=== PATIENT | female | born 1960 | race Caucasian/White ===

== ENCOUNTER → 2017-07-27 16:04 | Outpatient (CLI) | payer OTHER, SELFPAY ==
[2017-07-29 08:53] LABS: Thyroid Peroxidase AB 31 IU/mL (0-34)
== END ==
PROVIDERS: Family Provider Internal Medicine; PCP Internal Medicine; Visit Provider Internal Medicine
DX: R76.8 Other specified abnormal immunological findings in serum (principal)
CPT/HCPCS: 36415; 86376

== ENCOUNTER → 2017-09-03 16:28 | Outpatient (CLI) | payer OTHER, SELFPAY ==
--- NOTE | 2017-09-03 16:34 | RAD_ITS ---
STUDY: X-RAY - ABDOMEN/PELVIS REASON FOR EXAM: Female, 56 years old. Vomiting TECHNIQUE: Two AP supine views of the abdomen and pelvis. COMPARISON: None. FINDINGS: There is no bowel obstruction. There is air and stool to the level of the rectum. There are surgical clips in the right upper quadrant, consistent with prior cholecystectomy. The visualized osseous structures are within normal limits. RAD/Abdomen Single View IMPRESSION: No bowel obstruction. Electronically Signed: Zion Bautista, at 17:12 EDT Tel , Service support ,
== END ==
PROVIDERS: Family Provider Internal Medicine; PCP Internal Medicine; Visit Provider Nurse Practitioner
DX: R10.9 Unspecified abdominal pain (principal)
CPT/HCPCS: 74018

== ENCOUNTER → 2018-01-17 12:52 | Outpatient (CLI) | payer OTHER, SELFPAY ==
[2018-01-17 13:53] LABS: ALB/GLOB Ratio 0.9 RATIO (0.9-2.4); AST(SGOT) 22 U/L (15-37); Alanine Aminotransfer ALT/SGPT 29 U/L (13-56); Albumin, Serum 3.6 g/dL (3.2-5.0); Alkaline Phosphatase 53 U/L (45-117); Anion Gap 7 (5-15); BUN 14 mg/dL (7-18); BUN/Creat Ratio 17.7 RATIO (10-20); Calcium,Total 8.6 mg/dL (8.5-10.1); Chloride 107 mmol/L (98-107); Creatinine, Serum 0.79 mg/dL (0.55-1.02); EST Glomerular Filtration Rate 79 mL/min (>60); Est Glom Filt Rate - Afr Amer 96 mL/min (>60); Globulin 3.9 g/dL (2.2-4.2); Glucose 82 mg/dL (74-106); LDH 206 U/L (84-246); Potassium 4.2 mmol/L (3.5-5.1); Protein, Total 7.5 g/dL (6.4-8.2); Sodium Level 140 mmol/L (136-145)
[2018-01-17 14:10] LABS: Absolute Neutrophil Count 3.2 X10^3/uL (2.0-7.7); Basophil# 0.04 X10^3/uL; Basophil% 0.7 % (0-1); Eosinophil# 0.08 X10^3/uL; Eosinophils% 1.3 % (0-5); Hematocrit 40.3 % (37-47); Hemoglobin 13.7 g/dl (12.0-15.0); Lymphocyte % 34.3 % (19-41); Mean Corpuscular Volume 88.4 fL (81-99); Mean Platelet Vol. 9.3 fl (6.2-12.0); Monocyte# 0.66 X10^3/uL; Monocyte% 10.8 % (0-10); Neutrophil # 3.24 X10^3/uL (2.7-7.7); Neutrophil % 52.7 % (47-70); Platelet Count 305 K/mm3 (150-450); RBC Distribution Width SD 38.1 fl (35.1-43.9); Red Blood Count 4.56 M/mm3 (4.2-5.4); White Blood Count 6.1 K/mm3 (4.4-11.0)
[2018-01-17 14:13] LABS: POSITIVE COUNT NO; POSITIVE DIFFERENTIAL NO; POSITIVE MORPHOLOGY NO
== END ==
PROVIDERS: Family Provider Internal Medicine; PCP Internal Medicine; Visit Provider Internal Medicine Medical Oncology
DX: Z85.118 Personal history of other malignant neoplasm of bronchus and lung (principal)
CPT/HCPCS: 36415; 71250; 80053; 83615; 85025

== ENCOUNTER → 2018-02-18 12:26 | Outpatient (CLI) | payer OTHER, SELFPAY ==
--- NOTE | 2018-02-18 12:30 | RAD_ITS ---
STUDY: X-RAY - LEFT SHOULDER REASON FOR EXAM: Female, 57 years old. Palpable abnormality overlying the left clavicle. TECHNIQUE: 5 view(s) of the shoulder. COMPARISON: None. FINDINGS: Normal glenohumeral articulation. Normal acromioclavicular joint. Normal acromion. Normal humeral head and visualized proximal humerus. The soft tissue structures are unremarkable. Normal visualized pulmonary apex. RAD/Shoulder min 2 Views IMPRESSION: Normal x-ray examination of the shoulder. Electronically Signed: Bashir Lara MD at 12:55 EDT Tel [phone], Service support ,
== END ==
PROVIDERS: Family Provider Internal Medicine; PCP Internal Medicine; Visit Provider Internal Medicine
DX: M25.512 Pain in left shoulder (principal)
CPT/HCPCS: 73030

== ENCOUNTER 2018-06-03 10:46 | Emergency (ER) | payer OTHER, SELFPAY ==
[2018-06-03 10:47] VITALS: BP 147/93; PULSE 64; RESP 16; TEMP 36.5; O2SAT 98; BMI 21.4
--- NOTE | 2018-06-03 10:50 | ED.RN ---
CALLED FOR EKG
--- NOTE | 2018-06-03 10:58 | EKG12_ITS ---
Test Reason : PALPS Blood Pressure : / mmHG Vent. Rate : 062 BPM Atrial Rate : 062 BPM P-R Int : 146 ms QRS Dur : 084 ms QT Int : 408 ms P-R-T Axes : 046 064 069 degrees QTc Int : 414 ms Normal sinus rhythm Normal ECG Confirmed by RENE TRENT, CHANDANA ([id number]), electronic news gathering editor CHRIS MOY ([id number]) on 06/06/2018 1:23:29 PM Referred By: MARY Confirmed By:CHANDANA LÓPEZ MD
[2018-06-03 10:59] VITALS: PULSE 64; RESP 18; O2SAT 100
[2018-06-03 11:01] VITALS: BP 144/83
--- NOTE | 2018-06-03 11:07 | RAD_ITS ---
STUDY: X-RAY CHEST REASON FOR EXAM: Female, 57 years old. Chest pain, anxiety, palpitations. History of right lung lower lobe removal. TECHNIQUE: AP portable upright chest COMPARISON: 12/02/2015 chest x-ray. CT chest 01/17/2018. FINDINGS: Chronic mild blunting of the right costophrenic angle suggesting prior surgery. Lungs clear. Normal cardiomediastinal silhouette, jamal and pleural margins. No acute osseous or upper abdominal process. RAD/Chest 1 View (Portable) IMPRESSION: No acute cardiopulmonary process. Electronically Signed: Raman Mcmillan MD at 11:31 EST Tel , Service support ,
[2018-06-03 11:16] LABS: Absolute Lymphocyte Count 1.91 X10^3/ul (0.83-4.51); Basophil# 0.03 X10^3/uL; Basophil% 0.5 % (0-1); Eosinophil# 0.07 X10^3/uL; Eosinophils% 1.3 % (0-5); Hematocrit 40.9 % (37-47); Hemoglobin 13.8 g/dl (12.0-15.0); Lymphocyte # 1.91 X10^3/ul (4.0); Lymphocyte % 34.2 % (19-41); Mean Corp Hgb Conc 33.7 g/gl (32-36); Mean Corpuscular Hgb 29.7 pg (27.0-32.0); Mean Corpuscular Volume 88.1 fL (81-99); Mean Platelet Vol. 8.9 fl (6.2-12.0); Monocyte# 0.55 X10^3/uL; Monocyte% 9.9 % (0-10); Neutrophil # 3.02 X10^3/uL (2.7-7.7); Neutrophil % 54.1 % (47-70); Platelet Count 258 K/mm3 (150-450); RBC Distribution Width SD 38.7 fl (35.1-43.9); Red Blood Count 4.64 M/mm3 (4.2-5.4); White Blood Count 5.6 K/mm3 (4.4-11.0)
[2018-06-03 11:17] LABS: POSITIVE COUNT NO; POSITIVE DIFFERENTIAL NO; POSITIVE MORPHOLOGY NO
[2018-06-03] MEDS: Aspirin 81 MG TAB.CHEW 324 MG PO (11:17)
[2018-06-03 11:31] LABS: Anion Gap 9 (5-15); BUN 12 mg/dL (7-18); BUN/Creat Ratio 15.4 RATIO (10-20); Calcium,Total 8.7 mg/dL (8.5-10.1); Chloride 105 mmol/L (98-107); Creatinine, Serum 0.78 mg/dL (0.55-1.02); EST Glomerular Filtration Rate 80 mL/min (>60); Est Glom Filt Rate - Afr Amer 97 mL/min (>60); Estimated Creatinine Clearance 67.06 ml/min; Glucose 94 mg/dL (74-106); Potassium 3.7 mmol/L (3.5-5.1); Sodium Level 141 mmol/L (136-145)
--- NOTE | 2018-06-03 11:50 | ED.VISSUMM ---
- ER Visit Summary Date of Service: 06/03/18 Chief Complaint: Palpitations History of Present Illness: The patient is a 57 F who presents with palpitations. Started 3 days ago. She has had continuous palpitations for the past couple of days. She has had these intermittently in the past. I think it is from caffeine. She is also on metoprolol at half a pill twice a day. She denies any chest pain. No other symptoms. She does look a little anxious. Physical Examination: Vital signs reviewed. HEENT exam unremarkable. Heart is regular rate and rhythm without murmurs. Lungs are clear to auscultation. Abdomen is soft and nontender. Extremities reveal no edema. Skin exam normal. Neurologic exam normal. Test Results: EKG, labs and chest x-ray are all normal Emergency Department Course and Treatment: Patient's new blood pressure is 140/60. I informed her that we have no acute findings. She can increase her metoprolol to a full pill in the morning if she has the symptoms. She will call her PCP for follow-up Treatment Plan: [] Disposition: Discharge Impression: Palpitations This note was generated with [employer] dictation software. It may contain incorrect words, spelling, and punctuation that were not noted in review of the chart prior to signing ED Disposition - Plan for ED Patient: Chief Complaint: Palpitations Referrals: Ambreen West DO [Primary Care Provider] -
--- NOTE | 2018-06-03 11:53 | ED.DEP ---
ED Disposition - Plan for ED Patient: Disposition: Home or Assisted Living Chief Complaint: Palpitations Instructions: ED Palpitations Referrals: Ambreen West DO [Primary Care Provider] -
[2018-06-03 12:36] VITALS: BP 128/85; PULSE 52; RESP 19; O2SAT 98
== END 2018-06-03 12:37 | disposition home or self-care (01) ==
PROVIDERS: Emergency Provider Emergency Medicine; Family Provider Internal Medicine; PCP Internal Medicine
DX: R00.2 Palpitations (principal); Z79.899 Other long term (current) drug therapy
CPT/HCPCS: 71045; 80048; 84484; 85025; 93005; 99284; A4216

== ENCOUNTER → 2018-07-20 10:35 | Outpatient (CLI) | payer OTHER, SELFPAY ==
[2018-07-20 11:22] LABS: Absolute Lymphocyte Count 2.35 X10^3/ul (0.83-4.51); Absolute Neutrophil Count 3.9 X10^3/uL (2.0-7.7); Basophil# 0.03 X10^3/uL; Basophil% 0.4 % (0-1); Eosinophil# 0.11 X10^3/uL; Eosinophils% 1.6 % (0-5); Hematocrit 40.2 % (37-47); Hemoglobin 13.3 g/dl (12.0-15.0); Lymphocyte # 2.35 X10^3/ul (4.0); Lymphocyte % 33.6 % (19-41); Mean Corp Hgb Conc 33.1 g/gl (32-36); Mean Corpuscular Hgb 30.1 pg (27.0-32.0); Mean Platelet Vol. 9.1 fl (6.2-12.0); Monocyte# 0.58 X10^3/uL; Monocyte% 8.3 % (0-10); Neutrophil # 3.92 X10^3/uL (2.7-7.7); POSITIVE COUNT NO; POSITIVE DIFFERENTIAL NO; POSITIVE MORPHOLOGY NO; Platelet Count 265 K/mm3 (150-450); RBC Distribution Width SD 40.3 fl (35.1-43.9); Red Blood Count 4.42 M/mm3 (4.2-5.4)
[2018-07-20 11:58] LABS: ALB/GLOB Ratio 1.1 RATIO (0.9-2.4); AST(SGOT) 34 U/L (15-37); Alanine Aminotransfer ALT/SGPT 48 U/L (13-56); Albumin, Serum 3.6 g/dL (3.2-5.0); Alkaline Phosphatase 72 U/L (45-117); Anion Gap 5 (5-15); BUN 13 mg/dL (7-18); BUN/Creat Ratio 15.5 RATIO (10-20); Calcium,Total 8.3 mg/dL (8.5-10.1); Chloride 107 mmol/L (98-107); Creatinine, Serum 0.84 mg/dL (0.55-1.02); EST Glomerular Filtration Rate 74 mL/min (>60); Est Glom Filt Rate - Afr Amer 89 mL/min (>60); Globulin 3.4 g/dL (2.2-4.2); Glucose 55 mg/dL (74-106); Sodium Level 142 mmol/L (136-145); Thyroid Stim Hormone (TSH) 1.96 uIU/mL (0.358-3.74)
== END ==
PROVIDERS: Family Provider Internal Medicine; PCP Internal Medicine; Referring Provider Internal Medicine; Visit Provider Internal Medicine
DX: F41.9 Anxiety disorder, unspecified (principal); N89.8 Other specified noninflammatory disorders of vagina
CPT/HCPCS: 36415; 80053; 84443; 85025; 87086; 87088

== ENCOUNTER 2018-12-29 10:51 | Emergency (ER) | payer OTHER, SELFPAY ==
[2018-10-27 13:32] VITALS: BMI 21.4
[2018-12-29 10:52] VITALS: BP 164/87; PULSE 65; RESP 17; TEMP 36.8; O2SAT 99; BMI 22.8
--- NOTE | 2018-12-29 11:17 | EKG12_ITS ---
Test Reason : PALPS Blood Pressure : / mmHG Vent. Rate : 054 BPM Atrial Rate : 054 BPM P-R Int : 152 ms QRS Dur : 078 ms QT Int : 424 ms P-R-T Axes : 036 046 060 degrees QTc Int : 402 ms Sinus bradycardia Otherwise normal ECG Confirmed by RENE TRENT, CHANDANA ([id number]), corporate driver SAL HARTLEY ([id number]) on 01/01/2019 10:37:42 AM Referred By: NAHID Confirmed By:CHANDANA LÓPEZ MD
--- NOTE | 2018-12-29 11:17 | RAD_ITS ---
STUDY: X-RAY CHEST REASON FOR EXAM: Female, 58 years old. Heart flutter. Palpitations. TECHNIQUE: Single AP portable view of the chest. COMPARISON: June 03, 2018. FINDINGS: The lungs are clear and expanded. There is no demonstrated pleural abnormality. Normal size heart. Normal mediastinum and jamal. Normal visualized pulmonary arteries. Normal visualized aortic arch and descending thoracic aorta. No visualized osseous changes. There is no demonstrated abnormality of the visualized soft tissue structures of the upper abdomen. RAD/Chest 1 View (Portable) IMPRESSION: No acute cardiopulmonary disease or interval change. Electronically Signed: Barney Jacobs DO at 12:17 EDT Tel [phone], Service support ,
[2018-12-29 11:27] VITALS: O2SAT 97
[2018-12-29 11:39] LABS: Absolute Lymphocyte Count 2.19 X10^3/uL (0.83-4.51); Absolute Neutrophil Count 3.6 X10^3/uL (2.0-7.7); Basophil# 0.04 X10^3/uL; Basophil% 0.6 % (0-1); Eosinophil# 0.08 X10^3/uL; Eosinophils% 1.2 % (0-5); Hematocrit 42.6 % (37-47); Hemoglobin 14.5 g/dL (12.0-15.0); Lymphocyte # 2.19 X10^3/ul (4.0); Lymphocyte % 33.8 % (19-41); Mean Corpuscular Hgb 30.3 pg (27.0-32.0); Mean Corpuscular Volume 89.1 fL (81-99); Monocyte# 0.54 X10^3/uL; Monocyte% 8.3 % (0-10); NRBC Flagged by Analyzer 0 % (0-5); Neutrophil # 3.61 X10^3/uL (2.7-7.7); Neutrophil % 55.9 % (47-70); Platelet Count 306 K/mm3 (150-450); RBC Distribution Width CV 11.5 % (11.6-14.6); Red Blood Count 4.78 M/mm3 (4.2-5.4); White Blood Count 6.5 K/mm3 (4.4-11.0)
[2018-12-29 12:02] LABS: Anion Gap 5 (5-15); BUN 12 mg/dL (7-18); BUN/Creat Ratio 15.2 RATIO (10-20); Calcium,Total 9.2 mg/dL (8.5-10.1); Chloride 107 mmol/L (98-107); Creatinine, Serum 0.79 mg/dL (0.55-1.02); EST Glomerular Filtration Rate 79 mL/min (>60); Est Glom Filt Rate - Afr Amer 95 mL/min (>60); Estimated Creatinine Clearance 65.39 ml/min; Glucose 83 mg/dL (74-106); Potassium 3.8 mmol/L (3.5-5.1); Sodium Level 139 mmol/L (136-145); Thyroid Stim Hormone (TSH) 0.96 uIU/mL (0.358-3.74)
--- NOTE | 2018-12-29 12:19 | ED.VIS.GEN ---
History of Present Illness Informant: Patient, Family Onset: Days - 3 days Context: Gradual Onset Timing: Intermittent, Waxes and wanes Quality: Heart fluttering and skipping beats Location: Chest Current Severity: Mild Maximum Severity: Severe Worsened by: Nothing Relieved by: Rest Associated Symptoms: Heart racing and anxiety Narrative: 58-year-old female with a history of PVCs currently on metoprolol presents to the emergency department with palpitations and feeling like her heart is racing and skipping beats. Patient has a known history of PVCs but feels over the past 3 to 4 days they have gotten more frequent lasting longer. She states that they last for several minutes at a time. She has not had chest pain or shortness of breath and she does not have any exertional symptoms. She has not been lightheaded or dizzy. No coughing. No vomiting. No leg pain or swelling. No recent travel or surgery. She has a Holter monitor and echo scheduled for tomorrow after she saw her primary care physician for same symptoms 2 days ago. Prior similar symptoms: Yes Recent Illness/Hospitalization: No <Marcin Núñez - Last Filed: 12/29/18 12:19> <Luis E Goodman - Last Filed: 12/29/18 12:46> Chief Complaint: Palpitations Past Medical History Prior records reviewed: Yes Past Medical History: - - PVC's Surgical History: no surgical history Smoking Status: Former smoker <Marcin Núñez - Last Filed: 12/29/18 12:19> <Luis E Goodman - Last Filed: 12/29/18 12:46> - Allergies and Home Meds Allergies/Adverse Reactions: Allergies levofloxacin [From Levaquin] Adverse Reaction (Verified 12/29/18 10:52) Swelling METALS Adverse Reaction (Uncoded 12/29/18 10:52) Rash TAPE Adverse Reaction (Uncoded 12/29/18 10:52) Rash Primary Care Physician: Ambreen West DO [Primary Care Provider] - Review of Systems All systems negative except as indicated General: Denies: Chills, Fever Cardiovascular: Reports: Palpitations, Heart racing. Denies: Chest pain Respiratory: Denies: Dyspnea <Marcin Núñez - Last Filed: 12/29/18 12:19> Physical Exam Vital Signs/Narrative: Vital Signs Temp Pulse Resp BP Pulse Ox 12/29/18 11:27 97 12/29/18 10:52 98.3 F 65 17 164/87 H 99 Inital Vital Signs reviewed: Yes General: Well nourished, Well developed, No Acute Distress Head: Normocephalic, Atraumatic Eyes: Perrl, EOMI ENT: Moist mucous membranes Neck: Supple, Nontender Cardiovascular: Regular rate, Regular rhythm, No murmurs Respiratory: No distress, CTA bilaterally, Chest nontender Abdomen: Soft, Nontender, Nondistended, Normal bowel sounds, No masses Back: Nontender Extremities: Nontender, No edema Skin: Normal color, No rash Neurological: Alert, Oriented x3 <Marcin Núñez - Last Filed: 12/29/18 12:19> Vital Signs/Narrative: Vital Signs Temp Pulse Resp BP Pulse Ox 12/29/18 11:27 97 12/29/18 10:52 98.3 F 65 17 164/87 H 99 <Luis E Goodman - Last Filed: 12/29/18 12:46> Diagnostic/Tx/Re-eval Impressions Chest X-Ray 12/29/18 11:17 IMPRESSION: No acute cardiopulmonary disease or interval change. Electronically Signed: Barney Jacobs DO at 12:17 EDT Tel [phone], Service support , 12/29/18 11:17 Chest 1 View (Portable) [RAD] Stat Laboratory Results 12/29/18 12/29/18 11:25 11:25 WBC 6.5 RBC 4.78 Hgb 14.5 Hct 42.6 MCV 89.1 MCH 30.3 MCHC 34.0 RDW Std Deviation 37.0 RDW Coeff of Cole 11.5 L Plt Count 306 MPV 9.0 Immature Gran % (Auto) 0.200 Neut % (Auto) 55.9 Lymph % (Auto) 33.8 [place] % (Auto) 8.3 Eos % (Auto) 1.2 Baso % (Auto) 0.6 Absolute Neuts (auto) 3.6 Absolute Lymphs (auto) 2.19 Nucleated RBC % 0 Sodium 139 Potassium 3.8 Chloride 107 Carbon Dioxide 27.0 Anion Gap 5 BUN 12 Creatinine 0.79 Estim Creat Clear Calc 65.39 Est GFR (MDRD) Af Amer 95 Est GFR (MDRD) Non-Af 79 BUN/Creatinine Ratio 15.2 Glucose 83 Calcium 9.2 Troponin I < 0.015 TSH 0.96 - Medical Decision Making Seen and evaluated independently and in conjunction with physician butcher assistant. Agree with notes above unless documented otherwise. Patient having episodes of palpitations that feels like lots of PVCs continuously, she is used to having PVCs but not these episodes. She is scheduled for a Holter monitor and an echocardiogram tomorrow. She woke up and had another episode like this today that lasted maybe an hour or 2, she felt a little lightheaded but was not near syncopal or syncopal. She had no chest discomfort or shortness of breath. Those symptoms are gone gone now. Her work-up is unremarkable, her exam is fairly benign she does not have a murmur. She is well-appearing. She has sinus rhythm with no ectopy on a monitor or her EKG. Electrolytes are all within normal limits. After discussing thoroughly with the patient, she is stable for discharge home and follow-up as scheduled tomorrow for her Holter and echo, which would be the next step in treatment/diagnoses for this. I do not think we can safely go up on her metoprolol since her heart rate at rest is 50-52. She does not appear to have any AV block. I would continue her medications as prescribed and follow-up with her general hardware salesperson as scheduled. <Luis E Goodman - Last Filed: 12/29/18 12:46> ED Disposition <Marcin Núñez - Last Filed: 12/29/18 12:19> <Luis E Goodman - Last Filed: 12/29/18 12:46> - Plan for ED Patient: Disposition: Home or Assisted Living Diagnosis: Palpitations Instructions: Premature Ventricular Contractions, Palpitations Referrals: Ambreen West DO [Primary Care Provider] - Richard Cardona MD [STAFF PHYSICIAN] - (Follow-up for your Holter monitor and echocardiogram as scheduled tomorrow)
[2018-12-29 13:09] VITALS: BP 134/86; PULSE 51; RESP 16; O2SAT 95
== END 2018-12-29 13:10 | disposition home or self-care (01) ==
PROVIDERS: Emergency Provider Physician Assistant Medical; Family Provider Internal Medicine; PCP Internal Medicine
DX: R00.2 Palpitations (principal); I49.3 Ventricular premature depolarization; Z79.899 Other long term (current) drug therapy; Z87.891 Personal history of nicotine dependence
CPT/HCPCS: 71045; 80048; 84443; 84484; 85025; 93005; 99285; A4216

== ENCOUNTER → 2018-12-30 | Outpatient (CLI) | payer OTHER, SELFPAY ==
[2018-10-27 13:32] VITALS: BMI 21.4
[2018-12-29 10:52] VITALS: BMI 22.8
--- NOTE | 2018-12-30 12:53 | ECHOD_ITS ---
Reason For Study: arrhythmia, other premature beats Procedure This was a 2D Doppler, Color Flow transthoracic echocardiogram. The exam was of adequate technical quality. Exam performed in department. Left Ventricle Normal LV size. Left ventricular systolic function is normal. The estimated ejection fraction is 65 %. Diastolic function is indeterminate. No regional wall motion abnormalities noted. Right Ventricle Normal RV size. Normal systolic function. Atria The left atrium is mildly enlarged. Normal right atrium. No doppler evidence for ASD. Mitral Valve There is no mitral annular calcification. Normal mitral valve. Trivial mitral valve insufficiency. Tricuspid Valve Normal tricuspid valve. Mild tricuspid valve insufficiency. Right ventricular systolic pressure estimated to be 21 mmHg. Aortic Valve Trisinus/trileaflet aortic valve. Normal aortic valve. Pulmonic Valve The pulmonic valve is not well visualized. Trivial pulmonic valve insufficiency. Great Vessels Normal sized aortic root. Pericardium/Pleural No pericardial effusion. MMode/2D Measurements & Calculations LVIDd: 4.4 cm IVSd: 0.75 cm Ao root diam: 2.5 cm LVIDs: 2.7 cm LVPWd: 1.00 cm RVDd: 3.2 cm FS: 39.6 % LAV(MOD-bp): 55.7 ml LA A4 area: 19.1 cm2 LA dimension(2D): 2.8 cm LAV(MOD-bp) Indexed: 34.1 ml/m2 LAV(MOD-sp2): 47.8 ml LAV(MOD-sp4): 56.9 ml RA A4 area: 14.6 cm2 Time Measurements MV dec time: 0.12 sec Doppler Measurements & Calculations MV E max douglas: 120.6 cm/sec Lat Peak E' Douglas: 10.9 cm/sec Med Peak E' Douglas: 8.0 cm/sec MV A max douglas: 61.8 cm/sec E/E' lat: 11.1 E/E' med: 15.1 MV E/A: 2.0 Ao V2 max: 136.0 cm/sec LV V1 max: 114.4 cm/sec TR max douglas: 213.2 cm/sec Ao max P.4 mmHg LV V1 max P.2 mmHg TR max P.2 mmHg Interpretation Summary Left ventricular systolic function is normal. The estimated ejection fraction is 65 %. The left atrium is mildly enlarged. Trivial mitral valve insufficiency. Mild tricuspid valve insufficiency. Trivial pulmonic valve insufficiency. Right ventricular systolic pressure estimated to be 21 mmHg. Diastolic function is indeterminate. Ordering Physician: Rachel Melissa Referring Physician: Ambreen West Performed By: Cindy Vines, DEVANTE, RVT
== END | disposition home or self-care (01) ==
LOC: CVS 12:51
PROVIDERS: Family Provider Internal Medicine; PCP Internal Medicine; Referring Provider Nurse Practitioner; Visit Provider Nurse Practitioner
DX: I49.49 Other premature depolarization (principal)
CPT/HCPCS: 93225; 93226; 93306

== ENCOUNTER → 2019-01-14 | Outpatient (CLI) | payer OTHER, SELFPAY ==
[2018-10-27 13:32] VITALS: BMI 21.4
[2019-01-10 10:38] VITALS: BMI 22.8
--- NOTE | 2019-01-14 14:28 | CT_ITS ---
STUDY: CT CHEST WITHOUT CONTRAST REASON FOR EXAM: Female, 58 years old. Lung cancer surveillance RADIATION DOSAGE (If Supplied By Facility): CTDIvol = ( 9.92 ) mGy, DLP = ( 306.88 ) mGycm TECHNIQUE: Transaxial imaging was performed without the administration of intravenous contrast material. Sagittal and coronal 2-D MPR Individualized dose optimization techniques were used for this CT. COMPARISON: CT chest 01/17/2018, 02/03/2016, 02/09/2015, 02/12/2014, x-ray chest of 12/21/2017, 06/03/2018 FINDINGS: Supraclavicular: No acute process. Body wall soft tissues: No acute process. Upper abdomen: No acute process. Osseous structures: No acute process. Mild scoliosis. Minimal thoracic spondylosis. Mediastinum: Normal esophagus. No mass or lymphadenopathy. Aorta: Nondilated, minimal atherosclerosis. Pulmonary arteries: Normal. Heart: No cardiomegaly. No visible coronary calcifications. No pericardial effusion. Surgical clips are located in the pericardial fat at the right cardiophrenic angle. Lungs: Clear lungs bilaterally. CT/Chest without Contrast IMPRESSION: No acute thoracic process. No evidence of malignancy. Electronically Signed: Raman Mcmillan MD at 15:39 EDT Tel , Service support ,
== END | disposition home or self-care (01) ==
PROVIDERS: Family Provider Internal Medicine; PCP Internal Medicine; Referring Provider Internal Medicine Medical Oncology; Visit Provider Internal Medicine Medical Oncology
DX: Z85.118 Personal history of other malignant neoplasm of bronchus and lung (principal)
CPT/HCPCS: 71250

== ENCOUNTER → 2019-01-20 | Outpatient (CLI) | payer OTHER, SELFPAY ==
[2019-01-10 10:38] VITALS: BMI 22.8
--- NOTE | 2019-01-20 08:57 | AAAS_ITS ---
Reason For Study: Family history of aneurysm Aorta Measurements Aorta Doppler Measurements Proximal aorta measures1.93 x 1.98cm. in cross- Peak systolic flow velocities within the proximal sectional axis. aorta measure 56.7 cm/sec. Proximal aorta measures1.94cm. in longitudinal Peak systolic flow velocities within the mid aorta axis. measure 53.4 cm/sec. Mid aorta measures1.14 x 1.16cm. in cross- Peak systolic flow velocities within the distal sectional axis. aorta measure 97.9 cm/sec. Mid aorta measures1.20cm. in longitudinal axis. Distal aorta measures1.20 x 1.19cm. in cross- sectional axis. Distal aorta measures1.21cm. in longitudinal axis. Left Iliac Artery Left iliac artery measures 0.79 x 0.83 cm. in the cross-sectional axis. Left iliac artery measures 0.77 cm. in the longitudinal axis. Peak systolic velocity in the left iliac artery measures 86.9 cm/sec. Right Iliac Artery Right iliac artery measures 0.69 x 0.71 cm. in the cross-sectional axis. Right iliac artery measures 0.81 cm. in the longitudinal axis. Peak systolic velocity in the right iliac artery measures 97.9 cm/sec. Procedure Aorta IVC Iliac vasculature or bypass grafts [id number]. Exam performed in department. Interpretation Summary Aorta maximally 1.93 x 1.98cm diameter proximally with normal velocity flow Left common iliac 0.79 x 0.83cm with normal flow Right common iliac 0.69 x 0.71cm with normal flow Ordering Physician: Richard Cardona Referring Physician: Ambreen West M.D. Performed By: Rachael Gonsalez RVT
== END | disposition home or self-care (01) ==
LOC: CVS 08:56
PROVIDERS: Family Provider Internal Medicine; PCP Internal Medicine; Referring Provider Internal Medicine Cardiovascular Disease; Visit Provider Internal Medicine Cardiovascular Disease
DX: I10 Essential (primary) hypertension (principal); I49.1 Atrial premature depolarization; I49.3 Ventricular premature depolarization; R06.02 Shortness of breath
CPT/HCPCS: 76706

== ENCOUNTER → 2019-01-21 | Outpatient (CLI) | payer OTHER, SELFPAY ==
[2019-01-10 10:38] VITALS: BMI 22.8
--- NOTE | 2019-01-21 11:08 | STRESSREP ---
Stress Test Report Date: 01-21-19 Procedure: Exercise tolerance test/imaging study Indications: Shortness of breath/dyspnea; Chest discomfort Consent: Per the patient Procedure: The patient exercised on a Jorge protocol for 6 minutes and 27 seconds completing Stage II and 27 seconds of Stage III achieving a peak heart rate of 157 bpm (98 % predicted maximal heart rate) with a peak blood pressure 192/92 mmHg and a peak MET capacity of 7 METs. The baseline ECG demonstrated sinus bradycardia. The peak exercise ECG demonstrated no obvious ECG changes. There was a rare PVC during exercise and an occasional PVC during recovery. The functional capacity was considered average. There was no complaint of chest discomfort during exercise or recovery. The examination was discontinued secondary to dyspnea. Impression: 1. Technically adequate (percent predicted maximal heart rate greater than 85%) exercise tolerance test 2. Peak exercise ECG with no obvious ECG changes 3. There was a rare PVC during exercise and occasional PVC during recovery 4. Nuclear images pending Myocardial perfusion imaging study: Technique: The patient was injected with 11.1 mCi of technetium 99m Cardiolite and subsequently rest SPECT Cardiolite nuclear imaging was obtained in the horizontal long, vertical long, and short axis views. The patient exercised on a Jorge protocol for 6 minutes and 27 seconds completing Stage II and 27 seconds of Stage III achieving a peak heart rate of 157 bpm (98 % predicted maximal heart rate) with a peak blood pressure 192/92 mmHg and a peak MET capacity of 7 METs. The patient was injected with 32.9 mCi of technetium 99m Cardiolite and subsequently stress SPECT Cardiolite nuclear imaging was obtained in the horizontal long, vertical long, and short axis views. A gated Cardiolite study at peak stress was obtained. Interpretation: Rest and stress SPECT Cardiolite nuclear imaging status post realignment and normalization (attenuation correction was not performed) demonstrates the appearance of relative uniform tracer uptake and myocardial perfusion appearing within normal limits. There is end systolic thickening and brightening. The gated Cardiolite study demonstrates myocardial thickening and inward wall motion. The reported LVEF is 80 %. Impression: 1. Rest and stress SPECT Cardiolite nuclear imaging demonstrate relative uniform tracer uptake and myocardial perfusion appearing within normal limits. 2. The gated Cardiolite study reports an LVEF of 80 %. This note was generated with [employer] software. It may contain incorrect words, spelling, and punctuation that were not noted in checking the note before signing.
== END | disposition home or self-care (01) ==
LOC: CVS 06:28
PROVIDERS: Family Provider Internal Medicine; PCP Internal Medicine; Referring Provider Internal Medicine Cardiovascular Disease; Visit Provider Internal Medicine Cardiovascular Disease
DX: R06.02 Shortness of breath (principal); I10 Essential (primary) hypertension; I49.1 Atrial premature depolarization; I49.3 Ventricular premature depolarization
CPT/HCPCS: 78452; 93017; A9500; A4216

== ENCOUNTER → 2019-06-23 14:21 | Outpatient (CLI) | payer OTHER, SELFPAY ==
[2019-01-23 14:00] VITALS: BMI 21.9
--- NOTE | 2019-06-23 14:26 | US_ITS ---
STUDY: ULTRASOUND BREAST - RIGHT REASON FOR EXAM: Female, 58 years old. Abnormal mammogram. TECHNIQUE: Axial and longitudinal images of the RIGHT breast were performed with a high resolution ultrasound transducer. # OF IMAGES: 45 COMPARISON: Comparison is made with prior mammogram dated June 23, 2019. FINDINGS: RIGHT Breast: Dense fibroglandular tissue. No solid or cystic mass lesion is seen. IMPRESSION: No sonographic abnormality is seen. ASSESSMENT CATEGORY: BIRADS Category 1: Negative. A letter regarding these results will be sent to the patient by the facility within 30 days. Electronically Signed: Bashir Lara, at 13:08 EST , Service support , STUDY: ULTRASOUND BREAST - LEFT REASON FOR EXAM: Female, 58 years old. Pain in the left breast. TECHNIQUE: Axial and longitudinal images of the LEFT breast were performed with a high resolution ultrasound transducer. # OF IMAGES: 45 COMPARISON: Comparison is made with prior mammogram from June 23, 2019. FINDINGS: LEFT Breast: The retroareolar region of the breast was examined by ultrasound. No sonographic abnormality is seen. US/Breast Limited Unilateral IMPRESSION: No sonographic abnormality is seen. ASSESSMENT CATEGORY: BIRADS Category 2: Benign. A letter regarding these results will be sent to the patient by the facility within 30 days. Electronically Signed: Bashir Lara, at 13:10 EST , Service support ,
--- NOTE | 2019-06-23 14:26 | BI_ITS ---
MAMMOGRAPHY - BILATERAL DIAGNOSTIC REASON FOR EXAM: Female, 58 years old. Left breast pain. History of lung cancer. PERTINENT HISTORY: Non-contributory. TECHNIQUE: Digital bilateral breast lucia (3D mammographic acquisition) in the CC and MLO projections. 2-D mediolateral oblique (MLO) and craniocaudad (CC) views of both breasts were obtained. CAD: Full Field Digital Mammography with Computer Added Detection was performed. COMPARISON: Comparison is made with prior outside examination dated September 29, 2016. FINDINGS: Breast Composition: The breasts are extremely dense, which lowers the sensitivity of mammography. There are no dominant masses or suspicious calcifications. Stable benign-appearing bilateral axillary lymph nodes. No other significant abnormalities are identified. There has been no significant change since the prior study. BI/DIAG MAMM W/CAD, BILAT IMPRESSION: Stable bilateral diagnostic mammogram. With the patient''s history of left breast pain, correlation with ultrasound is recommended. ASSESSMENT CATEGORY: BIRADS Category 0: Incomplete. Need additional imaging evaluation. A letter regarding these results will be sent to the patient by the facility within 30 days. Approximately 10% of breast cancers are not detected by mammography. A normal mammogram should not delay biopsy of a clinically suspicious abnormality. Electronically Signed: Bashir Lara, at 10:44 EST , Service support ,
== END ==
PROVIDERS: PCP Internal Medicine; Visit Provider Nurse Practitioner Family
DX: N64.4 Mastodynia (principal); R92.8 Other abnormal and inconclusive findings on diagnostic imaging of breast; Z85.118 Personal history of other malignant neoplasm of bronchus and lung
CPT/HCPCS: 76642; 77062; 77066; G0279

== ENCOUNTER → 2019-12-16 07:53 | Outpatient (CLI) | payer OTHER, SELFPAY ==
[2019-01-23 14:00] VITALS: BMI 21.9
[2019-12-11 10:29] VITALS: BMI 22.1
--- NOTE | 2019-12-16 07:56 | MRI_ITS ---
STUDY: MRI LUMBAR SPINE WITH AND WITHOUT CONTRAST REASON FOR EXAM: Female, 58 years old. Back pain, lung CA TECHNIQUE: Standardized fat and water weighted pulse sequences were obtained in the sagittal and axial planes. IV Dotarem 11ml was administered for the contrast portion of the examination. COMPARISON: FINDINGS: T12-L1: Normal endplates. Normal disc height, hydration and morphology. Normal bilateral facet joints. Normal central canal and bilateral lateral recesses. Normal bilateral intervertebral neural foramina. Normal lumbar lordosis. There is no substantial scoliosis. Normal conus medullaris that terminates at the L1-2: Normal endplates. Normal disc height, hydration and morphology. Normal bilateral facet joints. Normal central canal and bilateral lateral recesses. Normal bilateral intervertebral neural foramina. L2-3: Normal endplates. Normal disc height, hydration and morphology. Normal bilateral facet joints. Normal central canal and bilateral lateral recesses. Normal bilateral intervertebral neural foramina. L3-4: Normal endplates. Normal disc height, hydration and morphology. Normal bilateral facet joints. Normal central canal and bilateral lateral recesses. Normal bilateral intervertebral neural foramina. L4-5: Normal endplates. Normal disc height, hydration and morphology. Normal bilateral facet joints. Normal central canal and bilateral lateral recesses. Normal bilateral intervertebral neural foramina. L5-S1: Normal endplates. Normal disc height, hydration and morphology. Normal bilateral facet joints. Normal central canal and bilateral lateral recesses. Normal bilateral intervertebral neural foramina. Normal visualized sacral ala. Normal visualized paraspinous soft tissue structures. There is no demonstrated abnormal enhancement. MRI/Spine Lumbar W/WO Contrast IMPRESSION: Normal enhanced and unenhanced MR examination of the lumbar spine. No MR evidence metastatic disease. Electronically Signed: Raman Vera MD at 10:16 EDT Tel , Service support ,
--- NOTE | 2019-12-16 07:56 | CT_ITS ---
STUDY: CT CHEST WITH CONTRAST REASON FOR EXAM: Female, 58 years old. LUNG CANCER FOLLOW UP, RLL RESECTION RADIATION DOSAGE (If Supplied By Facility): CTDIvol = ( 7.74 ) mGy, DLP = ( 188.46 ) mGycm TECHNIQUE: Transaxial imaging was performed following intravenous administration of IV 100mL Isovue-300. Multiplanar coronal and sagittal images were reformatted. Individualized dose optimization techniques were used for this CT. COMPARISON: Comparison is made with prior study dated January 14, 2019. FINDINGS: There is minimal intrarenal pump right apical scarring. There is no demonstrated pleural abnormality. Normal heart and pericardium. Normal mediastinum. Normal hilar regions. Normal enhanced pulmonary arteries. There is atherosclerotic calcification of the aortic arch . There are degenerative changes of the thoracic spine. There is no demonstrated abnormality of the visualized upper abdomen. CT/Chest WITH Contrast IMPRESSION: Stable examination. No acute abnormalities. Electronically Signed: Bashir Lara, at 8:57 EDT , Service support ,
[2019-12-16 08:21] LABS: CREATININE FINGERSTICK 0.7 mg/dL (0.55-1.02)
== END ==
PROVIDERS: PCP Internal Medicine; Referring Provider Internal Medicine Medical Oncology; Visit Provider Internal Medicine Medical Oncology
DX: M54.9 Dorsalgia, unspecified (principal); Z85.118 Personal history of other malignant neoplasm of bronchus and lung
CPT/HCPCS: 71260; 72158; A9575; Q9967; A4216

== ENCOUNTER → 2020-12-13 12:36 | Outpatient (CLI) | payer OTHER, SELFPAY ==
[2020-01-16 13:01] VITALS: BMI 22.1
--- NOTE | 2020-12-13 12:41 | CT_ITS ---
STUDY: CT CHEST WITH CONTRAST REASON FOR EXAM: Female, 59 years old. HX OF LUNG CA-SURVEILLANCE RADIATION DOSAGE (If Supplied By Facility): CTDIvol = ( 11.6 ) mGy, DLP = ( 251.83 ) mGycm TECHNIQUE: Transaxial imaging was performed following intravenous administration of IV 100mL Isovue-300. Multiplanar coronal and sagittal images were reformatted. Individualized dose optimization techniques were used for this CT. COMPARISON: Comparison is made with prior study dated 12/16/2019. FINDINGS: Stable small benign appearing bilateral axillary lymph nodes. Stable mild scarring at the right lung apex. There is no demonstrated pleural abnormality. Normal heart and pericardium. Normal mediastinum. Normal hilar regions. Normal enhanced pulmonary arteries. There is mild atherosclerotic calcification of the aortic arch . There are multi-level degenerative changes of the thoracic spine. There is no demonstrated abnormality of the visualized upper abdomen. CT/Chest WITH Contrast IMPRESSION: Stable examination. No acute abnormality is seen. Electronically Signed: Bashir Lara MD at 15:16 EDT , Service support ,
[2020-12-13 13:06] LABS: CREATININE FINGERSTICK 0.6 mg/dL (0.55-1.02); EGFR FINGERSTICK > 60.0000 mL/min (>60)
== END ==
PROVIDERS: PCP Internal Medicine; Referring Provider Internal Medicine Medical Oncology; Visit Provider Internal Medicine Medical Oncology
DX: Z85.118 Personal history of other malignant neoplasm of bronchus and lung (principal)
CPT/HCPCS: 71260; Q9967

== ENCOUNTER 2021-08-24 14:08 | Outpatient (CLI) | payer OTHER, SELFPAY ==
--- NOTE | 2021-08-24 14:11 | BI_ITS ---
MAMMOGRAPHY - BILATERAL SCREENING REASON FOR EXAM: Female, 60 years old. Routine annual screening examination. PERTINENT HISTORY: Non-contributory. History of prior lung cancer. TECHNIQUE: Digital bilateral breast ozzie (3D mammographic acquisition) in the CC and MLO projections. 2-D mediolateral oblique (MLO) and craniocaudad (CC) views of both breasts were obtained. CAD: Full Field Digital Mammography with Computer Added Detection was performed. COMPARISON: Comparison is made with prior examination dated 06/23/2019. FINDINGS: Breast Composition: The breasts are extremely dense, which lowers the sensitivity of mammography. There are no dominant masses or suspicious calcifications. No other significant abnormalities are identified. There has been no significant change since the prior study. BI/SCRN MAMM (CAD)W/OZZIE BILAT IMPRESSION: Stable bilateral screening mammogram. Yearly follow-up mammogram recommended. (A) ASSESSMENT CATEGORY: BIRADS Category 1: Negative. A letter regarding these results will be sent to the patient by the facility within 30 days. Approximately 10% of breast cancers are not detected by mammography. A normal mammogram should not delay biopsy of a clinically suspicious abnormality. [id number] Electronically Signed: Bashir Lara MD at 14:57 EDT ,
== END 2021-08-24 23:59 | disposition home or self-care (01) ==
LOC: OPBI 14:09
PROVIDERS: PCP Internal Medicine; Visit Provider Obstetrics & Gynecology
DX: Z12.31 Encounter for screening mammogram for malignant neoplasm of breast (principal)
CPT/HCPCS: 77063; 77067

== ENCOUNTER 2021-09-28 08:24 | Emergency (ER) | payer OTHER, SELFPAY ==
[2021-09-28 08:25] VITALS: BP 198/104; PULSE 74; RESP 16; TEMP 36.5; O2SAT 98; BMI 21.9
--- NOTE | 2021-09-28 08:34 | EKG12_ITS ---
Test Reason : PALPS Blood Pressure : / mmHG Vent. Rate : 060 BPM Atrial Rate : 060 BPM P-R Int : 170 ms QRS Dur : 086 ms QT Int : 406 ms P-R-T Axes : 073 052 064 degrees QTc Int : 406 ms Normal sinus rhythm Normal ECG Confirmed by RENE TRENT, CHANDAAN ([id number]), editorial intern SAL HARTLEY ([id number]) on 09/30/2021 10:21:18 AM Referred By: MINOR Confirmed By:CHANDANA LÓPEZ MD
[2021-09-28 08:59] VITALS: BP 159/104; PULSE 59; RESP 14; O2SAT 99
--- NOTE | 2021-09-28 09:25 | EKG12_ITS ---
Test Reason : REPEAT CP Blood Pressure : / mmHG Vent. Rate : 056 BPM Atrial Rate : 056 BPM P-R Int : 172 ms QRS Dur : 078 ms QT Int : 418 ms P-R-T Axes : 063 048 060 degrees QTc Int : 403 ms Sinus bradycardia Otherwise normal ECG Confirmed by RENE TRENT, CHANDANA ([id number]), society editor SAL HARTLEY ([id number]) on 09/30/2021 10:19:35 AM Referred By: MINOR Confirmed By:CHANDANA LÓPEZ MD
--- NOTE | 2021-09-28 09:25 | CT_ITS ---
STUDY: CTA OF THE BRAIN REASON FOR EXAM: Female, 60 years old. Headaches, dizzy RADIATION DOSAGE (If Supplied By Facility): CTDIvol = ( 26.01 ) mGy, DLP = ( 1114.22 ) mGycm TECHNIQUE: CT angiography was performed with a multi-detector CT scanner. Data acquisition was obtained from the skull base through the vertex following intravenous administration of IV 100mL Isovue-370. MIP images were reconstructed from the axial data set. Post-processing of the angiographic images was performed, with multiplanar reformation and 3D reconstruction. Individualized dose optimization techniques were used for this CT. COMPARISON: None. FINDINGS: Normal bilateral petrous carotid arteries. Normal right cavernous carotid artery with a normal supraclinoid bifurcation. Normal left cavernous carotid artery with a normal supraclinoid bifurcation. Normal right A1 segments of the anterior cerebral artery. Normal left A1 segments of the anterior cerebral artery. Normal intact anterior communicating artery (ACOM). Normal bilateral A2 segments of the anterior cerebral arteries. Normal right M1 and M2 segments of the middle cerebral arteries, with a normal M1 bifurcation. Normal left M1 and M2 segments of the middle cerebral arteries, with a normal M1 bifurcation. Normal right posterior communicating artery (PCOM). Normal left posterior communicating artery (PCOM). Normal bilateral vertebral arteries. Normal basilar artery with a normal basilar bifurcation. The visualized bilateral superior cerebellar (SCA) arteries are normal. Normal bilateral P1, P2 and visualized P3 segments of the posterior cerebral arteries. There is no demonstrated aneurysm of the [place]. Mild atrophy. Partial opacification of the axillary size bilaterally. CT/CTA Head W/WO Contrast IMPRESSION: Normal [place] without a demonstrated aneurysm or hemodynamically significant stenosis. Electronically Signed: Bashir Lara MD at 10:39 EDT ,
--- NOTE | 2021-09-28 09:28 | RAD_ITS ---
STUDY: X-RAY CHEST REASON FOR EXAM: Female, 60 years old. Pain TECHNIQUE: Single AP portable view of the chest. COMPARISON: Comparison is made with prior study 12/29/2018. FINDINGS: EKG electrodes are seen. Hyperinflation. The lungs are clear. Stable blunting of the right costophrenic angle. There is no demonstrated pleural abnormality. Normal size heart. Normal mediastinum and jamal. Normal visualized pulmonary arteries. There is atherosclerotic tortuosity of the aortic arch and descending thoracic aorta. Normal visualized thoracic spine. Normal visualized ribs, clavicles, and shoulders. There is no demonstrated abnormality of the visualized soft tissue structures of the upper abdomen. RAD/Chest 1 View (Portable) IMPRESSION: Hyperinflation. The lungs are clear. Electronically Signed: Bashir Lara MD at 9:50 EDT ,
[2021-09-28 09:38] LABS: Absolute Lymphocyte Count 1.59 X10^3/uL (0.83-4.51); Absolute Neutrophil Count 2.8 X10^3/uL (2.0-7.7); Basophil# 0.04 X10^3/uL; Basophil% 0.8 % (0-1); Eosinophil# 0.08 X10^3/uL; Eosinophils% 1.6 % (0-5); Hematocrit 40.6 % (37-47); Hemoglobin 14.1 g/dL (12.0-15.0); Lymphocyte # 1.59 X10^3/ul (0.83-4.51); Lymphocyte % 31.9 % (19-41); Mean Corp Hgb Conc 34.7 g/dL (32-36); Mean Corpuscular Hgb 30.5 pg (27.0-32.0); Mean Corpuscular Volume 87.7 fL (81-99); Mean Platelet Vol. 9.2 fl (6.2-12.0); Monocyte# 0.45 X10^3/uL; NRBC Flagged by Analyzer 0 % (0-5); Neutrophil % 56.3 % (47-70); Platelet Count 259 K/mm3 (150-450); RBC Distribution Width CV 11.3 % (11.6-14.6); RBC Distribution Width SD 36.5 fl (35.1-43.9); Red Blood Count 4.63 M/mm3 (4.2-5.4)
[2021-09-28 10:02] LABS: AST(SGOT) 26 U/L (15-37); Alanine Aminotransfer ALT/SGPT 37 U/L (13-56); Albumin, Serum 3.6 g/dL (3.2-5.0); Alkaline Phosphatase 62 U/L (45-117); Anion Gap 8 (5-15); BUN 13 mg/dL (7-18); BUN/Creat Ratio 15.7 RATIO (10-20); Bilirubin, Direct 0.12 mg/dL (0.00-0.30); Calcium,Total 8.6 mg/dL (8.5-10.1); Chloride 105 mmol/L (98-107); Creatinine, Serum 0.83 mg/dL (0.55-1.02); EST Glomerular Filtration Rate 74 mL/min (>60); Est Glom Filt Rate - Afr Amer 90 mL/min (>60); Estimated Creatinine Clearance 60.69 ml/min; Globulin 3.6 g/dL (2.2-4.2); Glucose 91 mg/dL (74-106); Potassium 3.5 mmol/L (3.5-5.1); Protein, Total 7.2 g/dL (6.4-8.2); Sodium Level 140 mmol/L (136-145); Thyroid Stim Hormone (TSH) 1.23 uIU/mL (0.358-3.74); Troponin-I HS 4 pg/mL (3.0-54.0)
[2021-09-28 10:25] VITALS: BP 146/75; PULSE 57; RESP 17; O2SAT 98
--- NOTE | 2021-09-28 11:57 | EDS_ITS ---
HPI History of Present Illness Chief Complaint: Hypertension Informant: patient Narrative Narrative: Patient's been having intermittent episodes of dizziness that lasts seconds followed by headache. This is been ongoing for the past couple of weeks. She also reports high blood pressure when she checks it at home with some palpitations/heart fluttering. She called her PCP this morning and advised that her blood pressure yesterday at home had diastolic pressures over 100. She is not currently on any antihypertensives. PCP sent her in for further evaluation. Patient denies any recent head injury. [facility] Medical History Anxiety Essential hypertension GERD (gastroesophageal reflux disease) History of malignant neoplasm of lower lobe bronchus or lung Hypothyroidism IBS (irritable bowel syndrome) Non-small cell carcinoma of lung Palpitations Premature ventricular contraction Home Medications ergocalciferol (vitamin D2) 50,000 unit PO Q7D 01/20/15 [History Last Taken Unknown] metoprolol tartrate 25 mg PO BID 01/20/15 [History Last Taken 02/12/15 06:00] pantoprazole 40 mg PO DAILY 06/03/18 [History Last Taken Unknown] levothyroxine 75 mcg tablet 75 mcg PO DAILY 01/10/19 [History Last Taken Unknown] lorazepam 0.5 mg tablet 0.5 mg PO DAILY PRN tab 01/10/19 [History Last Taken Unknown] multivitamin 1 tab PO DAILY 01/10/19 [History Last Taken Unknown] triamcinolone acetonide 55 mcg nasal spray aerosol 1 spray INTRANASAL DAILY PRN 01/10/19 [History Last Taken Unknown] Allergy/AdvReac Type Severity Reaction Status Date / Time levofloxacin [From Levaquin] AdvReac Swelling Verified 09/28/21 08:27 METALS AdvReac Rash Uncoded 09/28/21 08:27 TAPE AdvReac Rash Uncoded 09/28/21 08:27 Family History Mother Uterine cancer Hypertension Alzheimers disease Father Lung cancer Bone cancer Heart disease Surgical History H/O arthroscopy of knee H/O tubal ligation History of cholecystectomy History of esophagogastroduodenoscopy (EGD) History of hysterectomy History of lobectomy of lung History of tonsillectomy Hx of section S/P partial lobectomy of lung Social History Smoking Status: Former smoker alcohol intake: current details: rare substance use type: does not use caffeine: No ROS ROS ED Constitutional Constitutional ED: Denies chills or fever(s) Eyes Eyes: Denies change in vision ENT ENT ED: Denies sore throat Cardiovascular Cardiovascular: Reports palpitations and racing heartbeat Respiratory/Chest Respiratory/Chest: Denies cough or dyspnea Gastrointestinal Gastrointestinal: Denies abdominal pain, diarrhea, nausea or vomiting Genitourinary Genitourinary ED: Denies dysuria Musculoskeletal Musculoskeletal: Denies back pain Integumentary Denies rash Neurologic Neurologic: Reports headache(s); Denies weakness Allergic/Immunologic Allergic/Immunologic ED: Denies urticaria EXAM Physical Exam Const Vital Signs: 09/28/21 08:25 09/28/21 08:58 09/28/21 08:59 Temperature 97.7 F L Temperature Source Temporal Pulse Rate 74 59 L Respiratory Rate 16 14 Respiratory Effort Normal Non-Labored Blood Pressure 198/104 H 159/104 H Blood Pressure Mean 135 122 Pulse Ox 98 99 Oxygen Delivery Method Room Air Room Air 09/28/21 10:25 09/28/21 12:05 Temperature Temperature Source Pulse Rate 57 L 53 L Respiratory Rate 17 15 Respiratory Effort Blood Pressure 146/75 H 149/93 H Blood Pressure Mean 98 Pulse Ox 98 98 Oxygen Delivery Method Positive well nourished and well developed General Appearance ED: well developed HEENT Reports moist mucous membranes Eyes PERRL and EOMs intact bilaterally Neck supple Chest Wall inspection of chest normal and palpation of chest normal Resp normal respiratory effort and clear to auscultation bilaterally Cardio regular rate and regular rhythm GI non-tender Palpation: soft Extremity normal to inspection Neuro oriented x3 and no sensory deficits noted Sensorium / Orientation: alert Motor Exam: strength 5/5 throughout Psych mental status grossly normal Skin no rashes or lesions noted MDM MDM MDM Narrative Medical decision making narrative: Patient placed on cardiac technologist. EKG, chest x-ray, lab work obtained. CTA of the head ordered. Lab Data Attestation: I reviewed the patient's lab results. Labs: Laboratory Results - last 24 hr 09/28/21 09/28/21 09:13 09:13 WBC 5.0 RBC 4.63 Hgb 14.1 Hct 40.6 MCV 87.7 MCH 30.5 MCHC 34.7 RDW Std Deviation 36.5 RDW Coeff of Cole 11.3 L Plt Count 259 MPV 9.2 Immature Gran % (Auto) 0.400 Neut % (Auto) 56.3 Lymph % (Auto) 31.9 [place] % (Auto) 9.0 Eos % (Auto) 1.6 Baso % (Auto) 0.8 Absolute Neuts (auto) 2.8 Absolute Lymphs (auto) 1.59 Nucleated RBC % 0 Sodium 140 Potassium 3.5 Chloride 105 Carbon Dioxide 27.0 Anion Gap 8 BUN 13 Creatinine 0.83 Estim Creat Clear Calc 60.69 Est GFR (MDRD) Af Amer 90 Est GFR (MDRD) Non-Af 74 BUN/Creatinine Ratio 15.7 Glucose 91 Calcium 8.6 Total Bilirubin 0.50 Direct Bilirubin 0.12 AST 26 ALT 37 Alkaline Phosphatase 62 Troponin I High Sens 4 Total Protein 7.2 Albumin 3.6 Globulin 3.6 TSH 1.23 Radiography Chest X-Ray - ED: 1 View, Read by ED Physician, Normal, Heart, Lungs and Mediastinum Diagnostic Testing: Clinical Impression(s) from Imaging Studies Head CTA 09/28/21 09:25 IMPRESSION: Normal [place] without a demonstrated aneurysm or hemodynamically significant stenosis. Electronically Signed: Bashir Lara MD at 10:39 EDT , Chest X-Ray 09/28/21 09:28 IMPRESSION: Hyperinflation. The lungs are clear. Electronically Signed: Bashir Lara MD at 9:50 EDT , EKG Initial EKG: Attestation: I personally reviewed and interpreted this EKG as follows: Interpretation: Sinus Rhythm (Sinus at 60 with no acute ischemia.) Follow-up EKG: Attestation: I personally reviewed and interpreted this EKG as follows: Interpretation: Sinus Rhythm (Sinus at 56 with no acute ischemia.) Treatment and Re-Evaluation Narrative: On repeat evaluation patient feeling improved. Blood pressure is 149/93. Heart rate has been in the 50s. Lab work including TSH unremarkable. Chest x-ray per my interpretation reveals no acute findings. CTA of the head reveals no evidence of aneurysm or abnormality. Patient is reassured with these findings. I did speak with Dr. West as the patient has a health appointment with her in 2 days. She did asked the patient to bring her home blood pressure cuff so they can ensure they are getting accurate readings at home. Return instructions are provided. Discharge Plan Triage Chief Complaint: Hypertension ED Provider: Jayne Durand Dx/Rx/DC Orders Clinical Impression: Dizziness, Palpitations Instructions: ED Dizziness, Uncertain Cause, ED Palpitations Prescriptions: No Action triamcinolone acetonide [Nasacort] 55 mcg aerosol,spray 1 spray INTRANASAL DAILY PRN (Reason: allergy) RF: 0 multivitamin Tablet 1 tab PO DAILY RF: 0 lorazepam 0.5 mg tablet 0.5 mg PO DAILY PRN (Reason: Allergies) RF: 0 metoprolol tartrate 50 MG tablet 25 mg PO BID RF: 0 ergocalciferol (vitamin D2) 50,000 UNIT capsule 50,000 unit PO Q7D RF: 0 levothyroxine 75 mcg tablet 75 mcg PO DAILY RF: 0 pantoprazole 40 MG tablet 40 mg PO DAILY RF: 0 Primary Care Provider: Ambreen West Referrals: Ambreen West DO [Primary Care Provider] - [facility] [place] appointment Activity Restrictions/Additional Instructions: Please take your home blood pressure cuff to your doctor's appointment on Sunday. Dr. West would like to ensure that it is reading accurately. Disposition Disposition: Home, Self Care Discharge Date/Time: 09/28/21 12:11
[2021-09-28 12:05] VITALS: BP 149/93; PULSE 53; RESP 15; O2SAT 98
== END 2021-09-28 12:11 | disposition home or self-care (01) ==
PROVIDERS: Emergency Provider Emergency Medicine; PCP Internal Medicine; Visit Provider Emergency Medicine
DX: R42 Dizziness and giddiness (principal); R00.2 Palpitations; I10 Essential (primary) hypertension; R51.9 Headache, unspecified; K21.9 Gastro-esophageal reflux disease without esophagitis; E03.9 Hypothyroidism, unspecified; K58.9 Irritable bowel syndrome, unspecified; Z79.890 Hormone replacement therapy; Z79.899 Other long term (current) drug therapy; Z85.118 Personal history of other malignant neoplasm of bronchus and lung; Z87.891 Personal history of nicotine dependence
CPT/HCPCS: 70496; 71045; 80048; 80076; 84443; 84484; 85025; 93005; 99285; Q9967; A4216

== ENCOUNTER → 2021-10-05 | Outpatient (CLI) | payer OTHER, SELFPAY | END | disposition home or self-care (01) | PROVIDERS: PCP Internal Medicine; Visit Provider Internal Medicine Cardiovascular Disease | DX: R42 Dizziness and giddiness (principal); R00.2 Palpitations | CPT/HCPCS: 93225; 93226 ==

== ENCOUNTER → 2021-12-14 | Outpatient (CLI) | payer OTHER, SELFPAY ==
--- NOTE | 2021-12-14 13:02 | CT_ITS ---
STUDY: CT CHEST WITHOUT CONTRAST REASON FOR EXAM: Female, 60 years old. MONITORING-HX OF LUNG CA RADIATION DOSAGE (If Supplied By Facility): CTDIvol = ( 6.50 ) mGy, DLP = ( 227.53 ) mGycm TECHNIQUE: Transaxial imaging was performed without the administration of intravenous contrast material. Multiplanar coronal and sagittal images were reformatted. Individualized dose optimization techniques were used for this CT. COMPARISON: Comparison is made with prior study dated 12/13/2020. FINDINGS: CHEST Stable small benign-appearing bilateral axillary lymph nodes. Stable mild scarring in the right lung apex. Mild linear scarring at the lung bases. There is no demonstrated pleural abnormality. There are calcifications of the coronary arteries. Normal mediastinum. Normal hilar regions. Normal unenhanced pulmonary arteries. There is atherosclerotic calcification of the aortic arch. There are degenerative changes of the thoracic spine. The patient is status post cholecystectomy. CT/Chest without Contrast IMPRESSION: Stable examination. No acute abnormality is seen. Electronically Signed: Bashir Lara MD at 13:33 EDT ,
== END | disposition home or self-care (01) ==
LOC: CT 12:56
PROVIDERS: PCP Internal Medicine; Visit Provider Internal Medicine Medical Oncology
DX: Z85.118 Personal history of other malignant neoplasm of bronchus and lung (principal)
CPT/HCPCS: 71250

== ENCOUNTER → 2022-01-03 | Outpatient (CLI) | payer OTHER, SELFPAY ==
--- NOTE | 2022-01-03 08:56 | STRESSREP_ITS ---
Stress Test Report Date: 01-03-2022 Procedure: Exercise tolerance test/imaging study Indications: Chest pain; coronary artery calcification; PACs/PVCs Consent: Per the patient Procedure: The patient exercised on a Jorge protocol for 7 minutes and 52 seconds completing Stage II and 1 minute and 52 seconds of Stage III achieving a peak heart rate of 137 bpm (87% predicted maximal heart rate) with a peak blood pressure 190/98 mmHg and a peak MET capacity of 9 METs. The baseline ECG demonstrated sinus bradycardia. The peak exercise ECG demonstrated no obvious ECG changes. There was an isolated PAC and an isolated ventricular couplet during exercise and a isolated PAC and a rare PVC during recovery. The functional capacity was considered good. There was no complaint of chest discomfort during exercise or recovery. The examination was discontinued secondary to dyspnea; palpitations. Impression: 1. Technically adequate (percent predicted maximal heart rate greater than 85%) exercise tolerance test 2. Peak exercise ECG with no obvious ECG changes 3. There was an isolated PAC and an isolated ventricular couplet during exercise and an isolated PAC and a rare PVC during recovery 4. Nuclear images pending Myocardial perfusion imaging study: Technique: The patient was injected with 11.4 mCi of technetium 99m Cardiolite and subsequently rest SPECT Cardiolite nuclear imaging was obtained in the horizontal long, vertical long, and short axis views. The patient exercised on a Jorge protocol for 7 minutes and 52 seconds completing Stage II and 1 minute and 52 seconds of Stage III achieving a peak heart rate of 137 bpm (87% predicted maximal heart rate) with a peak blood pressure 190/98 mmHg and a peak MET capacity of 9 METs. The patient was injected with 32.8 mCi of technetium 99m Cardiolite and subsequently stress SPECT Cardiolite nuclear imaging was obtained in the horizontal long, vertical long, and short axis views. A gated Cardiolite study at peak stress was obtained. Interpretation: Rest and stress SPECT Cardiolite nuclear imaging status post realignment, normalization, and attenuation correction, demonstrates the appearance of relative uniform tracer uptake and myocardial perfusion appearing within normal limits. There is end systolic thickening and brightening. The gated Cardiolite study demonstrates myocardial thickening and inward wall motion. The reported LVEF is 80%. Impression: 1. Rest and stress SPECT Cardiolite nuclear imaging demonstrate relative uniform tracer uptake and myocardial perfusion appearing within normal limits. 2. The gated Cardiolite study reports an LVEF of 80%. This note was generated with Everything[employer] software. It may contain incorrect words, spelling, and punctuation that were not noted in checking the note before signing.
== END | disposition home or self-care (01) ==
LOC: CVS 06:08
PROVIDERS: PCP Internal Medicine; Referring Provider Internal Medicine Cardiovascular Disease; Visit Provider Internal Medicine Cardiovascular Disease
DX: I25.10 Atherosclerotic heart disease of native coronary artery without angina pectoris (principal); I49.3 Ventricular premature depolarization; I25.84 Coronary atherosclerosis due to calcified coronary lesion; I10 Essential (primary) hypertension; Z85.118 Personal history of other malignant neoplasm of bronchus and lung
CPT/HCPCS: 78452; 93017; A9500; A4216

== ENCOUNTER → 2022-07-13 | Outpatient (CLI) | payer OTHER, SELFPAY ==
--- NOTE | 2022-07-13 14:28 | US_ITS ---
STUDY: ULTRASOUND BREAST - RIGHT REASON FOR EXAM: Female, 61 years old. Pain in the right breast. TECHNIQUE: Axial and longitudinal images of the RIGHT breast were performed with a high resolution ultrasound transducer. # OF IMAGES: 35 COMPARISON: Comparison is made with prior mammogram done earlier in the day. Comparison is also made with prior sonogram of the right breast dated 06/23/2019. FINDINGS: RIGHT Breast: There is a 5 mm x 4 mm x 3 mm echogenic well circumscribed nodule at the 8 o''clock position of the breast at 3 cm from the nipple. This most likely represents a small lipoma. US/Breast Limited Unilateral IMPRESSION: 5 mm x 4 mm x 3 mm echogenic well-circumscribed nodule at the 11 o''clock position of the breast at 3 cm from the nipple. This most likely represents a small lipoma. ASSESSMENT CATEGORY: BIRADS Category 2: Benign. A letter regarding these results will be sent to the patient by the facility within 30 days. Electronically Signed: Bashir Lara MD at 8:22 EST ,
--- NOTE | 2022-07-13 14:28 | BI_ITS ---
MAMMOGRAPHY - BILATERAL DIAGNOSTIC REASON FOR EXAM: Female, 61 years old. Right breast pain. PERTINENT HISTORY: Non-contributory. TECHNIQUE: Digital bilateral breast lucia (3D mammographic acquisition) in the CC and MLO projections. 2-D mediolateral oblique (MLO) and craniocaudad (CC) views of both breasts were obtained. CAD: Full Field Digital Mammography with Computer Added Detection was performed. COMPARISON: Comparison is made with prior examination dated 08/24/2021 and 06/23/2019. FINDINGS: Breast Composition: The breasts are extremely dense, which lowers the sensitivity of mammography. There are no dominant masses or suspicious calcifications. Stable small benign-appearing bilateral axillary lymph nodes. No other significant abnormalities are identified. There has been no significant change since the prior study. BI/DIAG MAMM W/CAD, BILAT IMPRESSION: Stable bilateral diagnostic mammogram. With the patient''s history of right breast pain, targeted correlation with ultrasound is recommended. ASSESSMENT CATEGORY: BIRADS Category 0: Incomplete. Need additional imaging evaluation. A letter regarding these results will be sent to the patient by the facility within 30 days. Approximately 10% of breast cancers are not detected by mammography. A normal mammogram should not delay biopsy of a clinically suspicious abnormality. Electronically Signed: Bashir Lara MD at 15:17 EST ,
== END | disposition home or self-care (01) ==
LOC: OPBI 14:23
PROVIDERS: PCP Internal Medicine; Referring Provider Nurse Practitioner Family; Visit Provider Nurse Practitioner Family
DX: N60.11 Diffuse cystic mastopathy of right breast (principal); N64.4 Mastodynia
CPT/HCPCS: 76642; 77062; 77066; G0279

== ENCOUNTER 2022-08-14 15:02 | Emergency (ER) | payer OTHER, SELFPAY ==
[2022-08-14 15:04] VITALS: BP 168/96; PULSE 67; RESP 15; TEMP 36.6; O2SAT 100; BMI 23.8
[2022-08-14] MEDS: HYDROcodone Bitartrate/Apap 5/325 Tablet PO (15:52)
--- NOTE | 2022-08-14 15:52 | EDS_ITS ---
HPI History of Present Illness Chief Complaint: Fall Informant: patient Narrative Narrative: Patient presents after a slip and fall in her garage. She was carrying packages. Her feet slipped out from under her and she landed mostly on her right posterior sacral area. She never hit her head. She has pain in that area. It is moving up slightly to her right posterior lateral ribs. She is not short of breath. She does not have any distal numbness tingling or weakness. She is not on any anticoagulation. It hurts to move and it feels better staying still. No abdominal pain. She also has an abrasion to her right arm but states her right arm does not actually hurt. [facility] Medical History (Updated 08/14/22 @ 17:[address] Melvin Tao MD) Anxiety Essential hypertension GERD (gastroesophageal reflux disease) History of malignant neoplasm of lower lobe bronchus or lung Hypothyroidism IBS (irritable bowel syndrome) Non-small cell carcinoma of lung Palpitations Premature ventricular contraction Home Medications ergocalciferol (vitamin D2) 1,250 mcg (50,000 unit) capsule 50,000 unit PO Q7D 01/20/15 [History Last Taken Unknown] metoprolol tartrate 50 mg tablet 25 mg PO BID 01/20/15 [History Last Taken 02/12/15 06:00] pantoprazole 40 mg tablet,delayed release 40 mg PO DAILY 06/03/18 [History Last Taken Unknown] levothyroxine 75 mcg tablet 75 mcg PO DAILY 01/10/19 [History Last Taken Unknown] lorazepam 0.5 mg tablet 0.5 mg PO DAILY PRN Allergies 01/10/19 [History Last Taken Unknown] multivitamin 1 tab PO DAILY 01/10/19 [History Last Taken Unknown] triamcinolone acetonide 55 mcg nasal spray aerosol (Nasacort) 1 spray intranasal DAILY PRN allergy 01/10/19 [History Last Taken Unknown] hydrocodone-acetaminophen 5-325mg 5mg-325mg 1 tab PO Q6H PRN PRN Pain 3 days #12 TABLETS 08/14/22 [Rx Last Taken Unknown] ondansetron 4 mg disintegrating tablet 4 mg PO Q8H PRN PRN Nausea #10 tabs 08/14/22 [Rx Last Taken Unknown] Allergy/AdvReac Type Severity Reaction Status Date / Time adhesive tape AdvReac Rash Verified 08/14/22 15:07 contact metal agent AdvReac Rash Verified 08/14/22 15:07 levofloxacin [From Levaquin] AdvReac Swelling Verified 08/14/22 15:07 Family History Mother Uterine cancer Hypertension Alzheimers disease Father Lung cancer Bone cancer Heart disease Surgical History H/O arthroscopy of knee H/O tubal ligation History of cholecystectomy History of esophagogastroduodenoscopy (EGD) History of hysterectomy History of lobectomy of lung History of tonsillectomy Hx of section S/P partial lobectomy of lung Social History Smoking Status: Former smoker how long ago did patient quit smokin second hand exposure: Yes alcohol intake: current alcohol intake frequency: holidays/special occasions only substance use type: does not use caffeine: No ROS ROS ED Constitutional Constitutional ED: Denies fever(s) Eyes Eyes: Denies blurry vision or change in vision ENT ENT ED: Denies rhinorrhea Cardiovascular Cardiovascular: Reports chest pain and other Details: Patient is getting a little bit of pain at the right lower posterior ribs. ; Denies palpitations or racing heartbeat Respiratory/Chest Respiratory/Chest: Denies cough Gastrointestinal Gastrointestinal: Denies abdominal pain, nausea or vomiting Genitourinary Genitourinary ED: Denies hematuria Musculoskeletal Musculoskeletal: Reports back pain and other Details: Pain is really down in the sacrum not so much in the lumbar or thoracic area. No neck pain. ; Denies neck pain Integumentary Reports Abrasions and other Neurologic Neurologic: Denies headache(s), paresthesias or weakness Psychiatric Psychiatric: Reports anxiety Endocrine Endocrinology: Denies polydipsia or polyuria Hematologic/Lymphatic Hematologic/Lymphatic: Denies easy bleeding or easy bruising Allergic/Immunologic Allergic/Immunologic ED: Denies urticaria EXAM Physical Exam Narrative Exam Narrative: Patient awake alert laying in bed. She carries on normal conversation. But she does look uncomfortable. HEENT shows no sign of head injury anywhere. Neck is nontender and no pain with motion Lungs are clear bilaterally. There is a little bit of tenderness at the right posterior rib cage really at the posterior axillary line. But I see no bruising. She states it just hurts a little bit in that area. Heart is regular without murmur gallop or rub. Peripheral pulses are normal. Abdomen is soft and completely benign. Back shows no real thoracic tenderness. She states that might hurt at the lower thoracic area near her ribs but she is not sure. Lumbar area she states might be a little bit sore but is not tender on exam. She does have some tenderness really in the right sacral and sacroiliac area. The hips themselves do not seem to be tender. No tenderness with pressure on the pubic bone anteriorly. Extremities show a skin tear about 1 x 2 cm on the right forearm overlying her ulna but there is no deformity. No bony tenderness. No tenderness anywhere in her extremities. Neurologically she is awake alert and completely appropriate. Const Vital Signs: 08/14/22 15:04 08/14/22 15:11 Temperature 97.8 F Temperature Source Temporal Pulse Rate 67 Respiratory Rate 15 Respiratory Effort Normal Respiratory Depth Normal Respiratory Pattern Normal Blood Pressure 168/96 H Blood Pressure Mean 120 Pulse Ox 100 Oxygen Delivery Method Room Air Room Air MDM MDM MDM Narrative Medical decision making narrative: Patient would prefer not having any strong pain meds. She has had Vicodin before that works. She really just wants oral meds and not IV. I talked about getting a scan of her lower back. She requested if we could scan up higher because she gets a scan of her lungs every year because of a remote history of a stage I cancer that was removed from the right lower lobe in 2005. I explained that we will get this as it will show spinal and rib injuries also. We will try to work with her. My independent interpretation of the patient's CT of chest abdomen pelvis does show the T11 compression fracture. I compared this with prior film from 12/14/2021 and it does look new. Final reading is consistent with this. Other changes were chronic from prior. I talked with the patient again. She does not seem to be having pain in this area. But she is sore all over. I still think it is possible that this is acute. But this should resolve. Ice rest time should resolve this. I did explain that she should follow-up for repeat imaging. If she develops worsening pain, nausea vomiting, numbness tingling weakness she should return. Radiography Diagnostic Testing: Clinical Impression(s) from Imaging Studies Chest/Abdomen/Pelvis CT 08/14/22 15:58 IMPRESSION: 1. Irregularity of the superior endplate of T11 which may represent a minimal wedge deformity. No retropulsed fragments are identified. No other acute abnormalities are seen within the chest, abdomen or pelvis. 2. Stable groundglass nodular opacity in the right upper lobe. Electronically Signed: Cordell Seth MD at 16:32 EDT , Discharge Plan Triage Chief Complaint: Fall ED Provider: Melvin Tao Dx/Rx/DC Orders Clinical Impression: Fall at home, Compression fracture of T11 vertebra Instructions: ED Fracture, Vertebral Compression Prescriptions: New hydrocodone-acetaminophen [hydrocodone-acetaminophen] 5-325 mg tablet 1 tab PO Q6H PRN PRN (Reason: Pain) 3 Days Qty: 12 0RF ondansetron [ondansetron] 4 mg tablet,disintegrating 4 mg PO Q8H PRN PRN (Reason: Nausea) Qty: 10 0RF No Action triamcinolone acetonide [Nasacort] 55 mcg aerosol,spray 1 spray INTRANASAL DAILY PRN (Reason: allergy) multivitamin Tablet 1 tab PO DAILY lorazepam 0.5 mg tablet 0.5 mg PO DAILY PRN (Reason: Allergies) metoprolol tartrate 50 MG tablet 25 mg PO BID ergocalciferol (vitamin D2) 50,000 UNIT capsule 50,000 unit PO Q7D levothyroxine 75 mcg tablet 75 mcg PO DAILY Rx Instructions: 6 days a week pantoprazole 40 MG tablet 40 mg PO DAILY Primary Care Provider: Ambreen West Referrals: Ambreen West DO [Primary Care Provider] - 1 Week Disposition Disposition: Home, Self Care
[2022-08-14] MEDS: Ondansetron ODT 4 MG Tablet PO (15:53)
--- NOTE | 2022-08-14 15:58 | CT_ITS ---
EXAM: CT CHEST, ABDOMEN AND PELVIS WITHOUT INTRAVENOUS CONTRAST CLINICAL INDICATION: trauma TECHNIQUE: Helically acquired images were obtained of the chest, abdomen and pelvis without intravenous contrast. This CT exam was performed using one or more of the following dose reduction techniques: automated exposure control, adjustment of the mA and/or kV according to patient size, and/or use of iterative reconstruction technique. This report was created using [employer] report generation technology. COMPARISON: 12/14/2021 FINDINGS: CHEST: LUNGS AND PLEURAL SPACES: There is a groundglass nodular opacity in the right upper lobe posteriorly and measures 8 x 8 mm which is not significantly changed from the reference exam. No mass. No pleural effusion or thickening. No pneumothorax. HEART: Unremarkable. Heart size is normal. No pericardial effusion. No significant coronary artery calcifications. MEDIASTINUM: Unremarkable. No mediastinal or hilar adenopathy. Esophagus is unremarkable. No hiatal hernia. THYROID: Unremarkable. No thyroid lesions. ABDOMEN: LIVER: Unremarkable. Homogeneous. GALLBLADDER AND BILE DUCTS: There are surgical clips from a cholecystectomy. No intra- or extrahepatic biliary ductal dilation. PANCREAS: Unremarkable. No focal cystic mass. SPLEEN: Unremarkable. Normal size without focal cystic or solid mass. ADRENALS: Unremarkable. No nodules. KIDNEYS AND URETERS: Unremarkable. Normal renal size and position. No hydronephrosis. STOMACH AND BOWEL: Unremarkable. No stomach or bowel distention. No focal inflammatory change. PELVIS: APPENDIX: No evidence of acute appendicitis. BLADDER: Unremarkable. REPRODUCTIVE: Unremarkable as visualized. No mass. CHEST, ABDOMEN and PELVIS: INTRAPERITONEAL SPACE: Unremarkable. No ascites or other fluid collection. No free air. BONES/JOINTS: There is irregularity of the superior endplate of T11 which may represent a minimal fracture. The posterior elements are intact and there are no retropulsed fragments. This was not seen on the previous exam. No suspicious lytic or blastic abnormality. SOFT TISSUES: Unremarkable. No discrete abdominal or pelvic wall hernia. VASCULATURE: Unremarkable. Aorta is non-dilated. LYMPH NODES: Unremarkable. No enlarged lymph nodes. CT/CT Chest, Abd, Pelvis WO Cont IMPRESSION: 1. Irregularity of the superior endplate of T11 which may represent a minimal wedge deformity. No retropulsed fragments are identified. No other acute abnormalities are seen within the chest, abdomen or pelvis. 2. Stable groundglass nodular opacity in the right upper lobe. Electronically Signed: Cordell Seth MD at 16:32 EDT ,
[2022-08-14] MEDS: Diphth,Pertuss(Acell),Tet Vac 0.5 ML Vial IM (17:49)
== END 2022-08-14 17:52 | disposition home or self-care (01) ==
PROVIDERS: Emergency Provider Emergency Medicine; PCP Internal Medicine; Visit Provider Emergency Medicine
DX: S22.009A Unspecified fracture of unspecified thoracic vertebra, initial encounter for closed fracture (principal); S50.811A Abrasion of right forearm, initial encounter; Z87.891 Personal history of nicotine dependence; I10 Essential (primary) hypertension; Z79.899 Other long term (current) drug therapy; F41.9 Anxiety disorder, unspecified; K21.9 Gastro-esophageal reflux disease without esophagitis; E03.9 Hypothyroidism, unspecified; K58.9 Irritable bowel syndrome, unspecified; Z85.118 Personal history of other malignant neoplasm of bronchus and lung; W01.0XXA Fall on same level from slipping, tripping and stumbling without subsequent striking against object, initial encounter; S51.811A Laceration without foreign body of right forearm, initial encounter; Z23 Encounter for immunization
CPT/HCPCS: 71250; 74176; 90471; 99285

== ENCOUNTER → 2022-08-30 | Outpatient (CLI) | payer OTHER, SELFPAY ==
--- NOTE | 2022-08-30 16:21 | MRI_ITS ---
STUDY: MR Spine Lumbar W/O Contrast 08/31/2022 7:36 PM REASON FOR EXAM: Female, 61 years old. Back pain WEDGE COMPRESSION FX L3,DISC DEGEN,SPINAL STENOSIS TECHNIQUE: MR Spine Lumbar W/O Contrast Standardized fat and water weighted pulse sequences were obtained. COMPARISON: ctap 3.13.23 FINDINGS: T12-L1: Loss of intervertebral disc height. There is endplate spondylosis of the vertebral body. Normal central canal and intervertebral neuroforamina. There is bilateral facet arthropathy. Disc desiccation. Normal lumbar lordosis. There is no substantial scoliosis. Normal conus medullaris that terminates at the L1. L1-2: Loss of intervertebral disc height. There is endplate spondylosis of the vertebral body. Normal central canal and intervertebral neuroforamina. There is bilateral facet arthropathy. Disc desiccation. L2-3: Loss of intervertebral disc height. There is endplate spondylosis of the vertebral body. Normal central canal and intervertebral neuroforamina. There is bilateral facet arthropathy. Disc desiccation. Posterior disc bulge. L3-4: Loss of intervertebral disc height. There is endplate spondylosis of the vertebral body. Normal central canal and intervertebral neuroforamina. There is bilateral facet arthropathy. Disc desiccation. Posterior disc bulge. L4-5: Loss of intervertebral disc height. There is endplate spondylosis of the vertebral body. Normal central canal and intervertebral neuroforamina. There is bilateral facet arthropathy. Disc desiccation. L5-S1: Normal endplates. Normal disc height and morphology. Normal central canal and intervertebral neuroforamina. Normal visualized sacral ala. Normal visualized paraspinous soft tissue structures. MRI/Spine Lumbar (Routine) IMPRESSION: Multilevel degenerative changes, as described above. No L3 fracture. Electronically Signed: Dilan Mendez MD at 19:39 EDT ,
--- NOTE | 2022-08-30 16:21 | MRI_ITS ---
EXAM: MR THORACIC SPINE WITHOUT INTRAVENOUS CONTRAST CLINICAL INDICATION: WEDGE COMPRESSION FX T11-T12,SPINAL STENOSIS, DISC DEGEN TECHNIQUE: Multiplanar and multisequence MR images of the thoracic spine without intravenous contrast. This report was created using [employer] report [employer] Messaging technology. COMPARISON: ct chest 08.14.22 FINDINGS: VERTEBRAE: T1 to T12: There is multilevel endplate spondylosis of the thoracic spine. There is multilevel degenerative disc disease with loss of the disc space heights. Normal kyphosis of the thoracic spine. There is no substantial scoliosis. DISCS/SPINAL CANAL/NEURAL FORAMINA: T1-2, T2-3, T3-4, T5-6 to T10-11: Posterior disc bulge. no spinal stenosis. SPINAL CORD: Unremarkable. Normal in signal and morphology. Normal conus medullaris. SOFT TISSUES: Unremarkable. MRI/Spine Thoracic (Routine) IMPRESSION: 1. There are degenerative changes as noted above. 2. Acute superior end plate compression deformity of T11 as previously noted. There is less than 50% loss of body height. Electronically Signed: Dilan Mendez MD at 19:30 EDT ,
== END | disposition home or self-care (01) ==
PROVIDERS: PCP Internal Medicine; Visit Provider Orthopaedic Surgery
DX: S22.080A Wedge compression fracture of T11-T12 vertebra, initial encounter for closed fracture (principal); S32.030A Wedge compression fracture of third lumbar vertebra, initial encounter for closed fracture; M48.04 Spinal stenosis, thoracic region; M51.34 Other intervertebral disc degeneration, thoracic region; M48.061 Spinal stenosis, lumbar region without neurogenic claudication; M51.36 Other intervertebral disc degeneration, lumbar region; X58.XXXA Exposure to other specified factors, initial encounter
CPT/HCPCS: 72146; 72148

== ENCOUNTER → 2022-10-10 | Outpatient (CLI) | payer OTHER, SELFPAY ==
--- NOTE | 2022-10-10 14:04 | BD_ITS ---
STUDY: DUAL ENERGY X-RAY ABSORPTIOMETRY / DXA REASON FOR EXAM: Female, 61 years old. [id number] TECHNIQUE: Bone Mineral Density (BMD) measurements of lumbar spine and bilateral hips were obtained. COMPARISON: Comparison is made with prior study dated January 06, 2014. FINDINGS: Lumbar Spine (L1-L4): g/cm2 (0.800) / T-score (-2.2) / Z-score (-0.6) Findings are suggestive of osteopenia with a high fracture risk. Left Femur Total: g/cm2 (0.824) / T-score (-1.0) / Z-score (0.2) Left Femoral Neck: g/cm2 (0.757) / T-score (-0.8) / Z-score (0.6) Right Femur Total: g/cm2 (0.794) / T-score (-1.2) / Z-score (-0.1) Right Femoral Neck: g/cm2 (0.709) / T-score (-1.3) / Z-score (0.2) The T-Scores on the most recent prior examination were: Lumbar Spine (L1-L4): There has been worsening of bone density since the previous examination. Left Femur Total: which represents a worsening of 12.6%. Right Femur Total: which represents a worsening of 9.4%. BD/Dexa Bone Density Study IMPRESSION: The patient is considered osteopenic as outlined below according to World Zach Organization (WHO) criteria with a high fracture risk. There has been worsening of bone density since the previous examination. Reference Information: The T-score is the number of standard deviations above or below the standard which is normal for young adults at their peak bone mineral density. The World Health Organization (WHO) interprets the T-scores as follows: Above -1 Normal bone density Between -1 and -2.5 Osteopenia Equal to / or below -2.5 Osteoporosis As a practical clinical guideline, osteopenia may be graded as follows: Mild -1 through -1.5 Moderate -1.6 through -2.0 Severe -2.1 through -2.4 The Z-score is the number of standard deviations above or below age-matched controls. A Z-score of less than -1.5 would be considered abnormal. References: 1. NIH Osteoporosis and Related Bone Diseases www osteo.org 2. International Society for Clinical Densitometry www iscd.org 3. National Osteoporosis Foundation www nof.org Electronically Signed: Bashir Lara MD at 12:08 EDT ,
== END | disposition home or self-care (01) ==
PROVIDERS: PCP Internal Medicine; Referring Provider Internal Medicine; Visit Provider Internal Medicine
DX: Z78.0 Asymptomatic menopausal state (principal)
CPT/HCPCS: 77080

== ENCOUNTER → 2023-01-19 | Outpatient (CLI) | payer OTHER, SELFPAY ==
[2023-01-19 12:40] LABS: D-Dimer Quantitative (DVT/PE) < 0.27 FEU/ug/m (0.27-0.49)
== END | disposition home or self-care (01) ==
LOC: LABSPEC 12:20
PROVIDERS: PCP Internal Medicine; Referring Provider Internal Medicine; Visit Provider Internal Medicine
DX: M54.9 Dorsalgia, unspecified (principal)
CPT/HCPCS: 85379

== ENCOUNTER → 2023-01-25 | Outpatient (CLI) | payer OTHER, SELFPAY ==
[2023-01-25 17:44] LABS: AST(SGOT) 33 U/L (15-37); Alanine Aminotransfer ALT/SGPT 42 U/L (13-56); Albumin, Serum 3.9 g/dL (3.2-5.0); Alkaline Phosphatase 78 U/L (45-117); Anion Gap 8 (5-15); BUN 15 mg/dL (7-18); BUN/Creat Ratio 19.8 RATIO (10-20); Calcium,Total 9.1 mg/dL (8.5-10.1); Chloride 105 mmol/L (98-107); Creatinine, Serum 0.76 mg/dL (0.55-1.02); EST Glomerular Filtration Rate 82 mL/min (>60); Est Glom Filt Rate - Afr Amer 99 mL/min (>60); Glucose 96 mg/dL (74-106); Potassium 3.8 mmol/L (3.5-5.1); Protein, Total 7.9 g/dL (6.4-8.2); Sodium Level 141 mmol/L (136-145); Thyroid Stim Hormone (TSH) 1.09 uIU/mL (0.358-3.74)
[2023-01-26 08:54] LABS: PTHIN 66.1 pg/mL (18.4-80.1)
== END | disposition home or self-care (01) ==
LOC: LAB 15:44
PROVIDERS: PCP Internal Medicine; Referring Provider Internal Medicine Endocrinology, Diabetes & Metabolism; Visit Provider Internal Medicine Endocrinology, Diabetes & Metabolism
DX: E55.9 Vitamin D deficiency, unspecified (principal); M81.0 Age-related osteoporosis without current pathological fracture; E03.9 Hypothyroidism, unspecified
CPT/HCPCS: 36415; 80053; 82306; 83970; 84443

== ENCOUNTER → 2023-02-07 | Outpatient (CLI) | payer OTHER, SELFPAY ==
--- NOTE | 2023-02-07 14:26 | US_ITS ---
INDICATION: history thyroid nodules EXAMINATION: Ultrasound US Thyroid (eg thyroid, parathyroid, parotid) TECHNIQUE: Gorman scale and color doppler imaging was performed of the thyroid gland. TIRADS criteria was utilized. COMPARISON: None. FINDINGS: RIGHT THYROID LOBE: 1.4 x 1.3 x 3.9 cm with a volume of 4.3 mL. Homogeneous echotexture. Normal vascularity. No thyroid nodules. LEFT THYROID LOBE: 1.5 x 1.0 x 2.8 cm with a volume of 3.6 mL. Homogeneous echotexture. Normal vascularity. 2 mm homogeneously anechoic cystic nodule. ISTHMUS: 1 mm in AP diameter. Homogeneous echotexture. Normal vascularity. No thyroid nodules. US/Thyroid IMPRESSION: 2 mm left lobe cystic nodule with no follow-up recommended. No other thyroid nodules identified. Electronically Signed: Arben Velazquez DO at 22:30 EDT ,
== END | disposition home or self-care (01) ==
LOC: US 14:23
PROVIDERS: PCP Internal Medicine; Referring Provider Internal Medicine Endocrinology, Diabetes & Metabolism; Visit Provider Internal Medicine Endocrinology, Diabetes & Metabolism
DX: E04.1 Nontoxic single thyroid nodule (principal)
CPT/HCPCS: 76536

== ENCOUNTER 2023-02-20 13:30 | Outpatient (RCR) | payer OTHER, SELFPAY ==
--- NOTE | 2023-01-31 14:57 | HP.PTEVAL ---
Patient's Visit Information Visit Information Visit Information: LOBO SAGE is a 62 year old F referred to Physical Therapy by Dr. Pepe Gr MD with a diagnosis of WEDGE COMPRESSION FRCATURE OF T11-T12 VERTEBRA ,AGE RELATED OSTEOPOROSIS. Date of Evaluation: 01/31/23 Physical Therapist: Angel Castillo, PT, Cert MDT, OCS Visit Plan Frequency: 2x /Week Duration: 4 Weeks Plan: PT INTERVETIONS DLS ,THORACIC STRENGTHNEING , POSTURAL EXS',WB ACTIVITIES FOR OSTEOPOROSIS AND FUNCTIONAL STRENGTHENING Subjective Subjective: This 62 y/o female presents to physical therapy with back pain due to compression fracture T11-T12. Patient fell last week in July 2022 ER at [facility] via ambulance . Patient had x-rays and CATSCAN showed compression fracture T11-12 . Patient had kyphoplasty on August done Dr Wilson. Patient eventually had bone scan showed osteoporosis. Patient most recently seen Dr Gr will start infusion and PT . Patient c/o ache thoracic spine described as ache. Aggravating factors walking on hard surfaces ,lifting ,housework tasks like mopping when bending. Alleviating factors over counter medication, was proved meloxicam. Denies paresthesia/tingling, Bowel/bladder -. Sleeping okay. Coughing/sneezing + can sharp pain. Patient condition affects function and ADL's. Patient goals to have no pain and get stronger and learn appropriate ex's. SOCAIL: VOCATION: retired Pain Bilateral Back: Pain Intensity (Out of 10): 2 Pain Intensity Range: 10 Comment: thoracic Objective Objective: POSTURE: mild forward posture NEURO : denies paresthesia/tingling GAIT: reciprocal pattern PALAPTION: tender paraspinals thoracic region AROM: BUE/LE WFL MMT: BUE 4/5 grossly ,quads/hams 5/5 ,hip flexion 5/5 ,ankle 5/5 THORACIC ROM: flexion min loss ,extension min loss ,rotation min loss LUMBAR ROM: flexion min loss ,extension min loss ,lateral flexion min loss FLEXABLITY: min tight hamstrings Special Tests L/S Slump test left side: Negative L/S Slump test right side: Negative L/S Left Straight Leg Raise: Negative L/S Right Straight Leg Raise: Negative Balance/Special Test Scores Oswestry Low Back Score: 18 Goals Goal 1:: Patient to be I with HEP back Goal Time Frame: 4-6 Weeks Goal 2:: Patient to demonstrate 50% improvement with decrease pain and improved function Goal Time Frame: 4-6 Weeks Goal 3:: Patient to improve thoracic /lumbar ROM for function of recovey for ADLS using good body mechanics Goal Time Frame: 4-6 Weeks Goal 4:: Patient to improve back oswestry by 5 points to improve QOL and function Goal Time Frame: 4-6 Weeks Rehabilitation Potential Physical Therapy Diagnosis: This patient has osteoporosis recently diagnosed with compression fracture from fall with impairments with decrease knowledge ,pain and decrease posture for ADLS Rehabilitation Potential: Good Anticipated Interventions Patient/Client Instruction: Educate patient on: Condition and Plan of Care For the Purpose of:: To decrease pain, To increase ROM, To improve muscle performance and motor function, To increase tolerance to activity/condition/position, To improve ability of physical actions for home/community/work/leisure, To improve health of tissue, To decrease soft tissue restriction, To increase flexibility/ROM, To improve endurance, To improve balance and To prevent re-injury Therapeutic Exercise to Include: Strength training, Endurance training, Balance training, Body mechanics, Postural training, Flexibilty training and Dynamic Lumbar Stabilization For the Purpose of:: To decrease pain, To increase ROM, To improve muscle performance and motor function, To improve ability to perform ADL's, To increase tolerance to activity/condition/position, To improve ability of physical actions for home/community/work/leisure, To improve health of tissue, To decrease soft tissue restriction, To increase flexibility/ROM, To reduce risk of recurrence and To improve tolerance to ADL's Text: Thank you for the opportunity to evaluate your patient. For Medicare and Medicare HMO plans, please review the plan of care and approve it. It will need to be FAXED BACK to us at [phone] for Medicare purposes. For Medicare only, by signing this I certify the plan of care. Please let me know if there are questions or concerns regarding this plan of care. Physician Signature: Date:
== END 2023-02-20 19:00 | disposition home or self-care (01) ==
LOC: PT 13:30
PROVIDERS: PCP Internal Medicine; Referring Provider Internal Medicine Endocrinology, Diabetes & Metabolism; Visit Provider Internal Medicine Endocrinology, Diabetes & Metabolism
DX: S22.080D Wedge compression fracture of T11-T12 vertebra, subsequent encounter for fracture with routine healing (principal); M81.0 Age-related osteoporosis without current pathological fracture
CPT/HCPCS: 97110; 97162

== ENCOUNTER 2023-02-21 14:07 | Outpatient (CLI) | payer OTHER, SELFPAY ==
[2023-02-21 14:29] VITALS: BP 132/70; PULSE 54; RESP 16; TEMP 36.1; O2SAT 98; BMI 21.9
[2023-02-21] MEDS: Zoledronic Acid 5 MG 100 ML 300 MG IV (14:40)
[2023-02-21] MEDS: 0.9% NaCl Peripheral Flush Adult/Peds IV (14:43)
[2023-02-21 15:06] VITALS: BP 139/80; PULSE 54
== END 2023-02-21 14:08 | disposition home or self-care (01) ==
LOC: MEDOUTP 14:07
PROVIDERS: PCP Internal Medicine; Referring Provider Internal Medicine Endocrinology, Diabetes & Metabolism; Visit Provider Internal Medicine Endocrinology, Diabetes & Metabolism
DX: M81.0 Age-related osteoporosis without current pathological fracture (principal)
CPT/HCPCS: 96365; A4216; J3489

== ENCOUNTER → 2023-07-03 | Outpatient (CLI) | payer OTHER, SELFPAY ==
--- NOTE | 2023-07-03 12:12 | RAD_ITS ---
STUDY: X-RAY CHEST REASON FOR EXAM: Female, 62 years old. Atypical chest pain. History of right lung cancer. TECHNIQUE: Frontal and lateral views of the chest. COMPARISON: 01/19/2023 FINDINGS: Stable mild hyperinflation with postsurgical changes of the right lung with pleural thickening/blunting. Stable cardiomegaly with aortic tortuosity and calcification. Stable vertebroplasty at T11 with loss of height of the T11 vertebral body, unchanged. No abnormality of the visualized soft tissue structures of the upper abdomen. RAD/Chest PA and Lateral IMPRESSION: Stable chest with no acute or emergent finding. Electronically Signed: Won Kinney MD at 12:40 EST ,
[2023-07-03 12:48] LABS: Bacteria 0 SEEN /hpf (None Seen); Mucous, Urine 0 SEEN /hpf (<or=2+); Red Blood Cells-Urine 0 SEEN /hpf (0-5); Squamous Epithelial Cells - UA 0 SEEN /hpf (5-10); White Blood Cells 0 SEEN /hpf (0-5)
[2023-07-03 13:21] LABS: Absolute Lymphocyte Count 2.28 X10^3/uL (0.83-4.51); Absolute Neutrophil Count 3.8 X10^3/uL (2.0-7.7); Basophil# 0.07 X10^3/uL; Eosinophil# 0.14 X10^3/uL; Hemoglobin 13.3 g/dL (12.0-15.0); Lymphocyte # 2.28 X10^3/ul (0.83-4.51); Lymphocyte % 32.6 % (19-41); Mean Corp Hgb Conc 33.3 g/dL (32-36); Mean Corpuscular Volume 90.3 fL (81-99); Mean Platelet Vol. 9.2 fl (6.2-12.0); Monocyte# 0.67 X10^3/uL; Monocyte% 9.6 % (0-10); NRBC Flagged by Analyzer 0 % (0-5); Neutrophil # 3.82 X10^3/uL (2.7-7.7); Neutrophil % 54.7 % (47-70); Platelet Count 247 K/mm3 (150-450); RBC Distribution Width CV 11.7 % (11.6-14.6); RBC Distribution Width SD 38.7 fl (35.1-43.9); Red Blood Count 4.43 M/mm3 (4.2-5.4)
[2023-07-03 13:33] LABS: Color, Urine Yellow (Yellow); Glucose, Dipstick Normal (Normal); Ketone-Dipstick Negative (Negative); Leukocyte Esterase-Dipstick Negative /ul (Negative); Nitrite-Dipstick Negative (Negative); Occult Blood-Urine Negative /ul (Negative); Protein-Dipstick Negative (Negative); Urine Bilirubin Dipstick Negative (Negative); Urine Clarity Clear (Clear); Urine Urobilinogen Normal (Normal)
[2023-07-03 13:56] LABS: ALB/GLOB Ratio 0.9 RATIO (0.9-2.4); AST(SGOT) 25 U/L (15-37); Alanine Aminotransfer ALT/SGPT 33 U/L (13-56); Albumin, Serum 3.5 g/dL (3.2-5.0); Alkaline Phosphatase 55 U/L (45-117); Anion Gap 2 (5-15); BUN 10 mg/dL (7-18); BUN/Creat Ratio 13.1 RATIO (10-20); Calcium,Total 8.5 mg/dL (8.5-10.1); Chloride 107 mmol/L (98-107); Cholesterol 159 mg/dL (200); Creatinine, Serum 0.76 mg/dL (0.55-1.02); EST Glomerular Filtration Rate 81 mL/min (>60); Est Glom Filt Rate - Afr Amer 98 mL/min (>60); Globulin 3.8 g/dL (2.2-4.2); Glucose 76 mg/dL (74-106); High Density Lipoprotein 51 mg/dL; Potassium 3.9 mmol/L (3.5-5.1); Protein, Total 7.3 g/dL (6.4-8.2); Sodium Level 138 mmol/L (136-145); Triglycerides 246 mg/dL; Very Low Density Lipoprotein 49 mg/dL (5-40)
[2023-07-03 14:04] LABS: Creatinine, Urine (random) < 13.00 mg/dL (NO RANGE EST.); Microalbumin,Random Urine < 5.0 mg/L (NO RANGE EST.)
== END | disposition home or self-care (01) ==
LOC: RAD 12:11
PROVIDERS: PCP Internal Medicine; Referring Provider Internal Medicine; Visit Provider Internal Medicine
DX: I10 Essential (primary) hypertension (principal); E03.9 Hypothyroidism, unspecified
CPT/HCPCS: 36415; 71046; 80053; 80061; 81001; 82043; 82570; 84443; 85025

== ENCOUNTER → 2023-07-12 | Outpatient (CLI) | payer OTHER, SELFPAY ==
--- NOTE | 2023-07-12 13:15 | CT_ITS ---
INDICATION: nonsquamous nonsmall cell neoplasm EXAMINATION: CT CHEST WITHOUT CONTRAST - CT Chest W/O Contrast Injection TECHNIQUE: Helically acquired images were obtained of the chest. A radiation dose optimization technique was used for this scan. IV Contrast dosage and agent: None. RADIATION DOSAGE (If Supplied By Facility): CTDIvol = ( 6.84 ) mGy, DLP = ( 232.53 ) mGycm COMPARISON: Prior study dated: 08/14/2022. FINDINGS: LUNGS, PLEURA AND LARGE AIRWAYS: Hazy and less nodular densities in the left lung apex measuring about 1.1 cm for the most part unchanged the prior exam. Focal hazy groundglass nodule in the right upper lobe measuring about 9 mm seen on image 33 series 4 again unchanged. Subtle 2 mm nodule in the right upper lobe on image 55 series 4 unchanged. 3 mm right lower lobe nodule in the right lower lobe on image 90 series 4. No pleural effusion or thickening. No pneumothorax. THYROID: No thyroid lesions. HEART AND PERICARDIUM: Heart size is normal. No pericardial effusion. CORONARY ARTERIES: Coronary artery calcification is not seen. VESSELS: The aorta is nondilated. No metallic densities/wires in the region of the distal right main pulmonary artery extending to the right upper lobe branches. Small linear densities are seen in the left upper lobe pulmonary artery branches not seen on the previous examination. The etiology is undetermined at this time. MEDIASTINUM AND BERT: No mediastinal or hilar adenopathy. Esophagus is unremarkable. No hiatal hernia. UPPER ABDOMEN: No acute pathology. Status post cholecystectomy. BONES: No suspicious lytic or blastic abnormality. Vertebroplasty in T11 vertebra new since previous exam. CT/Chest without Contrast IMPRESSION: 1. Hazy subtle groundglass opacities bilaterally as described above unchanged since prior exam. 2. No new pulmonary infiltrate or masses are seen. 3. Linear metallic densities in the region of the upper lobe pulmonary arteries as described above of undetermined etiology. Electronically Signed: Fernando Lyons MD at 14:41 EST ,
== END | disposition home or self-care (01) ==
LOC: CT 13:14
PROVIDERS: PCP Internal Medicine; Referring Provider Internal Medicine; Visit Provider Internal Medicine
DX: C34.91 Malignant neoplasm of unspecified part of right bronchus or lung (principal)
CPT/HCPCS: 71250

== ENCOUNTER → 2023-07-24 | Outpatient (CLI) | payer OTHER, SELFPAY ==
--- NOTE | 2023-07-24 11:30 | PET_ITS ---
EXAMINATION: FDG PET CT HISTORY: 62-year-old female with history of pulmonary nodularity. COMPARISON EXAMINATION: CT of the chest report 07/12/2023 TECHNIQUE: Following the intravenous administration of 14.19 mCi of F-18 deoxyglucose, via the right antecubital fossa, multiplanar image acquisitions of the neck, chest, abdomen and pelvis to the level of mid thigh, obtained at one hour post radiopharmaceutical administration contemporaneously interpreted with the current CT of the neck, chest, abdomen and pelvis to the level of mid thigh, dated 07/24/2023 via coregistration reveals: BLOOD GLUCOSE LEVEL:?91 mg/dL?HEIGHT:?64 inches?WEIGHT: 130 lbs. FINDINGS: Head/Neck: There is no evidence of abnormal increased glucose metabolism in the pharyngeal mucosal space, parapharyngeal space, bilateral-lateral and anterior neck, hypopharynx and distribution of the larynx. The visualized portion of the cerebral cortical-subcortical structures demonstrate symmetric and preserved glucose metabolism. An increase in uptake is identified in the left posterior occipital cortex at the border of the reticule. The calculated maximum standard uptake value is 8.0. CHEST: No abnormal glucose metabolism is identified in the right-left pulmonary parenchyma, the bilateral hemithorax at the pleural interface, the mediastinal and thoracic perihilar structures. Pertinent chest CT findings are as follows. Parenchymal densities defined in the bilateral upper hemithorax-and upper lobes demonstrate no evidence of increased tracer uptake. Atherosclerotic calcification is defined in the thoracic aorta without evidence of aneurysm formation. Metallic densities are defined in the region of the right main pulmonary artery. Bilateral axillary soft tissue is ametabolic. Abdomen/Pelvis: Normal physiologic uptake is noted in the hepatic (4.3). And splenic parenchyma. There is symmetric demonstration of the right and left kidneys, normal uptake in the urinary bladder and visualized intestinal tract. Review of CT of the abdomen and pelvis reveals the following. The patient is status post cholecystectomy. Atherosclerotic calcification is defined in the abdominal aorta. Pelvic arterial calcification is observed. The uterus appears surgically absent. Right and left inguinal soft tissue densities demonstrate no evidence of increased tracer uptake. SKELETAL: Degenerative changes within the axial skeleton demonstrate no evidence of increased tracer uptake. There is apparent kyphoplasty change at the level of the 11th thoracic vertebra. PET/PET/CT Tumor Base -Thigh Init IMPRESSION: 1. NEGATIVE EXAMINATION. There is no definitive quantitative scintigraphic evidence of viable neoplasm. 2. Meticulous attention paid to the bilateral upper lung zones demonstrate no evidence of increased glucose concentration to correlate with parenchymal changes defined on CT of the chest dated 07/24/2023. 3. Metabolic-morphologic stability may be ensured in the bilateral upper lung zone parenchymal changes with repeat CT of the chest and/or FDG PET CT imaging in 3-6 months if clinically indicated. Electronic Signature Raman Prince D.O. Accurate Quantification of SUVs for this report are calculated using the exclusive [employer]. ([place]. Patent No. [phone] [phone] B2 [phone] [place] patent [phone]). Standardization and correction of the FDG SUV metric via [employer]UQUAN technology allow for vendor non-specific objective quantitative examination comparison and optimization of the sensitivity and specificity of the FDG PET-CT examination. . [email or web address] Electronically Signed: Raman Prince DO at 10:06 [facility] ,
== END | disposition home or self-care (01) ==
PROVIDERS: PCP Internal Medicine; Referring Provider Internal Medicine Pulmonary Disease; Visit Provider Internal Medicine Pulmonary Disease
DX: R91.8 Other nonspecific abnormal finding of lung field (principal); G47.10 Hypersomnia, unspecified; R07.9 Chest pain, unspecified; I10 Essential (primary) hypertension; Z87.891 Personal history of nicotine dependence
CPT/HCPCS: 78815; A9552

== ENCOUNTER → 2023-09-06 | Outpatient (CLI) | payer OTHER, SELFPAY ==
--- NOTE | 2023-09-06 09:57 | US_ITS ---
STUDY: ABDOMINAL ULTRASOUND - RIGHT UPPER QUADRANT; ELASTOGRAPHY REASON FOR VISIT: Female, 62 years old. Fatty infiltration of the liver. TECHNIQUE: Ultrasound evaluation of the right upper quadrant was performed with real-time and static maza-scale imaging. Point quantification shear wave elastography was performed ([employer]). TECHNICAL QUALITY: Adequate. COMPARISON: None. FINDINGS: Liver: The liver measures 12.3 cm. There is increased echogenicity consistent with fatty infiltration. The bile ducts are within normal limits. There is hepatic color flow. The direction of portal flow is hepatopetal. There is no demonstrated mass lesion. Median liver stiffness measured 4.5 kPa. Gallbladder: The patient is status post cholecystectomy. Common Bile Duct (C.B.D.): The common bile duct is mildly dilated and measures 9.2 mm. Pancreas: There is normal echogenicity of the visualized pancreas. There is no demonstrated pancreatic mass or cyst. Right Kidney: Normal size of the right kidney. The right kidney measures 9.9 cm x 4.9 cm x 3.7 cm. Normal renal cortex. The right cortex measures 1.3 cm. There is no demonstrated renal mass or cyst. There is no right hydronephrosis. US/ABD Limited w/ Elastography IMPRESSION: 1. Liver stiffness measures 4.5 kPa compatible with FO (Normal) Metavir score. Electronically Signed: Bashir Lara MD at 15:28 EDT ,
[2023-09-06 12:26] LABS: AST(SGOT) 25 U/L (15-37); Alanine Aminotransfer ALT/SGPT 31 U/L (13-56); Albumin, Serum 3.7 g/dL (3.2-5.0); Alkaline Phosphatase 54 U/L (45-117); Bilirubin, Direct 0.15 mg/dL (0.00-0.30); Cholesterol 155 mg/dL (200); GGTP 36 U/L (5-55); Globulin 3.6 g/dL (2.2-4.2); High Density Lipoprotein 56 mg/dL; Protein, Total 7.3 g/dL (6.4-8.2); Triglycerides 120 mg/dL; Very Low Density Lipoprotein 24 mg/dL (5-40)
== END | disposition home or self-care (01) ==
LOC: US 09:53
PROVIDERS: PCP Internal Medicine; Referring Provider Internal Medicine Gastroenterology; Visit Provider Internal Medicine Gastroenterology
DX: K76.0 Fatty (change of) liver, not elsewhere classified (principal)
CPT/HCPCS: 36415; 76705; 76981; 80061; 80076; 82977

== ENCOUNTER → 2023-10-08 | Outpatient (CLI) | payer OTHER, SELFPAY ==
--- NOTE | 2023-10-08 14:02 | BI_ITS ---
MAMMOGRAPHY - BILATERAL SCREENING REASON FOR EXAM: Female, 62 years old. Routine annual screening examination. PERTINENT HISTORY: Non-contributory. Occasional right axillary tenderness. Past history of lung cancer. TECHNIQUE: Digital bilateral breast ozzie (3D mammographic acquisition) in the CC and MLO projections. 2-D mediolateral oblique (MLO) and craniocaudad (CC) views of both breasts were obtained. CAD: Full Field Digital Mammography with Computer Added Detection was performed. COMPARISON: Comparison is made with prior mammogram dated July 13, 2022 and August 24, 2021. FINDINGS: Breast Composition: The breasts are extremely dense, which lowers the sensitivity of mammography. There are no dominant masses or suspicious calcifications. No other significant abnormalities are identified. There has been no significant change since the prior study. BI/SCRN MAMM (CAD)W/OZZIE BILAT IMPRESSION: Stable bilateral screening mammogram. Yearly follow-up mammogram recommended. (A) ASSESSMENT CATEGORY: BIRADS Category 1: Negative. A letter regarding these results will be sent to the patient by the facility within 30 days. Approximately 10% of breast cancers are not detected by mammography. A normal mammogram should not delay biopsy of a clinically suspicious abnormality. [id number] Electronically Signed: Bashir Lara MD at 15:17 EDT ,
== END | disposition home or self-care (01) ==
LOC: OPBI 13:59
PROVIDERS: PCP Internal Medicine; Referring Provider Obstetrics & Gynecology; Visit Provider Obstetrics & Gynecology
DX: Z12.31 Encounter for screening mammogram for malignant neoplasm of breast (principal); Z85.118 Personal history of other malignant neoplasm of bronchus and lung
CPT/HCPCS: 77063; 77067

== ENCOUNTER → 2023-11-21 | Outpatient (CLI) | payer OTHER, SELFPAY ==
[2023-11-21 13:41] LABS: Absolute Lymphocyte Count 2.61 X10^3/uL (0.83-4.51); Absolute Neutrophil Count 3.6 X10^3/uL (2.0-7.7); Basophil# 0.07 X10^3/uL; Eosinophil# 0.09 X10^3/uL; Eosinophils% 1.3 % (0-5); Hematocrit 40.1 % (37-47); Hemoglobin 13.4 g/dL (12.0-15.0); Lymphocyte # 2.61 X10^3/ul (0.83-4.51); Lymphocyte % 36.8 % (19-41); Mean Corp Hgb Conc 33.4 g/dL (32-36); Mean Corpuscular Hgb 30.2 pg (27.0-32.0); Mean Corpuscular Volume 90.3 fL (81-99); Mean Platelet Vol. 9.1 fl (6.2-12.0); Monocyte# 0.72 X10^3/uL; Monocyte% 10.2 % (0-10); NRBC Flagged by Analyzer 0 % (0-5); Neutrophil # 3.59 X10^3/uL (2.7-7.7); Neutrophil % 50.6 % (47-70); Platelet Count 300 K/mm3 (150-450); RBC Distribution Width CV 11.5 % (11.6-14.6); RBC Distribution Width SD 37.9 fl (35.1-43.9); Red Blood Count 4.44 M/mm3 (4.2-5.4); White Blood Count 7.1 K/mm3 (4.4-11.0)
[2023-11-21 14:03] LABS: ALB/GLOB Ratio 0.9 RATIO (0.9-2.4); AST(SGOT) 29 U/L (15-37); Alanine Aminotransfer ALT/SGPT 43 U/L (13-56); Albumin, Serum 3.6 g/dL (3.2-5.0); Alkaline Phosphatase 70 U/L (45-117); Anion Gap 2 (5-15); BUN 14 mg/dL (7-18); BUN/Creat Ratio 17.5 RATIO (10-20); Calcium,Total 9.4 mg/dL (8.5-10.1); Chloride 103 mmol/L (98-107); EST Glomerular Filtration Rate 76 mL/min (>60); Est Glom Filt Rate - Afr Amer 92 mL/min (>60); Globulin 3.9 g/dL (2.2-4.2); Glucose 95 mg/dL (74-106); Lipase 60 U/L (13-75); Protein, Total 7.5 g/dL (6.4-8.2); Sodium Level 137 mmol/L (136-145)
== END | disposition home or self-care (01) ==
PROVIDERS: PCP Internal Medicine; Referring Provider Nurse Practitioner; Visit Provider Nurse Practitioner
DX: R19.00 Intra-abdominal and pelvic swelling, mass and lump, unspecified site (principal)
CPT/HCPCS: 36415; 80053; 83690; 85025

== ENCOUNTER → 2023-11-26 | Outpatient (CLI) | payer OTHER, SELFPAY ==
--- NOTE | 2023-11-26 10:10 | US_ITS ---
HISTORY: lump superior to umbilicus, lump to RUQ. TECHNIQUE: Iraheta scale images were obtained of the abdominal wall. 49 images. COMPARISON: PET-CT 07/24/2023. FINDINGS: 5 x 7 x 7 mm, 2 x 2 x 3 mm, and 2 x 3 x 3 mm hyperechoic nodules corresponding to the palpable findings superior and lateral to the umbilicus. US/Other Unlisted US Procedure IMPRESSION: Subcentimeter nodules in the abdominal wall, possible lipomas. Consider follow-up or correlation with cross-sectional imaging to exclude other etiologies. Electronically Signed: Criss Banks MD at 8:37 EDT ,
== END | disposition home or self-care (01) ==
LOC: US 10:08
PROVIDERS: PCP Internal Medicine; Referring Provider Nurse Practitioner; Visit Provider Nurse Practitioner
DX: R19.09 Other intra-abdominal and pelvic swelling, mass and lump (principal)
CPT/HCPCS: 76999

== ENCOUNTER → 2023-12-13 | Outpatient (CLI) | payer MEDICARE, BC, SELFPAY ==
--- NOTE | 2023-12-13 16:52 | CT_ITS ---
STUDY: CT ABDOMEN WITH CONTRAST REASON FOR EXAM: Female, 62 years old. Abdominal pain. RADIATION DOSAGE (If Supplied By Facility): CTDIvol = ( 10.59 ) mGy, DLP = ( 289.00 ) mGycm TECHNIQUE: Transaxial images were obtained post I.V. administration of IV 100mL Isovue-300, and oral contrast. Sagittal and coronal images were reconstructed. Individualized dose optimization techniques were used for this CT. COMPARISON: Comparison is made with prior study dated April 20, 2010. FINDINGS: The visualized lung bases are unremarkable. The visualized portions of the heart are within normal limits. Mild degree of central intrahepatic biliary ductal dilatation. The gallbladder is contracted. Normal spleen. Normal pancreas. Normal bilateral adrenal glands. Normal right kidney. Normal left kidney. Normal visualized stomach. Normal small intestine. There are multiple colonic diverticula consistent with diverticulosis. The appendix is visualized and appears normal. There is scattered atherosclerotic calcification of the abdominal aorta, without a demonstrated aneurysm. Normal inferior vena cava. Normal retroperitoneum. The patient is status post hysterectomy. There is a small umbilical hernia containing fat. Prior vertebroplasty of the T11 vertebrae. CT/Abdomen WITH IV Contrast IMPRESSION: Status post cholecystectomy. Stable mild degree of central intrahepatic ductal dilatation. Sigmoid diverticulosis. Electronically Signed: Bashir Lara MD at 9:05 EDT ,
== END | disposition home or self-care (01) ==
LOC: CT 16:49
PROVIDERS: PCP Internal Medicine; Referring Provider Internal Medicine; Visit Provider Internal Medicine
DX: R19.09 Other intra-abdominal and pelvic swelling, mass and lump (principal)
CPT/HCPCS: 74160; Q9967

== ENCOUNTER → 2024-01-10 | Outpatient (CLI) | payer MEDICARE, BC, SELFPAY ==
--- NOTE | 2024-01-10 12:55 | CT_ITS ---
INDICATION: PULM NODULE EXAMINATION: CT CHEST WITHOUT CONTRAST - CT Chest W/O Contrast Injection TECHNIQUE: Helically acquired images were obtained of the chest. The protocol utilizes one or more of the following dose reduction techniques: automated exposure control, adjustment of mA and/or kV according to patient size,and/or use of iterative reconstruction technique. IV Contrast dosage and agent: None. RADIATION DOSAGE (If Supplied By Facility): CTDIvol = ( 6.52 ) mGy, DLP = ( 223.34 ) mGycm COMPARISON: Prior study dated: 07/24/2023 FINDINGS: LUNGS, PLEURA AND LARGE AIRWAYS: The central airways are patent. Right lower lobectomy. There is a 1.3 cm groundglass nodular opacity posteriorly in the right upper lobe, series 2 image 35. This is for the most part unchanged from prior, but show slight progressive growth over multiple prior studies. 1.5 cm groundglass opacity at the left apex also shows progressive growth. No pleural effusion or thickening. No pneumothorax. Suture line of the left upper lobe. No significant change of a 0.4 cm groundglass nodule at the right apex. THYROID: No thyroid lesions. HEART AND PERICARDIUM: Heart size is normal. No pericardial effusion. CORONARY ARTERIES: Coronary artery calcification is not seen. VESSELS: Thoracic aorta is not dilated. MEDIASTINUM AND BERT: No mediastinal or hilar adenopathy. Esophagus is unremarkable. No hiatal hernia. UPPER ABDOMEN: No acute pathology. BONES: No suspicious lytic or blastic abnormality. Mild degenerative changes of the spine. T11 kyphoplasty. CT/Chest without Contrast IMPRESSION: Postsurgical changes of the lungs. Right upper lobe and left upper lobe groundglass nodular opacities are seen, showing no significant change from the recent prior study, but progressive growth from more remote prior studies. Electronically Signed: Colin Babb MD at 12:29 EDT ,
== END | disposition home or self-care (01) ==
LOC: CT 12:51
PROVIDERS: PCP Internal Medicine; Referring Provider Internal Medicine Pulmonary Disease; Visit Provider Internal Medicine Pulmonary Disease
DX: R91.1 Solitary pulmonary nodule (principal)
CPT/HCPCS: 71250

== ENCOUNTER 2024-02-22 13:23 | Outpatient (CLI) | payer MEDICARE, BC, SELFPAY ==
[2024-02-22] MEDS: 0.9% NaCl Peripheral Flush Adult/Peds IV (13:35)
[2024-02-22 13:36] VITALS: BP 142/82; PULSE 70; RESP 14; TEMP 36.8; O2SAT 96; BMI 22.1
[2024-02-22] MEDS: Zoledronic Acid 5 MG 100 ML 300 MG IV (13:41)
[2024-02-22 14:10] VITALS: BP 142/86; PULSE 53; RESP 16; TEMP 36.6; O2SAT 98
== END 2024-02-22 23:59 | disposition home or self-care (01) ==
LOC: MEDOUTP 13:23
PROVIDERS: PCP Internal Medicine; Referring Provider Internal Medicine Endocrinology, Diabetes & Metabolism; Visit Provider Internal Medicine Endocrinology, Diabetes & Metabolism
DX: M81.0 Age-related osteoporosis without current pathological fracture (principal)
CPT/HCPCS: 96365; A4216; J3489

== ENCOUNTER → 2024-05-17 | Outpatient (CLI) | payer MEDICARE, BC, SELFPAY ==
--- NOTE | 2024-05-17 10:42 | MRI_ITS ---
EXAM: MR LEFT LOWER EXTREMITY WITHOUT INTRAVENOUS CONTRAST, HIP CLINICAL INDICATION: LT ANKLE PAIN TECHNIQUE: Multiplanar and multisequence MR images of the left hip without intravenous contrast. COMPARISON: No relevant prior studies available. FINDINGS: TENDONS: FLEXORS: Unremarkable. Intact. EXTENSORS/HAMSTRING: Unremarkable. Intact. ABDUCTORS: Unremarkable. Intact. ADDUCTORS: Unremarkable. Intact. ROTATORS: Unremarkable. Intact. MUSCLES: Unremarkable. Normal bulk and signal. FLUID: Unremarkable. No trochanteric bursitis. No significant joint effusion. LABRUM: Unremarkable. No evidence of a tear on this non-arthrogram exam. CARTILAGE: Unremarkable. Articular cartilage intact. BONES/JOINTS: Plantar and posterior calcaneal enthesopathy. Moderate grade sprain injury of the deltoid ligamentous complex. No femoral neck fracture. No avascular necrosis of the femoral head. No sacral insufficiency fracture. No suspicious bone marrow signal alteration. No osteochondral lesion at the tibiotalar articulation. OTHER SOFT TISSUES: Unremarkable. MRI/Lower Ext Joint Only (Routine) IMPRESSION: 1. Moderate grade sprain injury of the deltoid ligamentous complex. 2. No other significant internal derangement. 3. Ancillary findings as above. Electronically Signed: Britton Franco MD at 5:08 EST ,
== END | disposition home or self-care (01) ==
LOC: MRI 10:27
PROVIDERS: PCP Internal Medicine; Referring Provider Podiatrist; Visit Provider Podiatrist
DX: M25.572 Pain in left ankle and joints of left foot (principal); M76.72 Peroneal tendinitis, left leg
CPT/HCPCS: 73721

== ENCOUNTER → 2024-06-12 | Outpatient (CLI) | payer MEDICARE, BC, SELFPAY ==
[2024-06-12 17:06] LABS: Vitamin D,25 Hydroxy 57.9 ng/mL
[2024-06-12 17:15] LABS: T4 Free Direct 1.09 ng/dL (0.76-1.46)
== END | disposition home or self-care (01) ==
LOC: BIMLAB 15:44
PROVIDERS: PCP Internal Medicine; Referring Provider Internal Medicine Endocrinology, Diabetes & Metabolism; Visit Provider Internal Medicine Endocrinology, Diabetes & Metabolism
DX: E03.9 Hypothyroidism, unspecified (principal); E55.9 Vitamin D deficiency, unspecified
CPT/HCPCS: 36415; 82306; 84439; 84443

== ENCOUNTER → 2024-07-14 | Outpatient (CLI) | payer MEDICARE, BC, SELFPAY ==
--- NOTE | 2024-07-14 13:57 | CT_ITS ---
PROCEDURE: CHEST WITHOUT CONTRAST REASON FOR EXAM: Lung carcinoma in 2006. Status post right lower lobe resection. Surveillance examination. TECHNIQUE: Chest CT without contrast. COMPARISON: Multiple prior examinations, most recently dated 01/10/2024 FINDINGS: Hardware: None. Lymph nodes: No mediastinal hilar or axillary lymphadenopathy. Few calcified hilar lymph nodes are seen bilaterally. Axillary lymph node on the right measures 0.8 cm. Heart and Vasculature: Normal heart size. No pericardial effusion. Thoracic aorta and pulmonary arteries have normal contours; noncontrast technique limits evaluation. No coronary artery calcifications are seen. Lungs and Airways: Suspect prior right lower lobe lobectomy. Stable 1.3 cm focus of ground-glass opacity within the posterior right upper lobe (series 4, image 33). 1.5 cm focus of ground-glass opacity within the left lung apex appears slightly more dense on current examination. Subtle 0.4 cm ground-glass nodule within the right upper lobe, unchanged (series 4, image 18). Remaining lung markings otherwise appears stable. No new focal airspace consolidation, pneumothorax or pleural effusion is seen. Upper Abdomen: Visualized portions of the upper abdominal viscera are unremarkable. Evidence of prior cholecystectomy. Bones: Postsurgical changes involving the 6th rib on the right, laterally. Vertebroplasty cement seen within the T11 vertebral level. CT/Chest without Contrast IMPRESSION: 1. Ground-glass opacity within the left lung apex measuring 1.5 cm, unchanged i n size in the interval, however appears slightly more dense on current examination. 2. Stable 1.3 cm focus of ground-glass opacity within the posterior right upper lobe. Remaining lung markings otherwise appears stable. 3. No new focal airspace consolidation, pneumothorax or pleural effusion is see n. One or more dose reduction techniques were used (e.g., Automated exposure contr ol, adjustment of the mA and/or kV according to patient size, use of iterative reconstruction technique). [facility]
== END | disposition home or self-care (01) ==
LOC: CT 13:55
PROVIDERS: PCP Internal Medicine; Referring Provider Internal Medicine Pulmonary Disease; Visit Provider Internal Medicine Pulmonary Disease
DX: R91.1 Solitary pulmonary nodule (principal)
CPT/HCPCS: 71250

== ENCOUNTER 2024-07-15 12:30 | Outpatient (RCR) | payer MEDICARE, BC, SELFPAY ==
--- NOTE | 2024-06-11 10:54 | HP.PTEVAL ---
Patient's Visit Information Visit Information Visit Information: LOBO SAGE is a 63 year old F referred to Physical Therapy by Dr. Arben Mayo DPM with a diagnosis of L ankle deltoid sprain, peroneal tendinitis with partial tear. Date of Evaluation: 06/10/24 Physical Therapist: Heath Brown DPT Visit Plan Frequency: 1-2x /Week Duration: 4 Weeks Plan: 1) US to L lateral ankle, peroneal region 2) 4 way ankle strengthening 3) progress to EVR eccentrics as tolerated 4) proprioception of L ankle May trial DN, but patient wanted to trial US first IE at eval: BTB 4 way ankle, standing calf stretch Subjective Subjective: Pt. is here today for her initial evaluation with diagnosis of L ankle deltoid sprain, peroneal tendinitis with partial tear. Pt. reports last spring she was playing pickleball and was moving laterally and felt her ankle invert. She was able to continue playing, but slowly became worse. Pt. was eventually in a lot pain. She ultimately went to physician whom recommended an MRI, but she decided to hold off. A few months went by and she was not improving. Eventually had MRI, showing peroneal tendon partial tear and deltoid sprain. Pt. reports pain is mostly at lateral ankle, not much at medial ankle. Occasional heel pain while walking barefoot, but this has improved since wearing slippers at home. Pt. reports having a constant 2-3/10 pain at lateral ankle that increases with prolonged walking. She reports being pretty sore after walking 3 miles at the [employer] She is able to complete all activities, but does have pain after prolonged walking and standing for longer periods of time. Pt. is hopeful to get back to cycling and walking for her exercises. No N/T noted. Pain L lateral ankle: Pain Intensity (Out of 10): 2 Pain Intensity Range: 2 and 6 Objective Objective: POSTURE: Pt. has decent posture in stance. Pt. has equal wt. shift between BLEs. Pt. reports no increase in symptoms during SLS. PALPATION: Pt. has increased tenderness along distal peroneal tendon, behind lateral malleolus and distally. Pt. has minimal pain along deltoid. Pt. has some minimal pain with palpation along medial and lateral plantar fascia. NEURO: pt. has normal sensation and normal DTR of BLEs. Pt. is able to rise on heels and toes without issues. ROM: L AROM ankle: DF 12deg, PF 45deg, INV 16deg, EVR 13deg. MMT: L ankle: DF 5-/5, INV 5-/5, EVR 4+/5, PF 4+/5. GAIT: Pt. has fairly normal gait pattern with 2/10 pain at lateral ankle. No marked deviations noted. STAIRS: reciprocal pattern noted. Pt. is able to complete with 1 HR, 2/10 pain in L ankle. Balance/Special Test Scores Lower Extremity Functional Score: 47 Goals Goal 1:: LTG: Pt. to be I with HEP. Goal Time Frame: 4-6 Weeks Goal 2:: STG: Pt. to have no pain at rest of L ankle. Goal Time Frame: 2-4 Weeks Goal 3:: LTG: Pt. to ambulate unlimited distances without increase in L ankle pain. Goal Time Frame: 4-6 Weeks Goal 4:: LTG: Pt. to have full strength throughout L ankle without increase in pain. Goal Time Frame: 4-6 Weeks Goal 5:: LTG: Pt. to be able to bike without increase in L ankle symptoms. Goal Time Frame: 4-6 Weeks Rehabilitation Potential Physical Therapy Diagnosis: Pt. has signs and symptoms consistent with L ankle deltoid sprain, peroneal tendinitis with partial tear. Pt. has marked increased lateral ankle pain, some slight weakness and slight pain at lateral ankle. Pt. would benefit from PT to address the above limitation progressing back to all recreational and working out activities. Rehabilitation Potential: Excellent Anticipated Interventions Patient/Client Instruction: Educate patient on: Condition, Plan of Care, Risk Factors and Benefits of Fitness Program For the Purpose of:: To facilitate caregiver knowledge, To improve self management, To prevent re-injury, To improve ability to perform tasks related to life management and To improve tolerance to ADL's Therapeutic Exercise to Include: Strength training, Power training, Balance training, Body mechanics, Postural training, Flexibilty training, Gait and locomotor training, Passive ROM and Active ROM For the Purpose of:: To decrease pain, To increase ROM, To improve nutrient delivery to tissue, To increase oxygenation perfusion, To improve muscle performance and motor function, To improve ability to perform ADL's, To increase tolerance to activity/condition/position and To improve performance and independence with ADL's Manual Therapy Techniques to Include: Functional dry needling and Soft tissue mobilization Comment: IASTIM For the Purpose of:: To decrease pain, To increase ROM, To improve nutrient delivery to tissue, To increase oxygenation perfusion and To improve muscle performance and motor function Ultrasound (thermal/non thermal): Yes For the Purpose of:: To decrease pain, To decrease swelling/inflammation and To increase ROM Text: Thank you for the opportunity to evaluate your patient. For Medicare and Medicare HMO plans, please review the plan of care and approve it. It will need to be FAXED BACK to us at [phone] for Medicare purposes. For Medicare only, by signing this I certify the plan of care. Please let me know if there are questions or concerns regarding this plan of care. Physician Signature: Date:
== END 2024-07-15 19:00 | disposition home or self-care (01) ==
LOC: PT 12:30
PROVIDERS: PCP Internal Medicine; Referring Provider Podiatrist; Visit Provider Podiatrist
DX: M72.2 Plantar fascial fibromatosis (principal); M76.72 Peroneal tendinitis, left leg; S93.422D Sprain of deltoid ligament of left ankle, subsequent encounter
CPT/HCPCS: 97035; 97110; 97161

== ENCOUNTER 2024-09-14 10:09 | Emergency (ER) | payer MEDICARE, BC, SELFPAY ==
[2024-09-14 10:10] VITALS: BP 142/78; PULSE 97; RESP 16; TEMP 37.2; O2SAT 91; BMI 22.1
--- NOTE | 2024-09-14 10:33 | EX.ED.DYSGE1 ---
HPI History of Present Illness Chief Complaint: Other, Pain/Inj Informant: patient Narrative Narrative: 63-year-old female presenting to the emergency room with a swollen tender area just in front of her left ear. Patient states that she first noticed some swelling and tenderness yesterday. She states is little bit worse today. She reports a history of non-small cell cancer of the lung. This was in 2005. Patient denies any dental pain. She denies dry mouth. She notes discomfort with opening and closing the jaw. She denies any erythema. She called urgent care and advised her to come to emergency. She denies any recent infections. No fevers. [facility] Medical History Thyroid nodule Osteoporosis Compression fracture of T11 vertebra Compression fracture of third lumbar vertebra Palpitations Hypothyroidism Premature ventricular contraction Essential hypertension IBS (irritable bowel syndrome) GERD (gastroesophageal reflux disease) Anxiety History of malignant neoplasm of lower lobe bronchus or lung Non-small cell carcinoma of lung Home Medications ?Medication ?Instructions ?Recorded ?Last Taken ?Type pantoprazole 40 mg tablet,delayed 40 mg PO DAILY 06/03/18 Unknown History release calcium carbonate (Calcium 500) 500 mg PO DAILY 09/19/23 Unknown History metoprolol tartrate 25 mg tablet 12.5 mg (1/2 x 25 mg) PO BID #90 01/10/24 Unknown Rx tabs Immune Strength 1 tab PO DAILY 01/29/24 Unknown History ergocalciferol (vitamin D2) 1,250 1,250 mcg PO .[id number] 01/29/24 Unknown History mcg (50,000 unit) capsule zoledronic acid 5 mg/100 mL in 1 ea .Route ONCE #100 mL 01/29/24 Unknown Rx mannitol 5 %-water intravenous piggybck multivitamin 1 tab PO DAILY PRN 04/07/24 Unknown History azithromycin 250 mg tablet 250 mg PO .COMPLEX #12 tabs 04/23/24 Unknown Rx lorazepam 0.5 mg tablet 0.5 mg PO DAILY PRN anxiety #10 06/16/24 Unknown Rx tabs levothyroxine 75 mcg tablet 75 mcg PO .6xweek #72 tabs 08/25/24 Unknown Rx (Synthroid) cephalexin 500 mg capsule 500 mg PO Q6 #28 CAPSULES 09/14/24 Unknown Rx Allergy/AdvReac Type Severity Reaction Status Date / Time adhesive tape AdvReac Rash Verified 09/14/24 10:10 contact metal agent AdvReac Rash Verified 09/14/24 10:10 levofloxacin (From Levaquin) AdvReac Swelling Verified 09/14/24 10:10 Family History Mother Uterine cancer Hypertension Alzheimers disease Father Lung cancer Bone cancer Heart disease Sister Asthma Diabetes Hypertension High cholesterol Thyroid disorder Respiratory disorder Sister Hypertension Thyroid disorder graves Surgical History H/O kyphoplasty History of esophagogastroduodenoscopy (EGD) History of lobectomy of lung H/O tubal ligation History of tonsillectomy H/O arthroscopy of knee History of hysterectomy History of cholecystectomy Hx of section S/P partial lobectomy of lung Social History household members: spouse housing: house current occupational status: unemployed Smoking Status: Former smoker quit date: 06/04/05 pack-years: 1 Electronic Cigarette Use: not used how long ago did patient quit smokin second hand exposure: Yes alcohol intake: current alcohol intake frequency: holidays/special occasions only substance use type: does not use caffeine: No what type of physical activity do you participate in: walking, bicycling and weight training seatbelt use: always do you feel safe at home: Yes ROS ROS ED Constitutional Constitutional ED: Denies chills or weight loss Eyes Eyes: Denies change in vision or diplopia ENT ENT ED: Reports other Details: See history of present illness ; Denies ear pain, rhinorrhea or sore throat Cardiovascular Cardiovascular: Denies chest pain, orthopnea, palpitations or racing heartbeat Respiratory/Chest Respiratory/Chest: Denies cough, dyspnea or orthopnea Gastrointestinal Gastrointestinal: Denies abdominal pain, diarrhea, nausea or vomiting Genitourinary Genitourinary ED: Denies dysuria, hematuria or urinary frequency Musculoskeletal Musculoskeletal: Denies arthralgias or myalgias Integumentary Denies abscess or rash Neurologic Neurologic: Denies headache(s) or weakness Psychiatric Psychiatric: Denies anxiety, depression, suicidal ideation or suicidal thoughts Endocrine Endocrinology: Denies polydipsia, polyphagia or polyuria Allergic/Immunologic Allergic/Immunologic ED: Denies mouth swelling, tongue swelling or urticaria EXAM Physical Exam Const Vital Signs: 09/14/24 10:10 Temperature 98.9 F Temperature Source Oral Pulse Rate 97 Respiratory Rate 16 Blood Pressure 142/78 H Blood Pressure Mean 99 Pulse Ox 91 Oxygen Delivery Method Room Air Positive well nourished and well developed General Appearance ED: well developed HEENT Reports normocephalic, head/scalp atraumatic and moist mucous membranes HEENT Narrative: There is a palpable tender half centimeter to centimeter nodule in the preauricular area. I do not appreciate overlying erythema. The area is tender. I do not appreciate any dental infection. Nodes no parotid swelling. Tympanic membrane and ear canals appear normal. No posterior auricular lymphadenopathy. Or swelling erythema is noted. No swelling on the anterior posterior left no chains are noted. Do not appreciate oral pharyngeal erythema swelling or petechiae. Eyes PERRL and EOMs intact bilaterally Neck no lymphadenopathy, supple and no JVD Resp normal respiratory effort and clear to auscultation bilaterally Cardio regular rate, regular rhythm and no murmurs GI normal to inspection, nondistended, normoactive bowel sounds and non-tender Palpation: soft Back/Spine no CVA tenderness and normal ROM Extremity normal to inspection General Extremety ED: Negative for edema General Extremity: Negative for edema Neuro oriented x3 and CN's II-XII intact bilaterally Sensorium / Orientation: alert Motor Exam: strength 5/5 throughout Psych mental status grossly normal Mood & Affect: Negative for depressed or tearful Skin no rashes or lesions noted and no wounds MDM MDM MDM Narrative Medical decision making narrative: Differential diagnosis includes but not limited to cyst infected lymph node malignancy parotitis otitis media otitis externa some Spoke with the patient we talked about imaging. Using a mutually agreed upon plan of evaluation we will obtain a CT of the neck with IV contrast. Alternative to this plan would be a 1 week course of Keflex with follow-up. CT of the neck was obtained. This was read by radiology reviewed by myself. Upon my review there is an asymmetric preauricular lymph node. This would be consistent with her physical exam. Patient was placed on Keflex for 1 week. Would recommend ENT follow-up if persistent symptoms. Ibuprofen for pain. White count 5.8 hemoglobin 14.2 BMP within normal limits. History & Record Review Discussion w/independent historian: Patient Lab Data Attestation: I reviewed the patient's lab results. Labs: Laboratory Results - last 24 hr 09/14/24 10:40 WBC 5.8 RBC 4.59 Hgb 14.2 Hct 41.1 MCV 89.5 MCH 30.9 MCHC 34.5 RDW Std Deviation 37.7 RDW Coeff of Cole 11.7 Plt Count 279 MPV 9.1 Immature Gran % (Auto) 0.200 Neut % (Auto) 52.1 Lymph % (Auto) 33.9 Smyth % (Auto) 9.8 Eos % (Auto) 2.8 Baso % (Auto) 1.2 H Absolute Neuts (auto) 3.0 Absolute Lymphs (auto) 1.96 Nucleated RBC % 0 Sodium 138 Potassium 3.9 Chloride 104 Carbon Dioxide 25.8 Anion Gap 9 BUN 17 Creatinine 0.83 Estim Creat Clear Calc 58.35 Est GFR (MDRD) Non-Af 78 BUN/Creatinine Ratio 20.2 H Glucose 86 Calcium 9.0 Radiography Diagnostic Testing: Clinical Impression(s) from Imaging Studies Soft Tissue Neck CT 09/14/24 10:50 IMPRESSION: 1. No preauricular mass or additional soft tissue mass. 2. Stable, 1.5 cm left upper lobe ground-glass opacity. Reading Location: [facility] Discharge Plan Triage Chief Complaint: Other, Pain/Inj ED Provider: Fei Blandon Dx/Rx/DC Orders Clinical Impression: Acute lymphadenitis Instructions: ED ADENITIS Cervical Abx Tx Prescriptions: New cephalexin 500 mg capsule 500 mg PO Q6 Qty: 28 0RF No Action multivitamin Tablet 1 tab PO DAILY PRN Immune Strength 1 tab PO DAILY zoledronic utng-xqsdpabp-kddia 5 mg/100 mL piggyback 1 ea .Route ONCE Qty: 100 0RF Rx Instructions: onceinfuse over 20 minutes calcium carbonate [Calcium 500] 500 mg calcium (1,250 mg) tablet,chewable 500 mg PO DAILY ergocalciferol (vitamin D2) 1,250 mcg (50,000 unit) capsule 1,250 mcg PO .[id number] Patient Comments: TAKE 1 CAPSULE BY MOUTH EVERY 20 days azithromycin 250 mg tablet 250 mg PO .COMPLEX Qty: 12 0RF Rx Instructions: 2 tablets (500 mg) on day 1, then 1 tablet daily on days 2 through 11 pantoprazole 40 MG tablet 40 mg PO DAILY metoprolol tartrate 25 mg tablet 12.5 mg PO BID Qty: 90 3RF lorazepam 0.5 mg tablet 0.5 mg PO DAILY PRN (Reason: anxiety) Qty: 10 0RF levothyroxine [Synthroid] 75 mcg tablet 75 mcg PO .6xweek Qty: 72 1RF Primary Care Provider: Salma Ro Referrals: Salma Ro MD [Primary Care Provider] - Castro Urias MD [Med Staff - Active Staff] - 1 Week if not improving Activity Restrictions/Additional Instructions: I would recommend ibuprofen for pain. Take the course of the antibiotic If still symptoms follow-up with ENT in 1 week. Print Language: Upper Sorbian Disposition Disposition: Home, Self Care
[2024-09-14 10:47] LABS: Absolute Lymphocyte Count 1.96 X10^3/uL (0.83-4.51); Basophil# 0.07 X10^3/uL; Basophil% 1.2 % (0-1); Eosinophil# 0.16 X10^3/uL; Eosinophils% 2.8 % (0-5); Hematocrit 41.1 % (37-47); Hemoglobin 14.2 g/dL (12.0-15.0); Lymphocyte # 1.96 X10^3/ul (0.83-4.51); Lymphocyte % 33.9 % (19-41); Mean Corp Hgb Conc 34.5 g/dL (32-36); Mean Corpuscular Hgb 30.9 pg (27.0-32.0); Mean Corpuscular Volume 89.5 fL (81-99); Mean Platelet Vol. 9.1 fl (6.2-12.0); Monocyte# 0.57 X10^3/uL; Monocyte% 9.8 % (0-10); NRBC Flagged by Analyzer 0 % (0-5); Neutrophil # 3.02 X10^3/uL (2.7-7.7); Neutrophil % 52.1 % (47-70); Platelet Count 279 K/mm3 (150-450); RBC Distribution Width CV 11.7 % (11.6-14.6); RBC Distribution Width SD 37.7 fl (35.1-43.9); Red Blood Count 4.59 M/mm3 (4.2-5.4); White Blood Count 5.8 K/mm3 (4.4-11.0)
--- NOTE | 2024-09-14 10:50 | CT_ITS ---
PROCEDURE: SOFT TISSUE NECK WITH CONTRAST 09/14/2024 REASON FOR EXAM: PREAURICULAR MASS TECHNIQUE: CT of the soft tissues of the neck from the orbits to the upper mediastinum with intravenous contrast. CONTRAST: Isovue 370 VOLUME: 100 mL One or more dose reduction techniques were used (e.g., Automated exposure control, adjustment of the mA and/or kV according to patient size, use of iterative reconstruction technique). RADIATION DOSE SUMMARY: CTDlvol: 10 mGy DLP: 310 mGycm COMPARISON: CT chest 07/15/2024. FINDINGS: Airway: Midline and patent. Salivary glands: The parotid, sublingual and submandibular glands are unremarkable. Lymph nodes: No suspicious lymphadenopathy. Thyroid: Normal in size without suspicious mass. Vasculature: Mild calcified plaque of the left cervical carotid artery. Mild calcific plaque of the aortic arch and branch vessels. Orbits: Unremarkable. Paranasal sinuses and mastoids: Retained cyst or polyp within the bilateral maxillary sinuses. Lung apices: Stable, 1.5 cm left upper lobe ground-glass opacity. Upper mediastinum: Visualized mediastinum is unremarkable. Bones: Cervical spondylosis. Prior dental restorations. Soft tissues: No subcutaneous edema or stranding. No preauricular mass or additional soft tissue mass. CT/Soft Tissue Neck WITH Contrast IMPRESSION: 1. No preauricular mass or additional soft tissue mass. 2. Stable, 1.5 cm left upper lobe ground-glass opacity. Reading Location: [id number]
[2024-09-14 11:14] LABS: Anion Gap 9 (5-15); BUN 17 mg/dL (4-19); BUN/Creat Ratio 20.2 RATIO (10-20); Carbon Dioxide 25.8 mmol/L (21.0-32.0); Chloride 104 mmol/L (98-108); Creatinine, Serum 0.83 mg/dL (0.70-1.20); EST Glomerular Filtration Rate 78 (>60); Estimated Creatinine Clearance 58.35 ml/min (50-250); Glucose 86 mg/dL (70-99); Potassium 3.9 mmol/L (3.3-5.1); Sodium Level 138 mmol/L (133-145)
== END 2024-09-14 11:28 | disposition home or self-care (01) ==
PROVIDERS: Emergency Provider Emergency Medicine; PCP Internal Medicine; Visit Provider Emergency Medicine
DX: L04.9 Acute lymphadenitis, unspecified (principal); Z87.891 Personal history of nicotine dependence; I10 Essential (primary) hypertension; Z85.118 Personal history of other malignant neoplasm of bronchus and lung; K21.9 Gastro-esophageal reflux disease without esophagitis
CPT/HCPCS: 70491; 80048; 85025; 99283; Q9967; A4216

== ENCOUNTER → 2025-03-02 | Outpatient (CLI) | payer MEDICARE, BC, SELFPAY ==
--- OUTSIDE RECORDS SUMMARY | 2024-12-30 12:48 | XMS RPT_ITS ---
Author Name Auto Generated Organization OH[facility] Care Team Providers Care Books Salesperson Name Role Phone BERNARDA LOU Attending Unavailable THADDEUS, JESIKA G Primary Care Unavailable ZARA GALLO Referring Unavail able THADDEUS, JESIKA G Primary Care Unavailable LIZZETH KESSLER Referring Unavailable AMBREEN MANNING Primary Care Unavailab le BLACK, SUDISH Referring Unavailable THADDEUS, JESIKA G Primary Care Unavailable BLACK, SUDISH Admitting Unavailable BLACK, SUDISH Attending Unavailable THADDEUS, JESIKA G Primary Care Unavailable BLACK, SUDISH Referring Unavailable THADDEUS, JESIKA G Primary Care Unavailable BLACK, SUDISH Referring Unavailable THADDEUS, JESIKA G Primary Care Unavailable BLACK, SUDISH Referring Unavailable THADDEUS, JESIKA G Primary Care Unavailable BLACK, SUDISH Attending Unavailable BLACK, SUDISH Referring Unavailable THADDEUS, JESIKA G Primary Care Unavailable BLACK, SUDISH Referring Unavailable THADDEUS, JESIKA G Primary Care Unavailable BLACK, SUDISH Referring Unavailable THADDEUS, JESIKA G Primary Care Unavailable BERNARDA LOU Attending Unavailable SUMANTH FROST Referring Unavailable THADDEUS, JESIKA G Primary Care Unavailable ADELINEGADanielito BERNARDA Referring Unavailable THADDEUS, JESIKA G Primary Care Unavailable ADELINEGAS BERNARDA Referring Unavailable THADDEUS, JESIKA G Primary Care Unavailable BLACK, SUDISH Attending Unavailable GEORGE WATSON Referring Unavailable AMBREEN MANNING Primary Care Unavailab estefanía TURCIOS MIRELLARADHIKAOPHLAKSHMI Admitting Unavailab le DI MIRELLAROSIO Attending Unavailab le THADDEUS, JESIKA G Primary Care Unavailable RICARDO INMAN Referring Unavailable THADDEUS, JESIKA G Primary Care Unavailable RICARDO INMAN Attending Unavailable RICARDO INMAN Referring Unavailable THADDEUS, JESIKA G Primary Care Unavailable RICARDO INMAN Attending Unavailable AMBREEN MANNING Primary Care Unavailab le RICARDO INMAN Attending Unavailable JESIKA RO Primary Care Unavailable LIZZETH KESSLER Referring Unavailable AMBREEN MANNING Primary Care Unavailab le PROBLEMS DATE TYPE CONDITION / CODE ATTENDING STATUS [facility] 12/30/2024 Active Mass of right br east, unspecified quadrant / N63.10(ICD-10) NA Active [facility] 12/30/20[address] Active Disorder [address], unspecified / N64.9(ICD-10) NA Active [facility] 12/30/2024 Active Abnormal mammogr am / R92.8(ICD-10) NA Active [facility] 10/23/2024 Active Malignant neopla sm of upper lobe of left lung (HCC) / C34.12(ICD-10) BERNARDA LOU Active [facility] 12/08/2024 Active Neoplasm of lung / D49.1(ICD-10) BERNARDA LOU Active [facility] 10/31/2024 Active Follow-up examin ation following surgery / Z09(ICD-10) NA Active [facility] 10/23/2024 Active Pain, postoperat roberta, acute / G89.18(ICD-10) BLACKPEDRO Active [facility] 10/17/2024 Active Lung nodule / R91.1(ICD-10) BLACKDANTEISH Active [facility] 10/13/2024 Active Lung nodules / R91.8(ICD-10) RICARDO INMAN Active [facility] 10/13/2024 Active Preoperative exa mination / Z01.818(ICD-10) RICARDO INMAN Active [facility] 10/10/2024 Active Encounter for preoperative anesthesiology assessment for thoracic surgery / Z01.818(ICD-10) NA Active [facility] 10/10/2024 Active Encounter for ot her preprocedural examination / Z01.818(ICD-10) NA Active [facility] 12/26/2011 Active Hypothyroidism, unspecified type / E03.9(ICD-10) NA Active [facility] 10/10/2024 Active Pre-procedure la b exam / Z01.812(ICD-10) NA Active [facility] 10/10/2024 Active Shortness of leia ath / R06.02(ICD-10) NA Active [facility] 09/08/2024 Active BRONCH CONSULT / UNK(Unknown) STORM RICARDO Wellington Active [facility] 04/15/2024 Active Encounter for sc reening mammogram for malignant neoplasm of breast / Z12.31(ICD-10) NA Active [facility] PROCEDURES No Procedure Records Found RESULTS CNPN Observed: 01/28/2025 12:00 AM Status: COMPLETED Source: [facility] Telephone (ORHVI) MERISSA SAGE ([id number]) 1960 F Date Time Provider Department 01/28/25 PEDRO CLEANING ORJakub During your visit today, we recorded the following information about you: Renay Smallwood RN 01/28/2025 2:27 PM Signed [facility] Phone Encounter DATE of SERVICE: 01/28/2025 TIME of SERVICE: 2:22 PM Status: [facility] Service/Provider: Thoracic Surgery Pedro Cleaning M.D. Reason for call: Pain Contact information: [phone] Resolution: Routine referral to PCP/Customer Sales Consultant Comments: Pt calling about pain around incision sites from surgery with Dr. Cleaning. Pt states there are six incisions near the bottom of her left rib. She experiences extreme pain (8 out of 10) when touching area and 5 out of 10 throbbing pain without touching area. Incisions are near bra strap. She has discomfort down the left side and this has been bothering her since surgery. Denies fever (current temp is 98.7 degrees F), chills , redness/swelling/foul odor/drainage from sites. Pt states one incision seeped SA fluid but it hasn't in several days. I advised pt to go to PCP for further assessment of incisions and pain around incisions. Pt verbalized understanding and will make appointment with PCP for this week. Renay Smallwood RN Date of Resolution: 01/28/2025 Time of Resolution 2:22 PM Allergies As of Date: 01/28/2025 Noted Allergy Reaction ADHESIVE TAPE-SILICONES 10/10/2024 4 - Hives Comments: Band-aids ALBUTEROL 10/10/2024 14 - Other: See Comments Comments: anxiety CONTACT METAL AGENT 10/10/2024 2 - Rash Comments: Jewelry LEVAQUIN (LEVOFLOXACIN) 07/06/2008 4 - Hives Date Reviewed: 12/08/2024 Reviewed by: Bernarda Lou APRN.CLOTHING SORTER - Fully Assessed Reason for Visit: Post Tn Program Call - Fyjakub [[id number]] Prescriptions as of 01/28/2025 - ergocalciferol 50,000 unit capsule (VITAMIN D2, DRISDOL) Take 1 capsule by mouth once every month. - pantoprazole DR (PROTONIX) 40 mg tablet Take 1 tablet by mouth once daily. - ibuprofen (MOTRIN) 600 mg tablet Take 1 tablet by mouth every 6 hours as needed for pain. - zoledronic acid/mannitol-water (RECLAST INTRAVENOUS) Inject intravenously every year. - calcium carbonate (CALCIUM 600 ORAL) Take by mouth once daily. - FA/MV,CA,IRON,MIN/LYCOPENE/LUT (MULTIVITAL ORAL) Take by mouth. - levothyroxine (SYNTHROID) 75 mcg tablet Take 75 mcg by mouth once daily. Pt takes on tablet in the morning 6 days a week. - LORazepam 0.5 mg tab Take by mouth three times daily as needed. Pt takes 1/2 tablet as needed - metoprolol tartrate, short acting, (LOPRESSOR) 50 mg tablet Take 0.5 tablets by mouth twice daily. 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] 06/20/2006 GERD without esophagitis [K21.9] 06/20/2006 DEPRESSION ACUTE - SINGLE EPISODE( Mild) [F32.0]06/20/2006 PALPITATIONS [R00.2] 06/20/2006 LUNG CANCER LOWER LOBE, NSC [C34.30] 06/20/2006 EXCESSIVE MENSTRUATION [N92.0] 07/08/2008 IRREGULAR MENSTRUATION [N92.6] 07/08/2008 DYSMENORRHEA [N94.6] 07/08/2008 Lipoma of Unspecified Site [D17.9] 06/07/2009 Low back pain radiating to left leg [M54.50, M7*06/19/2011 Cervical adenopathy [R59.0] 12/26/2011 Acquired hypothyroidism [E03.9] 12/26/2011 Mass of lower outer quadrant of right breast [N*10/21/2022 Breast pain [N64.4] 10/21/2022 Lung nodule [R91.1] 10/17/2024 Malignant neoplasm of upper lobe of left lung (*10/20/2024 Pain, postoperative, acute [G89.18] 10/23/2024 Essential hypertension [I10] 10/23/2024 Anxiety [F41.9] 10/23/2024 Encounter Status:Closed by RENAY SMALLWOOD on 01/28/25 [facility] [employer] BREAST [employer] RT Observed: 1:13 PM Status: F Source: [facility] * * *Final Report* * * DATE OF EXAM: Dec 30 2024 1:13PM [facility] - [facility] [employer] BREAST [employer] RT / PROCEDURE REASON: Abnormal mammogram * * * * Physician Interpretation * * * * [facility] [place] [address] #[id number] - [facility] [employer] BREAST [employer] RT HISTORY: 64 year-old patient presents for diagnostic evaluation of the finding(s) described on prior mammogram in the right breast. Patient states no personal history of breast cancer. COMPARISON STUDIES: The present examination has been compared to prior imaging studies dated 07/13/2022, 04/18/2023 (ultrasound), 04/15/2024 (mammogram), 04/19/2024 (mammogram) and 04/19/2024 (ultrasound). ULTRASOUND TECHNIQUE: Targeted ultrasound of the indicated area was performed. Iraheta scale images were saved. ULTRASOUND FINDINGS: There is a stable oval intramammary lymph node with circumscribed margins measuring 0.9 cm in the right breast at 9 o'clock, posterior depth, 13 cm from the nipple. Internal echotexture is hypoechoic. Cortical thickness is normal. There are no suspicious findings in the imaged area. IMPRESSION: There are no suspicious sonographic findings in the imaged area. Return to annual screening mammogram is recommended. Annual mammogram will be due in 4 months. BI-RADS Category 2: Benign Interpreting Radiologist: Fei Hudson M.D. Electronically signed on: 12/30/2024 Natural Resources Extension Educator: JEAN Transcribe Date/Time: Dec 30 2024 1:00P Dictated by : FEI HUDSON MD This examination was interpreted and the report reviewed and electronically signed by: FEI HUDSON MD on Dec 30 2024 1:53PM EST [id number] PROGRESS Observed: 12/30/2024 1:00 PM Status: COMPLETED Source: [facility] HNO ID: [id number] Author: ERIKA HAYES RDMS Service: ? Author Type: Caser Type: Progress Notes Filed: 12/30/2024 14:21 Note Text: Radiology Service Progress Note PATIENT NAME: Merissa Sage DATE OF SERVICE: December 30, 2024 TIME: 2:21 PM PATIENT IDENTITY VERIFICATION COMPLETED USING TWO (2) IDENTIFIERS: Name and Date of confirmed by patient verbally. FALL SCREENING: Has the patient had 2 falls in the last year or 1 fall with injury or currently using an Ambulatory Assistive Device (Walker, Cane, Wheelchair, Crutches, etc.)? No PATIENT GENDER DATA: Assigned female at . status: : No status: NO. PATIENT RELEVANT IMPLANT DATA REVIEWED: Not Applicable PATIENT PRESENTS WITH AN IMPLANTABLE OR ATTACHED SENIOR PROJECT ACCOUNTANT: No RADIOLOGY DEPARTMENT: Ultrasound PERIPHERAL IV DATA: Not applicable SIGNED BY: Erika Hayes RDMS RVT December 30, 2024 2:21 PM PROGRESS Observed: 12/12/2024 3:23 PM Status: COMPLETED Source: [facility] HNO ID: [id number] Author: ALLA MEDEROS RN Service: ? Author Type: Registered Nurse Type: Progress Notes Filed: 12/12/2024 15:24 Note Text: Erroneous entry, please disregard CNPN Observed: 12/11/2024 12:00 AM Status: COMPLETED Source: [facility] Telephone (OBGYWM) ALONAMERISSA ([id number]) 1960 F Date Time Provider Department 12/11/24 ZARA GALLO OBGYWM During your visit today, we recorded the following information about you: Jayne Greene RN 12/11/2024 11:02 AM Signed Patient is over due for a 6 month f/u breast imaging. She needed to cancel her appointment in October because she had lung surgery due to cancer at that time. Patient asking if she could have a breast ultrasound only to check the lymph nodes due to the healing of her incisions on her chest. Advised that our office would check with mammography to see if that is a possibility. Aware it is at the discretion of the radiologist. TERRENCE Cantu Jennifer, TERRENCE 12/12/2024 10:50 AM Signed Called Mammography yesterday and x2 today. No answer. Will try calling them again. TERRENCE Cantu Jennifer, TERRENCE 12/12/2024 3:05 PM Signed Received the following message after reaching out to [facility]: I spoke with the patient. Answered her questions and gave her the phone number to get her US of the breast scheduled. Patient given my contact information should she have any concerns or problems scheduling her appointment. Meggan Arellano RN Allergies As of Date: 12/11/2024 Noted Allergy Reaction ADHESIVE TAPE-SILICONES 10/10/2024 4 - Hives Comments: Band-aids ALBUTEROL 10/10/2024 14 - Other: See Comments Comments: anxiety CONTACT METAL AGENT 10/10/2024 2 - Rash Comments: Jewelry LEVAQUIN (LEVOFLOXACIN) 07/06/2008 4 - Hives Date Reviewed: 12/08/2024 Reviewed by: Bernarda Lou APRN.CLOTHING SORTER - Fully Assessed Reason for Visit: Patient Question [1477] Cmt: 6 month follow up mammogram Prescriptions as of 12/12/2024 - ergocalciferol 50,000 unit capsule (VITAMIN D2, DRISDOL) Take 1 capsule by mouth once every month. - pantoprazole DR (PROTONIX) 40 mg tablet Take 1 tablet by mouth once daily. - ibuprofen (MOTRIN) 600 mg tablet Take 1 tablet by mouth every 6 hours as needed for pain. - zoledronic acid/mannitol-water (RECLAST INTRAVENOUS) Inject intravenously every year. - calcium carbonate (CALCIUM 600 ORAL) Take by mouth once daily. - FA/MV,CA,IRON,MIN/LYCOPENE/LUT (MULTIVITAL ORAL) Take by mouth. - levothyroxine (SYNTHROID) 75 mcg tablet Take 75 mcg by mouth once daily. Pt takes on tablet in the morning 6 days a week. - LORazepam 0.5 mg tab Take by mouth three times daily as needed. Pt takes 1/2 tablet as needed - metoprolol tartrate, short acting, (LOPRESSOR) 50 mg tablet Take 0.5 tablets by mouth twice daily. 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] 06/20/2006 GERD without esophagitis [K21.9] 06/20/2006 DEPRESSION ACUTE - SINGLE EPISODE( Mild) [F32.0]06/20/2006 PALPITATIONS [R00.2] 06/20/2006 LUNG CANCER LOWER LOBE, NSC [C34.30] 06/20/2006 EXCESSIVE MENSTRUATION [N92.0] 07/08/2008 IRREGULAR MENSTRUATION [N92.6] 07/08/2008 DYSMENORRHEA [N94.6] 07/08/2008 Lipoma of Unspecified Site [D17.9] 06/07/2009 Low back pain radiating to left leg [M54.50, M7*06/19/2011 Cervical adenopathy [R59.0] 12/26/2011 Acquired hypothyroidism [E03.9] 12/26/2011 Mass of lower outer quadrant of right breast [N*10/21/2022 Breast pain [N64.4] 10/21/2022 Lung nodule [R91.1] 10/17/2024 Malignant neoplasm of upper lobe of left lung (*10/20/2024 Pain, postoperative, acute [G89.18] 10/23/2024 Essential hypertension [I10] 10/23/2024 Anxiety [F41.9] 10/23/2024 Encounter Status:Closed by JAYNE GREENE on 12/12/24 PROGRESS Observed: 12/08/2024 9:58 AM Status: COMPLETED Source: [facility] HNO ID: [id number] Author: BERNARDA LOU APRN.CNP Service: ? Author Type: Nurse Practitioner Type: Progress Notes Filed: 12/08/2024 10:33 Note Text: Heart, Vascular AND Thoracic [facility] Department of Thoracic Surgery TELEPHONE VISIT (audio only) PROGRESS NOTE This is a telephone encounter initiated for an established patient. The patient, parent or guardian is not originating from a related Evaluation AND Management service provided within the previous 7 days nor leading to an Evaluation AND Management service or procedure within the next 24 hours or soonest available appointment. I have communicated my name and active licensure. The patient's identity and physical location were verified at the time of this visit. Either the patient or their legal airline security representative has been informed of the risks and benefits of -- and alternatives to -- treatment through a remote evaluation and consents to proceed with the evaluation remotely. Merissa Sage has consented to this telephone encounter. Persons Present: patient 12/03/2024 09/07/2024 07/27/2022 PROMIS 10 Health, in general Good Very good Very good Quality of life, in general Good Excellent Very good Physical health, in general Good Excellent Very good Mental health, in general Good Very good Very good Social activities satisfaction Good Very good Very good Performing ADL's Moderately Completely Completely Social role satisfaction Good Excellent Very good Pain, on average 3 0 - No Pain 2 Fatigue, on average Mild Mild Mild Emotional problems Sometimes Sometimes Sometimes PHYSICAL Score 44.9 (Good) 61.9 (Excellent) 54.1 (Very Good) MENTAL Score 43.5 (Good) 53.3 (Very Good) 50.8 (Very Good) Total Time Spent: 21-30 minutes Bernarda Lou APRN.CNPPart of this note was copied from previous note, all content has been individually reviewed, updated as necessary, and thoroughly reviewed. [facility] - OUTPATIENT THORACIC SURGERY CLINIC NOTE PT NAME: Merissa Sage [facility] NO: [id number] THORACIC SURGEON: Pedro Cleaning M.D. DATE OF SERVICE: 12/08/2024 PRINCIPAL DX: [id number] adenocarcinoma lung, left upper lobe SURGICAL HX: 10/20/2024: Robotic-assisted lingular sparing left upper lobectomy (upper lobe trisegmentectomy), mediastinal and hilar lymph node dissection and intercostal and phrenic nerve blocks Surgical Pathology: FINAL DIAGNOSIS A. Lung, left upper lobe, lingula sparing left upper lobectomy: -Invasive poorly differentiated adenocarcinoma (see synoptic report). -Six lymph nodes negative for carcinoma (0/6). B. Lymph node, 8L, resection: -Lymph node fragments negative for carcinoma. C. Lymph node, 9L, resection: -Lymph node fragments negative for carcinoma. D. Lymph node, 4L, resection: -One lymph node negative for carcinoma (0/1). E. Lymph node, level 7, resection: -One lymph node negative for carcinoma (0/1). F. Lymph node, 11L, resection: -Lymph node fragments negative for carcinoma. G. Lymph node, 10L, resection: -Lymph node fragments negative for carcinoma H. Lymph node, 12L, resection: -One lymph node negative for carcinoma (0/1). I. Lymph node, level 5, resection: -One lymph node negative for carcinoma (0/1). at 1843 EDT Block for additional Biomarkers/Molecular studies A6 Synoptic Report LUNG AJCC 9 - Protocol posted: 05/14/2024LUNG: RESECTION - All Specimens SPECIMEN Procedure Lingula sparing left upper lobectomy Specimen Laterality Left TUMOR Tumor Focality Single focus Tumor Site Upper lobe of lung Tumor Size Invasive Tumor Size Greatest Dimension (Centimeters): 1.8 cm Histologic Type Invasive acinar adenocarcinoma Histologic Patterns Acinar: 70 Micropapillary: 30 Histologic Grade G3, poorly differentiated Spread Through Air Spaces (SALIMA) Present Visceral Pleura Invasion Not identified Direct Invasion of Other Structures Not applicable (no other structures present) Treatment Effect No known presurgical therapy Lymphatic and / or Vascular Invasion Not identified MARGINS Margin Status for Invasive Tumor All margins negative for invasive tumor Closest Margin(s) to Invasive Tumor Parenchymal Distance from Invasive Tumor to Closest Margin 5 cm Margin Status for Non-Invasive Tumor Not applicable REGIONAL LYMPH NODES Lymph Node(s) from Prior Procedures No known prior lymph node sampling performed Regional Lymph Node Status All regional lymph nodes negative for tumor Number of Lymph Nodes Examined At least: 14 Radha Site(s) Examined 7: Subcarinal 4L: Lower paratracheal 8L: Para-esophageal (below zeeshan) 9L: Pulmonary ligament 10L: Hilar 11L: Interlobar 12L-14L: Intrapulmonary 12L: Lobar 13L: Segmental pTNM CLASSIFICATION (AJCC Version 9) Reporting of pT, pN, and (when applicable) pM categories is based on information available to the pathologist at the time the report is issued. As per the AJCC (Chapter 1, 8th Ed.) it is the managing physician's responsibility to establish the final pathologic stage based upon all pertinent information, including but potentially not limited to this pathology report. pT Category pT1b pN Category pN0 . REASON FOR VISIT: Post-operative visit HPI: Merissa Sage is a 63 year old female ex smoker 10 pack years (quit 2005) with history of stage 1 lung cancer s/p right lower lobectomy 2005 who was found to have an evolving ground glass opacity in left upper lung on surveillance imaging now measuring 17 x 12 mm (CT scan 10/13/24). On 10/20/24 she underwent Robotic-assisted lingular sparing left upper lobectomy (upper lobe trisegmentectomy), mediastinal and hilar lymph node dissection and intercostal and phrenic nerve blocks by Dr Cleainng. PHYSICAL EXAM: VITAL SIGNS: LMP 03/14/2009 Room air Incision location: Left Thoracoport sites and Left Old chest tube sites Incision Assessment: per patient, slight bulge with cough, slight drainage at posterior incision Drain/Tubes: N/A REVIEW OF SYSTEMS PAIN ASSESSMENT: slight discomfort with cough, not taking any narcotic, only Tylenol or Ibuprofen GENERAL: No weight loss, malaise or fevers RESPIRATORY: occasional dry cough, SOB with extreme exertion CARDIOVASCULAR: Negative for chest pain, leg swelling, hypertension, CHF or palpitations GI: No nausea, vomiting, or diarrhea IMAGING/TESTS: CXR 12/04/2024: PENDING INTERVAL HISTORY: Merissa Sage is phoned today for a post op visit. Doing well. Has not needed any narcotic pain medication. Uses Tylenol or Ibuprofen occasionally. Incision still has a bulge. She has been wearing a sports bra for compression. Notes a speck of drainage occasionally from the VATS incision.Has dry cough when she talks which may be from reflux or allergies. SOb at times when she is going on a walk, improves after taking a break and deep breathing. CXR shows well expanded lungs. She is scheduled for a CT scan in [place] 04/13/25 and has a virtual visit scheduled with Dr Inman in pulmonary 04/20/25. Will arrange a virtual visit following the CT scan. IMPRESSION: 63 year old female s/p Robotic-assisted lingular sparing left upper lobectomy (upper lobe trisegmentectomy), mediastinal and hilar lymph node dissection and intercostal and phrenic nerve blocks by Dr Cleaning on 10/20/24 for pT1bN0/ stage IA2 adenocarcinoma lung, left upper lobe PLAN: - pulmonary management with Dr Inman, f/u 04/20/[address] chest 04/13/25 - virtual visit [address] chest Bernarda Lou APRN.CLOTHING SORTER XR CHEST 2V FRONTAL/LAT Observed: 2024 11:29 AM Status: F Source: [facility] * * *Final Report* * * DATE OF EXAM: Dec 04 2024 11:29AM WRX [id number] - XR CHEST 2V FRONTAL/LAT / PROCEDURE REASON: Malignant neoplasm of upper lobe of left lung (HCC) * * * * Physician Interpretation * * * * EXAMINATION: CHEST RADIOGRAPH (2 VIEW FRONTAL and LATERAL) CLINICAL HISTORY: Malignant neoplasm of upper lobe of left lung (HCC) MQ: XC2_6 EXAM DATE/TIME: 12/04/2024 11:29 AM COMPARISON: 10/31/2024 RESULT: Lines, tubes, and devices: None. Lungs and pleura: Left pleural tenting and scarring. Stable. Blunting of the right costophrenic angle is unchanged. No developing abnormality. Cardiomediastinal silhouette: Normal cardiomediastinal silhouette. Bones and soft tissues: Lower thoracic vertebroplasty is again noted. Bony structures are stable. IMPRESSION: No developing abnormality or acute process Natural Resources Extension Educator: CHAPARRITA Transcribe Date/Time: Dec 04 2024 3:01P Dictated by : PEDRO LUIS JANE MD This examination was interpreted and the report reviewed and electronically signed by: PEDRO LUIS JANE MD on Dec 04 2024 3:02PM EST [id number] PROGRESS Observed: 12/04/2024 11:10 AM Status: COMPLETED Source: [facility] HNO ID: [id number] Author: YAZMIN ARITA RT(R) Service: ? Author Type: Technologist Type: Progress Notes Filed: 12/04/2024 11:47 Note Text: Radiology Service Progress Note PATIENT NAME: Merissa Sage DATE OF SERVICE: December 04, 2024 TIME: 11:47 AM PATIENT IDENTITY VERIFICATION COMPLETED USING TWO (2) IDENTIFIERS: Name and Date of confirmed by patient verbally. FALL SCREENING: Has the patient had 2 falls in the last year or 1 fall with injury or currently using an Ambulatory Assistive Device (Walker, Cane, Wheelchair, Crutches, etc.)? No PATIENT GENDER DATA: Assigned female at . status: : No status: NO. PATIENT RELEVANT IMPLANT DATA REVIEWED: Not Applicable PATIENT PRESENTS WITH AN IMPLANTABLE OR ATTACHED SENIOR PROJECT ACCOUNTANT: No RADIOLOGY DEPARTMENT: General X-ray: Exam(s) Completed: Chest X-Ray PERIPHERAL IV DATA: Not applicable SIGNED BY: RT Charmaine(R) December 04, 2024 11:47 AM PROGRESS Observed: 11/24/2024 1:16 PM Status: COMPLETED Source: [facility] [facility] ID[facility] [id number] Author: RICARDO INMAN MD Service: ? Author Type: Physician Type: Progress Notes Filed: 11/24/2024 15:07 Note Text: VIRTUAL VISIT PROGRESS NOTE This is a virtual visit using [employer] Video Visit. It required patient-provider interaction for the medical decision making as documented below. I have communicated my name and active licensure. The patient's identity and physical location were verified at the time of this visit. Either the patient or their legal airline security representative has been informed of the risks and benefits of -- and alternatives to -- treatment through a remote evaluation and consents to proceed with the evaluation remotely. Merissa Sage is a 63 year old female here for follow appointment for Lung cancer Patient had her resection on 10/20 (NOAH robotic, lingular sparing). Complaining of some discomfort inferior to the incisions. Along dermatome below rib cage; skin sensitive to touch. Also some left chest discomfort with large breaths. Post-surgery, she doesn't have significant dyspnea. Some cough persists. 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 Llamas COLONOSCOPY SCREENING 2017 HYSTEROSCOPY, DIAGNOSTIC (SEPARATE 07/14/2008 Hysteroscopy/curretage LIG/TRNSXJ FLP TUBE ABDL/VAG APPR UNI/BI REMOVAL OF LUNG,LOBECTOMY Right 2005 lower lobe right lung removed for non small cell carcinoma REMOVAL OF LUNG,SEGMENTECTOMY Left 10/20/2024 Robotic assisted lingular sparing left upper lobectomy (upper trisegmentectomy), lymph node dissection TONSILLECTOMY HX TOTAL ABDOMINAL HYSTERECT W/WO RMVL TUBE OVARY 03/31/2010 Hysterectomy, MERCEDES, BSO FAMILY HISTORY Problem Relation Age of Onset Cancer Mother UTERINE? Hypertension Mother Cancer Father lung with mets Coronary Artery Disease Father Hypertension Father Diabetes Sister Hypertension Sister Hypertension Sister Social History Tobacco Use Smoking status: Former Current packs/day: 0.00 Average packs/day: 0.5 packs/day for 20.0 years (10.0 ttl pk-yrs) Types: Cigarettes Start date: 03/04/1986 Quit date: 03/04/2006 Years since quittin.7 Smokeless tobacco: Never Vaping Use Vaping status: Never Used Substance Use Topics Alcohol use: Yes Alcohol/week: 1.0 - 2.0 standard drink of alcohol Types: 1 - 2 Cans of Beer (12oz) per week Comment: socially Drug use: No Current Outpatient Medications Medication Sig methocarbamol (ROBAXIN) 500 mg tablet Take 1 tablet by mouth three times a day as needed (muscle spasm). ondansetron (ZOFRAN) 4 mg tablet Take one to two tablets by mouth every 8 hours as needed. ibuprofen (MOTRIN) 600 mg tablet Take 1 tablet by mouth every 6 hours as needed for pain. zoledronic acid/mannitol-water (RECLAST INTRAVENOUS) Inject intravenously every year. clobetasol (TEMOVATE) 0.05 % ointment Apply 1 application to affected area two times a day. TO AFFECTED AREA. calcium carbonate (CALCIUM 600 ORAL) Take by mouth once daily. pantoprazole DR (PROTONIX) 40 mg tablet FA/MV,CA,IRON,MIN/LYCOPENE/LUT (MULTIVITAL ORAL) Take by mouth. ergocalciferol 50,000 unit capsule (VITAMIN D2, DRISDOL) Take 50,000 Units by mouth twice a week. levothyroxine (SYNTHROID) 75 mcg tablet Take 75 mcg by mouth once daily. Pt takes on tablet in the morning 6 days a week. LORazepam 0.5 mg tab Take by mouth three times daily as needed. Pt takes 1/2 tablet as needed metoprolol tartrate, short acting, (LOPRESSOR) 50 mg tablet Take 0.5 tablets by mouth twice daily. No current facility-administered medications for this visit. ALLERGIES Allergen Reactions Adhesive Tape-Silic* Hives Band-aids Albuterol Other: See Comments anxiety Contact Metal Agent Rash Jewelry Levaquin [Levofloxa* Hives REVIEW OF SYSTEMS: GENERAL: feeling well without fatigue, no recent change in weight HEENT: denies ALVES, change in hearing or vision, no other ENT complaints NECK: denies swelling or pain in neck RESPIRATORY: no cough, no wheezing or shortness of breath CARDIOVASCULAR: no chest pain, no palpitations GI: normal appetite, tolerating PO well, BMs normal, and no abdominal pain : urination is normal MUSCULOSKELETAL: denies any painful or swollen joints, no muscle aches SKIN: no rash PSYCH: denies depressed or anxious mood, sleep is normal HEMATOLOGY/LYMPHOLOGY: negative for prolonged bleeding, no swollen lymph nodes ENDOCRINE: denies cold/heat intolerance, denies polyuria or polydipsia, no goiter NEURO: no numbness or paresthesias and no weakness of the extremities All other ROS: negative PHYSICAL EXAMINATION: VIDEO EXAM: (if completed, performed via video enabled technology) GENERAL: alert and appropriate, in no distress, well-hydrated, well nourished, and happy, smiling, interactive SKIN: no rash noted HEAD: normocephalic, no abnormality or lesion noted EYES: no injection EARS: hearing grossly normal NOSE: external nose normal without rhinorrhea OROPHARYNX: moist mucus membranes NECK: no self-reported cervical adenopathy RESPIRATORY: breathing non-labored CHEST: equal chest rise with normal respiratory effort ABDOMEN: soft and non-tender to self-palpation BACK: range of motion normal NEUROLOGIC: no facial droop, speech is clear and fluent and no obvious deficit ASSESSMENT/PLAN: Lung cancer, stage 1A, s/p lingula sparing NOAH resection. Margins and nodes clean. RUL GGO. Stable, but will need monitoring at least yearly. Will discuss with thoracic surgery their brian for post-resection follow up, but can include surveillance of GGO within this. Chest discomfort. Unclear etiology, below areas of incision. She did have kyphoplasty in that dermatomal area in the past, unclear if recent surgery exacerbated this area. Recommended she reach out to her pain doc. I spent a total of 30 minutes on the date of the service which included preparing to see the patient, [id number] patient care, completing clinical documentation, obtaining and/or reviewing separately obtained history, performing a medically appropriate examination, counseling and educating the patient/family/caregiver, ordering medications, tests, or procedures, communicating with other HCPs (not separately reported), independently interpreting results (not separately reported), communicating results to the patient/family/caregiver, and care coordination (not separately reported) Ricardo Inman MDJune 2024 Addendum: Spoke with thoracic surgery. They agreed to CT in 6 months, followed by yearly scans as part of survivorship. Ricardo Inman MD [facility] Observed: 11/11/2024 12:00 AM Status: COMPLETED Source: [facility] Telephone (HVICTR) MERISSA SAGE ([id number]) 1960 F Date Time Provider Department 11/11/24 PEDRO CLEANING HVICTR During your visit today, we recorded the following information about you: Rachael Hernandez, TERRENCE 11/11/2024 9:21 AM Signed [facility] Phone Encounter DATE of SERVICE: 11/11/2024 TIME of SERVICE: 9:18 AM Status: FYI Service/Provider: Thoracic Surgery Pedro Cleaning M.D. Reason for call: Education Reinforcement Contact information: [phone] Resolution: Reinforced education Comments: Pt called stating that she noticed a 'bulge' on the side of her chest near the incision, when she coughs. Denies redness/drainage/fevers. Denies SOB. O2 sat 98%. VSS. Previously instructed at her f/u appointment to brace her incisional area when coughing. Advised pt on SANDS that require further evaluation. Advised pt to schedule an appointment, in person, with either her PCP or with Thoracic OPD if symptoms are worsening. Pt verbalizes understanding of plan. Advised to call back with any further questions. Rachael Hernandez RN Date of Resolution: 11/11/2024 Time of Resolution 9:18 AM Sheyla Bolom RN 11/24/2024 8:18 AM Signed Pt states that this "bulging" area (left side) is now having some redness/pinkness and small amount of pink drainage. I asked her to send a Eight19 picture, that I can forward to the team, she agreed to do this. Allergies As of Date: 11/11/2024 Noted Allergy Reaction ADHESIVE TAPE-SILICONES 10/10/2024 4 - Hives Comments: Band-aids ALBUTEROL 10/10/2024 14 - Other: See Comments Comments: anxiety CONTACT METAL AGENT 10/10/2024 2 - Rash Comments: Jewelry LEVAQUIN (LEVOFLOXACIN) 07/06/2008 4 - Hives Date Reviewed: 10/31/2024 Reviewed by: Bravo Anthony MA - Fully Assessed Prescriptions as of 11/24/2024 - methocarbamol (ROBAXIN) 500 mg tablet Take 1 tablet by mouth three times a day as needed (muscle spasm). - ondansetron (ZOFRAN) 4 mg tablet Take one to two tablets by mouth every 8 hours as needed. - ibuprofen (MOTRIN) 600 mg tablet Take 1 tablet by mouth every 6 hours as needed for pain. - zoledronic acid/mannitol-water (RECLAST INTRAVENOUS) Inject intravenously every year. - clobetasol (TEMOVATE) 0.05 % ointment Apply 1 application to affected area two times a day. TO AFFECTED AREA. - calcium carbonate (CALCIUM 600 ORAL) Take by mouth once daily. - pantoprazole DR (PROTONIX) 40 mg tablet - FA/MV,CA,IRON,MIN/LYCOPENE/LUT (MULTIVITAL ORAL) Take by mouth. - ergocalciferol 50,000 unit capsule (VITAMIN D2, DRISDOL) Take 50,000 Units by mouth twice a week. - levothyroxine (SYNTHROID) 75 mcg tablet Take 75 mcg by mouth once daily. Pt takes on tablet in the morning 6 days a week. - LORazepam 0.5 mg tab Take by mouth three times daily as needed. Pt takes 1/2 tablet as needed - metoprolol tartrate, short acting, (LOPRESSOR) 50 mg tablet Take 0.5 tablets by mouth twice daily. 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] 06/20/2006 GERD without esophagitis [K21.9] 06/20/2006 DEPRESSION ACUTE - SINGLE EPISODE( Mild) [F32.0]06/20/2006 PALPITATIONS [R00.2] 06/20/2006 LUNG CANCER LOWER LOBE, NSC [C34.30] 06/20/2006 EXCESSIVE MENSTRUATION [N92.0] 07/08/2008 IRREGULAR MENSTRUATION [N92.6] 07/08/2008 DYSMENORRHEA [N94.6] 07/08/2008 Lipoma of Unspecified Site [D17.9] 06/07/2009 Low back pain radiating to left leg [M54.50, M7*06/19/2011 Cervical adenopathy [R59.0] 12/26/2011 Acquired hypothyroidism [E03.9] 12/26/2011 Mass of lower outer quadrant of right breast [N*10/21/2022 Breast pain [N64.4] 10/21/2022 Lung nodule [R91.1] 10/17/2024 Malignant neoplasm of upper lobe of left lung (*10/20/2024 Pain, postoperative, acute [G89.18] 10/23/2024 Essential hypertension [I10] 10/23/2024 Anxiety [F41.9] 10/23/2024 Encounter Status:Closed by RACHAEL HERNANDEZ on 11/11/24 NARENDRA Observed: 11/05/2024 12:00 AM Status: COMPLETED Source: [facility] Telephone (HVICTR) MERISSA SAGE ([id number]) 1960 F Date Time Provider Department 11/05/24 PEDRO CLEANING [facility]VICTR During your visit today, we recorded the following information about you: Rachael Hernandez RN 11/05/2024 11:42 AM Signed [facility] Phone Encounter DATE of SERVICE: 11/05/2024 TIME of SERVICE: 11:38 AM Status: FYI Service/Provider: Thoracic Surgery Pedro Cleaning M.D. Reason for call: Education Reinforcement Contact information: [phone] Resolution: Reinforced education Comments: Pt called stating she has been experiencing mild throat irritation along with cough. Denies SOB/wheezing/hemoptysis. Symptoms began after visiting family and being around animals/outdoors. Pt asks if ok to take Claritin. Advised patient to take the Claritin along with a saline nasal spray. Advised on SANDS, and if no improvement, to go to the local urgent care/ED for further evaluation. Rachael Hernandez RN Date of Resolution: 11/05/2024 Time of Resolution 11:38 AM Allergies As of Date: 11/05/2024 Noted Allergy Reaction ADHESIVE TAPE-SILICONES 10/10/2024 4 - Hives Comments: Band-aids ALBUTEROL 10/10/2024 14 - Other: See Comments Comments: anxiety CONTACT METAL AGENT 10/10/2024 2 - Rash Comments: Jewelry LEVAQUIN (LEVOFLOXACIN) 07/06/2008 4 - Hives Date Reviewed: 10/31/2024 Reviewed by: Bravo Anthony MA - Fully Assessed Prescriptions as of 11/05/2024 - methocarbamol (ROBAXIN) 500 mg tablet Take 1 tablet by mouth three times a day as needed (muscle spasm). - ondansetron (ZOFRAN) 4 mg tablet Take one to two tablets by mouth every 8 hours as needed. - ibuprofen (MOTRIN) 600 mg tablet Take 1 tablet by mouth every 6 hours as needed for pain. - zoledronic acid/mannitol-water (RECLAST INTRAVENOUS) Inject intravenously every year. - clobetasol (TEMOVATE) 0.05 % ointment Apply 1 application to affected area two times a day. TO AFFECTED AREA. - calcium carbonate (CALCIUM 600 ORAL) Take by mouth once daily. - pantoprazole DR (PROTONIX) 40 mg tablet - FA/MV,CA,IRON,MIN/LYCOPENE/LUT (MULTIVITAL ORAL) Take by mouth. - ergocalciferol 50,000 unit capsule (VITAMIN D2, DRISDOL) Take 50,000 Units by mouth twice a week. - levothyroxine (SYNTHROID) 75 mcg tablet Take 75 mcg by mouth once daily. Pt takes on tablet in the morning 6 days a week. - LORazepam 0.5 mg tab Take by mouth three times daily as needed. Pt takes 1/2 tablet as needed - metoprolol tartrate, short acting, (LOPRESSOR) 50 mg tablet Take 0.5 tablets by mouth twice daily. 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] 06/20/2006 GERD without esophagitis [K21.9] 06/20/2006 DEPRESSION ACUTE - SINGLE EPISODE( Mild) [F32.0]06/20/2006 PALPITATIONS [R00.2] 06/20/2006 LUNG CANCER LOWER LOBE, NSC [C34.30] 06/20/2006 EXCESSIVE MENSTRUATION [N92.0] 07/08/2008 IRREGULAR MENSTRUATION [N92.6] 07/08/2008 DYSMENORRHEA [N94.6] 07/08/2008 Lipoma of Unspecified Site [D17.9] 06/07/2009 Low back pain radiating to left leg [M54.50, M7*06/19/2011 Cervical adenopathy [R59.0] 12/26/2011 Acquired hypothyroidism [E03.9] 12/26/2011 Mass of lower outer quadrant of right breast [N*10/21/2022 Breast pain [N64.4] 10/21/2022 Lung nodule [R91.1] 10/17/2024 Malignant neoplasm of upper lobe of left lung (*10/20/2024 Pain, postoperative, acute [G89.18] 10/23/2024 Essential hypertension [I10] 10/23/2024 Anxiety [F41.9] 10/23/2024 Encounter Status:Closed by RACHAEL HERNANDEZ on 11/05/24 CNOV Observed: 10/31/2024 2:30 PM Status: COMPLETED Source: [facility] Office Visit (THORMN) MERISSA SAGE ([id number]) 1960 F Date Time Provider Department 10/31/24 2:30 PM BERNARDA LOU During your visit today, we recorded the following information about you: Temperature Pulse Respiration Blood pressure 97.7 degrees 62/minute 14/minute 120/62 Weight Height 56.7 kg 1.626 m Bernarda Lou APRN.CLOTHING SORTER 10/31/2024 4:51 PM Signed [facility] - OUTPATIENT THORACIC SURGERY CLINIC NOTE PT NAME: Merissa [facility] NO: [id number] THORACIC SURGEON: Pedro Cleaning M.D. DATE OF SERVICE: October 31, 2024 PRINCIPAL DX: [id number] adenocarcinoma lung, left upper lobe SURGICAL HX: 10/20/2024: Robotic-assisted lingular sparing left upper lobectomy (upper lobe trisegmentectomy), mediastinal and hilar lymph node dissection and intercostal and phrenic nerve blocks Surgical Pathology: FINAL DIAGNOSIS A. Lung, left upper lobe, lingula sparing left upper lobectomy: -Invasive poorly differentiated adenocarcinoma (see synoptic report). -Six lymph nodes negative for carcinoma (0/6). B. Lymph node, 8L, resection: -Lymph node fragments negative for carcinoma. C. Lymph node, 9L, resection: -Lymph node fragments negative for carcinoma. D. Lymph node, 4L, resection: -One lymph node negative for carcinoma (0/1). E. Lymph node, level 7, resection: -One lymph node negative for carcinoma (0/1). F. Lymph node, 11L, resection: -Lymph node fragments negative for carcinoma. G. Lymph node, 10L, resection: -Lymph node fragments negative for carcinoma H. Lymph node, 12L, resection: -One lymph node negative for carcinoma (0/1). I. Lymph node, level 5, resection: -One lymph node negative for carcinoma (0/1). at 1843 EDT Block for additional Biomarkers/Molecular studies A6 Synoptic Report LUNG AJCC 9 - Protocol posted: 05/14/2024LUNG: RESECTION - All Specimens SPECIMEN Procedure Lingula sparing left upper lobectomy Specimen Laterality Left TUMOR Tumor Focality Single focus Tumor Site Upper lobe of lung Tumor Size Invasive Tumor Size Greatest Dimension (Centimeters): 1.8 cm Histologic Type Invasive acinar adenocarcinoma Histologic Patterns Acinar: 70 Micropapillary: 30 Histologic Grade G3, poorly differentiated Spread Through Air Spaces (SALIMA) Present Visceral Pleura Invasion Not identified Direct Invasion of Other Structures Not applicable (no other structures present) Treatment Effect No known presurgical therapy Lymphatic and / or Vascular Invasion Not identified MARGINS Margin Status for Invasive Tumor All margins negative for invasive tumor Closest Margin(s) to Invasive Tumor Parenchymal Distance from Invasive Tumor to Closest Margin 5 cm Margin Status for Non-Invasive Tumor Not applicable REGIONAL LYMPH NODES Lymph Node(s) from Prior Procedures No known prior lymph node sampling performed Regional Lymph Node Status All regional lymph nodes negative for tumor Number of Lymph Nodes Examined At least: 14 Radha Site(s) Examined 7: Subcarinal 4L: Lower paratracheal 8L: Para-esophageal (below zeeshan) 9L: Pulmonary ligament 10L: Hilar 11L: Interlobar 12L-14L: Intrapulmonary 12L: Lobar 13L: Segmental pTNM CLASSIFICATION (AJCC Version 9) Reporting of pT, pN, and (when applicable) pM categories is based on information available to the pathologist at the time the report is issued. As per the AJCC (Chapter 1, 8th Ed.) it is the managing physician's responsibility to establish the final pathologic stage based upon all pertinent information, including but potentially not limited to this pathology report. pT Category pT1b pN Category pN0 . REASON FOR VISIT: First post-operative visit HPI: Merissa Sage is a 63 year old female ex smoker 10 pack years (quit 2005) with history of stage 1 lung cancer s/p right lower lobectomy 2005 who was found to have an evolving ground glass opacity in left upper lung on surveillance imaging now measuring 17 x 12 mm (CT scan 10/13/24). On 10/20/24 she underwent Robotic-assisted lingular sparing left upper lobectomy (upper lobe trisegmentectomy), mediastinal and hilar lymph node dissection and intercostal and phrenic nerve blocks by Dr Cleaning. PHYSICAL EXAM: VITAL SIGNS: BP 120/62 Pulse 62 Temp 36.5 ?C (97.7 ?F) (Oral) Resp 14 Ht 162.6 cm (5' 4") Wt 56.7 kg (125 lb) LMP 03/14/2009 SpO2 98% BMI 21.46 kg/m? Room air Incision location: Left Thoracoport sites and Left Old chest tube sites Incision Assessment: Well approximated and no drainage, swelling, erythema or warmth Drain/Tubes: N/A GENERAL: well appearing, alert, no acute distress, well-hydrated, well nourished HEENT: normocephalic, midline, anicteric sclera. LUNGS: clear to auscultation, no wheezing or rhonchi HEART: RRR without murmur ABDOMEN: Soft, non-tender, non distended. No masses EXTREMITIES: No clubbing, cyanosis or edema. MUSCULOSKELETAL: Muscular strength intact. SKIN: turgor normal, no suspicious rashes or lesions NEURO: Gait normal. Sensation grossly intact. IMAGING/TESTS: CXR 10/31/2024: PENDING INTERVAL HISTORY: Merissa Sage returns for first post op visit. She has been doing fairly well, however she decided to only take Tylenol and Ibuprofen for pain control as she had constipation in the hospital. She is having quite a bit of pain, muscle cramping in her back, worse in the morning. Discussed using Robaxin that was prescribed and if needed, Oxycodone. She denies any SOB, fevers, chills. Has a slight cough from tickle in her throat. May be from sinus drainage. No c/o nausea or vomiting. She has been tolerating diet and has been moving her bowels regularly. Incisions are healing well and sutures are removed. We have discussed increasing aerobic activity daily, as well as maintaining weight restriction of 5-10 lbs for the first month after surgery. We have also discussed no driving while on narcotics. CXR shows well expanded lungs. Pathology has been reviewed, which showed pT1bN0/ stage IA2 adenocarcinoma lung, left upper lobe. Survivorship planning is discussed. She does not need adjuvant therapy, and will have surveillance CT scans every 6 months for the next 2 years, then every year thereafter for 3 years. She will return in 6 weeks with a CXR. IMPRESSION: 63 year old female s/p Robotic-assisted lingular sparing left upper lobectomy (upper lobe trisegmentectomy), mediastinal and hilar lymph node dissection and intercostal and phrenic nerve blocks by Dr Cleaning on 10/20/24 for pT1bN0/ stage IA2 adenocarcinoma lung, left upper lobe PLAN: - pulmonary management with Dr Inman - return in 6 weeks with CXR at [facility], Virtual visit the next day Bernarda Lou APRN.Bernarda Funez APRN.CNP 10/31/2024 2:38 PM Signed SURVIVORSHIP PLANNING: Lung Cancer Stage 1A2 Surveillance Testing CT Chest every 6 Month for 2 years; then annually for 3 more years to begin in April 2025. Please arrange with local physician if unable to return to [facility]. Please call office with any new clinical symptoms. -Shower regularly to keep the incisions clean and inspect for signs of infection. -No water submersion/baths until all incisions are fully healed, typically this takes 6 weeks. -Walking is encouraged, this helps reduce swelling and lowers the chance of blood clots. - Continue to use your "horn" or blue "pickle" hourly while awake if possible to optimize lung expansion -No lifting/pushing/pulling greater than 5 lbs for 4 weeks after surgery. Do not perform sewer pipe sorter such as laundry and vacuuming. Do not perform yard work or gardening. -Okay for tylenol alternating with ibuprofen for pain control (do not exceed 4 g tylenol in a 24 hour period, okay for ibuprofen 600 mg every 6 hours as needed for pain). -Okay for driving if you're not taking any narcotic pain medication for at least 2 days and you feel you can safely maneuver a motor vehicle. Referring Provider: SUMANTH FROST [[id number]] Allergies As of Date: 10/31/2024 Noted Allergy Reaction ADHESIVE TAPE-SILICONES 10/10/2024 4 - Hives Comments: Band-aids ALBUTEROL 10/10/2024 14 - Other: See Comments Comments: anxiety CONTACT METAL AGENT 10/10/2024 2 - Rash Comments: Jewelry LEVAQUIN (LEVOFLOXACIN) 07/06/2008 4 - Hives Date Reviewed: 10/31/2024 Reviewed by: Bravo Anthony MA - Fully Assessed Reason for Visit: Post-Op Visit [1236] Primary Visit Diagnosis:Malignant neoplasm of upper lobe of left lung (HCC) [C34.12] Other Visit Diagnosis:Post-op pain [G89.18] Order(s):XR CHEST 2V FRONTAL/LAT [[id number]] Order #: [id number] FUTURE Prescriptions as of 10/31/2024 - methocarbamol (ROBAXIN) 500 mg tablet Take 1 tablet by mouth three times a day as needed (muscle spasm). - ondansetron (ZOFRAN) 4 mg tablet Take one to two tablets by mouth every 8 hours as needed. - ibuprofen (MOTRIN) 600 mg tablet Take 1 tablet by mouth every 6 hours as needed for pain. - zoledronic acid/mannitol-water (RECLAST INTRAVENOUS) Inject intravenously every year. - clobetasol (TEMOVATE) 0.05 % ointment Apply 1 application to affected area two times a day. TO AFFECTED AREA. - calcium carbonate (CALCIUM 600 ORAL) Take by mouth once daily. - pantoprazole DR (PROTONIX) 40 mg tablet - FA/MV,CA,IRON,MIN/LYCOPENE/LUT (MULTIVITAL ORAL) Take by mouth. - ergocalciferol 50,000 unit capsule (VITAMIN D2, DRISDOL) Take 50,000 Units by mouth twice a week. - levothyroxine (SYNTHROID) 75 mcg tablet Take 75 mcg by mouth once daily. Pt takes on tablet in the morning 6 days a week. - LORazepam 0.5 mg tab Take by mouth three times daily as needed. Pt takes 1/2 tablet as needed - metoprolol tartrate, short acting, (LOPRESSOR) 50 mg tablet Take 0.5 tablets by mouth twice daily. 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] 06/20/2006 GERD without esophagitis [K21.9] 06/20/2006 DEPRESSION ACUTE - SINGLE EPISODE( Mild) [F32.0]06/20/2006 PALPITATIONS [R00.2] 06/20/2006 LUNG CANCER LOWER LOBE, NSC [C34.30] 06/20/2006 EXCESSIVE MENSTRUATION [N92.0] 07/08/2008 IRREGULAR MENSTRUATION [N92.6] 07/08/2008 DYSMENORRHEA [N94.6] 07/08/2008 Lipoma of Unspecified Site [D17.9] 06/07/2009 Low back pain radiating to left leg [M54.50, M7*06/19/2011 Cervical adenopathy [R59.0] 12/26/2011 Acquired hypothyroidism [E03.9] 12/26/2011 Mass of lower outer quadrant of right breast [N*10/21/2022 Breast pain [N64.4] 10/21/2022 Lung nodule [R91.1] 10/17/2024 Malignant neoplasm of upper lobe of left lung (*10/20/2024 Pain, postoperative, acute [G89.18] 10/23/2024 Essential hypertension [I10] 10/23/2024 Anxiety [F41.9] 10/23/2024 Other instructions from your clinician: SURVIVORSHIP PLANNING: Lung Cancer Stage 1A2 Surveillance Testing CT Chest every 6 Month for 2 years; then annually for 3 more years to begin in April 2025. Please arrange with local physician if unable to return to [facility]. Please call office with any new clinical symptoms. -Shower regularly to keep the incisions clean and inspect for signs of infection. -No water submersion/baths until all incisions are fully healed, typically this takes 6 weeks. -Walking is encouraged, this helps reduce swelling and lowers the chance of blood clots. - Continue to use your "horn" or blue "pickle" hourly while awake if possible to optimize lung expansion -No lifting/pushing/pulling greater than 5 lbs for 4 weeks after surgery. Do not perform sewer pipe sorter such as laundry and vacuuming. Do not perform yard work or gardening. -Okay for tylenol alternating with ibuprofen for pain control (do not exceed 4 g tylenol in a 24 hour period, okay for ibuprofen 600 mg every 6 hours as needed for pain). -Okay for driving if you're not taking any narcotic pain medication for at least 2 days and you feel you can safely maneuver a motor vehicle. Disposition: Return in about 6 weeks (around 12/12/2024). Follow-up and Disposition History for Encounter Date Provider Department Center 10/31/2024 [id number], [facility] Leonardo Mad[facility] Encounter Status:Closed by BERNARDA LOU on 10/31/24 PROGRESS Observed: 10/31/2024 2:29 PM Status: COMPLETED Source: [facility] HNO ID: [id number] Author: BERNARDA LOU APRN.CLOTHING SORTER Service: ? Author Type: Nurse Practitioner Type: Progress Notes Filed: 10/31/2024 16:51 Note Text: [facility] - OUTPATIENT THORACIC SURGERY CLINIC NOTE PT NAME: [facility]issa [facility] NO: [id number] THORACIC SURGEON: Pedro Cleaning M.D. DATE OF SERVICE: October 31, 2024 PRINCIPAL DX: [id number] adenocarcinoma lung, left upper lobe SURGICAL HX: 10/20/2024: Robotic-assisted lingular sparing left upper lobectomy (upper lobe trisegmentectomy), mediastinal and hilar lymph node dissection and intercostal and phrenic nerve blocks Surgical Pathology: FINAL DIAGNOSIS A. Lung, left upper lobe, lingula sparing left upper lobectomy: -Invasive poorly differentiated adenocarcinoma (see synoptic report). -Six lymph nodes negative for carcinoma (0/6). B. Lymph node, 8L, resection: -Lymph node fragments negative for carcinoma. C. Lymph node, 9L, resection: -Lymph node fragments negative for carcinoma. D. Lymph node, 4L, resection: -One lymph node negative for carcinoma (0/1). E. Lymph node, level 7, resection: -One lymph node negative for carcinoma (0/1). F. Lymph node, 11L, resection: -Lymph node fragments negative for carcinoma. G. Lymph node, 10L, resection: -Lymph node fragments negative for carcinoma H. Lymph node, 12L, resection: -One lymph node negative for carcinoma (0/1). I. Lymph node, level 5, resection: -One lymph node negative for carcinoma (0/1). at 1843 EDT Block for additional Biomarkers/Molecular studies A6 Synoptic Report LUNG AJCC 9 - Protocol posted: 05/14/2024LUNG: RESECTION - All Specimens SPECIMEN Procedure Lingula sparing left upper lobectomy Specimen Laterality Left TUMOR Tumor Focality Single focus Tumor Site Upper lobe of lung Tumor Size Invasive Tumor Size Greatest Dimension (Centimeters): 1.8 cm Histologic Type Invasive acinar adenocarcinoma Histologic Patterns Acinar: 70 Micropapillary: 30 Histologic Grade G3, poorly differentiated Spread Through Air Spaces (SALIMA) Present Visceral Pleura Invasion Not identified Direct Invasion of Other Structures Not applicable (no other structures present) Treatment Effect No known presurgical therapy Lymphatic and / or Vascular Invasion Not identified MARGINS Margin Status for Invasive Tumor All margins negative for invasive tumor Closest Margin(s) to Invasive Tumor Parenchymal Distance from Invasive Tumor to Closest Margin 5 cm Margin Status for Non-Invasive Tumor Not applicable REGIONAL LYMPH NODES Lymph Node(s) from Prior Procedures No known prior lymph node sampling performed Regional Lymph Node Status All regional lymph nodes negative for tumor Number of Lymph Nodes Examined At least: 14 Radha Site(s) Examined 7: Subcarinal 4L: Lower paratracheal 8L: Para-esophageal (below zeeshan) 9L: Pulmonary ligament 10L: Hilar 11L: Interlobar 12L-14L: Intrapulmonary 12L: Lobar 13L: Segmental pTNM CLASSIFICATION (AJCC Version 9) Reporting of pT, pN, and (when applicable) pM categories is based on information available to the pathologist at the time the report is issued. As per the AJCC (Chapter 1, 8th Ed.) it is the managing physician's responsibility to establish the final pathologic stage based upon all pertinent information, including but potentially not limited to this pathology report. pT Category pT1b pN Category pN0 . REASON FOR VISIT: First post-operative visit HPI: Merissa Sage is a 63 year old female ex smoker 10 pack years (quit 2005) with history of stage 1 lung cancer s/p right lower lobectomy 2005 who was found to have an evolving ground glass opacity in left upper lung on surveillance imaging now measuring 17 x 12 mm (CT scan 10/13/24). On 10/20/24 she underwent Robotic-assisted lingular sparing left upper lobectomy (upper lobe trisegmentectomy), mediastinal and hilar lymph node dissection and intercostal and phrenic nerve blocks by Dr Cleaning. PHYSICAL EXAM: VITAL SIGNS: BP 120/62 Pulse 62 Temp 36.5 ?C (97.7 ?F) (Oral) Resp 14 Ht 162.6 cm (5' 4") Wt 56.7 kg (125 lb) LMP 03/14/2009 SpO2 98% BMI 21.46 kg/m? Room air Incision location: Left Thoracoport sites and Left Old chest tube sites Incision Assessment: Well approximated and no drainage, swelling, erythema or warmth Drain/Tubes: N/A GENERAL: well appearing, alert, no acute distress, well-hydrated, well nourished HEENT: normocephalic, midline, anicteric sclera. LUNGS: clear to auscultation, no wheezing or rhonchi HEART: RRR without murmur ABDOMEN: Soft, non-tender, non distended. No masses EXTREMITIES: No clubbing, cyanosis or edema. MUSCULOSKELETAL: Muscular strength intact. SKIN: turgor normal, no suspicious rashes or lesions NEURO: Gait normal. Sensation grossly intact. IMAGING/TESTS: CXR 10/31/2024: PENDING INTERVAL HISTORY: Merissa Sage returns for first post op visit. She has been doing fairly well, however she decided to only take Tylenol and Ibuprofen for pain control as she had constipation in the hospital. She is having quite a bit of pain, muscle cramping in her back, worse in the morning. Discussed using Robaxin that was prescribed and if needed, Oxycodone. She denies any SOB, fevers, chills. Has a slight cough from tickle in her throat. May be from sinus drainage. No c/o nausea or vomiting. She has been tolerating diet and has been moving her bowels regularly. Incisions are healing well and sutures are removed. We have discussed increasing aerobic activity daily, as well as maintaining weight restriction of 5-10 lbs for the first month after surgery. We have also discussed no driving while on narcotics. CXR shows well expanded lungs. Pathology has been reviewed, which showed pT1bN0/ stage IA2 adenocarcinoma lung, left upper lobe. Survivorship planning is discussed. She does not need adjuvant therapy, and will have surveillance CT scans every 6 months for the next 2 years, then every year thereafter for 3 years. She will return in 6 weeks with a CXR. IMPRESSION: 63 year old female s/p Robotic-assisted lingular sparing left upper lobectomy (upper lobe trisegmentectomy), mediastinal and hilar lymph node dissection and intercostal and phrenic nerve blocks by Dr Cleaning on 10/20/24 for pT1bN0/ stage IA2 adenocarcinoma lung, left upper lobe PLAN: - pulmonary management with Dr Inman - return in 6 weeks with CXR at [place], Virtual visit the next day Bernarda Lou APRN.CLOTHING SORTER PROGRESS Observed: 10/31/2024 2:00 PM Status: COMPLETED Source: [facility] HNO ID: [id number] Author: SHEYLA QUINTANA RT(R) Service: Radiology Author Type: Technologist Type: Progress Notes Filed: 10/31/2024 13:30 Note Text: Radiology Service Progress Note PATIENT NAME: Merissa Sage DATE OF SERVICE: October 31, 2024 TIME: 1:30 PM PATIENT IDENTITY VERIFICATION COMPLETED USING TWO (2) IDENTIFIERS: Name and Date of confirmed by patient verbally. FALL SCREENING: Has the patient had 2 falls in the last year or 1 fall with injury or currently using an Ambulatory Assistive Device (Walker, Cane, Wheelchair, Crutches, etc.)? No PATIENT GENDER DATA: Assigned female at . status: : No status: NO. PATIENT RELEVANT IMPLANT DATA REVIEWED: Not Applicable PATIENT PRESENTS WITH AN IMPLANTABLE OR ATTACHED SENIOR PROJECT ACCOUNTANT: No RADIOLOGY DEPARTMENT: General X-ray: Exam(s) Completed: Chest X-Ray PERIPHERAL IV DATA: Not applicable SIGNED BY: RT Rut(R) October 31, 2024 1:30 PM XR CHEST 2V FRONTAL/LAT Observed: 2024 1:30 PM Status: F Source: [facility] * * *Final Report* * * DATE OF EXAM: Oct 31 2024 1:30PM JIX [id number] - XR CHEST 2V FRONTAL/LAT / PROCEDURE REASON: Follow-up examination following surgery * * * * Physician Interpretation * * * * EXAMINATION: CHEST RADIOGRAPH (PORTABLE SINGLE VIEW AP) Exam Date/Time: 10/31/2024 1:30 PM Clinical History: Follow-up examination following surgery MQ: [id number] Comparison: 10/23/2024. RESULT: Lines, tubes, and devices: None. Lungs and pleura: Status post left upper lobe trisegmentectomy with volume loss of the left hemithorax and elevation of the left hemidiaphragm. Right basilar staple line related to prior right lower lobectomy. Somewhat triangular shaped hyperdensity overlying right hilum within the right pulmonary artery right upper lobe better seen on prior chest CT dated 10/13/2024. Left basilar atelectasis present. No new consolidation. No substantial pleural effusion. No substantial pneumothorax. Cardiomediastinal silhouette: Stable cardiomediastinal silhouette. Other: Vertebroplasty changes in the lower thoracic spine. IMPRESSION: See result. Natural Resources Extension Educator: CHAPARRITA Transcribe Date/Time: Oct 31 2024 1:51P Dictated by : OFELIA TITUS MD This examination was interpreted and the report reviewed and electronically signed by: OFELIA TITUS MD on Oct 31 2024 1:54PM EST [id number] PLAN OF CARE Observed: 10/23/2024 10:59 AM Status: COMPLETED Source: [facility] ID: [id number] Author: KAITLIN WOODS ? Service: Pharmacy Author Type: Hand Ii Tube Bender Type: Plan of Care Filed: 10/23/2024 14:16 Note Text: PHARMACY BEDSIDE DELIVERY SERVICE Patient Name: Merissa Sage The marked outpatient medications were Filled at: [facility] and delivered to the patient's bedside to patient Medication List START taking these medications acetaminophen 325 mg tablet Commonly known as: TYLENOL Take 2 tablets by mouth every 6 hours as needed for pain for up to 7 days. Do not exceed 4000 mg of acetaminophen in 24 hours Med update HYDROcodone-acetaminophen 5-325 mg per tablet Commonly known as: NORCO Take 1-2 tablets by mouth every 4 hours as needed for up to 7 days. Delivered ibuprofen 600 mg tablet Commonly known as: MOTRIN Take 1 tablet by mouth every 6 hours as needed for pain. Delivered lidocaine 4 % patch Commonly known as: SALONPAS Apply 1 patch as directed once daily for 5 days. APPLY TO: BACK - Remove patch after 12 hours. Med update methocarbamol 500 mg tablet Commonly known as: ROBAXIN Take 1 tablet by mouth three times a day as needed (muscle spasm). Delivered ondansetron 4 mg tablet Commonly known as: ZOFRAN Take one to two tablets by mouth every 8 hours as needed. Delivered polyethylene glycol 3350 17 gram packet Take 1 packet by mouth once daily for 7 days. For prevention of postoperative opioid induced constipation. Dissolve dose in 4 - 8 ounces of liquid and take as directed. Med update STIMULANT LAXATIVE PLUS 8.6-50 mg per tablet Generic drug: senna-docusate Take 1 tablet by mouth two times a day for 7 days. For prevention of postop opioid induced constipation Delivered CONTINUE taking these medications CALCIUM 600 ORAL clobetasol 0.05 % ointment Commonly known as: TEMOVATE Apply 1 application to affected area two times a day. TO AFFECTED AREA. ergocalciferol (vitamin D2) 50,000 unit capsule Commonly known as: DRISDOL levothyroxine 75 mcg tablet Commonly known as: SYNTHROID LORazepam 0.5 mg Commonly known as: ATIVAN metoprolol tartrate (short acting) 50 mg tablet Commonly known as: LOPRESSOR Take 0.5 tablets by mouth twice daily. MULTIVITAL ORAL pantoprazole DR 40 mg tablet Commonly known as: PROTONIX RECLAST INTRAVENOUS You might also be taking other medications not listed above. If you have questions about any of your other medications, talk to the person who prescribed them or your Primary Care Provider. Kaitlin Woods October 23, 2024 11:01 AM PLAN OF CARE Observed: 10/23/2024 9:43 AM Status: COMPLETED Source: [facility] HNO ID: [id number] Author: KAITLIN WOODS ? Service: Pharmacy Author Type: Hand Ii Tube Bender Type: Plan of Care Filed: 10/23/2024 09:43 Note Text: Insurance investigation completed Patient has active prescription insurance: Yes - Patient's insurance is in-network with [facility] Insurance loaded into [employer]: Yes Test claim was completed to verify insurance is active: Successful Any questions, please reach out to your medication access services assistant. CNDS Observed: 10/23/2024 7:59 AM Status: COMPLETED Source: [facility] HNO ID: [id number] Author: PEDRO CLEANING MD, PhD Service: Thoracic Surgery Author Type: Nurse Practitioner Type: Discharge Summary Filed: 10/27/2024 12:38 Note Text: Attestation signed by Pedro Cleaning MD, PhD at 10/27/2024 12:38 PM smooth course Department of Thoracic Surgery Discharge Summary (Template ID [id number]) PATIENT NAME: Merissa Sage ADMISSION DATE: 10/20/2024 DISCHARGE DATE: 10/23/2024 Attending Physician: Pedro Cleaning MD, PhD Code Status: Not on file Primary Service: Surgery, i Thoracic Admission Diagnosis: Left upper lobe pulmonary lesion Final Diagnosis: [id number] adenocarcinoma lung, left upper lobe Reason for Hospitalization: 63 year old ex smoker 10 pack years (quit 2005) with history of stage 1 lung cancer s/p right lower lobectomy 2005 who was found to have an evolving ground glass opacity in left upper lung on surveillance imaging now measuring 17 x 12 mm (CT scan 10/13/24). With diagnostic and potentially therapeutic intent, now presents for resection. Operations during Hospitalization: DATE: 10/20/24 SURGERY: Robotic-assisted lingular sparing left upper lobectomy (upper lobe trisegmentectomy), mediastinal and hilar lymph node dissection and intercostal and phrenic nerve blocks. Hospital Course: * How was the Reason for Hospitalization Addressed: Taken to OR and underwent robot-assisted left upper lobe trisegmentectomy as planned. No OR complications. Extubated uneventfully, weaned to room air. No sign of acute DVT w/ mechanical and pharmacologic DVT prophylaxis. No postop afib with home beta jamaal. Singe 24 armenian pleural chest tube placed at conclusion of surgery with good lung expansion, removed when air leak resolved. No post pull pneumo. * What were the Active Issues: Pulmonary nodule, right lower lobe stable per CT chest 10/13/24. HTN stable w/ home med Anxiety held home benzo while on postop opoid and mood stable Hypothyroid clinically euthyroid, resumed home med GERD No c/o reflux with home med * Hospital Course Complicated by: air leak in chest tube that resolved with time * Extended Hospital Stay Due to: air leak * Specific Medication Changes: None * Surgical Pathology/Microbiology: Pending at time of discharge * Pain: Intercostal nerve blocks performed in OR. By discharge pain controlled w/ norco, lidocaine patch, robaxin and NSAID * Surgical Incisions/ Wounds: Left thoracoport incisions open to air without sign of infection * Tubes/Lines/Drains on Discharge: None * Patient Condition at Discharge: Improved * Disposition: Home with Relative Problem List: Active Hospital Problems Diagnosis POA Malignant neoplasm of upper lobe of left lung (HCC) Yes Essential hypertension Yes Pain, postoperative, acute No Anxiety Yes GERD without esophagitis Yes Acquired hypothyroidism Yes Resolved Hospital Problems No resolved problems to display. Consults: None Procedures/Radiology: none Information Provided to the Patient: Patient given copy of After Visit Summary which included activity instructions, diet instructions, wound care instructions, medication instructions and follow up appointment. ALLERGIES Allergen Reactions Albuterol Other: See Comments anxiety Adhesive Tape-Silic* Hives Band-aids Contact Metal Agent Rash Jewelry Levaquin [Levofloxa* Hives Discharge Medications: Medication List START taking these medications acetaminophen 325 mg tablet Commonly known as: TYLENOL Take 2 tablets by mouth every 6 hours as needed for pain for up to 7 days. Do not exceed 4000 mg of acetaminophen in 24 hours HYDROcodone-acetaminophen 5-325 mg per tablet Commonly known as: NORCO Take 1-2 tablets by mouth every 4 hours as needed for up to 7 days. ibuprofen 600 mg tablet Commonly known as: MOTRIN Take 1 tablet by mouth every 6 hours as needed for pain. lidocaine 4 % patch Commonly known as: SALONPAS Apply 1 patch as directed once daily for 5 days. APPLY TO: BACK - Remove patch after 12 hours. methocarbamol 500 mg tablet Commonly known as: ROBAXIN Take 1 tablet by mouth three times a day as needed (muscle spasm). ondansetron 4 mg tablet Commonly known as: ZOFRAN Take one to two tablets by mouth every 8 hours as needed. polyethylene glycol 3350 17 gram packet Take 1 packet by mouth once daily for 7 days. For prevention of postoperative opioid induced constipation. Dissolve dose in 4 - 8 ounces of liquid and take as directed. senna-docusate 8.6-50 mg per tablet Commonly known as: SENNA-S Take 1 tablet by mouth two times a day for 7 days. For prevention of postop opioid induced constipation CONTINUE taking these medications CALCIUM 600 ORAL clobetasol 0.05 % ointment Commonly known as: TEMOVATE Apply 1 application to affected area two times a day. TO AFFECTED AREA. ergocalciferol (vitamin D2) 50,000 unit capsule Commonly known as: DRISDOL levothyroxine 75 mcg tablet Commonly known as: SYNTHROID LORazepam 0.5 mg Commonly known as: ATIVAN metoprolol tartrate (short acting) 50 mg tablet Commonly known as: LOPRESSOR Take 0.5 tablets by mouth twice daily. MULTIVITAL ORAL pantoprazole DR 40 mg tablet Commonly known as: PROTONIX RECLAST INTRAVENOUS Where to Get Your Medications These medications were sent to [facility] [address] [place] [address] Hours: Sunday-Sunday 7am-8pm, Sunday, Sunday and Holidays 9am-5pm HYDROcodone-acetaminophen 5-325 mg per tablet ibuprofen 600 mg tablet methocarbamol 500 mg tablet ondansetron 4 mg tablet senna-docusate 8.6-50 mg per tablet You can get these medications from any pharmacy You don't need a prescription for these medications acetaminophen 325 mg tablet lidocaine 4 % patch polyethylene glycol 3350 17 gram packet Transitions of Care Critical Issues: Outpatient Management: * Are there important medication changes and/or outstanding issues that need to be addressed: None * What is the plan for follow up: Return to clinic in 7 days for routine surgery follow up and review final path Future Appointments Date Time Provider Department Center 10/31/2024 2:00 PM XR CHEST MAIN J1 [facility] Main - [facility] B[facility] 10/31/2024 2:30 PM Bernarda Lou APRN.CLOTHING SORTER [facility]ORMN Main - J Bld Highest Readmission Risk Score: 3 The 30 day readmissions risk score is derived from an internally validated risk model which evaluates patient level characteristics, utilization history, medication orders and lab results up until the day of discharge. Patients with a score of 39 or above are considered highest risk for readmission. Specific patient level drivers will be listed at the bottom of the summary. The patient's risk for 30-day readmission is determined using the following contributing factors: Predictive Model Details 3% (Low) Factor Value Calculated 10/22/2024 05:20 -130% Hospital Unit HOSP MAIN J052 CC READMISSION RISK Model -13% Admissions (365d) 1 -11% ED visits (365d) 0 -8% [facility] -6% Observations (365d) 0 -5% Admissions (90d) 1 -5% No Shows (365d) 0 -5% Length of Stay (d) 2 -4% Admissions (60d) 1 -4% RDW (Avg) 11.85 Electronically SIGNED by Licensed Independent Practitioner: Ashley Mancini APRN.Khanh Sage has undergone a major thoracic surgical operation with pain medication requirements necessarily exceeding the 30 MED limit established by the [facility] (#4723-9-1). This need was discussed and approved by Dr. Cleaning. The patient is being prescribed for a maximum of 7 days with no refills and has been provided with weaning instructions emphasizing the use of non-narcotic alternatives that are medically tolerable. The patient will be re-evaluated at follow up in 7 days from discharge to reassess his/her pain management and clinical status. PDMP website checked and validated. All prescriptions have been APPROPRIATELY filled. No suspicious activity was identified. 10/23/2024 by Ashley Mancini APRN.CNP PROGRESS Observed: 10/23/2024 7:22 AM Status: COMPLETED Source: [facility] ID: [id number] Author: ASHLEY MANCINI APRN.CNP Service: Thoracic Surgery Author Type: Nurse Practitioner Type: Progress Notes Filed: 10/23/2024 07:25 Note Text: [facility] POST-OP PROGRESS NOTE Merissa Sage [id number] PRIMARY SERVICE: Thoracic Surgery - Pedro Cleaning M.D., PhD ADMIT DATE: 10/20/24 DIAGNOSIS: [id number] adenocarcinoma lung, left upper lobe DATE: 10/20/24 SURGERY: Robotic-assisted lingular sparing left upper lobectomy (upper lobe trisegmentectomy), mediastinal and hilar lymph node dissection and intercostal and phrenic nerve blocks. INTERVAL EVENTS / PERTINENT ROS: Chest tube removed yesterday. No post pull pneumo. Feels oxycodone "too strong" PERTINENT LABS: None CXR: No obvious pneumo TELEMETRY: SR Intake/Output Summary (Last 24 hours) at 10/23/2024 0722 Last data filed at 10/23/2024 0600 Gross per 24 hour Intake 690 ml Output 1000 ml Net -310 ml PHYSICAL EXAM: Blood pressure 151/69, pulse 73, temperature 36.6 ?C (97.9 ?F), temperature source Oral, resp. rate 18, height 162.6 cm (5' 4"), weight 58.7 kg (129 lb 6.6 oz), last menstrual period 03/14/2009, SpO2 97%. Room air GENERAL: alert, no acute distress HEENT: normocephalic, midline, anicteric sclera. LUNGS: clear, normal resp effort HEART: RRR ABDOMEN: Soft, non-tender, non distended. EXTREMITIES: No deformities, cyanosis or edema. SKIN: turgor normal, no suspicious rashes or lesions NEURO: Gait normal. Sensation grossly intact. Incisions: -Left thoracoport incisions Incision assessment: Well approximated. No swelling, warmth, erythema or drainage Tubes/Lines/Drains: -None HISTORY, ASSESSMENT AND PLAN: Indication for Surgery: [id number] adenocarcinoma lung, left upper lobe Preop LVEF: normal Important/Relevant PMH/PSH: stage 1 non small cell lung cancer (right lower lobectomy 2005), reflux, jorge joyner, anxiety, hypothyroid, HTN Preoperative Hospital Course: 63 year old ex smoker 10 pack years (quit 2005) with history of stage 1 lung cancer s/p right lower lobectomy 2005 who was found to have an evolving ground glass opacity in left upper lung on surveillance imaging now measuring 17 x 12 mm (CT scan 10/13/24). With diagnostic and potentially therapeutic intent, now presents for resection. Airway Difficulty: Grade I - easy Pacing Wires: No Chronological List of Surgeries and Major Events (Diagnosis): (Surgeries in bold characters) 10/20/2024: SURGERY Robot-assisted left upper lobe trisegmentectomy, mediastinal and hilar lymph node dissection A/P of Major Active Problems (excluding routine care and common problems): [id number] adenocarcinoma lung, left upper lobe now s/p robot-assisted NOAH trisegmentectomy, mediastinal and hilar lymph node dissection 10/20/24; final path pending -Afib ppx with metoprolol x 30 days -PPI -DVT ppx -Follow surg path Pulmonary nodule, right lower lobe 10mm, pure GGO stable per CT chest 10/13/24. -follow yearly HTN home med: metoprolol 25 mg BID, stable -continue home med Postoperative Pain Intercostal nerve blocks performed in OR. Controlled with oxycodone 5-10 mg q4H prn, tylenol 650 mg q6H prn, robaxin 500 mg TID prn and lidocaine patches. -Continue regimen but per patient request stop oxycodone (too strong) and start norco 5/325 q4H prn and toradol 15 mg IV q6H Anxiety home med: ativan 0.25 mg BID prn. Stable with med held postop -hold med Hypothyroid: home med: synthroid 75 mcg daily (TSH 2.9 on 10/10/24) clinically euthyroid -continue home med GERD gwendolyn emed protonix 40 mg daily, controlled -cont home med Discharge Planning: , lives in [place], [place]. Ready for DC to home. No anticipated needs postop -Collaborate with case mgmt + patient To Do or to Watch: Stop oxycodone, switch to norco and add NSAID Discharge home Discharge Planning: Anticipated Discharge Date: 10/23/24 Barriers to Discharge: none Care Management Discharge Needs: DAILY STEP DOWN CHECKLIST FOR CATHETER RELATED INFECTION PREVENTION CVC, PICC, Venu and/or Permacath present? No Does the patient have a urinary catheter beyond POD 2? No VTE Risk Assessment: High risk VTE Mechanical and/or Pharmacologic Prophylaxis: IPC Device, IVETH hose, subcutaneous lovenox Labs and medications reviewed in [facility] SIGNATURE: Ashley Mancini APRN.[employer] PAGER: [phone] DATE of SERVICE: October 23, 2024 TIME of SERVICE: 7:25 AM XR CHEST 1V FRONTAL PORT Observed: 10/23 6:33 AM Status: F Source: [facility] * * *Final Report* * * DATE OF EXAM: Oct 23 2024 6:33AM JIX [id number] - XR CHEST 1V FRONTAL PORT / PROCEDURE REASON: Post-operative / post-procedure assessment, asymptomatic * * * * Physician Interpretation * * * * EXAMINATION: CHEST RADIOGRAPH (PORTABLE SINGLE VIEW AP) Exam Date/Time: 10/23/2024 6:33 AM Clinical History: Post-operative / post-procedure assessment, asymptomatic, Post-operative/post-procedure assessment MQ: XCPMC_6 Comparison: 1 day prior RESULT: Lines, tubes, and devices: None. Lungs and pleura: Status post left upper lobe trisegmentectomy with volume loss of the left hemithorax and elevation of the left hemidiaphragm. Right basilar stable related to prior right lower lobectomy. Somewhat triangular shaped hyperdensity overlying right hilum within the right pulmonary artery right upper lobe better seen on prior chest CT dated 10/13/2024. Bibasilar atelectasis present. No new consolidation. No substantial pleural effusion. Improved trace left apical pneumothorax. Cardiomediastinal silhouette: Stable cardiomediastinal silhouette. Other: Vertebroplasty changes in the lower thoracic spine. IMPRESSION: See result. [employer] Extension Educator: CHAPARRITA Transcribe Date/Time: Oct 23 2024 10:58A Dictated by : OFELIA TITUS MD This examination was interpreted and the report reviewed and electronically signed by: OFELIA TITUS MD on Oct 23 2024 11:06AM EST [id number] XR CHEST 2V FRONTAL/LAT Observed: 2024 1:25 PM Status: F Source: [facility] * * *Final Report* * * DATE OF EXAM: Oct 22 2024 1:25PM [id number] - XR CHEST 2V FRONTAL/LAT / PROCEDURE REASON: Other * * * * Physician Interpretation * * * * EXAMINATION: CHEST RADIOGRAPH (2 VIEW FRONTAL and LATERAL) CLINICAL HISTORY: Other MQ: XC2_6 EXAM DATE/TIME: 10/22/2024 1:25 PM COMPARISON: Same day RESULT: Lines, tubes, and devices: Removal of left chest tube. Lungs and pleura: Increase in size of trace left pneumothorax. Mild improvement of basilar atelectasis, involving left more than right. Trace pleural effusions or pleural thickening again seen bilaterally. Cardiomediastinal silhouette: Stable, including methacrylate embolization into central right pulmonary vessels. Bones and soft tissues: Kyphoplasty at lower thoracic spine. Mild generalized osteopenia. IMPRESSION: See result Natural Resources Extension Educator: PSCB Transcribe Date/Time: Oct 22 2024 2:36P Dictated by : CLARENCE SMALL MD This examination was interpreted and the report reviewed and electronically signed by: CLARENCE SMALL MD on Oct 22 2024 2:40PM EST [id number] PROGRESS Observed: 10/22/2024 11:22 AM Status: COMPLETED Source: [facility] HNO ID: [id number] Author: SUMANTH FROST APRN.[employer] Service: Thoracic Surgery Author Type: Nurse Practitioner Type: Progress Notes Filed: 10/22/2024 11:35 Note Text: [facility] POST-OP PROGRESS NOTE Merissa Sage [id number] PRIMARY SERVICE: Thoracic Surgery - Pedro Cleaning M.D. DATE OF ADMISSION: 10/20/24 DIAGNOSIS: left upper lobe lesion DATE: 10/20/24 SURGERY: robot-assisted left upper lobe trisegmentectomy, mediastinal and hilar lymph node dissection INTERVAL EVENTS / PERTINENT ROS: no acute events overngiht. issues with blood pressure elevation mostly due to anxiety / pain. no air leak in CT. plan for removal of CT. encouraged to ambulate several times today. PERTINENT LABS: Hemoglobin (g/dL) Date Value 10/22/2024 12.8 Hematocrit (%) Date Value 10/22/2024 38.0 WBC Date Value 10/22/2024 8.10 k/uL 10/16/2002 Negative /hpf Glucose (mg/dL) Date Value 10/22/2024 102 10/16/2002 Negative Potassium (mmol/L) Date Value 10/22/2024 4.7 Sodium (mmol/L) Date Value 10/22/2024 137 Chloride (mmol/L) Date Value 10/22/2024 106 CO2 (mmol/L) Date Value 10/22/2024 21 Creatinine (mg/dL) Date Value 10/22/2024 0.58 BUN (mg/dL) Date Value 10/22/2024 6 Anion Gap (mmol/L) Date Value 10/22/2024 10 Calcium, Total (mg/dL) Date Value 10/22/2024 8.4 CXR: viewed film. small left apical pneumothorax TELEMETRY: SR Intake/Output Summary (Last 24 hours) at 10/22/2024 1124 Last data filed at 10/22/2024 1040 Gross per 24 hour Intake 920 ml Output 2410 ml Net -1490 ml PHYSICAL EXAM: Blood pressure 152/70, pulse 68, temperature 36.7 ?C (98.1 ?F), temperature source Oral, resp. rate 18, height 162.6 cm (5' 4"), weight 58.7 kg (129 lb 6.6 oz), last menstrual period 03/14/2009, SpO2 97%. Room air Constitutional: Well developed, Well nourished , and No acute distress HEENT: PERRLA Resp: Clear Cardiovascular: Regular rate AND rhythm GI: Soft, Non-tender, and Non-distended Integumentary: Warm and Dry Musculoskeletal: No deformities Neurological/Psychiatric: Oriented to time, place AND person Additional systems reviewed: No additional systems reviewed Incisions: -left thoracoport sites well approximated. no erythema noted Tubes/Lines/Drains: -Left CT to water seal, no air leak. drained 90 ml serosang fluid (removed) HISTORY, ASSESSMENT AND PLAN: Indication for Surgery: left upper lobe lesion Preop LVEF: normal Important/Relevant PMH/PSH: lung cancer (NSC '06), reflux, jorge joyner. hypothyroid, HTN Preoperative Hospital Course: 63 year old Patient found to have GGO on yearly screening CT since she has had done since her RLLobectomy in 2006 (Katiuska Chang) for lung cancer stage 1A. These remained stable for a while, but recently, one demonstrated growth. PET from 07/12/2023 with no FDG uptake throughout. CT chest on 01/10/2024 with 1.3 cm groundglass nodular opacity posteriorly in RUL that has shown slight progressive growth over multiple prior studies as well as a 1.5 cm groundglass opacity at the NOAH apex with progressive growth. Stable 0.4 cm groundglass nodule at right apex. . Now presents for surgery. Airway Difficulty: Grade I - easy Pacing Wires: No Chronological List of Surgeries and Major Events (Diagnosis): (Surgeries in bold characters) 10/20/2024: SURGERY robot-assisted left upper lobe trisegmentectomy, mediastinal and hilar lymph node dissection A/P of Major Active Problems (excluding routine care and common problems): Now s/p robot-assisted left upper lobe trisegmentectomy, mediastinal and hilar lymph node dissection :final path pending -Chest tube removed -Afib ppx with metoprolol x 30 days -PPI -DVT ppx -Follow surg path Postoperative Pain: Intercostal nerve blocks performed in OR. Now controlled with fent [employer], toradol 15 mg IV q6H, oxycodone 5-10 mg q4H prn, tylenol 1000mg q6H and lidocaine patches. -Continue regimen Hypothyroid: synthroid 75 mcg daily (TSH 2.9 on 10/10) Discharge Planning: , lives in [place], [place]. Anticipate DC to home when ready. No anticipated needs postop -Collaborate with case mgmt + patient To Do or to Watch: CT without air leak ~ removed pain control resume synthroid Discharge Planning: Anticipated Discharge Date: 10/23 Barriers to Discharge: pain control Care Management Discharge Needs: DAILY STEP DOWN CHECKLIST FOR CATHETER RELATED INFECTION PREVENTION CVC, PICC, Venu and/or Permacath present? No Does the patient have a urinary catheter beyond POD 2? No VTE Risk Assessment: High risk VTE Mechanical and/or Pharmacologic Prophylaxis: IPC Device, IVETH hose, subcutaneous lovenox Labs and medications reviewed in [facility] SIGNATURE: Sumanth Frost APRN.[facility] PAGER: [phone] DATE of SERVICE: October 22, 2024 TIME of SERVICE: 09:00 XR CHEST 1V FRONTAL PORT Observed: 10/22 8:50 AM Status: F Source: [facility] * * *Final Report* * * DATE OF EXAM: Oct 22 2024 8:50AM JIX [id number] - XR CHEST 1V FRONTAL PORT / PROCEDURE REASON: Post-operative / post-procedure assessment, asymptomatic * * * * Physician Interpretation * * * * EXAMINATION: CHEST RADIOGRAPH (PORTABLE SINGLE VIEW AP) Exam Date/Time: 10/22/2024 8:50 AM Clinical History: Post-operative / post-procedure assessment, asymptomatic, Post-operative/post-procedure assessment MQ: XCPMC_6 Comparison: 1 day prior RESULT: Lines, tubes, and devices: Left chest tube remains in place. Lungs and pleura: Status post robotic-assisted left upper lobe trisegmentectomy with associated volume loss in the left hemithorax and elevation of the left hemidiaphragm. Left perihilar opacities likely postsurgical. The right lung is free of focal consolidation. No substantial pleural effusion is seen. Small left apical pneumothorax is seen. Cardiomediastinal silhouette: Stable cardiomediastinal silhouette. Branching linear radiopacities extending from the right hilum to the right upper lobe are unchanged and likely represent embolized methyl methacrylate related to vertebroplasty/kyphoplasty procedure. Other: Vertebroplasty/kyphoplasty changes are seen in the lower thoracic vertebral body. IMPRESSION: See result. Natural Resources Extension Educator: PSCB Transcribe Date/Time: Oct 22 2024 10:30A Dictated by : GRETCHEN DESAI MD This examination was interpreted and the report reviewed and electronically signed by: GRETCHEN DESAI MD on Oct 22 2024 10:36AM EST [id number] CBC PNL BLD AUTO Collected: 5 4:40 AM Status: F Source: [facility] Order Comment: Specimen Type : BLOOD SPECIMEN Ordering Facility: [facility] Address: [address] [place] [address] TYPE CODE TESTS RESULT OUT OF RANGE REFERENCE UNITS LAB 6690-2(LOINC) WBC # Bld Auto 8.10 3.70-11.00 k/uL LAB 789-8(LOINC) RBC # Bld Auto 4.26 3.90-5.20 m/uL LAB 718-7(LOINC) Hgb Bld-mCnc 12.8 11.5-15.5 g/dL LAB 4544-3(LOINC) Hct VFr Bld Auto 38.0 36.0-46.0 % LAB 787-2(LOINC) MCV RBC Auto 89.2 80.0-100.0 fL LAB 785-6(LOINC) MCH RBC Qn Auto 30.0 26.0-34.0 pg LAB 786-4(LOINC) MCHC RBC Auto-mCnc 33.7 30.5-36.0 g/dL LAB 13575-4(LOINC) RDW RBC-Rto 12.0 11.5-15.0 % LAB 777-3(LOINC) Platelet # Bld Auto 233 150-400 k/uL LAB 16250-1(LOINC) PMV Bld Auto 9.4 9.0-12.7 fL LAB 771-6(LOINC) nRBC # Bld Auto <0.01 <0.01 k/uL Performed By: #### 32961-6 # ### [facility] CLIA [id number] [address] [place] [address] [place] BAS METAB 2000 PNL SERPL Collected: 4:40 AM Status: F Source: [facility] Order Comment: Specimen Type : BLOOD SPECIMEN Ordering Facility: [facility] Address: [address] [place] [address] TYPE CODE TESTS RESULT OUT OF RANGE REFERENCE UNITS LAB 2345-7(LOINC) Glucose SerPl-mCnc 102 High 74-99 mg/dL Result Comment: The [place] Diabetes Association (ADA) provides guidance for cutoff values for fasting glucose and random glucose. The ADA defines fasting as no caloric intake for at least 8 hours. Fasting plasma glucose results between 100 to 125 mg/dL indicate increased risk for diabetes (prediabetes). Fasting plasma glucose results greater than or equal to 126 mg/dL meet the criteria for diagnosis of diabetes. In the absence of unequivocal hyperglycemia, results should be confirmed by repeat testing. In a patient with classic symptoms of hyperglycemia or hyperglycemic crisis, random plasma glucose results greater than or equal to 200 mg/dL meet the criteria for diagnosis of diabetes. Reference: Standards of Medical Care in Diabetes 2016, [place] Diabetes Association. Diabetes Care. 2016.39(Suppl 1). LAB 3094-0(LOINC) BUN SerPl-mCnc 6 Low 7-21 mg/ dL LAB 2160-0(LOINC) Creat SerPl-mCnc 0.58 0.58-0.96 mg/dL LAB 2951-2(LOINC) Sodium SerPl-sCnc 137 136-144 mmol/L LAB 2823-3(LOINC) Potassium SerPl-sCnc 4.7 3.7-5.1 mmol/L LAB 2075-0(LOINC) Chloride SerPl-sCnc 106 98-107 mmol/L LAB 2028-9(LOINC) CO2 SerPl-sCnc 21 Low 22-30 mmo l/L LAB 54427-9(LOINC) Anion Gap SerPl-sCnc 10 8-15 mmol/L LAB 38649-7(LOINC) Calcium SerPl-mCnc 8.4 Low 8.5-10.2 mg/dL LAB 14461-6(LOINC) Creatinine + eGFR Pnl SerPlBld 101 >=60 mL/min/1 .73m??? Result Comment: Estimated Gl omerular Filtration Rate (eGFR) is calculated using the 2020 CKD-EPI creatinine equation. This equation utilizes serum creatinine, sex, and age as parameters. The creatinine assay has traceable calibration to isotope dilution-mass spectrometry. Refer to KDIGO guidelines for clinical interpretation. In patients with unstable renal function, e.g. those with acute kidney injury, the eGFR may not accurately reflect actual GFR. Performed By: #### 20039-5 # ### [facility] CLIA [id number] [address] [place] [address] [place] CASE MGT [facility] [place] Observed: 10/21/2024 10:56 AM Status: COMPLETED Source: [facility] HNO ID: [id number] Author: FÁTIMA ARREAGA RN Service: Care Management Author Type: Registered Nurse Type: Care Mgt Initial Assessment Filed: 10/21/2024 10:59 Note Text: CARE MANAGEMENT: ASSESSMENT AND DISCHARGE PLAN SERVICE DATE: October 21, 2024 SERVICE TIME: 10:56 AM PCP: Jesika Ro MD Primary Contact: Extended Emergency Contact Information Primary Emergency Contact: Alona,(HCPOA) Saulo Address: [address] [place] [id number] Mobile Relation: Spouse Secondary Emergency Contact: Alona,(1st alt HCPOA) [place], [place] Mobile Relation: None Admission Status: Inpatient Insurance Provider: MEDICARE A AND B Post-Acute Discharge Plan: Per review of chart, 63 yr old female from [facility] [place] s/p 10-20-2024 robot-assisted left upper lobe trisegmentectomy, mediastinal and hilar lymph node dissection. 97% RA 6 Click 18 No anticipated needs post op This patient has been screened for Care Management Transitional Planning Services. At this time, it does not appear this patient will require transition planning services. Should this change, and the patient require transition planning services during this admission, please contact Case Management. SIGNATURE: Fátima Areraga RN PATIENT NAME: Merissa Sage DATE: October 21, 2024 TIME: 10:56 AM PROGRESS Observed: 10/21/2024 7:08 AM Status: COMPLETED Source: [facility] HNO ID: [id number] Author: SUMANTH FROST APRN.[employer] Service: Thoracic Surgery Author Type: Nurse Practitioner Type: Progress Notes Filed: 10/21/2024 07:43 Note Text: [facility] POST-OP PROGRESS NOTE Merissa Sage [id number] PRIMARY SERVICE: Thoracic Surgery - Pedro Cleaning M.D. DATE OF ADMISSION: 10/20/24 DIAGNOSIS: left upper lobe lesion DATE: 10/20/24 SURGERY: robot-assisted left upper lobe trisegmentectomy, mediastinal and hilar lymph node dissection INTERVAL EVENTS / PERTINENT ROS: no acute events overnight. offers c/o increased pain at surgical site. vitals stable. remains with air leak in CT. PERTINENT LABS: Hemoglobin (g/dL) Date Value 10/21/2024 13.7 Hematocrit (%) Date Value 10/21/2024 39.3 WBC Date Value 10/21/2024 7.66 k/uL 10/16/2002 Negative /hpf Glucose (mg/dL) Date Value 10/21/2024 106 10/16/2002 Negative Potassium (mmol/L) Date Value 10/21/2024 3.6 Sodium (mmol/L) Date Value 10/21/2024 138 Chloride (mmol/L) Date Value 10/21/2024 101 CO2 (mmol/L) Date Value 10/21/2024 30 Creatinine (mg/dL) Date Value 10/21/2024 0.70 BUN (mg/dL) Date Value 10/21/2024 6 Anion Gap (mmol/L) Date Value 10/21/2024 7 Calcium, Total (mg/dL) Date Value 10/21/2024 8.6 CXR: viewed film. small left apical pneumothorax TELEMETRY: SR Intake/Output Summary (Last 24 hours) at 10/21/2024 0708 Last data filed at 10/21/2024 0651 Gross per 24 hour Intake 2942 ml Output 3285 ml Net -343 ml PHYSICAL EXAM: Blood pressure 152/72, pulse 66, temperature 36.7 ?C (98.1 ?F), temperature source Oral, resp. rate 17, height 162.6 cm (5' 4"), weight 59.1 kg (130 lb 6.4 oz), last menstrual period 03/14/2009, SpO2 100%. Room air Constitutional: Well developed and No acute distress HEENT: PERRLA Resp: Decreased breath sounds Cardiovascular: Regular rate AND rhythm GI: Soft, Non-tender, and Non-distended Integumentary: Warm and Dry Musculoskeletal: No deformities Neurological/Psychiatric: Oriented to time, place AND person Additional systems reviewed: No additional systems reviewed Incisions: -left thoracoport sites well approximated. no erythema noted Tubes/Lines/Drains: -left CT to water seal. air leak noted. drained 210 ml serosang fluid HISTORY, ASSESSMENT AND PLAN: Indication for Surgery: left upper lobe lesion Preop LVEF: normal Important/Relevant PMH/PSH: lung cancer (NSC '06), reflux, jorge joyner. hypothyroid, HTN Preoperative Hospital Course: 63 year old Patient found to have GGO on yearly screening CT since she has had done since her RLLobectomy in 2006 (Katiuska Chang) for lung cancer stage 1A. These remained stable for a while, but recently, one demonstrated growth. PET from 07/12/2023 with no FDG uptake throughout. CT chest on 01/10/2024 with 1.3 cm groundglass nodular opacity posteriorly in RUL that has shown slight progressive growth over multiple prior studies as well as a 1.5 cm groundglass opacity at the NOAH apex with progressive growth. Stable 0.4 cm groundglass nodule at right apex. . Now presents for surgery. Airway Difficulty: Grade I - easy Pacing Wires: No Chronological List of Surgeries and Major Events (Diagnosis): (Surgeries in bold characters) 10/20/2024: SURGERY robot-assisted left upper lobe trisegmentectomy, mediastinal and hilar lymph node dissection A/P of Major Active Problems (excluding routine care and common problems): Now s/p robot-assisted left upper lobe trisegmentectomy, mediastinal and hilar lymph node dissection ; final path pending -Chest tube and manan drain -Afib ppx with metoprolol x 30 days -PPI -DVT ppx -Follow surg path Postoperative Pain: Intercostal nerve blocks performed in OR. Now controlled with fent [employer]IVE [employer], toradol 15 mg IV q6H, oxycodone 5-10 mg q4H prn, tylenol 1000mg q6H and lidocaine patches. -Continue regimen Hypothyroid: synthroid 75 mcg daily (TSH 2.9 on 10/10) Discharge Planning: , lives in [place], [place]. Anticipate DC to home when ready. No anticipated needs postop -Collaborate with case mgmt + patient To Do or to Watch: CT to suction till midnight pain control resume synthroid Discharge Planning: Anticipated Discharge Date: TBD Barriers to Discharge: pain control Care Management Discharge Needs: DAILY STEP DOWN CHECKLIST FOR CATHETER RELATED INFECTION PREVENTION CVC, PICC, Venu and/or Permacath present? No Does the patient have a urinary catheter beyond POD 2? No VTE Risk Assessment: High risk VTE Mechanical and/or Pharmacologic Prophylaxis: IPC Device, IVETH hose, subcutaneous lovenox Labs and medications reviewed in [facility] SIGNATURE: Sumanth Frost APRN.[employer] PAGER: [phone] DATE of SERVICE: October 21, 2024 TIME of SERVICE: 07:20 BAS METAB 1999 PNL SERPL Collected: 5:05 AM Status: F Source: [facility] Order Comment: Specimen Type : BLOOD SPECIMEN Ordering Facility: [facility] Address: [address], [place] [address] TYPE CODE TESTS RESULT OUT OF RANGE REFERENCE UNITS LAB 2345-7(LOINC) Glucose SerPl-mCnc 106 High 74-99 mg/dL Result Comment: The [place] Diabetes Association (ADA) provides guidance for cutoff values for fasting glucose and random glucose. The ADA defines fasting as no caloric intake for at least 8 hours. Fasting plasma glucose results between 100 to 125 mg/dL indicate increased risk for diabetes (prediabetes). Fasting plasma glucose results greater than or equal to 126 mg/dL meet the criteria for diagnosis of diabetes. In the absence of unequivocal hyperglycemia, results should be confirmed by repeat testing. In a patient with classic symptoms of hyperglycemia or hyperglycemic crisis, random plasma glucose results greater than or equal to 200 mg/dL meet the criteria for diagnosis of diabetes. Reference: Standards of Medical Care in Diabetes 2016, [place] Diabetes Association. Diabetes Care. 2016.39(Suppl 1). LAB 3094-0(LOINC) BUN SerPl-mCnc 6 Low 7-21 mg/ dL LAB 2160-0(LOINC) Creat SerPl-mCnc 0.70 0.58-0.96 mg/dL LAB 2951-2(LOINC) Sodium SerPl-sCnc 138 136-144 mmol/L LAB 2823-3(LOINC) Potassium SerPl-sCnc 3.6 Low 3.7-5.1 mmol/L LAB 2075-0(LOINC) Chloride SerPl-sCnc 101 98-107 mmol/L LAB 2028-9(LOINC) CO2 SerPl-sCnc 30 22-30 mmo l/L LAB 50515-1(LOINC) Anion Gap SerPl-sCnc 7 Low 8-15 mmol/L LAB 97352-5(LOINC) Calcium SerPl-mCnc 8.6 8.5-10.2 mg/dL LAB 15654-8(LOINC) Creatinine + eGFR Pnl SerPlBld 96 >=60 mL/min/1 .73m??? Result Comment: Estimated Gl omerular Filtration Rate (eGFR) is calculated using the 2020 CKD-EPI creatinine equation. This equation utilizes serum creatinine, sex, and age as parameters. The creatinine assay has traceable calibration to isotope dilution-mass spectrometry. Refer to KDIGO guidelines for clinical interpretation. In patients with unstable renal function, e.g. those with acute kidney injury, the eGFR may not accurately reflect actual GFR. Performed By: #### 84031-5 # ### [facility] CLIA [id number] [address] [place] [address] [place] CBC PNL BLD AUTO Collected: 5:05 AM Status: F Source: [facility] Order Comment: Specimen Type : BLOOD SPECIMEN Ordering Facility: [facility] Address: [address] [place] [address] TYPE CODE TESTS RESULT OUT OF RANGE REFERENCE UNITS LAB 6690-2(LOINC) WBC # Bld Auto 7.66 3.70-11.00 k/uL LAB 789-8(LOINC) RBC # Bld Auto 4.44 3.90-5.20 m/uL LAB 718-7(LOINC) Hgb Bld-mCnc 13.7 11.5-15.5 g/dL LAB 4544-3(LOINC) Hct VFr Bld Auto 39.3 36.0-46.0 % LAB 787-2(LOINC) MCV RBC Auto 88.5 80.0-100.0 fL LAB 785-6(LOINC) MCH RBC Qn Auto 30.9 26.0-34.0 pg LAB 786-4(LOINC) MCHC RBC Auto-mCnc 34.9 30.5-36.0 g/dL LAB 96390-2(LOINC) RDW RBC-Rto 11.7 11.5-15.0 % LAB 777-3(LOINC) Platelet # Bld Auto 246 150-400 k/uL LAB 86280-0(LOINC) PMV Bld Auto 9.3 9.0-12.7 fL LAB 771-6(LOINC) nRBC # Bld Auto <0.01 <0.01 k/uL Performed By: #### [id number] # ### [facility] CLIA [id number] [address] [place], [place] [id number] [place] XR CHEST 1V FRONTAL PORT Observed: 10/21 4:54 AM Status: F Source: [facility] * * *Final Report* * * DATE OF EXAM: Oct 21 2024 4:54AM JIX [id number] - XR CHEST 1V FRONTAL PORT / PROCEDURE REASON: Post-operative / post-procedure assessment, asymptomatic * * * * Physician Interpretation * * * * EXAMINATION: CHEST RADIOGRAPH (PORTABLE SINGLE VIEW AP) Exam Date/Time: 10/21/2024 4:54 AM Clinical History: Post-operative / post-procedure assessment, asymptomatic, Post-operative/post-procedure assessment MQ: XCPMC_6 Comparison: 1 day prior RESULT: Lines, tubes, and devices: Left apical chest tube. Right upper quadrant surgical clips. Lungs and pleura: Status post left upper lobe trisegmentectomy (by report). No focal consolidations. Mild blunting of the right costophrenic angle, likely trace effusion or pleural thickening. No substantial left pleural effusion. The previously seen trace left apical pneumothorax is not identified. Cardiomediastinal silhouette: Stable enlarged cardiomediastinal silhouette. Other: T11 vertebroplasty. Surgical clips in the RIGHT upper quadrant of the abdomen. IMPRESSION: See result. Natural [employer] Extension Educator: PSCB Transcribe Date/Time: Oct 21 2024 10:08A Dictated by : MELVINA AGUDELO MD This examination was interpreted and the report reviewed and electronically signed by: BRYCE FOSTER MD on Oct 21 2024 10:47AM EST [id number] PROGRESS Observed: 10/20/2024 1:16 PM Status: COMPLETED Source: [facility] HNO ID: [id number] Author: SUMANTH FROST APRN.CLOTHING SORTER Service: Thoracic Surgery Author Type: Nurse Practitioner Type: Progress Notes Filed: 10/20/2024 13:59 Note Text: [facility] POST-OP PROGRESS NOTE Merissa Sage [id number] PRIMARY SERVICE: Thoracic Surgery - Pedro Cleaning M.D. DATE OF ADMISSION: 10/20/24 DIAGNOSIS: left upper lobe lesion DATE: 10/20/24 SURGERY: robot-assisted left upper lobe trisegmentectomy, mediastinal and hilar lymph node dissection INTERVAL EVENTS / PERTINENT ROS: received from PACU. drowsy but arousable and able to answer questions. Pain well controlled with [employer] EXEC[employer]. CT with small air leak. lamas draining. family updated at bedside PERTINENT LABS: Hemoglobin (g/dL) Date Value 10/10/2024 14.4 Hematocrit (%) Date Value 10/10/2024 42.3 WBC Date Value 10/10/2024 5.37 k/uL 10/16/2002 Negative /hpf Glucose (mg/dL) Date Value 10/10/2024 98 10/16/2002 Negative Potassium (mmol/L) Date Value 10/10/2024 4.1 Sodium (mmol/L) Date Value 10/10/2024 142 Chloride (mmol/L) Date Value 10/10/2024 105 CO2 (mmol/L) Date Value 10/10/2024 26 Creatinine (mg/dL) Date Value 10/10/2024 0.66 BUN (mg/dL) Date Value 10/10/2024 17 Anion Gap (mmol/L) Date Value 10/10/2024 11 Calcium, Total (mg/dL) Date Value 10/10/2024 9.2 CXR: viewed film. no pneumothorax TELEMETRY: SR Intake/Output Summary (Last 24 hours) at 10/20/2024 1316 Last data filed at 10/20/2024 1011 Gross per 24 hour Intake 1100 ml Output 200 ml Net 900 ml PHYSICAL EXAM: Blood pressure 134/66, pulse 68, temperature 36.4 ?C (97.5 ?F), temperature source Temporal, resp. rate 23, height 162.6 cm (5' 4"), weight 59.1 kg (130 lb 6.4 oz), last menstrual period 03/14/2009, SpO2 100%. Room air Constitutional: Well developed, Well nourished , and No acute distress HEENT: PERRLA Resp: Clear Cardiovascular: Regular rate AND rhythm GI: Soft, Non-tender, and Non-distended Integumentary: Warm and Dry Musculoskeletal: No deformities Neurological/Psychiatric: Oriented to time, place AND person Additional systems reviewed: No additional systems reviewed Incisions: -left thoracoport incisions intact. Tubes/Lines/Drains: -[address] to suction. small air leak. HISTORY, ASSESSMENT AND PLAN: Indication for Surgery: left upper lobe lesion Preop LVEF: normal Important/Relevant PMH/PSH: lung cancer (NSC '06), reflux, jorge joyner. hypothyroid, HTN Preoperative Hospital Course: 63 year old Patient found to have GGO on yearly screening CT since she has had done since her RLLobectomy in 2006 (Katiuska Chang) for lung cancer stage 1A. These remained stable for a while, but recently, one demonstrated growth. PET from 07/12/2023 with no FDG uptake throughout. CT chest on 01/10/2024 with 1.3 cm groundglass nodular opacity posteriorly in RUL that has shown slight progressive growth over multiple prior studies as well as a 1.5 cm groundglass opacity at the NOAH apex with progressive growth. Stable 0.4 cm groundglass nodule at right apex. . Now presents for surgery. Airway Difficulty: Grade I - easy Pacing Wires: No Chronological List of Surgeries and Major Events (Diagnosis): (Surgeries in bold characters) 10/20/2024: SURGERY robot-assisted left upper lobe trisegmentectomy, mediastinal and hilar lymph node dissection A/P of Major Active Problems (excluding routine care and common problems): Now s/p robot-assisted left upper lobe trisegmentectomy, mediastinal and hilar lymph node dissection ; final path pending -Chest tube and manan drain -Afib ppx with metoprolol x 30 days -PPI -DVT ppx -Follow surg path Postoperative Pain: Intercostal nerve blocks performed in OR. Now controlled with fent [employer] EXECUTIVE DIRECTOR, toradol 15 mg IV q6H, oxycodone 5-10 mg q4H prn, tylenol 1000mg q6H and lidocaine patches. -Continue regimen Hypothyroid: synthroid 75 mcg daily (TSH 2.9 on 10/10) Discharge Planning: , lives in [place], [place]. Anticipate DC to home when ready. No anticipated needs postop -Collaborate with case mgmt + patient To Do or to Watch: CT to suction till midnight pain control resume synthroid Discharge Planning: Anticipated Discharge Date: TBD Barriers to Discharge: pain control Care Management Discharge Needs: DAILY STEP DOWN CHECKLIST FOR CATHETER RELATED INFECTION PREVENTION CVC, PICC, Venu and/or Permacath present? No Does the patient have a urinary catheter beyond POD 2? Yes - clinical indication for urinary catheter beyond POD 2: Postoperative cardiac surgery requiring fluid balance and input and output measurement VTE Risk Assessment: High risk VTE Mechanical and/or Pharmacologic Prophylaxis: IPC Device, IVETH hose, subcutaneous lovenox Labs and medications reviewed in [facility] SIGNATURE: Sumanth Frost APRN.CNP PAGER: [phone] DATE of SERVICE: October 20, 2024 TIME of SERVICE: 13:00 ANES POSTPROC EVAL Observed: 10/20/2024 10:39 AM Status: COMPLETED Source: [facility] HNO ID: [id number] Author: DEMETRIO ROBERTSON MD Service: ? Author Type: Anesthesiologist Type: Anesthesia Postprocedure Evaluation Filed: 10/20/2024 10:42 Note Text: POST ANESTHESIA EVALUATION NOTE : 1960 Procedure Summary Date: 10/20/24 Room / Location: [place] [address] / [facility] CT AND VAS Anesthesia Start: 656 Anesthesia Stop: 101 Procedure: ROBOTIC THORACOSCOPY; NOAH trisegmentectomy c=2.5 (ICG marker 10/17/2024) LOBECTOMY, TOTAL OR SEGMENTAL (Left: Chest) Diagnosis: Lung nodule Pre-procedure lab exam (Lung nodule [R91.1]) (Pre-procedure lab exam [Z01.812]) Surgeons: Pedro Cleaning MD, PhD Responsible Provider: Demetrio Robertson MD Anesthesia Type: general ASA Status: 3 Anesthesia Type: general Airway Type: ETT Last Vitals Vitals Value Taken Time BP 154/79 10/20/24 1030 Temp 36 10/20/24 1039 Pulse 73 10/20/24 1037 Resp 17 10/20/24 1037 SpO2 100 % 10/20/24 1037 Vitals shown include unfiled device data. Post Anesthesia Patient Status Patient Evaluation: ICU. PACU/ICU Patient Condition: stable. Anticipated Disposition: ICU planned admission. Neurological Status: sedated. Pulmonary Status: on mechanical ventilation (invasive ventilation) Airway Control: intubated on mechanical ventilation. Cardiovascular Status: stable. Pain Management: clinically adequate Postoperative Hydration: acceptable. Intraoperative Events: no significant anesthesia events Recommendation: further care per PACU/ICU/floor team. Anesthesia Observations No Documentation SIGNATURE: Demetrio Robertson MD PATIENT NAME: Merissa Sage DATE: October 20, 2024 TIME: 10:39 AM CSN: [id number] XR CHEST 1V FRONTAL PORT Observed: 10/20 10:27 AM Status: F Source: [facility] * * *Final Report* * * DATE OF EXAM: Oct 20 2024 10:27AM ROBERT [id number] - XR CHEST 1V FRONTAL PORT / PROCEDURE REASON: Post-operative / post-procedure assessment, asymptomatic * * * * Physician Interpretation * * * * EXAMINATION: CHEST RADIOGRAPH (PORTABLE SINGLE VIEW AP) Exam Date/Time: 10/20/2024 10:27 AM Clinical History: Post-operative / post-procedure assessment, asymptomatic, Post-operative/post-procedure assessment MQ: XCPMC_6 Comparison: None available RESULT: Lines, tubes, and devices: A single left thoracostomy tube is in place.. Lungs and pleura: Status post robotic assisted NOAH trisegmentectomy. The lungs appear clear of consolidation. There is a trivial left apical pneumothorax. No pleural effusion is identified. Cardiomediastinal silhouette: The cardiac silhouette appears enlarged. Other: Status post vertebroplasty involving the lower thoracic vertebral bodies (approximately T11). IMPRESSION: See result. Natural Resources Extension Educator: PSCB Transcribe Date/Time: Oct 20 2024 2:38P Dictated by : TATIANA PEREZ MD This examination was interpreted and the report reviewed and electronically signed by: TATIANA PEREZ MD on Oct 20 2024 2:43PM EST [id number] BRIEF OP NOT Observed: 10/20/2024 9:59 AM Status: COMPLETED Source: [facility] HNO ID: [id number] Author: PEDRO CLEANING MD, PhD Service: Thoracic Surgery Author Type: Physician Type: Brief Op Note Filed: 10/20/2024 17:46 Note Text: BRIEF OPERATIVE / PROCEDURE NOTE LOG ID: [id number] SURGERY/PROCEDURE DATE: 10/20/2024 INCISION/PROCEDURE START TIME: 7:53 AM INCISION CLOSE/PROCEDURE END TIME: 9:51 AM SURGEON(S)/PROCEDURALIST(S) AND FUNDRAISING MANAGER(S): Surgeons and Role: * Pedro Cleaning MD, PhD - Primary * Felipe Pena MD - Assisting No Additional Staff SURGERY/PROCEDURE(S): robot-assisted left upper lobe trisegmentectomy, mediastinal and hilar lymph node dissection ANESTHESIA: General FINDINGS: left upper lobe lesion No evidence of pleural disease ESTIMATED BLOOD LOSS: 25 mls SPECIMENS: ID Type Source Tests Collected by Time Destination A : Lingula sparing left upper lobe Tissue Lung, Left, Lobectomy SURGICAL PATHOLOGY Pedro Cleaning MD, PhD 10/20/2024 9:19 AM B : 8L Tissue Lymph Node (Specify Site in Comments) SURGICAL PATHOLOGY Pedro Cleaning MD, PhD 10/20/2024 8:13 AM C : 9L Tissue Lymph Node (Specify Site in Comments) SURGICAL PATHOLOGY Pedro Cleaning MD, PhD 10/20/2024 8:12 AM D : 4L Tissue Lymph Node (Specify Site in Comments) SURGICAL PATHOLOGY Pedro Cleaning MD, PhD 10/20/2024 8:22 AM E : level 7 Tissue Lymph Node (Specify Site in Comments) SURGICAL PATHOLOGY Pedro Cleaning MD, PhD 10/20/2024 8:21 AM F : 11L Tissue Lymph Node (Specify Site in Comments) SURGICAL PATHOLOGY Pedro Cleaning MD, PhD 10/20/2024 8:24 AM G : 10 L Tissue Lymph Node (Specify Site in Comments) SURGICAL PATHOLOGY Pedro Cleaning MD, PhD 10/20/2024 8:38 AM H : 12 L Tissue Lymph Node (Specify Site in Comments) SURGICAL PATHOLOGY Pedro Cleaning MD, PhD 10/20/2024 9:02 AM I : Level 5 Tissue Lymph Node (Specify Site in Comments) SURGICAL PATHOLOGY Pedro Cleaning MD, PhD 10/20/2024 9:22 AM COMPLICATIONS: None DRAINS: Unmodified 24F left chest tube CLOSURE TECHNIQUE: Primary PRE-OP/PRE-PROCEDURE DIAGNOSIS: left upper lobe lesion POST-OP/POST-PROCEDURE DIAGNOSIS: Same as Preop Patient was accompanied to the next level of care by a licensed practitioner from the surgical team pending completion of this brief op note (or operative note) SIGNATURE: Felipe Pena MD PATIENT NAME: Merissa Sage DATE: October 20, 2024 TIME: 9:59 AM TARGETED ONCOLOGY PANEL NEXT GENERATION SEQUENCING OTHER Collected: 10/20/2024 9:19 AM Status: F Source: [facility] Order Comment: Specimen Type : TISSUE SPECIMEN Ordering Facility: [facility] Address: [facility] [place] [address] TYPE CODE TESTS RESULT OUT OF RANGE REFERENCE UNITS LAB 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 *Unless otherwise stated, all assay hotspot regions have been tested (see EVALUATED GENES below) and only positive genes are reported. 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 MET cornelia-oncogene encodes for a receptor tyrosine kinase that activates a variety of signaling pathways involving in cell proliferation, invasion and angiogenesis. MET activation mutations, exon 14 skipping mutation, gene fusions and amplifications are common in variety of solid tumors (PMID: [id number], [id number]). Biomarker Therapy Associations Benefit: NON-SMALL CELL LUNG CANCER: [Capmatinib, Tepotinib, Crizotinib] Variants of uncertain significance detected: None detected Regions with coverage <100x: PIK3CA:NM_006218.2:Ex2 chr3:[id number] Range: 72-89; FGFR3:NM_000142.4:Ex16 chr4:[id number] Range: 79-98 METHODOLOGY: Extracted nucleic acid from the specimen, both DNA and RNA, were subjected to separate targeted amplification reactions, using AmpliSeq custom primers designed by [employer] ([employer], [place], [place]). Hotspots and selected fusions in gene regions listed below were sequenced using Illumina ([place], [place]) 2x150 paired-end cycle chemistry. A customized bioinformatics analytical platform was used for read alignment (Genome Build GRCh37/hg19), variant identification and annotation. Single nucleotide variants (SNVs), insertion, deletion (indels) and copy number gain variants are detected by DNA sequencing. Select fusions and aberrant transcripts (EGFR vIII and MET exon 14 skipping transcripts) are detected by RNA sequencing. Variants are classified according to established guidelines (1). Reported results include variants of strong or potential clinical significance and variants of unclear clinical significance. Benign population polymorphisms are not included in the report. If relevant, standard of care therapies for various solid tumor types/indications (FDA-approved biomarker or standard biomarker recommended by a professional society) are provided in the variant interpretation section, as well as markers resistant to FDA-approved drugs. This information is not to be considered a recommendation for therapy. Based on validation, the DNA testing delivered an average of >500x coverage and >99% of targeted regions showed over 100x coverage. A minimum coverage depth of 100 reads is required across the entire region of interest; a list of low coverage areas is included in the report as applicable. The test demonstrated 100% sensitivity and 100% specificity in identifying SNVs, indels and copy number gains. The lower limit of detection of this assay is approximately 5% variant allele fraction (VAF) for SNV/indels and 6 copies or greater for copy number gains. Variants below these thresholds may be reported at the discretion of the molecular pathology professional staff if the technical quality of the sequencing is sufficient at that location and the call is unequivocal. Based on validation, the RNA fusion testing averaged >150,000 total reads. The test demonstrated 93% sensitivity and 100% specificity in gene fusion identification compared to NGS sequencing, and 69% sensitivity and 100% specificity compared to FISH of fusion drivers (unknown fusion partner). Overall sensitivity is 78% and accuracy is 99%. The lower limit of detection is approximately 1% of total sequencing reads. LIMITATIONS: Sequence changes outside the analyzed alterations hotspots, including intronic and noncoding regions, will not be identified by this test. Insertions and deletions larger than 20 and 40 bp, respectively, may not be identified by this test. Negative results from specimens for which the percentage of tumor cells is 10% or less should be interpreted with caution. Although variant allele fraction is provided as a percentage, this is not a quantitative test. RNA fusions involving alternative partners or breakpoints outside of the targeted regions cannot be detected by this test. This test does not distinguish between somatic and inherited variants. Tumor heterogeneity, tumor burden, specimen degradation or other limitations of the technology may affect the sensitivity and limit of detection, either broadly across the regions of interest or for specific regions and may lead to false negative results. For tumor tissue, fixation in neutral buffered formalin or alcohol is preferred. Decalcification agents and fixation agents containing heavy metals (e.g., B5) or harsh acid or base components (e.g., Bouin's solution) can inhibit PCR reactions. Peripheral blood and bone marrow aspirate specimens should be collected in EDTA. Hotspots, copy number variants and selected fusions evaluated by this assay can aid in the diagnostic and therapeutic assessment of a variety of tumor types, including non-small cell lung cancer, melanoma, colorectal cancer, prostate cancer, breast cancer, glioblastoma, thyroid cancer and others (2-12). This panel can also provide focused tumor profiling for patients with locally advanced/metastatic disease, who are candidates for anti-cancer therapy, to identify uncommon but targetable alterations (13, 14). Clinical and histopathological correlation required. EVALUATED GENES: Gene Transcript Exon(s) ALKT1 NM_005163 3 ALK NM_004304 21-25 AR NM_000044 6, 8 BRAF NM_004333 11, 15 CDK4 NM_000075 2 CTNNB1 NM_001904 3, 7-8 DDR2 NM_006182 5 EGFR NM_005228 3, 7, 12, 15, 18-21 ERBB2 NM_004448 8, 17-22 ERBB3 NM_001982 2-3, 6, 8-9 ERBB4 NM_005235 18 ESR1 NM_000125 8 FGFR1 NM_023110 12-14, 16-17 FGFR2 NM_000141 7-9, 12, 14 FGFR3 NM_000142 7, 9, 14, 16 GNA11 NM_002067 4, 5 GNAQ NM_002072 4, 5 GNAS NM_080425 8 H3-3A NM_002107 2 H3-3B NM_005324 2 HRAS NM_005343 2,3 IDH1 NM_005896 4 IDH2 NM_002168 4 JAK1 NM_002227 14-16 JAK2 NM_004972 14 JAK3 NM_000215 11-12, 15 KIT NM_000222 8-11, 13, 17 KRAS NM_033360 2-4 MAP2K1 NM_002755 2-3, 6 MAP2K2 NM_030662 2 MET NM_000245 14, 16, 19 MTOR NM_004958 30, 39-40, 43, 47, 53 NRAS NM_002524 2-4 PDGFRA NM_006206 12, 14, 18 PIK3CA NM_006218 2, 5-6, 8, 10, 14, 19, 21 RAF1 NM_002880 7, 12 RET NM_020975 11, 13, 15-16 ROS1 NM_002944 36, 38 SMO NM_005631 4, 6, 8-9 TERT NM_198253 Promoter TP53 NM_000546 5, 7, 8 *Only hotspots within designated exons are covered, full exons are not sequenced. Genes reported for copy number gains: ALK, AR BRAF, CCND1, CDK4, CDK6, EGFR, ERBB2, FGFR1, FGFR2, FGFR3, FGFR4, KIT, KRAS, MET, MYC, MYCN, PDGFRA, PIK3CA Fusions detected in RNA: Gene Detected Fusions ABL1 EML1::ABL1 AKT3 MAGI3::AKT3 ALK A2M::ALK, ACTG2::ALK, ALK::PTPN3, ATIC::ALK, M4faz50::ALK, CARS::ALK, CLIP4::ALK, CLTC::ALK, DCTN1::ALK, EML4::ALK, FEW5TIX2::ALK, HIP1::ALK, KIF5B::ALK, KLC1::ALK, MEMO1::ALK, NCOA1::ALK, OQTFS5E::ALK, RANBBP2::ALK, CJJ20U0_ZOX42Y::ALK, SMEK2::ALK, STRN::ALK, TFG::ALK, TPM1::ALK, TPM3::ALK, TPM4::ALK, TPR::ALK, TRAF1::ALK, VCL::ALK [place]::MBIP BRAF AGTRAP:BRAF, AKAP9::BRAF, CDC27::BRAF, ECF111X::BRAF, FCHSD1::BRAF, CEEK6893::BRAF, PAPSS1::BRAF, HSL27J6::BRAF, SND1::BRAF, GHQ7MQ8::BRAF, TRIM24::BRAF EGFR EGFR vIII transcript ERBB2 WIPF2::ERBB2 ERG MLS41E6:ERG, TMPRSS2:ERG FGFR1 BAG4::FGFR1, ERLIN2::FGFR1, FGFR1::TACC1 FGFR2 FGFR2::AFF3, FGFR2::BICC1, FGFR2::CASP7, FGFR2::CIT, FGFR2::TMFZ6840_AALD4, FGFR2::MGEA5, FGFR2::OFD1, FGFR2::TACC1, WDU67C9::FGFR2 FGFR3 FGFR3::AES, FGFR3::PLKBT6B2, FGFR3::ELAVL3, FGFR3::TACC3 MET MET Exon 14 Skipping, XAJVL0K0::MET, O4dvs72::MET, CAPZA2::MET, OXR1::MET, TFG::MET, TPR::MET, PTPRZ1::MET NTRK1 BCAN::NTRK1, CD74::NTRK1, NIKOS::NTRK1, CTX7WG3::NTRK1, LMNA::NTRK1, MPRIP::NTRK1, NFASC::NTRK1, NTRK1::KXFK0N3, FGF219::NTRK1, SQSTM1::NTRK1, SSBP2::NTRK1, TFG::NTRK1, TPM3::NTRK1, TPR::NTRK1 NTRK2 AFAP1::NTRK2, AGBL4::NTRK2, NACC2::NTRK2, QKI::NTRK2, SQSTM1::NTRK2, TRIM24::NTRK2, VCL::NTRK2 NTRK3 BTBD1::NTRK3, COX5A::NTRK3, ETV6::NTRK3 PDGFRA SCAF11::PDGFRA PPARG PAX8::PPARG RAF1 H6ZABI8::RAF1, ESRP1::RAF1 RELA J26hej71::RELA RET ACBD5::RET, AFAP1::RET, AKAP13::RET, CCDC6::RET, CUX1::RET, ERC1::RET, FKBP15::RET, GOLGA5::RET, HOOK3::RET, MUXW7262::RET, KIF5B::RET, KTN1::RET, NCOA4::RET, PCM1::RET, KXTJH8K::RET, RUFY2::RET, RNZKH3X::RET, TDV2UT6::RET, TRIM24::RET, TRIM27::RET, TRIM33::RET ROS1 CCDC6:ROS1, CD74::ROS1, CEP85L::ROS1, CLIP1::ROS1, CLTC::ROS1, ERC1::ROS1, EZR::ROS1, GOPC::ROS1, HLA_A::ROS1, KDELR2::ROS1, XKFG8732::ROS1, LRIG3::ROS1, MSN::ROS1, MYO5A::ROS1, PPFIBP1::ROS1, PWWP2A::ROS1, SDC4::ROS1, HLD10Q7::ROS1, TFG::ROS1, TPM3::ROS1, ZCCHC8::ROS1 TMPRSS2 TMPRSS2::ERG, TMPRSS2::ETV1, TMPRSS2::ETV4, TMPRSS2::ETV5 REFERENCES: 1) Elaine MM, et al. Standards and Guidelines for the Interpretation and Reporting of Sequence Variants in Cancer: A Joint Consensus Recommendation of the Association for Molecular Pathology, [place] Society of Clinical Oncology, and College of [place] Pathologists. J Mol Diagn. 2017 Jun;19(1):4-23. doi: 10.1016/j.jmoldx.2016.10.002. PMID: 08262569; PMCID: [id number]. 2) Kyler C, Deborah SA, Braden AM. Recurrent gene fusions in prostate cancer. Jess Rev Cancer. 2008 Dec;8(7):497-511. doi: 10.1038/ktq1084. Epub 2007Nov 20. PMID: 94038273; PMCID: [id number]. 3) Andre SC, Sangeeta LA. The genomic landscape of prostate cancer. Front Endocrinol ([facility]). 2011October 17;3:69. doi: 10.3389/fendo.2012.40862. PMID: 68483537; [id number]. 4) Pitts C, et al. Breast Cancer Genomics: Primary and Most Common Metastases. Cancers ([place]). 2021Nov 22;14(13):3046. doi: 10.3390/hqhsxek20308632. PMID: 70819533; PMCID: [id number]. 5) Yasmany R, Lucille GUEVARAJ, CJ. Gum Cook Oncogenes but Not as We Know Them: Targetable Fusion Genes in Breast Cancer. Cancer Discov. 2018 Aug;8(3):272-275. doi: 10.1158/1231-3869.CD-18-0091. PMID: 49656558; PMCID: [id number]. 6) Skyler A, Thomas J, Po JW, Kal N, Compa T, Dat CS. The Genomic Landscape of Thyroid Cancer Tumourigenesis and Implications for Immunotherapy. Cells. 2020October 02;10(5):1082. doi: 10.[facility]0/eamhb73064532. PMID: 42622685; PMCID: WAG8532321. 7) Ann BOUDREAUX, et al. Molecular Biomarkers for the Evaluation of Colorectal Cancer: Guideline From the [place] Society for Clinical Pathology, College of [place] Pathologists, Association for Molecular Pathology, and the [place] Society of Clinical Oncology. J Clin Oncol. 2017 October 02;35(13):2606-1551. doi: 10.1200/JCO.2016.71.9807. Epub 2016Jul 10. PMID: 45553149. 8) Joan DALTON, et al. Updated Molecular Testing Guideline for the Selection of Lung Cancer Patients for Treatment With Targeted Tyrosine Kinase Inhibitors: Guideline From the College of Citizen Of [place] Pathologists, the International Association for the Study of Lung Cancer, and the Association for Molecular Pathology. Arch Pathol Lab Med. 2018 Aug;142(3):321-346. doi: 10.5858/arpa.4790-3198-YT. Epub 2017Jun 25. PMID: 82910039. 9) Cancer Genome [place] [facility]. Comprehensive genomic characterization defines human glioblastoma genes and core pathways. Nature. 2007Mar 26;455(8552):1061-8. doi: 10.1038/pzvczv86906. Epub 2007Feb 05. Erratum in: Nature. 2012Aug 01;494(0808):506. PMID: 39469241; PMCID: ZLN8905759. 10) Manolo MY, Isabell M. Glioblastoma Genomics: A Very Complicated Story. In: Rodriguez S, social media editor. Glioblastoma [Internet]. [place] ([place]): [employer]; 2016Feb 28. Chapter 1. PMID: 30044723. 11) Vijay S, Yang N, Clarence H. Melanoma genomics: a qnepz-xh-ywr-art review of practical clinical applications. Br J Dermatol. 2020;185(2):272-281. doi: 10.1111/bjd.89556. Epub 2020Nov 07. PMID: 78214439. 12) Sherron Sim, Jabari POWELL. An update on molecular genetics of gastrointestinal stromal tumours. J Clin Pathol. 2005;59(6):557-63. doi: 10.1136/jcp.2004.995982. PMID: 09048087; PMCID: ZRO9789890. 13) Ascencion ER, Rosalinda M, August PJB, Amie TL, Tena LL. Molecular profiling for precision cancer therapies. Genome Med. 2019Jun 17;12(1):8. doi: 10.1186/i83242-231-3754-1. PMID: 05238322; PMCID: KME7032722. 14) Yvonne Holm et al. Somatic Genomic Testing in Patients With Metastatic or Advanced Cancer: ASCO Provisional Clinical Opinion. J Clin Oncol. 2021Sep 11;40(11):5271-5434. doi: 10.1200/JCO.21.37474. Epub 2021Jul 21. Erratum in: J Clin Oncol. 2021Nov 21;40(18):2068. PMID: 94769723. 15) Yvonne Holm et al. OncoKB: OncoKB: A Precision Oncology Knowledge Base. JCO Precis Oncol. 2016;2017:PO.17.87979. doi: 10.1200/PO.17.43903. Epub 2016October 17. PMID: 87517643; PMCID: HIH6722508. DISCLAIMER: This test was developed and its performance characteristics determined by [facility]'s Pathology and Laboratory Medicine Department. It has not been cleared or approved by the FDA. [facility]'s Pathology and Laboratory Medicine Department is regulated under CLIA as certified to perform high-complexity testing. This test is used for clinical purposes. It should not be regarded as investigational or for research. Test performed at [facility], [address] [place] [address]. CLIA Number: [id number] Interpretation performed at remote location ([facility]) by Terra Castro MD, PhD Performed By: #### TOPTO ### # [facility]ITY [facility] [id number] [address] [place], [place] [address]K [address] STATES OF [facility] ROS1 GENE REARRANGEMENT Collected: 10/02 9:19 AM Status: F Source: [facility] Order Comment: Specimen Type : TISSUE SPECIMEN Ordering Facility: [facility] Address: [address] [place] [address] TYPE CODE TESTS RESULT OUT OF RANGE REFERENCE UNITS LAB ROS1S FISH FOR ROS1 (6Q22) Result Comment: FISH for ROS 1(6q22) Laboratory Accession Number: [id number] Case: [id number] Block/Part ID: A6 Sample Type: FFPET Sample Description: LUNG, LEFT UPPER LOBE, LOBECTOMY Received Date: 10/24/2024 Number of nuclei scored: 50 RESULT: Result Reference Range ROS1 Rearrangement 2% (0-14%) INTERPRETATION: NEGATIVE for a rearrangement involving the ROS1 gene at 6q22.1. Clinical and pathological correlation is recommended. Nomenclature: nuc marifer(ROS1x3~4)[50] METHODOLOGY: A dual color, break apart probe specific to the ROS1 gene at 6q22.1 ([employer], [place], [place]) was used in this interphase FISH analysis to detect the presence of a ROS1 rearrangement. The slides were scored manually. REFERENCES: 1) Reagan GONZALEZ, Rodrigo RC. Molecular Pathways: ROS1 Fusion Proteins in Cancer. Clin Cancer Res 2013;15:1-6. Elizabeth Mahmood Tung-Jue B, et al. Crizotinib in Ros1-Rearranged Non-Small Cell Lung Cancer. New Encl J Med 2014;21:1963-71 2) Elizabeth Mahmood Yung-Jue B, et al. Crizotinib in ROS1-Rearranged Non-Small Lung Cancer. New Engl J Med 2014;21:1963-71 3) Rosanna [place], et al. Molecular methods for somatic mutation testing in lung adenocarcinoma: EGFR and beyond. Transl Lung Cacer Res 2015;4:126-41 4) Grover M, Katherine A, Kelly C, et al. ROS1 rearrangements in lung adenocarcinoma: prognostic impact, therapeutic options and genetic variability. Oncotarget 2015; e-pub ahead of print, August 26, 2014. 5) National Comprehensive Cancer Network (NCCN) Clinical Practice Guidelines in Oncology, Non-Small Cell Lung Cancer. Available at NCCN.org LIMITATIONS: This test will not identify all ROS1 gene rearrangements. Rare, cryptic abnormalities may be below the resolution of the assay or may otherwise be undetected. Specimen size, quality or representativeness can affect the quality of the result. This assay has been validated for paraffin-embedded tissues fixed with 10% neutral buffered formalin. Decalcification agents and fixation agents containing heavy metals, e.g. B5, or harsh acid or base components (e.g. Bouin's solution) can adversely impact assay performance. DISCLAIMER: This test was developed and its performance characteristics determined by [facility]'s Pathology and Laboratory Medicine Department. It has not been cleared or approved by the FDA. [facility] Pathology and Laboratory Medicine Department is regulated under CLIA as qualified to perform high-complexity testing. This test is used for clinical purposes. It should not be regarded as investigational or for research[place] [address]. CLIA Number: [id number] Interpretation performed by Thais Jorgensen MD, PhD Performed By: #### ROS1 #### [facility] CLIA [id number] [address] [place] [address] [place] FISH FOR RET (10Q11.21) Collected: 10/02 9:19 AM Status: F Source: [facility] Order Comment: Specimen Type : TISSUE SPECIMEN Ordering Facility: [facility] Address: [address] [place] [address] TYPE CODE TESTS RESULT OUT OF RANGE REFERENCE UNITS LAB RETR FISH FOR RET (10Q11.21) Result Comment: FISH for RET (10q11.21) Laboratory Accession Number: [id number] Case: [id number] Block/Part ID: A6 Sample Type: FFPET Sample Description: LUNG, LEFT UPPER LOBE, LOBECTOMY Received Date: 10/24/2024 Number of nuclei scored: 50 RESULT: Result Reference Range RET Rearrangement 2% (0-14%) INTERPRETATION: NEGATIVE for a rearrangement involving the RET gene at 10q11.21. Clinical and pathological correlation is recommended. Nomenclature: nuc mairfer(RETx3~5)[20/50] METHODOLOGY: A dual color, break apart probe specific to the RET gene at 10q11.21 ([employer], [place], [place]) was used in this interphase FISH analysis to detect the presence of a RET rearrangement. The slides were scored manually. REFERENCES: Santiago Jones, Beckman L, Hasanodeborah A, et al. Response to Cabozantinib in patients with RET fusion-positive lung adenocarcinomas. Cancer Discov 2013;3:630-5 2. Jaycee POWELL. RET revisited: expanding the oncogenic portfolio. Jess Rev Cancer 2014;14:173-86 3. Rosanna [place], et al. Molecular methods for somatic mutation testing in lung adenocarcinoma: EGFR and beyond. Trans Lung Cancer Res 2015;4:126-41 4. National Comprehensive Cancer Network (NCCN) Clinical Practice Guidelines in Oncology, Non-Small Cell Lung Cancer, Available at NCCN.org LIMITATIONS: This test will not identify all RET gene rearrangements. Rare, cryptic abnormalities may be below the resolution of the assay or may otherwise be undetected. Specimen size, quality or representativeness can affect the quality of the result. This assay has been validated for paraffin-embedded tissues fixed with 10% neutral buffered formalin. Decalcification agents and fixation agents containing heavy metals, e.g. B5, or harsh acid or base components (e.g. Bouin's solution) can adversely impact assay performance. DISCLAIMER: This test was developed and its performance characteristics determined by [facility]'s Pathology and Laboratory Medicine Department. It has not been cleared or approved by the FDA. [facility]'s Pathology and Laboratory Medicine Department is regulated under CLIA as qualified to perform high-complexity testing. This test is used for clinical purposes. It should not be regarded as investigational or for research. Test performed at [facility], [address] [place] [address]. CLIA Number: [id number] Interpretation performed by Thais Jorgensen MD, PhD Performed By: #### RET #### CLARITY OLY BARFIELD CLIA [id number] [address] [place], [place] [address] [place] [address] [place] ALK (D5F3) Collected: 5 9:19 AM Status: F Source: [facility] Order Comment: Specimen Type : TISSUE SPECIMEN Ordering Facility: [facility] Address: [facility] [place] [address] TYPE CODE TESTS RESULT OUT OF RANGE REFERENCE UNITS LAB [id number] ALK INTERPRETATION Equivocal Abnormal LAB [id number] [facility] CASE NUMBER ALK [id number] LAB [id number] FIXATIVE LAB [id number] BIOMARKER INTERPRETATION COMMENT AND REFERENCE RANGE Result Comment: Reference ra nge for ALK (D5F3): Positive: strong and diffuse cytoplasmic staining in any number of tumor cells Equivocal: weak and/or focal cytoplasmic staining Negative: absence of cytoplasmic staining tumor cells. Interpretation comments: As fluorescent in situ hybridization can help resolve equivocal IHC results, any equivocal results will be reflexed to ALK-FISH. The molecular study's results will be reported separately. Reference: 1. Darin NI., Naa PT., Katia DL., et al. Updated Molecular Testing Guideline for the Selection of Lung Cancer Patients for Treatment With Targeted Tyrosine Kinase Inhibitors. Guideline From the College of Citizen Of [place] Pathologists, the International Association for the Study of Lung Cancer, and the Association for Molecular Pathology. Arch Pathol Lab Med. 2018 Aug;142(3):321-346. doi: 10.5858/arpa.6919-0930-OZ. Epub 2017Jun 25. PMID: 82030898. 2. Michael ALMENDAREZ., Yvonne POWELL., Radha M., et al. An International Interpretation Study Using the ALK IHC Antibody D5F3 and a Sensitive Detection Kit Demonstrates High Concordance between ALK IHC and ALK FISH and between Evaluators. J Thorac Oncol. 2014 October;9(5):631-8. doi: 10.1097/JTO.8038837533339195. PMID: 63641880; PMCID: UQJ5407683. 3. Anjelica Bradford., Steven Shukla, Arsenio A., et al. A Sensitive ALK Immunohistochemistry Sash Repairer Diagnostic Test Identifies Patients Eligible for Treatment with Crizotinib. J Thorac Oncol. 2017 October;12(5):804-813. doi: 10.1016/j.jtho.2017.01.020. Epub 2016Jul 02. PMID: 69575110. LAB [id number] BIOMARKER METHOD Immunohistochemistr y was performed on formalin fixed paraffin-embedded tissue using the rabbit monoclonal antibody D5F3 ([employer], [place], [place]) followed by ultrasensitive bright field detection (Optiview with amplification [[employer], [place], [place]]). LAB [id number] AP BIOMARKER DISCLAIMER Result Comment: Laboratory D eveloped Test (LDT) Disclaimer: Performance characteristics of immunohistochemical, immunofluorescent, and chromogenic in-situ hybridization tests have been determined by the performing laboratory within [facility]'s [facility] Pathology and Laboratory Medicine Department ([facility], [facility], [facility], [facility], [facility], [facility], or [facility]) in a manner consistent with CLIA requirements. One or more of these tests may not have been cleared or approved by the FDA. RT-PLM is regulated under CLIA as qualified to perform high-complexity testing. These tests are used for clinical purposes. These should not be regarded as investigational or for research. Positive and negative controls stain appropriately. LAB FPLAB FINAL PERFORMING LAB Result Comment: Diagnostic i nterpretation performed at: [facility], [address] [place] [address] CLIA# [id number] Clinical Applications Manager: Shlomo Warren MD Electronically signed out by: Wanda Parisi MD LAB [id number] AP BLOCK ID A6 Performed By: #### [id number] # ### [facility] CLIA [id number] [address] [place] [address] [place] FISH FOR ALK (2P23) FFPET NSCLC Collect ed: 10/20/2024 9:19 AM Status: F Source: [facility] Order Comment: Specimen Type : TISSUE SPECIMEN Ordering Facility: [facility] Address: [address] [place] [address] TYPE CODE TESTS RESULT OUT OF RANGE REFERENCE UNITS LAB FSHLN FISH FOR ALK (2P23) FFPET NSCLC Result Comment: FISH for ALK (2p23) FFPET NSCLC Laboratory Accession Number: [id number] Case: [id number] Block/Part ID: A6 Sample Type: FFPET Sample Description: LUNG, LEFT UPPER LOBE, LINGULA SPARING, LOBECTOMY Received Date: 11/18/2024 Number of nuclei scored: 50 RESULT: Result Reference Range ALK Rearrangement 4% (0-14%) INTERPRETATION: NEGATIVE for a rearrangement involving the ALK gene at 2p23.2. Clinical and pathological correlation is recommended. Nomenclature: nuc marifer(ALKx3~4)[] METHODOLOGY: A dual color, break-apart probe specific to the ALK gene at 2p23.2 ([employer], [place], [place]) was used in this interphase FISH analysis to detect the presence of an ALK rearrangement. The slides were scored manually. REFERENCES: 1) Loree EL, Luis Carlos YIsaiJ, Luiz MORILLO, et al. Anaplastic Lymphoma Kinase Inhibition in Eza-Ovamf-Wkrq Lung Cancer. N Engl J Med 2010;363:5866-2023. 2) Darin NI, Naa PT, Lyndsey MB, et al. Molecular Testing Guideline for the Selection of Lung Cancer Patients for EGFR and ALK Tyrosine Kinase Inhibitors: Guideline from the College of Citizen Of [place] Pathologists, Internatonal Association for the Study of Lung Cancer, and Association for Molecular Pathology. J Mol Diagn 2013;15:415-53. 3) NCCN Clinical Practice Guidelines in Oncology: Non-Small Cell Lung Cancer, National Comprehensive Cancer Network, Inc. Available at NCCN.org. 4) Lorenzo SJ, Abram M, Jordi S, et al. Unique clinicopathologic features characterize ALK-rearranged lung adenocarcinoma in the western population. Clin Cancer Res 2009;15:8152-0352. LIMITATIONS: This test will not identify all ALK gene rearrangements. Rare, cryptic abnormalities may be below the resolution of the assay or may otherwise be undetected. Specimen size, quality or representativeness can affect the quality of the result. This assay has been validated for paraffin-embedded tissues fixed with 10% neutral buffered formalin. Decalcification agents and fixation agents containing heavy metals, e.g. B5, or harsh acid or base components (e.g. Bouin's solution) can adversely impact assay performance. DISCLAIMER: This test was developed and its performance characteristics determined by [facility]'s Pathology and Laboratory Medicine Department. It has not been cleared or approved by the FDA. [facility]'s Pathology and Laboratory Medicine Department is regulated under CLIA as qualified to perform high-complexity testing. This test is used for clinical purposes. It should not be regarded as investigational or for research. Test performed at [facility], [place] [address]. CLIA Number: [id number] Interpretation performed by Sunni Abdalla MD Performed By: #### FSHLNG ## ## CLARITY OLY DWIGHTDanielito CLIA [id number] [address] [place], [place] [address] [place] [address] [place] PD-L1 22C3 Collected: 5 9:19 AM Status: F Source: [facility] Order Comment: Specimen Type : TISSUE SPECIMEN Ordering Facility: [facility] Address: [address] [place] [address] TYPE CODE TESTS RESULT OUT OF RANGE REFERENCE UNITS LAB [id number] PD-L1 22C3 TPS (LUNG) INTERPRETATION Low positive (1%-49%) Abnormal LAB [id number] TUMOR PROPORTION SCORE (TPS) 1 LAB [id number] PD-L1 TUMOR TYPE Other (See Comment) Result Comment: See original report LAB [id number] [facility] CASE NUMBER PD-L1 [id number] LAB [id number] FIXATIVE LAB [id number] BIOMARKER INTERPRETATION COMMENT AND REFERENCE RANGE Result Comment: Interpretati on standard: TPS: The Tumor Proportion Score is the percentage of the viable tumor cells demonstrating partial or completed membrane staining of any intensity. Reference Range for PDL1 expression in Non-Small Cell Lung Cancer (NSCLC) TPS less than 1%: Negative TPS between 1 - 49%: Low Positive TPS greater than 50%: High Positive The PDL1 expression of Non-Small Cell Lung Cancer (NSCLC) is interpreted to determine if the patient should be considered for treatment with either pembrolizumab (KEYTRUDA) or cemiplimab-rwlc (LIBTAYO). Please refer to the Product label for additional information. KEYTRUDA - (https://www.keytrudahcp.com/prescribing-information/) LIBTAYO - (https://www.InsuranceLibrary.com.Noovo/sites/default/files/Libtayo_FPI.pdf) LAB [id number] BIOMARKER METHOD Immunohistochemistr y was performed on formalin fixed paraffin-embedded tissue using the mouse monoclonal antibody 22C3 ([employer]; [place], [place]) followed by ultrasensitive bright field detection (Optiview with amplification [[employer], [place]]). LAB [id number] AP BIOMARKER DISCLAIMER Result Comment: Laboratory Developed Test (LDT) Disclaimer: Performance characteristics of immunohistochemical, immunofluorescent and chromogenic in-situ hybridization tests have been determined by the performing laboratory within [facility]???s [facility] Pathology and Laboratory Medicine Department ([facility], [facility], [facility], [facility], [facility], [facility], or [facility]) in a manner consistent with CLIA requirements. One or more of these tests have not been cleared or approved by the FDA. RT-PLM is regulated under CLIA as qualified to perform high-complexity testing. These tests are used for clinical purposes. They should not be regarded as investigational or for research. Positive and negative controls stain appropriately. LAB [id number] AP BLOCK ID A6 LAB FPLAB FINAL PERFORMING LAB Result Comment: Diagnostic i nterpretation performed at: [facility], [address] [place] [address] CLIA# [id number] Clinical Applications Manager: Shlomo Warren MD Electronically signed out by: Wanda Parisi MD Performed By: #### [id number] # ### [facility] CLIA [id number] [address] [place] [address] [place] TISS PATH BX REPORT Collected: 10/20/2024 8:[address] atus: F Source: [facility] Order Comment: Specimen Type : TISSUE SPECIMEN Ordering Facility: [facility] Address: [address] [place] [address] TYPE CODE TESTS RESULT OUT OF RANGE REFERENCE UNITS PATHOLOGY [id number] CASE REPORT Result Comment: Surgical Pat hology Report Case: [id number] Authorizing Provider: Pedro Cleaning MD, PhD Collected: 10/20/2024 08:13 AM Ordering Location: Admitting Received: 10/20/2024 09:34 AM Pathologist: Wanda Parisi MD Intraop: Alexa Greene MD Specimens: A) - Lung, Left, Lobectomy, Lingula sparing left upper lobe B) - Lymph Node (Specify Site in Comments), 8L C) - Lymph Node (Specify Site in Comments), 9L D) - Lymph Node (Specify Site in Comments), 4L E) - Lymph Node (Specify Site in Comments), level 7 F) - Lymph Node (Specify Site in Comments), 11L G) - Lymph Node (Specify Site in Comments), 10 L H) - Lymph Node (Specify Site in Comments), 12 L I) - Lymph Node (Specify Site in Comments), Level 5 PATHOLOGY [id number] FINAL DIAGNOSIS Result Comment: A. Lung, lef t upper lobe, lingula sparing left upper lobectomy: -Invasive poorly differentiated adenocarcinoma (see synoptic report). -Six lymph nodes negative for carcinoma (0/6). B. Lymph node, 8L, resection: -Lymph node fragments negative for carcinoma. C. Lymph node, 9L, resection: -Lymph node fragments negative for carcinoma. D. Lymph node, 4L, resection: -One lymph node negative for carcinoma (0/1). E. Lymph node, level 7, resection: -One lymph node negative for carcinoma (0/1). F. Lymph node, 11L, resection: -Lymph node fragments negative for carcinoma. G. Lymph node, 10L, resection: -Lymph node fragments negative for carcinoma H. Lymph node, 12L, resection: -One lymph node negative for carcinoma (0/1). I. Lymph node, level 5, resection: -One lymph node negative for carcinoma (0/1). at 1843 EDT PATHOLOGY [id number] BLOCK FOR ADDITIONAL BIOMARKERS/MOLECU LAR STUDIES A6 PATHOLOGY [id number] SYNOPTIC REPORT LUNG Result Comment: LUNG: RESECT ION - All Specimens AJCC 9 - Protocol posted: 05/14/2024 SPECIMEN Procedure: Lingula sparing left upper lobectomy Specimen Laterality: Left TUMOR Tumor Focality: Single focus Tumor Site: Upper lobe of lung Tumor Size: Invasive Tumor Size: Greatest Dimension (Centimeters): 1.8 cm Histologic Type: Invasive acinar adenocarcinoma Histologic Patterns: Acinar: 70 Histologic Patterns: Micropapillary: 30 Histologic Grade: G3, poorly differentiated Spread Through Air Spaces (SALIMA): Present Visceral Pleura Invasion: Not identified Direct Invasion of Other Structures: Not applicable (no other structures present) Treatment Effect: No known presurgical therapy Lymphatic and / or Vascular Invasion: Not identified MARGINS Margin Status for Invasive Tumor: All margins negative for invasive tumor Closest Margin(s) to Invasive Tumor: Parenchymal Distance from Invasive Tumor to Closest Margin: 5 cm Margin Status for Non-Invasive Tumor: Not applicable REGIONAL LYMPH NODES Lymph Node(s) from Prior Procedures: No known prior lymph node sampling performed Regional Lymph Node Status: : All regional lymph nodes negative for tumor Number of Lymph Nodes Examined: At least: 14 Radha Site(s) Examined: 7: Subcarinal Radha Site(s) Examined: 4L: Lower paratracheal Radha Site(s) Examined: 8L: Para-esophageal (below zeeshan) Radha Site(s) Examined: 9L: Pulmonary ligament Radha Site(s) Examined: 10L: Hilar Radha Site(s) Examined: 11L: Interlobar Radha Site(s) Examined: 12L-14L: Intrapulmonary : 12L: Lobar : 13L: Segmental pTNM CLASSIFICATION (AJCC Version 9) Reporting of pT, pN, and (when applicable) pM categories is based on information available to the pathologist at the time the report is issued. As per the AJCC (Chapter 1, 8th Ed.) it is the managing physician's responsibility to establish the final pathologic stage based upon all pertinent information, including but potentially not limited to this pathology report. pT Category: pT1b pN Category: pN0 PATHOLOGY [id number] GROSS DESCRIPTION Result Comment: A. Lung, Lef t, Lobectomy Received fresh for intraoperative consultation labeled as "lung, left, lobectomy, lingula sparing left upper lobe" is a lobe of lung weighing 115.81 g and measuring 14 x 8.5 x 2 cm. The pleural surface is smooth. There is a solid teresa nodule measuring 1.8 x 1.5 x 1 cm located 5 cm from the parenchymal margin and 5.8 cm from the bronchial and vascular margins. Background lung shows mild emphysema. Lymph node dissection is done and revealed multiple lymph nodes ranging in size from 0.3 to 0.7 cm. School [employer] sections are submitted as follows: FS A1: Vascular margin, shaved FS A2: Bronchial margin, shaved FS A3: Parenchymal margin, perpendicular FS A4: Nodule, airline security representative section A5-A6: Remainder of the nodule, totally submitted A7: Uninvolved lung A8: Multiple lymph node candidates Gross examination performed at [address] [address] [facility] 10/20/24 10:38 AM B. Lymph Node (Specify Site in Comments) Received in formalin labeled "8L" is a 1.0 x 0.8 x 0.4 cm teresa-iraheta lymph node candidate with attached soft tissue. Entirely submitted in cassette B1. C. Lymph Node (Specify Site in Comments) Received in formalin labeled "9L" is a 0.6 x 0.5 x 0.3 cm teresa-iraheta lymph node candidate with attached soft tissue. Entirely submitted in cassette C1. D. Lymph Node (Specify Site in Comments) Received in formalin labeled "4L" is a 0.9 x 0.7 x 0.3 cm teresa-iraheta lymph node candidate with attached soft tissue. Entirely submitted in cassette D1. E. Lymph Node (Specify Site in Comments) Received in formalin labeled "level 7" is a 1.0 x 0.5 x 0.4 cm teresa-iraheta lymph node candidate with attached soft tissue. Entirely submitted in cassette E1. F. Lymph Node (Specify Site in Comments) Received in formalin labeled "11L" is a 1.3 x 0.8 x 0.4 cm aggregate of teresa-iraheta soft tissue fragments. Entirely submitted in cassette F1. G. Lymph Node (Specify Site in Comments) Received in formalin labeled "10L" is a 1.2 x 0.7 x 0.5 cm aggregate of teresa-iraheta soft tissue fragments. Entirely submitted in cassette G1. H. Lymph Node (Specify Site in Comments) Received in formalin labeled "12L" is a 0.8 x 0.5 x 0.4 cm teresa-iraheta lymph node candidate with minimal soft tissue. Entirely submitted in cassette H1. [facility] 10/20/24 10:40 AM I. Lymph Node (Specify Site in Comments) Received in formalin labeled "level 5" is a 1.3 x 1.2 x 0.5 cm teresa-iraheta lymph node candidate with attached soft tissue. Entirely submitted in cassette I1. [facility] 10/20/24 12:35 PM Gross examination performed at [facility], [address] [place] [address] PATHOLOGY [id number] INTRAOPERATIVE DIAGNOSIS Result Comment: A. Lung, Lef t, Lobectomy FSA1- vascular margin: Negative for malignancy (Dr. Greene) FSA2- bronchial margin: Negative for malignancy (Dr. Greene) FSA3- parenchymal margin: Negative for malignancy (Dr. Greene) FSA4- nodule: Non-small cell carcinoma (Dr. Greene) Intraoperative diagnosis performed at [facility], [address] [place], [place] [id number] CLIA# [id number] PATHOLOGY CDX2 CLINICAL HISTORY Result Comment: Pre-op diagn osis: Lung nodule [R91.1] Pre-procedure lab exam [Z01.812] PATHOLOGY [facility] FINAL PERFORMING LAB Result Comment: Diagnostic i nterpretation performed at: [facility], [address] [place] [address], [place] [id number] CLIA# [id number] Clinical Applications Manager: Shlomo Warren MD PATHOLOGY [id number] AP DISCLAIMER Result Comment: Laboratory D eveloped Test (LDT) Disclaimer: Performance characteristics of immunohistochemical, immunofluorescent, and chromogenic in-situ hybridization tests have been determined by the performing laboratory within [facility]'s [facility] Pathology and Laboratory Medicine Department ([facility], [facility], [facility], [facility], [facility], [facility], or [facility]) in a manner consistent with CLIA requirements. One or more of these tests may not have been cleared or approved by the FDA. [facility] is regulated under CLIA as qualified to perform high-complexity testing. These tests are used for clinical purposes. These should not be regarded as investigational or for research. Positive and negative controls stain appropriately. Performed By: #### [id number] # ### [facility] CLIA [id number] [address] [place] [address] OF PINKY ANES PROCEDURE NOTE Observed: 10/20/2024 8:07 AM Status: COMPLETED Source: [facility] HNO ID: [id number] Author: PATTIE VELÁSQUEZ SRNA Service: ? Author Type: Student Type: Anesthesia Procedure Notes Filed: 10/20/2024 08:10 Note Text: ANESTHESIOLOGY PROCEDURE NOTE Airway General Information Procedure Start Time/Medication Administration: 10/20/2024 7:14 AM Procedure End Time: 10/20/2024 7:15 AM Patient location during procedure: OR Consent Obtained: Yes Patient identity confirmed: arm band Staffing SRNA: Pattie Velásquez SRNA Performed by: GERA Indications and Patient Condition Indications for airway management: anesthesia Preoxygenated: yes anesthesia circuit Patient position: sniffing Method: asleep Difficult Mask: No Final Airway Details Final airway type: endotracheal airway Final Endotracheal Airway: ETT - double lumen left Cuffed: yes Successful intubation technique: video laryngoscopy Devices used: Schneider Endotracheal tube insertion site: oral Blade: Hanna Blade size: #3 ETT DL size (fr): 37 Bronchial cuff volume: 3 Measured from: teeth Measurement (cm): 26 Placement verified by: capnometry Cormack-Lehane Classification: grade I - full view of glottis Number of attempts at approach: 1 Failed airway: no Unrecognized esophageal intubation: no Airway not difficult Comments Bronchial cuff inflated under direct visualization via bronchoscope SIGNATURE: GERA Huerta PATIENT NAME: Merissa Sage DATE: October 20, 2024 TIME: 8:07 AM CSN: [id number] ANES PRE-OP Observed: 10/20/2024 6:47 AM Status: COMPLETED Source: [facility] ID: [id number] Author: TYLER GARCIA MD Service: ? Author Type: Anesthesiologist Type: Anesthesia Preprocedure Evaluation Filed: 10/20/2024 06:48 Note Text: ANESTHESIOLOGY DAY OF SURGERY NOTE : 1960 Procedure Information Date/Time: 10/20/24629 Procedure: ROBOTIC THORACOSCOPY; NOAH trisegmentectomy c=2.5 (ICG marker 10/17/2024) LOBECTOMY, TOTAL OR SEGMENTAL (Left: Chest) Location: [place] [address] / [facility] CT AND VAS Surgeons: Pedro Cleaning MD, PhD Estimated body mass index is 22.38 kg/m? as calculated from the following: Height as of this encounter: 162.6 cm (5' 4"). Weight as of this encounter: 59.1 kg (130 lb 6.4 oz). Most recent hematocrit and potassium results: Hematocrit 42.3 10/10/2024 Potassium 4.1 10/10/2024 Relevant Problems ENDO (+) Hypothyroidism GI (+) Esophageal reflux Other (+) Cervical adenopathy I - PHYSICAL EVALUATION AIRWAY Patient intubated: No. Tracheostomy tube not present Mallampati: I. TM distance: >3 FB. Neck ROM: full ROM without neurological symptoms. Mouth opening: adequate. Short neck: no. Thick neck: no Pulliam present: no Microretrognathia/Micronagthia/Recessed Chin: No Additional exam findings: no II - ANESTHESIA PLAN ASA Score: 3 Anesthetic Plan: general Airway type: ETT The patient is a current smoker. NPO Status: adequate Beta Jamaal Administration of chronic beta jamaal medication planned. Monitoring Plan Monitoring plan: standard ASA. Post Procedure Analgesic Plan Postoperative analgesic plan: multimodal analgesia. Informed Consent Anesthetic risks, benefits, alternatives, personnel and consent discussed: yes. Patient / Responsible Republican agrees to proceed: yes Patient / Surrogate agrees to blood products: Yes DNR status not reviewed with patient and/or family prior to surgery. Significant changes in the patient condition since the History and Physical, not otherwise documented in primary service progress note: no. Potential Anesthesia issues that may suggest increased risk of complications or contraindication to planned procedure: none. Vitals Value Taken Time BP 156/78 10/20/24612 Pulse 57 10/20/24612 Resp 16 10/20/24612 Temp 36.4 ?C (97.5 ?F) 10/20/24612 SpO2 98 % 10/20/24612 Facility-Administered Medications as of 10/20/2024 Medication Dose Route Frequency - [COMPLETED] Chlorhexidine Gluconate 0.12 % 15 mL (PERIDEX) 15 mL ORAL ONCE - [COMPLETED] acetaminophen 1,000 mg tab(s) (TYLENOL) 1,000 mg ORAL ONCE - [COMPLETED] acetaminophen 1,000 mg tab(s) (TYLENOL) 1,000 mg ORAL PRN Outpatient Medications as of 10/20/2024 Medication Sig - pantoprazole DR (PROTONIX) 40 mg tablet - levothyroxine (SYNTHROID) 75 mcg tablet Take 75 mcg by mouth once daily. Pt takes on tablet in the morning 6 days a week. - metoprolol tartrate, short acting, (LOPRESSOR) 50 mg tablet Take 0.5 tablets by mouth twice daily. - clobetasol (TEMOVATE) 0.05 % ointment Apply 1 application to affected area two times a day. TO AFFECTED AREA. - calcium carbonate (CALCIUM 600 ORAL) Take by mouth once daily. - FA/MV,CA,IRON,MIN/LYCOPENE/LUT (MULTIVITAL ORAL) Take by mouth. - ergocalciferol 50,000 unit capsule (VITAMIN D2, DRISDOL) Take 50,000 Units by mouth twice a week. - LORazepam 0.5 mg tab Take by mouth three times daily as needed. Pt takes 1/2 tablet as needed I have interviewed and examined the patient. I have reviewed the medical record and/or the pre-anesthesia evaluation, pertinent labs, and test results. This contains updated information obtained within 48 hours of Surgery/Procedure. SIGNATURE: Tyler Garcia MD PATIENT NAME: Merissa Sage DATE: October 20, 2024 TIME: 6:47 AM CSN: [id number] NURSING PROG Observed: 10/20/2024 6:14 AM Status: COMPLETED Source: [facility] HNO ID: [id number] Author: LINH JURADO RN Service: Nursing Author Type: Registered Nurse Type: Nursing Progress Note Filed: 10/20/2024 06:15 Note Text: PRE OP LEARNING ASSESSMENT PROCEDURE/SURGERY: Thoracic surgery READINESS TO LEARN COGNITIVE ABILITY: Alert and oriented MOTIVATION TO LEARN: Interested FAMILY SUPPORT: High - Very involved in pt care PATIENT LEARNS BEST BY: Verbal Instruction FACTORS AFFECTING LEARNING: None PHYSICAL LIMITATIONS AFFECTING LEARNING: None Electronically Signed By: Linh Jurado RN In Department: ADMITTING OPERATIVE NO Observed: 10/20/2024 12:00 AM Status: COMPLETED Source: [facility] HNO ID: [id number] Author: PEDRO CLEANING MD, PhD Service: Thoracic Surgery Author Type: Physician Type: Operative Report Filed: 10/27/2024 12:35 Note Text: [facility] - Operative Report [address] [place] [address] [place] MERISSA SAGE : 1960 AGE: 63. SEX: F PATIENT TYPE: I HOSP SVC: THO LOCATION: [id number] ATTENDING PHYSICIAN: Pedro Cleaning M.D., Ph.D. CSN NUMBER: [id number] DATE OF SURGERY/PROCEDURE: 10/20/2024 INCISION/PROCEDURE START TIME: 07:53 INCISION CLOSE/PROCEDURE END TIME: 09:51 PREOPERATIVE DIAGNOSIS: Suspected left upper lobe non-small cell lung cancer, history of right lung non-small cell lung cancer. POSTOPERATIVE DIAGNOSIS: Suspected left upper lobe non-small cell lung cancer, history of right lung non-small cell lung cancer. SURGEON: Pedro Cleaning M.D., Ph.D. FUNDRAISING MANAGER: 1. Dr. Felipe Pena. 2. Ross Sifuentes. SURGERY/PROCEDURE: Robotic-assisted lingular sparing left upper lobectomy (upper lobe trisegmentectomy) with mediastinal and hilar lymph node dissection and intercostal and phrenic nerve blocks. ANESTHESIA: General endotracheal. INDICATIONS: The patient is a 63-year-old woman who was a former smoker. She had a right lower lobe non-small cell lung cancer resected many years ago. She has done quite well. She has multifocal ground-glass opacifications, the largest and most concerning of which is in the left upper lobe. This has solidified and is certainly concerning for an invasive non-small cell lung cancer. After extensive discussions, the patient is interested in definitive surgical management and she is now brought to the operating room with this goal in mind. OPERATIVE FINDINGS: Left upper lobe lesion consistent with invasive adenocarcinoma of lung. DESCRIPTION OF PROCEDURE: After induction of analgesia and anesthesia, standard sterile prep and drape of left chest, back, and flank was undertaken. The patient was positioned in a right lateral decubitus posture fully exposing the left chest. After landmarks were identified, a standard operating Thoracoport was placed in mid axillary line of proximal interspace 8. CO2 was insufflated and video thoracoscopy was undertaken. The lung was fairly pink. The fissures were fairly complete. The pleura was normal and there was no effusion. The area of concern at the apex was identified and there appeared to be some puckering of the visceral pleura. It was reasonable to proceed with resection.Accordingly, a 4-robot arm technique was used and the appropriate ports were placed. An metal moulder's assistant port was placed low in the left chest. The fissure was dissected with bipolar cautery. A lingular artery was identified. The A2 branch was circumferentially dissected and controlled and the proximal aspect of the PA was dissected from the posterior aspect. The inferior pulmonary ligament was released and the posterior hilum was released. Anterior dissection allowed for the control of the upper division vein, which was then divided with linear stapler cutter. A large bifurcating truncus branch with A1 and A3 contained within it was circumferentially dissected and divided. A2 was then divided. During the course of the operation, lymph nodes were extensively dissected at station 4L, 5, 7, 8, 9, 10L through 12L. These were sent off separately for pathologic examination. Microcoil fiducial was placed prior to the procedure and after vascular demarcation, the microcoil appeared well within the ICG silent upper division. Several fires of a linear stapler cutter were used to divide the neofissure using an exclusion technique. Once this was done, the upper division bronchus was then able to be divided with a linear stapler cutter. Test clamp and inflation of the lingula was performed. The specimen was intracorporeally bagged and delivered out through the metal moulder's assistant port. Re-inflation and re-administration of ICG demonstrated a well perfused and inflating lingula. Intercostal and phrenic nerve blocks were placed in a standard fashion. Hemostasis appeared quite reasonable at lymph node dissection sites, hilum, and chest wall. A single tube was placed posteriorly and advanced to the apex and brought out through a Thoracoport. Other ports were closed as the lung was reinflated and appeared to fill the cavity nicely. Dressings were applied. The patient was then repositioned in supine posture, awoke from anesthesia, and left the operating room in stable condition. EBL: 25 mL. COUNTS: Instrument and sponge counts were reported as correct by the nursing staff. TUBES, LINES, AND DRAINS: Chest tube. SPECIMENS: Lung and lymph nodes. COMPLICATIONS: None evident. PARTICIPATION: I was present, scrubbed in just after the initial incisions were made and remained scrubbed in until just prior to superficial skin closure. Skin was incised and closed by Dr. Denton and Ross Sifuentes under combination of direct and indirect supervision by me, where I was immediately available to assist if needed. The patient's family is updated by me at the completion of the case. Pedro Cleaning M.D., Ph.D. :[id number] /[id number] ANES POSTPROC EVAL Observed: 10/17/2024 12:57 PM Status: COMPLETED Source: [facility] HNO ID: [id number] Author: NU ÁLVAREZ MD Service: Critical Care Author Type: Anesthesiologist Type: Anesthesia Postprocedure Evaluation Filed: 10/17/2024 12:57 Note Text: POST ANESTHESIA EVALUATION NOTE : 1960 Procedure Summary Date: 10/17/24 Room / Location: GI TRAVEL CART / GI Anesthesia Start: 1113 Anesthesia Stop: 1228 Procedures: FLEX BRONCHOSCOPY W/ NAVIGATIONAL IMAGE GUIDANCE (Lung) BRONCHOSCOPY FLEXIBLE WITH C-ARM (Lung) Diagnosis: Lung nodule (Lung nodule [R91.1]) Surgeons: Rosio Licea MD Responsible Provider: Nu Álvarez MD Anesthesia Type: general ASA Status: 2 Anesthesia Type: general Airway Type: ETT Last Vitals Vitals Value Taken Time BP 160/92 10/17/24 1253 Temp 36.3 ?C (97.3 ?F) 10/17/24 1227 Pulse 55 10/17/24 1257 Resp 16 10/17/24 1257 SpO2 97 % 10/17/24 1257 Vitals shown include unfiled device data. Post Anesthesia Patient Status Patient Evaluation: PACU. PACU/ICU Patient Condition: stable. Anticipated Disposition: phase 2 then home. Neurological Status: aware and responsive. Pulmonary Status: breathing comfortably on supplemental oxygen Airway Control: returned to baseline unsupported. Cardiovascular Status: stable. Pain Management: clinically adequate Postoperative Hydration: acceptable. Intraoperative Events: no significant anesthesia events Post Operative Nausea/Vomiting Status: no significant post operative nausea or vomiting Recommendation: continue current plan of care and further care per PACU/ICU/floor team. Anesthesia Observations No Documentation SIGNATURE: Nu Casiano MD PATIENT NAME: Merissa Sage DATE: October 17, 2024 TIME: 12:57 PM CSN: [id number] XR CHEST 1V FRONTAL Observed: 10/17/2024 12:18 PM Status: F Source: [facility] * * *Final Report* * * DATE OF EXAM: Oct 17 2024 12:18PM FVO 5290 - XR CHEST 1V FRONTAL / PROCEDURE REASON: cough, bronch * * * * Physician Interpretation * * * * EXAMINATION: C-arm fluoroscopy for a bronchoscopy and a left upper lobe biopsy CLINICAL HISTORY: Cough MQ: [id number]_5 Comparison: CT chest of 10/13/2024 RESULT: C-arm fluoroscopy was provided to the referring physician for a bronchoscopy and a left upper lobe biopsy. This examination was obtained for procedural planning. Please refer to the procedural notes. Fluoroscopic Radiation Summary: Plane A, Air Kerma: 16.2 mGy Plane B, Air Kerma: 0.0 mGy Dose Area Product (DAP): Fluoro time: 2:13 min:sec IMPRESSION: Procedural planning. Natural Resources Extension Educator: PSCB Transcribe Date/Time: Oct 17 2024 12:19P Dictated by : ANGEL HOLBROOK MD This examination was interpreted and the report reviewed and electronically signed by: ANGEL HOLBROOK MD on Oct 17 2024 12:20PM EST [id number] ANES PROCEDURE NOTE Observed: 10/17/2024 11:34 AM Status: COMPLETED Source: [facility] HNO ID: [id number] Author: KATE JOHN APRN.ERGONOMIC SPECIALIST Service: Nursing Author Type: Nurse [employer] F[employer] Dispatcher Type: Anesthesia Procedure Notes Filed: 10/17/2024 11:34 Note Text: ANESTHESIOLOGY PROCEDURE NOTE Airway General Information Procedure Start Time/Medication Administration: 10/17/2024 11:26 AM Procedure End Time: 10/17/2024 11:26 AM Patient location during procedure: OR Patient identity confirmed: arm band, care store team member and patient Staffing Anesthesiologist: Nu Álvarez MD ERGONOMIC SPECIALIST: Kate John APRN.ERGONOMIC SPECIALIST Performed by: ERGONOMIC SPECIALIST Indications and Patient Condition Indications for airway management: anesthesia Preoxygenated: yes anesthesia circuit Patient position: sniffing Method: asleep Difficult Mask: No Final Airway Details Final airway type: endotracheal airway Final Endotracheal Airway: ETT Cuffed: yes Successful intubation technique: video laryngoscopy Devices used: intubating stylet and Schneider Endotracheal tube insertion site: oral Blade: Hanna Blade size: #3 ETT size (mm): 8.0 Measured from: lips Measurement (cm): 21 Placement verified by: chest auscultation Cormack-Lehane Classification: grade I - full view of glottis Number of attempts at approach: 1 Failed airway: no Unrecognized esophageal intubation: no Airway not difficult Comments atraumatic SIGNATURE: Kate John APRN.ERGONOMIC SPECIALIST PATIENT NAME: Merissa Sage DATE: October 17, 2024 TIME: 11:34 AM CSN: [id number] BRONCHOSCOPY Observed: 10/17/2024 10:44 AM Status: F Source: [facility] Patient Name: Merissa Sage Procedure Date: 10/17/2024 10:44 AM Date of : 1960 Admit Type: Outpatient Age: 63 Room: OR 2A Gender: Female Attending MD: Rosio Licea MD, [id number] Procedure: Bronchoscopy Indications: Left upper lobe nodule Providers: Rosio Licea MD (Doctor) Referring MD: Pedro Cleaning MD (Referring MD) Requesting Physician: Patient Profile: Refer to note in patient chart for documentation of history and physical. Imaging Source: CT of chest. Medicines: General Anesthesia, See the Anesthesia note for documentation of the administered medications Complications: No immediate complications Procedure: Pre-Anesthesia Assessment: - A History and Physical has been performed. Patient meds and allergies have been reviewed. The risks and benefits of the procedure and the sedation options and risks were discussed with the patient. All questions were answered and informed consent was obtained. Patient identification and proposed procedure were verified prior to the procedure by the physician, the nurse, the anesthesiologist and the chocolate dipper in the procedure room. Mental Status Examination: normal. Airway Examination: normal oropharyngeal airway. Respiratory Examination: clear to auscultation. CV Examination: normal. ASA Grade Assessment: III - A patient with severe systemic disease. After reviewing the risks and benefits, the patient was deemed in satisfactory condition to undergo the procedure. The anesthesia plan was to use general anesthesia. Immediately prior to administration of medications, the patient was re-assessed for adequacy to receive sedatives. The heart rate, respiratory rate, oxygen saturations, blood pressure, adequacy of pulmonary ventilation, and response to care were monitored throughout the procedure. The physical status of the patient was re-assessed after the procedure. After obtaining informed consent, the Bronchoscope was introduced through the mouth, via the endotracheal tube and advanced to the tracheobronchial tree of both lungs. The procedure was accomplished without difficulty. The patient tolerated the procedure well. Total fluoroscopy time was 2 minutes, 13 seconds. The Air Kerma dose was: 16.1 mGy. Findings: The endotracheal tube is in good position. The trachea is of normal caliber. The zeeshan is sharp. The tracheobronchial tree was examined to at least the first subsegmental level. Bronchial mucosa and anatomy are normal; there are no endobronchial lesions, and no secretions. Robotic bronchoscopy utilizing the [employer] robot platform was performed. The CT scan was used for planning purposes. A virtual bronchoscopic image was generated using the planning software. The target in the left upper lobe (located in the peripheral one-third of the lung) was identified and marked. A ground glass nodule 1.5 cm in size was found and a pathway was created. CT-body registration was then achieved per standard workflows. Navigation to the lesion was performed. Advanced imaging using c-arm based tomography (CABT) was used to further target the lesion. Three spins were done. Based on this radiographic information, adjustments in targeting were made. A dtti-zk-pjoqft (TIL) spin was performed. Zuaj-su-qmfncf position was achieved at the end of navigation. Fiducial marker placement was performed. Once the target lesion was identified, one marker (7x3 mm tornado coil soaked with ICG dye) was deployed in the lesion in the left upper lobe. Impression: - Left upper lobe nodule - The airway examination was normal. - Robotic bronchoscopy utilizing the [employer] robot platform was performed. - Fiducial markers were deployed. - No specimens collected. Recommendation: - Await test results. Procedure Code(s): --- Professional --- 59314, Bronchoscopy, rigid or flexible, including fluoroscopic guidance, when performed; with placement of fiducial markers, single or multiple 80496, Bronchoscopy, rigid or flexible, including fluoroscopic guidance, when performed; with computer-assisted, image-guided navigation (List separately in addition to code for primary procedure[s]) Diagnosis Code(s): --- Professional --- R91.1, Solitary pulmonary nodule CPT copyright 2020 [employer] [place] [employer]. All rights reserved. The codes documented in this report are preliminary and upon system analyst review may be revised to meet current compliance requirements. Attending Participation: I personally performed the entire procedure. MD Rosio Solis MD 10/17/2024 3:01:08 PM This report has been signed electronically by Rosio Licea MD Number of Addenda: 0 Note Initiated On: 10/17/2024 10:44 AM Procedure Start: 11:31:14 AM Procedure End: 12:12:47 PM ANES PRE-OP Observed: 10/17/2024 10:31 AM Status: COMPLETED Source: [facility] HNO ID: [id number] Author: NU ÁLVAREZ MD Service: Critical Care Author Type: Anesthesiologist Type: Anesthesia Preprocedure Evaluation Filed: 10/17/2024 10:32 Note Text: ANESTHESIOLOGY DAY OF SURGERY NOTE : 1960 Procedure Information Date/Time: 10/17/24 1030 Procedures: FLEX BRONCHOSCOPY W/ NAVIGATIONAL IMAGE GUIDANCE (Lung) - Galaxy robot with fluoroscopy Coil placement only BRONCHOSCOPY FLEXIBLE WITH C-ARM (Lung) Location: [facility] / GI Surgeons: Rosio Licea MD Estimated body mass index is 21.63 kg/m? as calculated from the following: Height as of 10/13/24: 162.6 cm (5' 4"). Weight as of 10/13/24: 57.2 kg (126 lb). Most recent hematocrit and potassium results: Hematocrit 42.3 10/10/2024 Potassium 4.1 10/10/2024 Relevant Problems ANESTHESIA (-) History of unintended awareness under general anesthesia ENDO (+) Hypothyroidism GI (+) Esophageal reflux (Well controlled ) Cardiovascular (+) Palpitations (On metoprolol ) I - PHYSICAL EVALUATION AIRWAY Patient intubated: No. Tracheostomy tube not present Mallampati: II. TM distance: >3 FB. Neck ROM: full ROM without neurological symptoms. Mouth opening: adequate. Short neck: no. Thick neck: no DENTAL Additional exam findings: yes. CARDIOVASCULAR Rhythm: regular Rate: normal PULMONARY Breath sounds clear to auscultation. II - ANESTHESIA PLAN ASA Score: 2 Anesthetic Plan: general Airway type: ETT The patient is not a current smoker. NPO Status: adequate Beta Jamaal Monitoring Plan Monitoring plan: standard ASA. Post Procedure Analgesic Plan Postoperative analgesic plan: multimodal analgesia and per surgical service. Informed Consent Anesthetic risks, benefits, alternatives, personnel and consent discussed: yes. Patient / Responsible Republican agrees to proceed: yes Patient / Surrogate agrees to blood products: blood products not planned DNR status not reviewed with patient and/or family prior to surgery. Significant changes in the patient condition since the History and Physical, not otherwise documented in primary service progress note: no. Potential Anesthesia issues that may suggest increased risk of complications or contraindication to planned procedure: none. Vitals Value Taken Time BP 137/73 10/17/24 0930 Pulse Resp 16 10/17/24 0930 Temp 36.6 ?C (97.9 ?F) 10/17/24 0930 SpO2 99 % 10/17/24929 No current facility-administered medications on file as of 10/17/2024. Outpatient Medications as of 10/17/2024 Medication Sig - pantoprazole DR (PROTONIX) 40 mg tablet - levothyroxine (SYNTHROID) 75 mcg tablet Take 75 mcg by mouth once daily. Pt takes on tablet in the morning 6 days a week. - LORazepam 0.5 mg tab Take by mouth three times daily as needed. Pt takes 1/2 tablet as needed - metoprolol tartrate, short acting, (LOPRESSOR) 50 mg tablet Take 0.5 tablets by mouth twice daily. - clobetasol (TEMOVATE) 0.05 % ointment Apply 1 application to affected area two times a day. TO AFFECTED AREA. - calcium carbonate (CALCIUM 600 ORAL) Take by mouth once daily. - FA/MV,CA,IRON,MIN/LYCOPENE/LUT (MULTIVITAL ORAL) Take by mouth. - ergocalciferol 50,000 unit capsule (VITAMIN D2, DRISDOL) Take 50,000 Units by mouth twice a week. I have interviewed and examined the patient. I have reviewed the medical record and/or the pre-anesthesia evaluation, pertinent labs, and test results. This contains updated information obtained within 48 hours of Surgery/Procedure. SIGNATURE: Nu Casiano MD PATIENT NAME: Merissa Sage DATE: October 17, 2024 TIME: 10:31 AM CSN: [id number] NURSING PROG Observed: 10/16/2024 10:43 AM Status: COMPLETED Source: [facility] ID: [id number] Author: JANET WOODWARD RN Service: Pulmonary Disease Author Type: Registered Nurse Type: Nursing Progress Note Filed: 10/16/2024 11:02 Note Text: AMBULATORY PATIENT EDUCATION NOTE TOPIC: pre-procedure instructions READINESS TO LEARN COGNITIVE ABILITY: Alert and oriented MOTIVATION TO LEARN: Interested FAMILY SUPPORT: None - Unavailable/disinterested INSTRUCTION PROVIDED TO: Patient PATIENT LEARNS BEST BY: Individual Instruction Verbal Instruction FACTORS AFFECTING LEARNING: None PHYSICAL LIMITATIONS AFFECTING LEARNING: None LEARNING RESPONSE DIAGNOSIS: Coil localization METHOD OF INSTRUCTION: Individual instruction Verbal instruction PATIENT / FAMILY RESPONSE: Verbalizes understanding of: PRE-PROCEDURE INSTRUCTIONS-Correct action to take to follow pre-procedure instructions FOLLOW-UP PLAN: Complete - No need for follow-up SUPPLEMENTAL MATERIAL: None REFERRAL (RECOMMENDATION): None Electronically Signed By: Janet Woodward RN In Department: [facility] ENDOSCOPY - ENDO Time spent on patient education: 35 minutes. PROGRESS Observed: 10/13/2024 12:45 PM Status: COMPLETED Source: [facility] HNO ID: [id number] Author: CARLOS DONNELLY TECHNOLOGIST Service: ? Author Type: Technologist Type: Progress Notes Filed: 10/13/2024 12:08 Note Text: Radiology Service Progress Note PATIENT NAME: Merissa Sage DATE OF SERVICE: October 13, 2024 TIME: 12:08 PM PATIENT IDENTITY VERIFICATION COMPLETED USING TWO (2) IDENTIFIERS: Name and Date of confirmed by patient verbally. FALL SCREENING: Has the patient had 2 falls in the last year or 1 fall with injury or currently using an Ambulatory Assistive Device (Walker, Cane, Wheelchair, Crutches, etc.)? No PATIENT GENDER DATA: Assigned female at . status: : No status: NO. PATIENT RELEVANT IMPLANT DATA REVIEWED: Not Applicable PATIENT PRESENTS WITH AN IMPLANTABLE OR ATTACHED SENIOR PROJECT ACCOUNTANT: No RADIOLOGY DEPARTMENT: CT; Exam(s) Completed: Chest PERIPHERAL IV DATA: Not applicable SIGNED BY: TECHNOLOGIST Pat October 13, 2024 12:[address] CHEST WO IVCON Observed: 10/13/2024 12:09 PM Status: F Source: [facility] * * *Final Report* * * DATE OF EXAM: Oct 13 2024 12:09PM [facility]VC 0541 - CT CHEST WO IVCON / PROCEDURE REASON: Lung nodule * * * * Physician Interpretation * * * * EXAMINATION: CHEST CT WITHOUT CONTRAST CLINICAL HISTORY: 63-year-old female with a history of lung cancer. Assess left upper lobe pulmonary nodule. Technique: Spiral CT acquisition of the chest from the thoracic inlet to the upper abdomen without contrast. Images were obtained per the super dimension protocol. MQ: [id number]_6 CT Radiation dose: Integrated Dose-length product (DLP) for this visit = 266 mGy*cm CT Dose Reduction Employed: Automated exposure control (AEC) Comparison: Chest CT exams dated 07/14/2024 and 01/10/2024; PET/CT dated 07/24/2023 RESULT: Limitations: None. Lines, tubes, and devices: None. Lung parenchyma and airways: A staple line in the right lower lobe is consistent with prior wedge resection. There are few bilateral ground-glass pulmonary nodules. For reference, there is a left upper lobe 17 x 12 mm ground-glass nodule, image 63, which is unchanged since 07/14/2024, previously measuring 16 x 11 mm on the 01/10/[address] A 4 mm anterior right upper lobe ground-glass nodule, image 74, is unchanged since 01/10/2024. A posterior right upper lobe 13 x 12 mm ground-glass nodule, image 131, appears unchanged since 01/10/2024. Branching high attenuation material in left upper lobe pulmonary arteries, image 123-146, and within the distal right main pulmonary artery extending into right upper vessels is unchanged since 07/14/2024. No new pulmonary nodule. Dependent linear densities at the lung bases are consistent with atelectasis or scar. No consolidation. No pulmonary edema. The central airways are patent without suspicious endobronchial lesion. Pleural space: No pleural effusion, pleural thickening, or pneumothorax. Lower neck, lymph nodes, and mediastinum: The imaged thyroid gland is unremarkable. No supraclavicular or axillary lymphadenopathy. Surgical material is present in the right hilar region. No enlarged mediastinal or hilar lymph nodes. The esophagus is decompressed. Heart, pericardium, and thoracic vessels: Mild atherosclerosis is present within the thoracic aorta which is normal in caliber measuring 3.2 cm in the mid ascending segment. The main pulmonary artery is normal in caliber. No distinct coronary artery atherosclerotic calcification, however, this exam is not optimized for coronary artery assessment. Heart size is normal. No pericardial effusion. Bones and soft tissues: No destructive lytic or blastic bone lesion. The patient is status post vertebroplasty/kyphoplasty procedure at T11 where there is stable mild vertebral body height loss. Mild endplate degenerative changes are present throughout the imaged spine. A small subcentimeter nodule in the right lateral chest wall, image 228 of series 3 is unchanged since 01/10/2024, possibly a lymph node. Upper abdomen: A subcentimeter low-attenuation right hepatic lesion, image 338 of series 3 is too small to characterize although most commonly. Otherwise, the imaged solid abdominal organs are unremarkable on this noncontrast exam. Cholecystectomy clips are noted. A few colonic diverticuli are noted without evidence of diverticulitis. Localizer images: No additional findings. IMPRESSION: 1. A few bilateral ground-glass pulmonary nodules are present, the largest in the left upper lobe measuring 17 x 12 mm, unchanged since the prior chest CT dated 01/10/2024. These nodules are indeterminate although likely represent lesions along the spectrum of adenocarcinoma in situ/low-grade adenocarcinoma. 2. No thoracic lymphadenopathy. 3. Postsurgical changes of right lung wedge resection. 4. Branching high attenuation material within bilateral pulmonary arteries including the distal right main pulmonary artery is consistent with embolized methylmethacrylate from a prior vertebroplasty/kyphoplasty procedure. Natural Resources Extension Educator: [facility] Transcribe Date/Time: Oct 13 2024 4:07P Dictated by : RICARDO ROCHA MD This examination was interpreted and the report reviewed and electronically signed by: RICARDO ROCHA MD on Oct 13 2024 4:29PM EST [id number] PROGRESS Observed: 10/13/2024 11:46 AM Status: COMPLETED Source: [facility] HNO ID: [id number] Author: PEDRO CLEANING MD, PhD Service: ? Author Type: Physician Type: Progress Notes Filed: 10/13/2024 11:46 Note Text: I have read and reviewed the documentation and agree. I wish to add the following findings which have been dictated and will be communicated back to the requesting physician. Pedro Cleaning MD, PhD HISTORY PHYSICAL Observed: 10/13/2024 11:12 AM Status: COMPLETED Source: [facility] HNO ID: [id number] Author: RICARDO INMAN MD Service: ? Author Type: Physician Type: H&P Filed: 10/13/2024 12:04 Note Text: Interventional Pulmonary Consultation Date of Service: October 13, 2024 Patient: Merissa Sage Medical Record: [id number] Primary Care Physician: Jesika Ro MD Referring Provider: Vito Cleaning MD History of Present Illness Merissa Sage is a 63 year old female with a past history of lung cancer who was sent by Dr. Cleaning for evaluation and management of a NOAH lung. My findings and recommendations will be communicated to the referring doctor by way of shared electronic medical record (or US mail). Patient with NOAH GGO that had recently shown some growth. Referral made to thoracic surgery, with Dr. Cleaning, who agreed to limited resection. Patient has other scattered pure GGO's, which have been stable. Patient very nervous about outcome. 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 Llamas COLONOSCOPY SCREENING 2017 HYSTEROSCOPY, DIAGNOSTIC (SEPARATE 07/14/2008 Hysteroscopy/curretage LIG/TRNSXJ FLP TUBE ABDL/VAG APPR UNI/BI PAST SURGICAL HISTORY OF 2004 lower lobe right lung removed for non small cell carcinoma TONSILLECTOMY HX TOTAL ABDOMINAL HYSTERECT W/WO RMVL TUBE OVARY 03/31/2010 Hysterectomy, MERCEDES, BSO Family History FAMILY HISTORY Problem Relation Age of Onset Cancer Mother UTERINE? Hypertension Mother Cancer Father lung with mets Coronary Artery Disease Father Hypertension Father Diabetes Sister Hypertension Sister Hypertension Sister Social Historyy Social History Tobacco Use Smoking status: Former Current packs/day: 0.00 Average packs/day: 0.5 packs/day for 20.0 years (10.0 ttl pk-yrs) Types: Cigarettes Start date: 03/04/1986 Quit date: 03/04/2006 Years since quittin.6 Smokeless tobacco: Never Vaping Use Vaping status: Never Used Substance Use Topics Alcohol use: Yes Alcohol/week: 1.0 - 2.0 standard drink of alcohol Types: 1 - 2 Cans of Beer (12oz) per week Comment: socially Drug use: No Current Medications Current Outpatient Medications on File Prior to Visit Medication Sig clobetasol (TEMOVATE) 0.05 % ointment Apply 1 application to affected area two times a day. TO AFFECTED AREA. calcium carbonate (CALCIUM 600 ORAL) Take by mouth once daily. pantoprazole DR (PROTONIX) 40 mg tablet FA/MV,CA,IRON,MIN/LYCOPENE/LUT (MULTIVITAL ORAL) Take by mouth. ergocalciferol 50,000 unit capsule (VITAMIN D2, DRISDOL) Take 50,000 Units by mouth twice a week. levothyroxine (SYNTHROID) 75 mcg tablet Take 75 mcg by mouth once daily. Pt takes on tablet in the morning 6 days a week. LORazepam 0.5 mg tab Take by mouth three times daily as needed. Pt takes 1/2 tablet as needed metoprolol tartrate, short acting, (LOPRESSOR) 50 mg tablet Take 0.5 tablets by mouth twice daily. No current facility-administered medications on file prior to visit. Physical Exam BP 157/87 Pulse 53 Ht 5' 4" (1.63m) Wt 126 lb (57.2kg) SpO2 99% LMP 03/14/2009 BMI 21.62 kg/(m2). GENERAL APPEARANCE: Patient in no acute distress. SKIN: No rashes or lesions. EYES: PERRLA, EOMI,, conjunctivae clear. OROPHARYNX: Lips, mucosa, and tongue normal. Teeth and gums normal. Oropharynx normal. NECK: Supple, no lymphadenopathy, no JVD. BACK: No CVA tenderness, no spinal tenderness LUNGS: Normal breath sounds, clear to auscultation, no wheezes, or crackles. HEART: Normal PMI, Regular rate/rhythm, normal heart sounds, and no murmurs. ABDOMEN: Soft, non tender, no palpable masses, normal bowel sounds, no abdominal bruits, No hepatosplenomegaly. EXTREMITIES: No edema or tenderness NEURO: Awake, alert and oriented x3, no involuntary motions. Assessment AND Plan NOAH lung nodule. Limited resection planned. Since it's off pleura, will need assistance of ICG-soaked fiducial marker. Patient agreeable to procedure; understanding of procedure, expectations and potential risks. Pre-op pulmonary. Despite history of smoking in past, lung function is stable. PFT's show no obstruction, and DLCO is normal. Her functional status is good. She should be able to tolerate up to a NOAH lobectomy (though segmentectomy is planned). Right lung nodule. Small (about 10mm) and pure GGO, and hardly any change. Will need to continue to follow this yearly. Ricardo Inman MD Date: October 13, 2024 Time: 11:12 AM I spent a total of 45 minutes on the date of the service which included preparing to see the patient, [id number] patient care, completing clinical documentation, obtaining and/or reviewing separately obtained history, performing a medically appropriate examination, counseling and educating the patient/family/caregiver, ordering medications, tests, or procedures, communicating with other HCPs (not separately reported), independently interpreting results (not separately reported), communicating results to the patient/family/caregiver, and care coordination (not separately reported). CNOV Observed: 10/13/2024 10:40 AM Status: COMPLETED Source: [facility] Office Visit (PUFAMO) MERISSA SAGE ([id number]) 1960 F Date Time Provider Department 10/13/24 10:40 AM RICARDO INMAN [facility] During your visit today, we recorded the following information about you: Pulse Blood pressure Weight Height 53/minute 157/87 57.2 kg 1.626 m Ricardo Inman MD 10/13/2024 12:04 PM Signed Interventional Pulmonary Consultation Date of Service: October 13, 2024 Patient: Merissa Sage Medical Record: [id number] Primary Care Physician: Jesika Ro MD Referring Provider: Vito Cleaning MD History of Present Illness Merissa Sage is a 63 year old female with a past history of lung cancer who was sent by Dr. Cleaning for evaluation and management of a NOAH lung. My findings and recommendations will be communicated to the referring doctor by way of shared electronic medical record (or [place] mail). Patient with NOAH GGO that had recently shown some growth. Referral made to thoracic surgery, with Dr. Cleaning, who agreed to limited resection. Patient has other scattered pure GGO's, which have been stable. Patient very nervous about outcome. 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 Llamas COLONOSCOPY SCREENING 2017 HYSTEROSCOPY, DIAGNOSTIC (SEPARATE 07/14/2008 Hysteroscopy/curretage LIG/TRNSXJ FLP TUBE ABDL/VAG APPR UNI/BI PAST SURGICAL HISTORY OF 2004 lower lobe right lung removed for non small cell carcinoma TONSILLECTOMY HX TOTAL ABDOMINAL HYSTERECT W/WO RMVL TUBE OVARY 03/31/2010 Hysterectomy, MERCEDES, BSO Family History FAMILY HISTORY Problem Relation Age of Onset Cancer Mother UTERINE? Hypertension Mother Cancer Father lung with mets Coronary Artery Disease Father Hypertension Father Diabetes Sister Hypertension Sister Hypertension Sister Social Historyy Social History Tobacco Use Smoking status: Former Current packs/day: 0.00 Average packs/day: 0.5 packs/day for 20.0 years (10.0 ttl pk-yrs) Types: Cigarettes Start date: 03/04/1986 Quit date: 03/04/2006 Years since quittin.6 Smokeless tobacco: Never Vaping Use Vaping status: Never Used Substance Use Topics Alcohol use: Yes Alcohol/week: 1.0 - 2.0 standard drink of alcohol Types: 1 - 2 Cans of Beer (12oz) per week Comment: socially Drug use: No Current Medications Current Outpatient Medications on File Prior to Visit Medication Sig clobetasol (TEMOVATE) 0.05 % ointment Apply 1 application to affected area two times a day. TO AFFECTED AREA. calcium carbonate (CALCIUM 600 ORAL) Take by mouth once daily. pantoprazole DR (PROTONIX) 40 mg tablet FA/MV,CA,IRON,MIN/LYCOPENE/LUT (MULTIVITAL ORAL) Take by mouth. ergocalciferol 50,000 unit capsule (VITAMIN D2, DRISDOL) Take 50,000 Units by mouth twice a week. levothyroxine (SYNTHROID) 75 mcg tablet Take 75 mcg by mouth once daily. Pt takes on tablet in the morning 6 days a week. LORazepam 0.5 mg tab Take by mouth three times daily as needed. Pt takes 1/2 tablet as needed metoprolol tartrate, short acting, (LOPRESSOR) 50 mg tablet Take 0.5 tablets by mouth twice daily. No current facility-administered medications on file prior to visit. Physical Exam BP 157/87 Pulse 53 Ht 5' 4" (1.63m) Wt 126 lb (57.2kg) SpO2 99% LMP 03/14/2009 BMI 21.62 kg/(m2). GENERAL APPEARANCE: Patient in no acute distress. SKIN: No rashes or lesions. EYES: PERRLA, EOMI,, conjunctivae clear. OROPHARYNX: Lips, mucosa, and tongue normal. Teeth and gums normal. Oropharynx normal. NECK: Supple, no lymphadenopathy, no JVD. BACK: No CVA tenderness, no spinal tenderness LUNGS: Normal breath sounds, clear to auscultation, no wheezes, or crackles. HEART: Normal PMI, Regular rate/rhythm, normal heart sounds, and no murmurs. ABDOMEN: Soft, non tender, no palpable masses, normal bowel sounds, no abdominal bruits, No hepatosplenomegaly. EXTREMITIES: No edema or tenderness NEURO: Awake, alert and oriented x3, no involuntary motions. Assessment AND Plan NOAH lung nodule. Limited resection planned. Since it's off pleura, will need assistance of ICG-soaked fiducial marker. Patient agreeable to procedure; understanding of procedure, expectations and potential risks. Pre-op pulmonary. Despite history of smoking in past, lung function is stable. PFT's show no obstruction, and DLCO is normal. Her functional status is good. She should be able to tolerate up to a NOAH lobectomy (though segmentectomy is planned). Right lung nodule. Small (about 10mm) and pure GGO, and hardly any change. Will need to continue to follow this yearly. Ricardo Inman MD Date: October 13, 2024 Time: 11:12 AM I spent a total of 45 minutes on the date of the service which included preparing to see the patient, [id number] patient care, completing clinical documentation, obtaining and/or reviewing separately obtained history, performing a medically appropriate examination, counseling and educating the patient/family/caregiver, ordering medications, tests, or procedures, communicating with other HCPs (not separately reported), independently interpreting results (not separately reported), communicating results to the patient/family/caregiver, and care coordination (not separately reported). Referring Provider: RICARDO INMAN [[id number]] Allergies As of Date: 10/13/2024 Noted Allergy Reaction ALBUTEROL 10/10/2024 14 - Other: See Comments Comments: anxiety ADHESIVE TAPE-SILICONES 10/10/2024 4 - Hives Comments: Band-aids CONTACT METAL AGENT 10/10/2024 2 - Rash Comments: Jewelry LEVAQUIN (LEVOFLOXACIN) 07/06/2008 4 - Hives Date Reviewed: 10/13/2024 Reviewed by: Lori Patel MA - Fully Assessed Primary Visit Diagnosis:Lung nodules [R91.8] Other Visit Diagnosis:Preoperative examination [Z01.818] Prescriptions as of 10/13/2024 - clobetasol (TEMOVATE) 0.05 % ointment Apply 1 application to affected area two times a day. TO AFFECTED AREA. - calcium carbonate (CALCIUM 600 ORAL) Take by mouth once daily. - pantoprazole DR (PROTONIX) 40 mg tablet - FA/MV,CA,IRON,MIN/LYCOPENE/LUT (MULTIVITAL ORAL) Take by mouth. - ergocalciferol 50,000 unit capsule (VITAMIN D2, DRISDOL) Take 50,000 Units by mouth twice a week. - levothyroxine (SYNTHROID) 75 mcg tablet Take 75 mcg by mouth once daily. Pt takes on tablet in the morning 6 days a week. - LORazepam 0.5 mg tab Take by mouth three times daily as needed. Pt takes 1/2 tablet as needed - metoprolol tartrate, short acting, (LOPRESSOR) 50 mg tablet Take 0.5 tablets by mouth twice daily. 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] 06/20/2006 ESOPHAGEAL REFLUX [K21.9] 06/20/2006 DEPRESSION ACUTE - SINGLE EPISODE( Mild) [F32.0]06/20/2006 PALPITATIONS [R00.2] 06/20/2006 LUNG CANCER LOWER LOBE, NSC [C34.30] 06/20/2006 EXCESSIVE MENSTRUATION [N92.0] 07/08/2008 IRREGULAR MENSTRUATION [N92.6] 07/08/2008 DYSMENORRHEA [N94.6] 07/08/2008 Lipoma of Unspecified Site [D17.9] 06/07/2009 Low back pain radiating to left leg [M54.50, M7*06/19/2011 Cervical adenopathy [R59.0] 12/26/2011 Hypothyroidism [E03.9] 12/26/2011 Mass of lower outer quadrant of right breast [N*10/21/2022 Breast pain [N64.4] 10/21/2022 Encounter Status:Closed by RICARDO INMAN on 10/13/24 CNOV Observed: 10/10/2024 3:40 PM Status: COMPLETED Source: [facility] Office Visit (CARTMN) MERISSA SAGE ([id number]) 1960 F Date Time Provider Department 10/10/24 3:40 PM ANESTHESIA CLEARANCE CARTMN During your visit today, we recorded the following information about you: Isra Caldwell MD 10/10/2024 1:59 PM Signed Cardiothoracic Anesthesiology Preoperative Assessment Service Date: 10/10/2024 Service Time: 1:26 PM Primary Care Physician: Jesika Ro MD Subjective Patient Entered Data: 10/06/2024 Cardiothoracic Surgery Pre-Op Questionnaire Previous anesthesia problems No Family history anesthesia problems No Blood consent Yes Esophageal history Other Implanted devices No History difficult airway No Airway surgery No Ongoing pain issues No Heparin intolerance No Daily alcohol use No Illicit drug use No Scheduled procedure: Robotic NOAH trisegmentectomy Surgeon: Pedro Cleaning Scheduled date: 10/20/2024 HPI: 63 yo F w/ PMH of anxiety, GERD, hypothyroidism, lung cancer, osteoporosis, costochondritis who presents for preoperative assessment prior to robotic lung surgery 10/20 Review no known heparin intolerance not taking anticoagulant/antiplatelet medication no non-cardiac IEDs present no known esophageal disorders blood transfusion consented -. No resulted type AND screen to review COVID-19 Immunization Status Current Care Gaps Covid-19 Vaccine () Overdue since 02/03/2024 03/12/2022 Imm Admin: COVID-19 vaccine, age 12+ yr, bivalent (MODERNA) 04/08/2021 Imm Admin: COVID-19 original vaccine, full dose, monovalent (MODERNA) 08/10/2020 Imm Admin: COVID-19 vaccine (Lemon Curve) Only the first 3 history entries have been loaded, but more history exists. The patient has the following: ACTIVE PROBLEM LIST URTICARIA IDIOPATHIC Esophageal Reflux DEPRESSION ACUTE - SINGLE EPISODE( Mild) Palpitations LUNG CANCER LOWER LOBE, NSC Excessive Or Frequent Menstruation Irregular Menstrual Cycle Dysmenorrhea Lipoma of Unspecified Site Low Back Pain Radiating to Left Leg Cervical Adenopathy Hypothyroidism Mass of Lower Outer Quadrant of Right Breast Breast Pain PAST MEDICAL HISTORY Diagnosis Date Dysmenorrhea Esophageal reflux Gastroesophageal reflux Excessive or frequent menstruation Heavy periods Lung cancer (HCC) Malignant neoplasm of other parts of bronchus or lung (HCC) 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 Llamas COLONOSCOPY SCREENING 2017 HYSTEROSCOPY, DIAGNOSTIC (SEPARATE 07/14/2008 Hysteroscopy/curretage LIG/TRNSXJ FLP TUBE ABDL/VAG APPR UNI/BI PAST SURGICAL HISTORY OF 2004 lower lobe right lung removed for non small cell carcinoma TONSILLECTOMY HX TOTAL ABDOMINAL HYSTERECT W/WO RMVL TUBE OVARY 03/31/2010 Hysterectomy, MERCEDES, BSO FAMILY HISTORY Problem Relation Age of Onset Cancer Mother UTERINE? Hypertension Mother Cancer Father lung with mets Coronary Artery Disease Father Hypertension Father Diabetes Sister Hypertension Sister Hypertension Sister Social History Tobacco Use Smoking status: Former Current packs/day: 0.00 Average packs/day: 0.5 packs/day for 20.0 years (10.0 ttl pk-yrs) Types: Cigarettes Start date: 03/04/1986 Quit date: 03/04/2006 Years since quittin.6 Smokeless tobacco: Never Vaping Use Vaping status: Never Used Substance Use Topics Alcohol use: Yes Alcohol/week: 1.0 - 2.0 standard drink of alcohol Types: 1 - 2 Cans of Beer (12oz) per week Comment: socially Drug use: No Prior to Admission medications as of 09/09/24 1229 Medication Sig Last Dose Taking clobetasol (TEMOVATE) 0.05 % ointment Apply 1 application to affected area two times a day. TO AFFECTED AREA. calcium carbonate (CALCIUM 600 ORAL) Take by mouth once daily. pantoprazole DR (PROTONIX) 40 mg tablet FA/MV,CA,IRON,MIN/LYCOPENE/LUT (MULTIVITAL ORAL) Take by mouth. ergocalciferol 50,000 unit capsule (VITAMIN D2, DRISDOL) Take 50,000 Units by mouth twice a week. levothyroxine (SYNTHROID) 75 mcg tablet Take 75 mcg by mouth once daily. Pt takes on tablet in the morning 6 days a week. LORazepam 0.5 mg tab Take by mouth three times daily as needed. Pt takes 1/2 tablet as needed metoprolol tartrate, short acting, (LOPRESSOR) 50 mg tablet Take 0.5 tablets by mouth twice daily. No medication comments found. ALLERGIES Allergen Reactions Albuterol Other: See Comments anxiety Levaquin [Levofloxa* Hives Metals [Other] Rash Jewlery Tape [Other] Hives Band aids Objective Pain Assessment: Vitals: LMP 03/14/2009 Diagnostic tests reviewed for today's visit: Lab Value Units Date High Low HB 14.4 g/dL 10/10/2024 15.5 11.5 HCT 42.3 % 10/10/2024 46.0 36.0 WBC 5.37 k/uL 10/10/2024 11.00 3.70 PLT 272 k/uL 10/10/2024 400 150 NA 142 mmol/L 10/10/2024 144 136 K 4.1 mmol/L 10/10/2024 5.1 3.7 GLUC 98 mg/dL 10/10/2024 99 74 BUN 17 mg/dL 10/10/2024 21 7 CREAT 0.66 mg/dL 10/10/2024 0.96 0.58 PTSEC 10.8 sec 10/10/2024 13.0 9.7 INR 1.0 no uni* 10/10/2024 1.3 0.9 APTT 25.9 sec 10/10/2024 32.4 23.0 ALT 30 U/L 10/10/2024 38 7 AST 32 U/L 10/10/2024 35 13 TBILI 0.3 mg/dL 10/10/2024 1.3 0.2 TSH 2.990 mIU/L 10/10/2024 4.200 0.270 Lab Value Units Date High Low HCGQT No results within date range. UHCG No results within date range. HCG, BODY* No results within date range. Lab Value Units Date High Low ABORHD No results within date range. ABSCREEN No results within date range. No results found for: "HBA1C" Recent Results (from the past 8760 hours) ECG COMPLETE Collection Time: 10/10/24 7:10 AM Impression SINUS BRADYCARDIA OTHERWISE NORMAL ECG Assessment No problem-specific Assessment AND Plan notes found for this encounter. ANESTHESIA FINDINGS: Intubation History: No history of difficult intubation Significant Anesthesia Considerations: potential postop nausea/vomiting Airway History: No history of difficult airway Prepared for Surgery: optimally prepared for surgery, pending [see comment]. The Following Tests/Procedures Have Been Initiated: No orders of the defined types were placed in this encounter. ASA Class: 3 Planned Anesthetic: general anesthesia choice I - PHYSICAL EVALUATION AIRWAY Patient intubated: No. Tracheostomy tube not present Mallampati: I. TM distance: >3 FB. Neck ROM: full ROM without neurological symptoms. Mouth opening: adequate. Short neck: no. Thick neck: no DENTAL Dental findings: teeth intact. II - ANESTHESIA PLAN ASA Score: 3 Anesthetic Plan: general Airway type: ETT Anesthetic plan additional comments: *PACC/TCI - anesthesia choice. Beta Jamaal Monitoring Plan Post Procedure Analgesic Plan Informed Consent Anesthetic risks, benefits, alternatives, personnel and consent discussed: yes. Patient / Responsible Republican agrees to proceed: yes Patient / Surrogate agrees to blood products: Yes Discussed the possibility of lip / dental damage: yes Instructions Given to Patient: Instructions located in the after visit summary. Patient given verbal and written preop instructions and voices comprehension and compliance. Signature: Isra Caldwell MD Patient Name: Merissa Sage Date: October 10, 2024 Time: 1:26 PM Pager/Contact #: Referring Provider: PDERO CLEANING [[id number]] Allergies As of Date: 10/10/2024 Noted Allergy Reaction ALBUTEROL 10/10/2024 14 - Other: See Comments Comments: anxiety ADHESIVE TAPE-SILICONES 10/10/2024 4 - Hives Comments: Band-aids CONTACT METAL AGENT 10/10/2024 2 - Rash Comments: Jewelry LEVAQUIN (LEVOFLOXACIN) 07/06/2008 4 - Hives Date Reviewed: 10/10/2024 Reviewed by: Isra Caldwell MD - Fully Assessed Primary Visit Diagnosis:Encounter for preoperative anesthesiology assessment for thoracic surgery [Z01.818] Prescriptions as of 10/10/2024 - clobetasol (TEMOVATE) 0.05 % ointment Apply 1 application to affected area two times a day. TO AFFECTED AREA. - calcium carbonate (CALCIUM 600 ORAL) Take by mouth once daily. - pantoprazole DR (PROTONIX) 40 mg tablet - FA/MV,CA,IRON,MIN/LYCOPENE/LUT (MULTIVITAL ORAL) Take by mouth. - ergocalciferol 50,000 unit capsule (VITAMIN D2, DRISDOL) Take 50,000 Units by mouth twice a week. - levothyroxine (SYNTHROID) 75 mcg tablet Take 75 mcg by mouth once daily. Pt takes on tablet in the morning 6 days a week. - LORazepam 0.5 mg tab Take by mouth three times daily as needed. Pt takes 1/2 tablet as needed - metoprolol tartrate, short acting, (LOPRESSOR) 50 mg tablet Take 0.5 tablets by mouth twice daily. 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] 06/20/2006 ESOPHAGEAL REFLUX [K21.9] 06/20/2006 DEPRESSION ACUTE - SINGLE EPISODE( Mild) [F32.0]06/20/2006 PALPITATIONS [R00.2] 06/20/2006 LUNG CANCER LOWER LOBE, NSC [C34.30] 06/20/2006 EXCESSIVE MENSTRUATION [N92.0] 07/08/2008 IRREGULAR MENSTRUATION [N92.6] 07/08/2008 DYSMENORRHEA [N94.6] 07/08/2008 Lipoma of Unspecified Site [D17.9] 06/07/2009 Low back pain radiating to left leg [M54.50, M7*06/19/2011 Cervical adenopathy [R59.0] 12/26/2011 Hypothyroidism [E03.9] 12/26/2011 Mass of lower outer quadrant of right breast [N*10/21/2022 Breast pain [N64.4] 10/21/2022 Encounter Status:Closed by ISRA CALDWELL on 10/10/24 Chart Close Cosign Accepted by: SUZE HOFF[[id number]] Chart Close Cosign Accepted on: SunOctober 10, 2024 4:28 PM PROGRESS Observed: 10/10/2024 1:40 PM Status: COMPLETED Source: [facility] HN ID: [id number] Author: JAYNE MONACO RN Service: ? Author Type: Registered Nurse Type: Progress Notes Filed: 10/14/2024 07:44 Note Text: CHART COPY DO NOT DISCARD . Patient here today for TCI visit. . Surgery Left upper lobe trisegmentectomy with ICG marker on 10/17/2024 scheduled for Sunday10/20/2024. . Meds allergies reviewed. Latex Allergy: No Anticoag:MVI/Supplements-last dose 10/13/2024 GLP1/SGLT2: NA Immunosuppressants: NA Medport: No Preoperative instructions; Clear liquid diet, You may continue clear liquids until 2 hours before check in on day of surgery, NPO after midnight night prior to surgery, and Listerine after brushing teeth and Hibiclens shower Patient verbalized understanding of instructions. . Last clinic note 09/09/2024 per Pedro Cleaning M.D. I had the sincere pleasure of seeing Ms. Merissa Sage at our [facility] satellite. This very pleasant 63-year-old woman, who is a former moderate smoker with over 20 years of cessation appears to have evolving lesions bilaterally consistent with disease somewhere along the adenocarcinoma spectrum. I have been asked to consult on her pulmonary nodules. Medical history and review of systems have been done. I have also independently reviewed images from a variety of different CT scans dating back to over a year ago and have also reviewed pulmonary function testing including walk oximetry, DLCO, and spirometry. I have assessed the patient with my care team here at [facility] and shared my thoughts with the patient in detail. In brief, this very pleasant 63-year-old woman has an ECOG performance status of 0. She has a remote history of an early stage lung cancer that was resected over 15 years ago. She stopped smoking at that point completely. Her cancer was a stage I cancer and she had a right lower lobectomy performed. She has done quite well. She has been watched quite closely. Recently nodules have evolved in the apex of the left upper lobe as well as in the posterior aspect of the upper lobe that have become concerning. This is particularly true for the lesion at the left apex, which is becoming more solid and is far more spiculated. The right upper lobe lesion appears to be purely ground-glass and well circumscribed. The geometry of the left upper lobe is somewhat concerning. I suspect that neither of these 2 lesions developed a significant invasive component and the CTR remains close to 0 on the both lesions. However, the appearance of the left lesion certainly is concerning for a lesion along the adenocarcinoma spectrum. The patient has excellent pulmonary function tests and given the gradual evolution of these lesions, certainly some consideration for an apical trisegmentectomy might be reasonable. She has not had a recent provocative heart study. I will reach out to other members of her multidisciplinary team and solicit their thoughts. If resection is agreed upon, I will be happy to offer that to her. She does seem motivated. Today's visit 10/10/2024: Pulcharli - 10/13/2024 NOAH lung nodule. Limited resection planned. Since it's off pleura, will need assistance of ICG-soaked fiducial marker. Patient agreeable to procedure; understanding of procedure, expectations and potential risks. Pre-op pulmonary. Despite history of smoking in past, lung function is stable. PFT's show no obstruction, and DLCO is normal. Her functional status is good. She should be able to tolerate up to a NOAH lobectomy (though segmentectomy is planned). Right lung nodule. Small (about 10mm) and pure GGO, and hardly any change. Will need to continue to follow this yearly. CCT: 10/13/2024 IMPRESSION: 1. A few bilateral ground-glass pulmonary nodules are present, the largest in the left upper lobe measuring 17 x 12 mm, unchanged since the prior chest CT dated 01/10/2024. These nodules are indeterminate although likely represent lesions along the spectrum of adenocarcinoma in situ/low-grade adenocarcinoma. 2. No thoracic lymphadenopathy. 3. Postsurgical changes of right lung wedge resection. 4. Branching high attenuation material within bilateral pulmonary arteries including the distal right main pulmonary artery is consistent with embolized methylmethacrylate from a prior vertebroplasty/kyphoplasty procedure. . PFT: 08/26/2024 6MW: 08/26/2024 Cardiac Studies: Nuclear Medicine Stress Test 10/10/2024 CONCLUSIONS: 1. SPECT Perfusion Study: Normal. 2. There is no scintigraphic evidence for inducible ischemia. 3. No evidence of scarred myocardium. 4. Left ventricle is normal in size. The left ventricle systolic function is hyperdynamic. 5. Right ventricle is normal in size. The right ventricle systolic function is normal. 6. This is a low risk scan. Gated Stress FBP Gated Rest FBP LVEF % 86 80 EK10/10/2024 Impression SINUS BRADYCARDIA OTHERWISE NORMAL ECG Ventricular Rate BPM 56 Risk, benefits, and alternatives discussed per Pedro Cleaning M.D. HANDP 10/10/2024 per Films CCT 10/13/2024, PET 07/24/2023, CCT 07/14/2024 Jayne Monaco RN PHYSICAL EXAM BP 168/72[manual[ Pulse 69 Temp (Src) 98.2 (Oral) Resp 14 Ht 5' 4" (1.63m) Wt 126 lb 11.2 oz (57.5kg) SpO2 99% LMP 03/14/2009 BMI 21.74 kg/(m2). Constitutional: Well developed and Well nourished HEENT: PERRLA, wearing mask Resp: Clear Cardiovascular: Regular rate AND rhythm and S1, S2 normal GI: Soft and Non-tender Integumentary: Warm and Dry Musculoskeletal: No deformities Neurological/Psychiatric: Oriented to time, place AND person Additional systems reviewed: No additional systems reviewed . PATIENT EDUCATION The following was evaluated: Motivation To Learn: Interested Family/Significant Other Support: High - Very involved in pt care Cognitive Ability: Alert and oriented Patient Learns Best By: Multiple Methods The Following Influencing Factors Were Barriers To This Education Session: No barriers Spline Rolling Machine Job Setter Present: Not Applicable The Following Physical Limitations Were Barriers To This Education Session: None Instruction Provided To: Patient AND Family Discipline: Nursing Learning Topic: Pre-op Instructions given Patient Evaluation: Verbalizes understanding Follow Up Plan: Patient/Family will call us with questions Supplemental Material Given: pre-op: Clear liquid diet instruction. TCI Patient Instructions: Thoracic Surgery Teach completed, topic: Gisel Villalobos AND current visitation policy AND restrictions Instructed By Jayne Monaco RN. In Department of THORACIC CLINIC. CNOV Observed: 10/10/2024 1:40 PM Status: COMPLETED Source: [facility] Office Visit (JAKIMN) MERISSA SAGE ([id number]) 1960 F Date Time Provider Department 10/10/24 1:40 PM PEDRO CLEANING During your visit today, we recorded the following information about you: Temperature Pulse Respiration Blood pressure 98.2 degrees 69/minute 14/minute 168/72 Weight Height 57.5 kg 1.626 m Pedro Cleaning MD, PhD 10/10/2024 3:13 PM Unsigned Phosphatic Fertilizer Supervisor [place] [id number] [place] DEPARTMENT OF THORACIC AND CARDIOVASCULAR SURGERY NAME: MERISSA SAGE CLINIC #: [id number] DATE: AGE: 63 PHYSICIAN: Pedro Cleaning M.D., Ph.D. I had the sincere pleasure of seeing the patient in my Thoracic Surgery Clinic. This very pleasant and engaging 63-year-old woman has a highly suspicious lesion for non-small cell lung cancer at the apex of her left lung. She is for a planned resection, which may be a sublobar resection, perhaps trisegmentectomy. She does understand the risks, benefits, alternatives, and personnel involved with the procedure and has consented to this left lung resection. She knows that minimally invasive or robotic instrumentation may be utilized. From an anesthetic standpoint, a double-lumen tube should be used. Standard access for this type of operation should be obtained. Preoperative Solu-Medrol at 20 mg should be given as well as antibiotics and subcutaneous heparin. The patient has bilateral nodules and this operation will be focused on the left upper lobe apical nodule as the target. Pedro Cleaning M.D., Ph.D. :[id number] /[id number] Jayne Monaco RN 10/14/2024 7:44 AM Addendum CHART COPY DO NOT DISCARD . Patient here today for TCI visit. . Surgery Left upper lobe trisegmentectomy with ICG marker on 10/17/2024 scheduled for Sunday10/20/2024. . Meds allergies reviewed. Latex Allergy: No Anticoag:MVI/Supplements-last dose 10/13/2024 GLP1/SGLT2: NA Immunosuppressants: NA Medport: No Preoperative instructions; Clear liquid diet, You may continue clear liquids until 2 hours before check in on day of surgery, NPO after midnight night prior to surgery, and Listerine after brushing teeth and Hibiclens shower Patient verbalized understanding of instructions. . Last clinic note 09/09/2024 per Pedro Cleaning M.D. I had the sincere pleasure of seeing Ms. Merissa Sage at our [facility] satellite. This very pleasant 63-year-old woman, who is a former moderate smoker with over 20 years of cessation appears to have evolving lesions bilaterally consistent with disease somewhere along the adenocarcinoma spectrum. I have been asked to consult on her pulmonary nodules. Medical history and review of systems have been done. I have also independently reviewed images from a variety of different CT scans dating back to over a year ago and have also reviewed pulmonary function testing including walk oximetry, DLCO, and spirometry. I have assessed the patient with my care team here at [facility] and shared my thoughts with the patient in detail. In brief, this very pleasant 63-year-old woman has an ECOG performance status of 0. She has a remote history of an early stage lung cancer that was resected over 15 years ago. She stopped smoking at that point completely. Her cancer was a stage I cancer and she had a right lower lobectomy performed. She has done quite well. She has been watched quite closely. Recently nodules have evolved in the apex of the left upper lobe as well as in the posterior aspect of the upper lobe that have become concerning. This is particularly true for the lesion at the left apex, which is becoming more solid and is far more spiculated. The right upper lobe lesion appears to be purely ground-glass and well circumscribed. The geometry of the left upper lobe is somewhat concerning. I suspect that neither of these 2 lesions developed a significant invasive component and the CTR remains close to 0 on the both lesions. However, the appearance of the left lesion certainly is concerning for a lesion along the adenocarcinoma spectrum. The patient has excellent pulmonary function tests and given the gradual evolution of these lesions, certainly some consideration for an apical trisegmentectomy might be reasonable. She has not had a recent provocative heart study. I will reach out to other members of her multidisciplinary team and solicit their thoughts. If resection is agreed upon, I will be happy to offer that to her. She does seem motivated. Today's visit 10/10/2024: Pulm - 10/13/2024 NOAH lung nodule. Limited resection planned. Since it's off pleura, will need assistance of ICG-soaked fiducial marker. Patient agreeable to procedure; understanding of procedure, expectations and potential risks. Pre-op pulmonary. Despite history of smoking in past, lung function is stable. PFT's show no obstruction, and DLCO is normal. Her functional status is good. She should be able to tolerate up to a NOAH lobectomy (though segmentectomy is planned). Right lung nodule. Small (about 10mm) and pure GGO, and hardly any change. Will need to continue to follow this yearly. CCT: 10/13/2024 IMPRESSION: 1. A few bilateral ground-glass pulmonary nodules are present, the largest in the left upper lobe measuring 17 x 12 mm, unchanged since the prior chest CT dated 01/10/2024. These nodules are indeterminate although likely represent lesions along the spectrum of adenocarcinoma in situ/low-grade adenocarcinoma. 2. No thoracic lymphadenopathy. 3. Postsurgical changes of right lung wedge resection. 4. Branching high attenuation material within bilateral pulmonary arteries including the distal right main pulmonary artery is consistent with embolized methylmethacrylate from a prior vertebroplasty/kyphoplasty procedure. . PFT: 08/26/2024 6MW: 08/26/2024 Cardiac Studies: Nuclear Medicine Stress Test 10/10/2024 CONCLUSIONS: 1. SPECT Perfusion Study: Normal. 2. There is no scintigraphic evidence for inducible ischemia. 3. No evidence of scarred myocardium. 4. Left ventricle is normal in size. The left ventricle systolic function is hyperdynamic. 5. Right ventricle is normal in size. The right ventricle systolic function is normal. 6. This is a low risk scan. Gated Stress FBP Gated Rest FBP LVEF % 86 80 EK10/10/2024 Impression SINUS BRADYCARDIA OTHERWISE NORMAL ECG Ventricular Rate BPM 56 Risk, benefits, and alternatives discussed per Pedro Cleaning M.D. HANDP 10/10/2024 per Films CCT 10/13/2024, PET 07/24/2023, CCT 07/14/2024 Jayne Monaco RN PHYSICAL EXAM BP 168/72[manual[ Pulse 69 Temp (Src) 98.2 (Oral) Resp 14 Ht 5' 4" (1.63m) Wt 126 lb 11.2 oz (57.5kg) SpO2 99% LMP 03/14/2009 BMI 21.74 kg/(m2). Constitutional: Well developed and Well nourished HEENT: PERRLA, wearing mask Resp: Clear Cardiovascular: Regular rate AND rhythm and S1, S2 normal GI: Soft and Non-tender Integumentary: Warm and Dry Musculoskeletal: No deformities Neurological/Psychiatric: Oriented to time, place AND person Additional systems reviewed: No additional systems reviewed . PATIENT EDUCATION The following was evaluated: Motivation To Learn: Interested Family/Significant Other Support: High - Very involved in pt care Cognitive Ability: Alert and oriented Patient Learns Best By: Multiple Methods The Following Influencing Factors Were Barriers To This Education Session: No barriers Spline Rolling Machine Job Setter Present: Not Applicable The Following Physical Limitations Were Barriers To This Education Session: None Instruction Provided To: Patient AND Family Discipline: Nursing Learning Topic: Pre-op Instructions given Patient Evaluation: Verbalizes understanding Follow Up Plan: Patient/Family will call us with questions Supplemental Material Given: pre-op: Clear liquid diet instruction. TCI Patient Instructions: Thoracic Surgery Teach completed, topic: Listerine, Hibiclens AND current visitation policy AND restrictions Instructed By Jayne Monaco RN. In Department of THORACIC CLINIC. Pedro Cleaning MD, PhD 10/13/2024 11:46 AM Signed I have read and reviewed the documentation and agree. I wish to add the following findings which have been dictated and will be communicated back to the requesting physician. Pedro Cleaning MD, PhD Phosphatic Fertilizer Supervisor: Transcribed Clinic Note (josias) ID: [id number] 10/10/2024 12:45 PM Author: PEDRO CLEANING * * * This document has not been signed * * * * * * DRAFT COPY. THIS DOCUMENT IS NOT AVAILABLE FOR PATIENT CARE * * * Document text: [place] [id number] [place] DEPARTMENT OF THORACIC AND CARDIOVASCULAR SURGERY NAME: MERISSA SAGE CLINIC #: [id number] DATE: AGE: 63 PHYSICIAN: Pedro Cleaning M.D., Ph.D. I had the sincere pleasure of seeing the patient in my Thoracic Surgery Clinic. This very pleasant and engaging 63-year-old woman has a highly suspicious lesion for non-small cell lung cancer at the apex of her left lung. She is for a planned resection, which may be a sublobar resection, perhaps trisegmentectomy. She does understand the risks, benefits, alternatives, and personnel involved with the procedure and has consented to this left lung resection. She knows that minimally invasive or robotic instrumentation may be utilized. From an anesthetic standpoint, a double-lumen tube should be used. Standard access for this type of operation should be obtained. Preoperative Solu-Medrol at 20 mg should be given as well as antibiotics and subcutaneous heparin. The patient has bilateral nodules and this operation will be focused on the left upper lobe apical nodule as the target. Pedro Cleaning M.D., Ph.D. SM:[id number] Referring Provider: PEDRO CLEANING [[id number]] Allergies As of Date: 10/10/2024 Noted Allergy Reaction ALBUTEROL 10/10/2024 14 - Other: See Comments Comments: anxiety ADHESIVE TAPE-SILICONES 10/10/2024 4 - Hives Comments: Band-aids CONTACT METAL AGENT 10/10/2024 2 - Rash Comments: Jewelry LEVAQUIN (LEVOFLOXACIN) 07/06/2008 4 - Hives Date Reviewed: 10/10/2024 Reviewed by: Isra Caldwell MD - Fully Assessed Reason for Visit: Pre-Op Exam [87] Primary Visit Diagnosis:Lung nodule [R91.1] Prescriptions as of 10/14/2024 - clobetasol (TEMOVATE) 0.05 % ointment Apply 1 application to affected area two times a day. TO AFFECTED AREA. - calcium carbonate (CALCIUM 600 ORAL) Take by mouth once daily. - pantoprazole DR (PROTONIX) 40 mg tablet - FA/MV,CA,IRON,MIN/LYCOPENE/LUT (MULTIVITAL ORAL) Take by mouth. - ergocalciferol 50,000 unit capsule (VITAMIN D2, DRISDOL) Take 50,000 Units by mouth twice a week. - levothyroxine (SYNTHROID) 75 mcg tablet Take 75 mcg by mouth once daily. Pt takes on tablet in the morning 6 days a week. - LORazepam 0.5 mg tab Take by mouth three times daily as needed. Pt takes 1/2 tablet as needed - metoprolol tartrate, short acting, (LOPRESSOR) 50 mg tablet Take 0.5 tablets by mouth twice daily. 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] 06/20/2006 ESOPHAGEAL REFLUX [K21.9] 06/20/2006 DEPRESSION ACUTE - SINGLE EPISODE( Mild) [F32.0]06/20/2006 PALPITATIONS [R00.2] 06/20/2006 LUNG CANCER LOWER LOBE, NSC [C34.30] 06/20/2006 EXCESSIVE MENSTRUATION [N92.0] 07/08/2008 IRREGULAR MENSTRUATION [N92.6] 07/08/2008 DYSMENORRHEA [N94.6] 07/08/2008 Lipoma of Unspecified Site [D17.9] 06/07/2009 Low back pain radiating to left leg [M54.50, M7*06/19/2011 Cervical adenopathy [R59.0] 12/26/2011 Hypothyroidism [E03.9] 12/26/2011 Mass of lower outer quadrant of right breast [N*10/21/2022 Breast pain [N64.4] 10/21/2022 Encounter Status:Closed by PEDRO CLEANING on 10/13/24 PROGRESS Observed: 10/10/2024 1:26 PM Status: COMPLETED Source: [facility] HNO ID: [id number] Author: ISRA CALDWELL MD Service: ? Author Type: Resident Type: Progress Notes Filed: 10/10/2024 13:59 Note Text: Cardiothoracic Anesthesiology Preoperative Assessment Service Date: 10/10/2024 Service Time: 1:26 PM Primary Care Physician: Jesika Ro MD Subjective Patient Entered Data: 10/06/2024 Cardiothoracic Surgery Pre-Op Questionnaire Previous anesthesia problems No Family history anesthesia problems No Blood consent Yes Esophageal history Other Implanted devices No History difficult airway No Airway surgery No Ongoing pain issues No Heparin intolerance No Daily alcohol use No Illicit drug use No Scheduled procedure: Robotic NOAH trisegmentectomy Surgeon: Pedro Cleaning Scheduled date: 10/20/2024 HPI: 63 yo F w/ PMH of anxiety, GERD, hypothyroidism, lung cancer, osteoporosis, costochondritis who presents for preoperative assessment prior to robotic lung surgery 10/20 Review no known heparin intolerance not taking anticoagulant/antiplatelet medication no non-cardiac IEDs present no known esophageal disorders blood transfusion consented -. No resulted type AND screen to review COVID-19 Immunization Status Current Care Gaps Covid-19 Vaccine ( season) Overdue since 02/03/2024 03/12/2022 Imm Admin: COVID-19 vaccine, age 12+ yr, bivalent (MODERNA) 04/08/2021 Imm Admin: COVID-19 original vaccine, full dose, monovalent (MODERNA) 08/10/2020 Imm Admin: COVID-19 vaccine (Lemon Curve) Only the first 3 history entries have been loaded, but more history exists. The patient has the following: ACTIVE PROBLEM LIST URTICARIA IDIOPATHIC Esophageal Reflux DEPRESSION ACUTE - SINGLE EPISODE( Mild) Palpitations LUNG CANCER LOWER LOBE, NSC Excessive Or Frequent Menstruation Irregular Menstrual Cycle Dysmenorrhea Lipoma of Unspecified Site Low Back Pain Radiating to Left Leg Cervical Adenopathy Hypothyroidism Mass of Lower Outer Quadrant of Right Breast Breast Pain PAST MEDICAL HISTORY Diagnosis Date Dysmenorrhea Esophageal reflux Gastroesophageal reflux Excessive or frequent menstruation Heavy periods Lung cancer (HCC) Malignant neoplasm of other parts of bronchus or lung (HCC) 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 Llamas COLONOSCOPY SCREENING 2017 HYSTEROSCOPY, DIAGNOSTIC (SEPARATE 07/14/2008 Hysteroscopy/curretage LIG/TRNSXJ FLP TUBE ABDL/VAG APPR UNI/BI PAST SURGICAL HISTORY OF 2004 lower lobe right lung removed for non small cell carcinoma TONSILLECTOMY HX TOTAL ABDOMINAL HYSTERECT W/WO RMVL TUBE OVARY 03/31/2010 Hysterectomy, MERCEDES, BSO FAMILY HISTORY Problem Relation Age of Onset Cancer Mother UTERINE? Hypertension Mother Cancer Father lung with mets Coronary Artery Disease Father Hypertension Father Diabetes Sister Hypertension Sister Hypertension Sister Social History Tobacco Use Smoking status: Former Current packs/day: 0.00 Average packs/day: 0.5 packs/day for 20.0 years (10.0 ttl pk-yrs) Types: Cigarettes Start date: 03/04/1986 Quit date: 03/04/2006 Years since quittin.6 Smokeless tobacco: Never Vaping Use Vaping status: Never Used Substance Use Topics Alcohol use: Yes Alcohol/week: 1.0 - 2.0 standard drink of alcohol Types: 1 - 2 Cans of Beer (12oz) per week Comment: socially Drug use: No Prior to Admission medications as of 09/09/24 1229 Medication Sig Last Dose Taking clobetasol (TEMOVATE) 0.05 % ointment Apply 1 application to affected area two times a day. TO AFFECTED AREA. calcium carbonate (CALCIUM 600 ORAL) Take by mouth once daily. pantoprazole DR (PROTONIX) 40 mg tablet FA/MV,CA,IRON,MIN/LYCOPENE/LUT (MULTIVITAL ORAL) Take by mouth. ergocalciferol 50,000 unit capsule (VITAMIN D2, DRISDOL) Take 50,000 Units by mouth twice a week. levothyroxine (SYNTHROID) 75 mcg tablet Take 75 mcg by mouth once daily. Pt takes on tablet in the morning 6 days a week. LORazepam 0.5 mg tab Take by mouth three times daily as needed. Pt takes 1/2 tablet as needed metoprolol tartrate, short acting, (LOPRESSOR) 50 mg tablet Take 0.5 tablets by mouth twice daily. No medication comments found. ALLERGIES Allergen Reactions Albuterol Other: See Comments anxiety Levaquin [Levofloxa* Hives Metals [Other] Rash Jewlery Tape [Other] Hives Band aids Objective Pain Assessment: Vitals: LMP 03/14/2009 Diagnostic tests reviewed for today's visit: Lab Value Units Date High Low HB 14.4 g/dL 10/10/2024 15.5 11.5 HCT 42.3 % 10/10/2024 46.0 36.0 WBC 5.37 k/uL 10/10/2024 11.00 3.70 PLT 272 k/uL 10/10/2024 400 150 NA 142 mmol/L 10/10/2024 144 136 K 4.1 mmol/L 10/10/2024 5.1 3.7 GLUC 98 mg/dL 10/10/2024 99 74 BUN 17 mg/dL 10/10/2024 21 7 CREAT 0.66 mg/dL 10/10/2024 0.96 0.58 PTSEC 10.8 sec 10/10/2024 13.0 9.7 INR 1.0 no uni* 10/10/2024 1.3 0.9 APTT 25.9 sec 10/10/2024 32.4 23.0 ALT 30 U/L 10/10/2024 38 7 AST 32 U/L 10/10/2024 35 13 TBILI 0.3 mg/dL 10/10/2024 1.3 0.2 TSH 2.990 mIU/L 10/10/2024 4.200 0.270 Lab Value Units Date High Low HCGQT No results within date range. UHCG No results within date range. HCG, BODY* No results within date range. Lab Value Units Date High Low ABORHD No results within date range. ABSCREEN No results within date range. No results found for: "HBA1C" Recent Results (from the past 8760 hours) ECG COMPLETE Collection Time: 10/10/24 7:10 AM Impression SINUS BRADYCARDIA OTHERWISE NORMAL ECG Assessment No problem-specific Assessment AND Plan notes found for this encounter. ANESTHESIA FINDINGS: Intubation History: No history of difficult intubation Significant Anesthesia Considerations: potential postop nausea/vomiting Airway History: No history of difficult airway Prepared for Surgery: optimally prepared for surgery, pending [see comment]. The Following Tests/Procedures Have Been Initiated: No orders of the defined types were placed in this encounter. ASA Class: 3 Planned Anesthetic: general anesthesia choice I - PHYSICAL EVALUATION AIRWAY Patient intubated: No. Tracheostomy tube not present Mallampati: I. TM distance: >3 FB. Neck ROM: full ROM without neurological symptoms. Mouth opening: adequate. Short neck: no. Thick neck: no DENTAL Dental findings: teeth intact. II - ANESTHESIA PLAN ASA Score: 3 Anesthetic Plan: general Airway type: ETT Anesthetic plan additional comments: *PACC/TCI - anesthesia choice. Beta Jamaal Monitoring Plan Post Procedure Analgesic Plan Informed Consent Anesthetic risks, benefits, alternatives, personnel and consent discussed: yes. Patient / Responsible Republican agrees to proceed: yes Patient / Surrogate agrees to blood products: Yes Discussed the possibility of lip / dental damage: yes Instructions Given to Patient: Instructions located in the after visit summary. Patient given verbal and written preop instructions and voices comprehension and compliance. Signature: Isra Caldwell MD Patient Name: Merissa Sage Date: October 10, 2024 Time: 1:26 PM Pager/Contact #: PROGRESS Observed: 10/10/2024 12:45 PM Status: COMPLETED Source: [facility] HNO ID: [id number] Author: PEDRO CLEANING MD, PhD Service: Thoracic Surgery Author Type: Physician Type: Progress Notes Filed: 10/20/2024 10:48 Note Text: [place] [address] [place] DEPARTMENT OF THORACIC AND CARDIOVASCULAR SURGERY NAME: MERISSA SAGE [facility] #: [id number] DATE: AGE: 63 PHYSICIAN: Pedro Cleaning M.D., Ph.D. I had the sincere pleasure of seeing the patient in my Thoracic Surgery Clinic. This very pleasant and engaging 63-year-old woman has a highly suspicious lesion for non-small cell lung cancer at the apex of her left lung. She is for a planned resection, which may be a sublobar resection, perhaps trisegmentectomy. She does understand the risks, benefits, alternatives, and personnel involved with the procedure and has consented to this left lung resection. She knows that minimally invasive or robotic instrumentation may be utilized. From an anesthetic standpoint, a double-lumen tube should be used. Standard access for this type of operation should be obtained. Preoperative Solu-Medrol at 20 mg should be given as well as antibiotics and subcutaneous heparin. The patient has bilateral nodules and this operation will be focused on the left upper lobe apical nodule as the target. Pedro Cleaning M.D., Ph.D. SM:[id number] /[id number] [place] CARDIAC PERF STRESS/EXERCISE Observed: 10/10/2024 10:14 AM Status: F Source: [facility] * * *Final Report* * * DATE OF EXAM: Oct 10 2024 10:14AM [facility] 0004 - NM CARDIAC PERF STRESS/EXERCISE / PROCEDURE REASON: multiple diagnoses * * * * Physician Interpretation * * * * Stress Money Room Teller Report: [facility] ABA-2 Date of service: 10/10/2024 8:12:11 AM Supervising physician: Jimbo Leong MD PATIENT: Name: MRS. MERISSA SAGE Age: 63 years Gender: F The supervising physician was in the department and immediately available. * * * Final * * * PATIENT: Name: MRS. MERISSA SAGE Age: 63 years Gender: F CONCLUSIONS: 1. SPECT Perfusion Study: Normal. 2. There is no scintigraphic evidence for inducible ischemia. 3. No evidence of scarred myocardium. 4. Left ventricle is normal in size. The left ventricle systolic function is hyperdynamic. 5. Right ventricle is normal in size. The right ventricle systolic function is normal. 6. This is a low risk scan. Gated Stress FBP Gated Rest FBP LVEF % 86 80 Prior Study Comparison No prior nuclear cardiology exam available for comparison. Nuclear Med Report:1-Day Gated SPECT Myocardial Perfusion with Exercise Stress: Myocardial perfusion imaging was performed at rest 30 to 60 minutes following the IV injection of the radiotracer. One minute prior to peak exercise, the patient was injected IV with the radiotracer. Gated post stress tomographic imaging was performed 10 to 20 minutes later. See administered radiotracer and doses below. [place] Date of service: 10/10/2024 8:12:11 AM Ordering Physician: PEDRO CLEANING. Requesting Physician: PEDRO CLEANING Indication: Preop eval for noncard surg with intermediate risk and poor exercise tolerance Fellow: Vanessa Leger MD Interpreting physician: Jimbo Leong MD Height: 163.83 cm BSA: 1.61 m? Weight: 56.70 kg BMI: 21.1 kg/m? Imaging Protocol Limitation Reason G.I. uptake and Patient motion. CT Dose-Length Product(DLP): 25.0 mGy * cm. CT Dose Reduction Employed: Yes. Exam Type: Rest Stress Radiopharm: Tc-99m Tetrofosmin Tc-99m Tetrofosmin Dosage(mCi): 11.1 30.5 Atten Correction: not performed performed Stress Agent: Treadmill Resting Blood Press: 120/78 mmHg Image Quality The overall study imaging quality was deemed to be good. The following technical issues were noted: G.I. uptake and Patient motion. FINDINGS: Left Ventricle Wall Motion: Stress IR:3D - All segments are normal. Rest IR:3D - Gated Stress FBP - Reversibility - Gated Rest FBP - Stress IR:3D Stress IR:3D Gated Stress FBP Gated Rest FBP LVEF: 86 % 80 % ED Volume: 43 ml 54 ml ES Volume: 6 ml 11 ml TID: 0.92 Perfusion Findings Stress IR:3D - Summed Score=0 All segments demonstrate normal perfusion. Rest IR:3D - Summed Score=0 All segments demonstrate normal perfusion. Stress IR:3D Rest IR:3D Summed Score=0 Summed Score=0 LEFT VENTRICLE The left ventricle is normal in size. Left ventricular systolic function is hyperdynamic. Right Ventricle The right ventricle is normal in size. Right ventricle systolic function is normal. Stress Test Findings: There is no scintigraphic evidence for inducible ischemia. There is no evidence of scarring. * * * Final * * * NM CTAC Report: [facility] Date of service: 10/10/2024 8:12:11 AM CTAC interpreting physician: Jimbo Leong MD PATIENT: Name: MRS. MERISSA SAGE Age: 63 years Gender: F 1. Incidental Findings from limited non-diagnostic CTAC: - No distinct coronary calcifications. * * * Final * * * Stress ECG Report: [facility]-2 Date of service: 10/10/2024 8:12:11 AM Ordering physician: PEDRO CLEANING auto wheel alignment specialist: Kayy Clark Pulmonary Function Technologist: Aviva Harrison Fellow: Vanessa Carvajal MD and Ale Leger MD Interpreting physician: Jimbo Leong MD Patient name: MRS. MERISSA SAGE Age: 63 years Gender: F Height: 163.83 cm BSA: 1.61 m? Weight: 56.70 kg BMI: 21.1 kg/m? Indication: Chest pressure / Chest tightness and Encounter for pre-procedural cardiovascular examination for non-cardiac surgery Stress ECG Conclusion: Conclusion: Normal Stress ECG Summary: The patient's resting heart rate was 53 bpm and blood pressure was 120/78 mmHg. The patient exercised according to the [place] 10% protocol. The estimated end-exercise MET level achieved using the FRIEND equation * * * was 7.0, which is within the 75th to 90th percentile for age and sex. The estimated end-exercise MET level achieved using the previous ACSM equation was 8.3. The test was terminated due to general fatigue and the total exercise time was 7 minutes and 30 seconds. Other symptoms during the test included palpitations. The maximum heart rate was 148 bpm, which is 96% of the predicted heart rate for age. This is an adequate heart rate response. Peak blood pressure was 148/80 mmHg. The double product achieved was [address]. Medications: Last Used METOPROLOL 12 Hours Resting ECG: Sinus Bradycardia Exercise Protocol: [place] 10% Stress Exercise Table: +-----+ +--------+ +---+---+---+----+---+----+ Stage Speed (MPH) Grade(%) Time (min) HR SYS CHRISTOPHER RPE SOB METS +-----+ +--------+ +---+---+---+----+---+----+ 1 1.7 10.0 2.0 96 130 80 9.0 1.0 4.2 +-----+ +--------+ +---+---+---+----+---+----+ 2 2.1 11.0 4.0 108 136 82 11.0 2.0 5.1 +-----+ +--------+ +---+---+---+----+---+----+ 3 2.5 12.0 6.0 125 148 80 12.0 2.0 6.1 +-----+ +--------+ +---+---+---+----+---+----+ +-----+ +---------+ +---+---+---+----+---+----+ Speed (MPH) Grade (%) Time (min) HR SYS CHRISTOPHER RPE SOB METS +-----+ +---------+ +---+---+---+----+---+----+ Final 3.0 13.0 7.50 148 148 80 18.0 5.0 7.0 +-----+ +---------+ +---+---+---+----+---+----+ +-----+ + + Arrhythmias Symptoms +-----+ + + Final Rare PAC (<3/min) Palpitations +-----+ + + Recovery Table: +------+ +--------+ +---+---+---+----+ Stage Speed (MPH) Grade(%) Time (min) HR SYS CHRISTOPHER METS +------+ +--------+ +---+---+---+----+ 1 1.5 2.5 1.0 115 122 90 2.7 +------+ +--------+ +---+---+---+----+ 2 1.5 2.5 2.0 100 150 88 2.7 +------+ +--------+ +---+---+---+----+ 3 3.0 77 150 90 +------+ +--------+ +---+---+---+----+ 4 5.0 85 126 82 +------+ +--------+ +---+---+---+----+ +-----+ + Stage Arrhythmias +-----+ + 4 Rare PAC (<3/min) +-----+ + Stress Observations: Resting HR: 53 bpm Peak HR: 148 bpm (96% MPHR) Resting BP: 120 / 78 mmHg Peak BP: 148 / 80 mmHg Total exercise time: 7 minutes 30 seconds METS achieved: 7.0 Chronotropic response index (CRI): 0.94 Heart rate recovery (HRR): 33 bpm Rate Pressure Product (RPP): 97256 Stress Exercise Observations: Reason for test termination: general fatigue, Symptoms during test: Other symptoms during the test included palpitations, Heart rate response: Adequate heart rate response, Normal HRR (>12 or >[address]/EC) and Normal CRI (> 0.62 on B Jamaal), Blood pressure response: Normal BP response, ST segment and T wave changes: No ST changes, Coulter Treadmill Score: Normal Coulter Treadmill Score (>=5) and Arrhythmias: PACs Metabolic Exercise Data Variable: Observed value [Expected Range] HGI: 2.4 [>1.06 bpm/mmHg] * * * IMPORTANT NOTE REGARDING ESTIMATED MET VALUES: Effective 03/21/2020, the reference equation for determining estimated MET values for [facility] stress tests changed. Comparison of test results before and after that date may show a change in estimated MET values for peak/max exercise despite a test duration that is similar in length. The validity of the new FRIEND equation for exercise METS is endorsed by the [place] Heart Association. Emma P, Kalina LA, Mamie R, Duran J, Dana Madera. New Generalized Equation for Predicting Maximal Oxygen Uptake (from the Fitness Registry and the Importance of Exercise National Database). The [place] Journal of Cardiology. 2017;120(4):688-692). * * * Final * * * RP Natural Resources Extension Educator: BENJAMIN Transcribe Date/Time: Oct 10 2024 8:12A Dictated by : IJMBO LEONG MD This examination was interpreted and the report reviewed and electronically signed by: JIMBO LEONG MD on Oct 10 2024 11:55AM EST [id number] URINALYSIS, DIPSTICK ONLY Collected: 10/10/2024 9:35 AM Status: F Source: [facility] Order Comment: Specimen Type : URINE SPECIMEN Ordering Facility: [facility] Address: [facility] [place] [address] TYPE CODE TESTS RESULT OUT OF RANGE REFERENCE UNITS LAB 5778-6(LOINC) Color Ur Yellow Yellow LAB 70371-6(LOINC) Clarity Spec Clear Clear LAB 5792-7(LOINC) Glucose Ur Strip-mCnc Negative Negative LAB 5770-3(LOINC) Bilirub Ur Ql Strip Negative Negative LAB 2514-8(LOINC) Ketones Ur Strip Negative Negative LAB 5811-5(LOINC) Sp Gr Ur Strip 1.012 1.005-1.030 LAB 5794-3(LOINC) Hgb Ur Ql Strip Negative Negative LAB 5803-2(LOINC) pH Ur Strip 7.5 <8.5 LAB 5804-0(LOINC) Prot Ur Strip-mCnc Negative Negative LAB 5818-0(LOINC) Urobilinogen Ur Strip 0.2 EU/dL 0.2-1.0 EU/dL LAB 5802-4(LOINC) Nitrite Ur Ql Strip Negative Negative LAB 5799-2(LOINC) Leukocyte esterase Ur Ql Strip Negative Negative Performed By: #### UA #### [facility] CLIA [id number] [address] [place] [address] PROGRESS Observed: 10/10/2024 8:30 AM Status: COMPLETED Source: [facility] HNO ID: [id number] Author: ARI EDWARDS RT(R) Service: Nuclear Medicine Author Type: Technologist Type: Progress Notes Filed: 10/10/2024 09:06 Note Text: RADIOLOGY SERVICE PROGRESS NOTE SERVICE DATE: 10/10/2024 SERVICE TIME: 8:07 AM PATIENT IDENTITY VERIFICATION COMPLETED USING TWO (2) STANDARD IDENTIFIERS: Name and Date of confirmed by patient verbally FALL SCREENING: Has the patient had 2 falls in the last year or 1 fall with injury or currently using an Ambulatory Assistive Device (Walker, Cane, Wheelchair, Crutches, etc.)? No PATIENT GENDER DATA: .female : No ALLERGIES: Reviewed and unchanged MEDICATIONS REVIEWED: Yes PATIENT RELEVANT IMPLANT DATA REVIEWED: Not Applicable PATIENT PRESENTS WITH AN IMPLANTABLE OR ATTACHED SENIOR PROJECT ACCOUNTANT: No CREATININE: Creatinine Date Value Ref Range Status 10/10/2024 0.66 0.58 - 0.96 mg/dL Final Estimated Glomerular Filtration Rate Date Value Ref Range Status 10/10/2024 97 >=60 mL/min/1.73m? Final Comment: Estimated Glomerular Filtration Rate (eGFR) is calculated using the 2020 CKD-EPI creatinine equation. This equation utilizes serum creatinine, sex, and age as parameters. The creatinine assay has traceable calibration to isotope dilution-mass spectrometry. Refer to KDIGO guidelines for clinical interpretation. In patients with unstable renal function, e.g. those with acute kidney injury, the eGFR may not accurately reflect actual GFR. P.O.C.T. RESULTS: N/A October 10, [address] PERFORMED: No IV SITE: Ambulatory: A peripheral IV was started in the Left FA./Wrist area with a Angio cath: 22 gauge. POST EXAM PIV STATUS: Discontinued PROCEDURE TYPE: AL Stress: 11.1 mCi [id number] was administered IV for Rest Imaging at 0804 by Heydi Monroy [facility],RT(N). 30.5 mCi [id number] was administered IV for Stress Imaging at 0905 by Ari Edwards [facility]. PATIENT DISCHARGED TO: Ambulatory patient, left [place] department area. Is this a therapy: No A Diagnostic radioactive procedure has taken place, with no further precautions necessary other than routine body substance precautions. More information regarding radiation safety can be found using this link: [email or web address] SIGNATURE: Moni Monroy, RT(R) PATIENT NAME: Merissa Sage DATE: October 10, 2024 TIME: 8:07 AM PAGER/CONTACT #: PROGRESS Observed: 10/10/2024 7:11 AM Status: COMPLETED [id number] Author: SARIAH MALDONADO, Research Coordinator Service: ? Author Type: Research Type: Progress Notes Filed: 10/10/2024 07:12 Note Text: Summary: Consent for [id number] INFORMED RESEARCH CONSENT Study Number: [id number] Study Title: Tissue and Body Fluid Analysis from Patients with Cancer and Other Risk-Associated Lesions Patient seen today to obtain clinical trial informed consent. Patient states he/she has read the consent. Research plan, including all testing, potential risks/benefits, and follow-up were explained. Roles of the clinical trial personnel to be involved and the financial responsibilities of the patient regarding procedures were discussed. All study related questions have been addressed or answered at this time. Contact information for research team was provided within the consent. Patient verbalizes understanding of all aforementioned information and voluntarily agrees to proceed with this clinical trial. Consent willingly signed by patient and approved study store team member at 06:55 a.m. Patient given copy of signed informed consent. Enrollment in this study does NOT alter treatment plans. Study includes the following: Allowing identification of the patient's redundant biospecimens for research (tissue, fluids, etc). Allowing a research blood draw. Version 7 Dated Jul 09 2023 includes permission to recontact about actionable findings. Sariah Maldonado, Research Coordinator October 10, 2024 ECG COMPLETE Observed: 10/10/2024 7:10 AM Status: F Source: [facility] Ventricular Rate : 56 BPM Atrial Rate : 56 BPM P-R Interval : 172 ms QRS Duration : 74 ms Q-T Interval : 422 ms QTC Calculation(Bazett) : 407 ms Calculated P Monroe : 68 degrees Calculated R Monroe : 48 degrees Calculated T Monroe : 73 degrees SINUS BRADYCARDIA OTHERWISE NORMAL ECG Confirmed by WADE KO M.D. ([id number]) on 11/06/2024 3:51:48 PM NAME : MERISSA SAGE PID : [id number] : 1960 Gender : Female Race : ORD : [id number] Procedure Date : Oct 10 2024 07:10:41 Edit Date : Nov 06 2024 16:00:05 Diagnosis: SINUS BRADYCARDIA OTHERWISE NORMAL ECG Confirmed by WADE KO M.D. ([id number]) on 11/06/2024 3:51:48 PM Test Reason : Location : 314 : 14 J1-4 Overread By : WADE KO M.D. Edited By : WADE KO M.D. Referred By : PEDRO CLEANING Acquired by : ERICSeptember BLOOD TYPE Collected: 6:46 AM Status: F Source: [facility] Order Comment: Specimen Type : BLOOD SPECIMEN Ordering Facility: [facility] Address: [address] [place] [address] TYPE CODE TESTS RESULT OUT OF RANGE REFERENCE UNITS LAB [id number] ABO O LAB [id number] RH Positive Performed By: #### CONABO ## ## CC MAIN BLOOD BANK CLIA [id number] [address] [place] [address] OF [facility] COMP METAB 2000 PNL SERPL Collected: 6:41 AM Status: F Source: [facility] Comment: Specimen Type : BLOOD SPECIMEN Ordering Facility: [facility] Address: [address] [place] [address] TYPE CODE TESTS RESULT OUT OF RANGE REFERENCE UNITS LAB 2885-2(LOINC) Prot SerPl-mCnc 7.4 6.3-8.0 g/dL LAB 1751-7(LOINC) Albumin SerPl-mCnc 4.4 3.9-4.9 g/dL LAB 18294-6(LOINC) Calcium SerPl-mCnc 9.2 8.5-10.2 mg/dL LAB 1975-2(LOINC) Bilirub SerPl-mCnc 0.3 0.2-1.3 mg/dL LAB 6768-6(LOINC) ALP SerPl-cCnc 58 34-123 U/L LAB 1920-8(LOINC) AST SerPl-cCnc 32 13-35 U/L LAB 1742-6(LOINC) ALT SerPl-cCnc 30 7-38 U/L LAB 2345-7(LOINC) Glucose SerPl-mCnc 98 74-99 mg/dL Result Comment: The Citizen [place] Diabetes Association (ADA) provides guidance for cutoff values for fasting glucose and random glucose. The ADA defines fasting as no caloric intake for at least 8 hours. Fasting plasma glucose results between 100 to 125 mg/dL indicate increased risk for diabetes (prediabetes). Fasting plasma glucose results greater than or equal to 126 mg/dL meet the criteria for diagnosis of diabetes. In the absence of unequivocal hyperglycemia, results should be confirmed by repeat testing. In a patient with classic symptoms of hyperglycemia or hyperglycemic crisis, random plasma glucose results greater than or equal to 200 mg/dL meet the criteria for diagnosis of diabetes. Reference: Standards of Medical Care in Diabetes 2016, [place] Diabetes Association. Diabetes Care. 2016.39(Suppl 1). LAB 3094-0(LOINC) BUN SerPl-mCnc 17 7-21 mg/ dL LAB 2160-0(LOINC) Creat SerPl-mCnc 0.66 0.58-0.96 mg/dL LAB 2951-2(LOINC) Sodium SerPl-sCnc 142 136-144 mmol/L LAB 2823-3(LOINC) Potassium SerPl-sCnc 4.1 3.7-5.1 mmol/L LAB 2075-0(LOINC) Chloride SerPl-sCnc 105 98-107 mmol/L LAB 2027-9(LOINC) CO2 SerPl-sCnc 26 22-30 mmo l/L LAB 06683-0(LOINC) Anion Gap SerPl-sCnc 11 8-15 mmol/L LAB 15047-5(LOINC) Creatinine + eGFR Pnl SerPlBld 97 >=60 mL/min/1 .73m??? Result Comment: Estimated Gl omerular Filtration Rate (eGFR) is calculated using the 2020 CKD-EPI creatinine equation. This equation utilizes serum creatinine, sex, and age as parameters. The creatinine assay has traceable calibration to isotope dilution-mass spectrometry. Refer to KDIGO guidelines for clinical interpretation. In patients with unstable renal function, e.g. those with acute kidney injury, the eGFR may not accurately reflect actual GFR. Performed By: #### 3016-3, 2 4323-8 #### [facility] CLIA [id number] [address] [place] [address] [place] TSH SERPL-ACNC Collected: 5 6:41 AM Status: F Source: [facility] Order Comment: Specimen Type : BLOOD SPECIMEN Ordering Facility: [facility] Address: [address] [place], [place] [address] TYPE CODE TESTS RESULT OUT OF RANGE REFERENCE UNITS LAB 3016-3(LOINC) TSH SerPl-aCnc 2.990 0.270-4.200 mIU/L Performed By: #### 3016-3, 2 4323-8 #### [facility] CLIA [id number] [address] [place] [address] [place] PT PNL PPP Collected: 10/10/2024 6:41 AM Status: F Source: [facility] Order Comment: Specimen Type : BLOOD SPECIMEN Ordering Facility: [facility] Address: [address] [place] [address] TYPE CODE TESTS RESULT OUT OF RANGE REFERENCE UNITS LAB 5902-2(LOINC) Prothrombin time 10.8 9.7-13.0 sec LAB 6301-6(LOINC) INR PPP 1.0 0.9-1.3 Result Comment: Vitamin K An tagonist (VKA) Therapeutic Range: INR 2 to 3 (Target INR of 2.5) Note: For patients treated with VKA drugs, such as warfarin, the [place] College of Chest Physicians 2012 Guideline recommends a therapeutic INR range of 2 to 3 (target INR of 2.5). This recommendation includes high-risk patients with antiphospholipid syndrome with previous arterial or venous thromboembolism, current-generation mechanical or bioprosthetic aortic heart valve replacement. Note: Patients with mechanical aortic valve replacement and additional risk factors for thromboembolic events (atrial fibrillation, previous thromboembolism, LV dysfunction, hypercoagulable conditions) or an older generation mechanical AVR (i.e., ball in-Cage) or any mechanical MVR should have a INR therapeutic range of 2.5 to 3.5 (target INR of 3). Gavino GH, et al. Chest 2012, 141:7S-47S Raúl RA, et al. JACC 2017, 70: 252-289 Performed By: #### 30248-5, 59782-2 #### [facility] CLIA [id number] [address] [place], [place] [id number] [place] APTT PPP Collected: 6:41 AM Status: F Source: [facility] Order Comment: Specimen Type : BLOOD SPECIMEN Ordering Facility: [facility] Address: [address] [place] [address] TYPE CODE TESTS RESULT OUT OF RANGE REFERENCE UNITS LAB 68430-1([facility]) aPTT PPP 25.9 23.0-32.4 sec Performed By: #### 95327-2, 82211-8 #### [facility] CLIA [id number] [address] [place] [address] [place] STAPHYLOCOCCUS AUREUS AND MR SA SCREEN, PCR, NASAL Collected: 10/10/2024 6:41 AM Status: F Source: [facility] Comment: Specimen Type : SWAB Ordering Facility: [facility] Address: [address] [place] [address] TYPE CODE TESTS RESULT OUT OF RANGE REFERENCE UNITS LAB 12965-9([facility]) SA+MRSA Pnl Nose OTIS+probe Not Detected Not Detected Performed By: #### SAPCR ### # [facility] CLIA [id number] [address] [place] [address] [place] CBC W AUTO DIFF BLD Collected: 10/10/2024 6:[address] atus: F Source: [facility] Order Comment: Specimen Type : BLOOD SPECIMEN Ordering Facility: [facility] Address: [address] [place] [address] TYPE CODE TESTS RESULT OUT OF RANGE REFERENCE UNITS LAB 6690-2(INC) WBC # Bld Auto 5.37 3.70-11.00 k/uL LAB 789-8(LOINC) RBC # Bld Auto 4.70 3.90-5.20 m/ uL LAB 718-7([facility]) Hgb Bld-mCnc 14.4 11.5-15.5 g/dL LAB 4544-3(INC) Hct VFr Bld Auto 42.3 36.0-46.0 % LAB 787-2(INC) MCV RBC Auto 90.0 80.0-100.0 fL LAB 785-6(LOINC) MCH RBC Qn Auto 30.6 26.0-34.0 p g LAB 786-4([facility]) MCHC RBC Auto-mCnc 34.0 30.5-36.0 g/dL LAB 59177-7([facility]) RDW RBC-Rto 11.6 11.5-15.0 % LAB 777-3([facility]) Platelet # Bld Auto 272 150-400 k/uL LAB 11290-4([facility]) PMV Bld Auto 9.5 9.0-12.7 fL LAB 770-8([facility]) Neutrophils/leuk NFr Bld Auto 47.9 % LAB 751-8([facility]) Neutrophils # Bld Auto 2.57 1.45-7.50 k/uL LAB 736-9([facility]) Lymphocytes/leuk NFr Bld Auto 38.9 % LAB 731-0([facility]) Lymphocytes # Bld Auto 2.09 1.00-4.00 k/uL LAB 5905-5([facility]) Monocytes/leuk NFr Bld Auto 9.5 % LAB 742-7([facility]) Monocytes # Bld Auto 0.51 <0.87 k/uL LAB 713-8([facility]) Eosinophil/leuk NFr Bld Auto 2.6 % LAB 711-2([facility]) Eosinophil # Bld Auto 0.14 <0.46 k/uL LAB 706-2([facility]) Basophils/leuk NFr Bld Auto 0.9 % LAB 704-7([facility]) Basophils # Bld Auto 0.05 <0.11 k/uL LAB 26296-7([facility]) Imm Granulocytes/nicolás k NFr Bld Auto 0.2 % LAB 19726-8([facility]) Imm Granulocytes # Bld Auto <0.03 <0.10 k/uL LAB 93957-7([facility]) nRBC/100 WBC Bld-Rto 0.0 /100 WBC LAB 771-6([facility]) nRBC # Bld Auto <0.01 <0.01 k/u L LAB 89400-7([facility]) Differential method Bld Auto Performed By: #### 19028-5 # ### [facility] CLIA [id number] [address] [place] [address] [place] TYPE AND SCREEN,30 DAY Collected: 10/10/2024 6:41 AM Status: F Source: [facility] Order Comment: Specimen Type : BLOOD SPECIMEN Ordering Facility: [facility] Address: [address] [place] [address] TYPE CODE TESTS RESULT OUT OF RANGE REFERENCE UNITS LAB [id number] ABO O LAB [id number] RH Positive LAB [id number] ANTIBODY SCREEN Negative Performed By: #### [id number] ## ## CC MAIN BLOOD BANK CLIA [id number] [address] [place] [address] [place] PROGRESS Observed: 10/08/2024 1:59 PM Status: COMPLETED Source: [facility] HNO ID: [id number] Author: ALLA MEDEROS RN Service: ? Author Type: Registered Nurse Type: Progress Notes Filed: 10/08/2024 14:13 Note Text: Merissa Sage was reviewed for potential clinical trial enrollment on [facility] #[id number] by the Lung group on 10/08/24. Per initial review, patient has disease type early stage lung cancer and appears to be preliminarily eligible and further testing/procedures required to determine final eligibility, pending staging result.. Requesting alliance party notified. No Study tasks were completed as a result of this initial review. Alla Mederos RN PROGRESS Observed: 09/24/2024 12:57 PM Status: COMPLETED Source: [facility] HNO ID: [id number] Author: IVAN CHRISTIANSON RN Service: ? Author Type: Registered Nurse Type: Progress Notes Filed: 09/24/2024 13:01 Note Text: Call from pt. who requests to have a cortisone injection for her "tennis elbow" pain prior to her upcoming thoracic surgery procedure on 10/20/2024. Spoke to Dr. Cleaning who advised pt. may have the cortisone injection for the elbow pain if it can be performed EVA. Return call to pt. and advised of above. States understanding and will contact her provider to see if the injection can be scheduled EVA. Ivan Christianson RN Thoracic NPM CNPN Observed: 09/22/2024 12:00 AM Status: COMPLETED Source: [facility] ALONAMERISSA ([id number]) 1960 F Date Time Provider Department 09/22/24 JANET WOODWARD During your visit today, we recorded the following information about you: Janet Woodward, RN 09/22/2024 1:49 PM Signed Returned patient's call after leaving with multiple concerns. Patient inquiring about various appointments on 10/10, 10/13 and 10/17. Answered questions to patient's satisfaction. Patient expressed gratitude for taking the time to answer her questions. Patient denied further questions or concerns at this time. Call time: 20:15 Allergies As of Date: 09/22/2024 Noted Allergy Reaction LEVAQUIN (LEVOFLOXACIN) 07/06/2008 4 - Hives metals [Other] 05/26/2008 tape [Other] 05/26/2008 Date Reviewed: 09/09/2024 Reviewed by: Jeromy Solis MA - Fully Assessed Prescriptions as of 09/22/2024 - clobetasol (TEMOVATE) 0.05 % ointment Apply 1 application to affected area two times a day. TO AFFECTED AREA. - calcium carbonate (CALCIUM 600 ORAL) Take by mouth once daily. - pantoprazole DR (PROTONIX) 40 mg tablet - FA/MV,CA,IRON,MIN/LYCOPENE/LUT (MULTIVITAL ORAL) Take by mouth. - ergocalciferol 50,000 unit capsule (VITAMIN D2, DRISDOL) Take 50,000 Units by mouth twice a week. - levothyroxine (SYNTHROID) 75 mcg tablet Take 75 mcg by mouth once daily. Pt takes on tablet in the morning 6 days a week. - LORazepam 0.5 mg tab Take by mouth three times daily as needed. Pt takes 1/2 tablet as needed - metoprolol tartrate, short acting, (LOPRESSOR) 50 mg tablet Take 0.5 tablets by mouth twice daily. 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] 06/20/2006 ESOPHAGEAL REFLUX [K21.9] 06/20/2006 DEPRESSION ACUTE - SINGLE EPISODE( Mild) [F32.0]06/20/2006 PALPITATIONS [R00.2] 06/20/2006 LUNG CANCER LOWER LOBE, NSC [C34.30] 06/20/2006 EXCESSIVE MENSTRUATION [N92.0] 07/08/2008 IRREGULAR MENSTRUATION [N92.6] 07/08/2008 DYSMENORRHEA [N94.6] 07/08/2008 Lipoma of Unspecified Site [D17.9] 06/07/2009 Low back pain radiating to left leg [M54.50, M7*06/19/2011 Cervical adenopathy [R59.0] 12/26/2011 Hypothyroidism [E03.9] 12/26/2011 Mass of lower outer quadrant of right breast [N*10/21/2022 Breast pain [N64.4] 10/21/2022 Encounter Status:Closed by JANET WOODWARD on 09/22/24 PROGRESS Observed: 09/18/2024 4:21 PM Status: COMPLETED Source: [facility] HNO ID: [id number] Author: IVAN CHRISTIANSON RN Service: ? Author Type: Registered Nurse Type: Progress Notes Filed: 09/18/2024 16:31 Note Text: Confirmed surgical date of 10/20/2024 for Robotic NOAH trisegmentectomy c=2.5 (ICG marker 10/17/2024) with TCI on 10/10/2024 with Stress, EKG, Lab tests. Advised of expected 3-day hospital stay with no current visiting restrictions with face mask required in patient care areas. Instructed to stop any OTC vitamins, supplements, cold, and allergy or Motrin/ibuprofen meds starting 7 days prior to surgery. Robotic NOAH trisegmentectomy c=2.5 (ICG marker 10/17/2024) OR 10/20/2024 TCI on 10/10/2024 with Stress, EKG, Lab tests. Advised of expected 3-day hospital stay with no current visiting restrictions with face mask required in patient care areas. Instructed to stop any OTC vitamins, supplements, cold, allergy, or Motrin/ibuprofen meds starting 7 days prior to surgery. Ivan Christianson RN Thoracic NPM PROGRESS Observed: 09/17/2024 3:41 PM Status: COMPLETED Source: [facility] HNO ID: [id number] Author: JANET WOODWARD RN Service: ? Author Type: Registered Nurse Type: Progress Notes Filed: 09/17/2024 16:07 Note Text: Bronchoscopy Request: Procedure Date 10/17 Location: [facility]: [address] [place] [address] Check in: 1st floor Registration Arrival time: Will receive call the day prior to the procedure Parking: [employer], or adjacent Parking garage Advised patient NPO after midnight from evening prior, through procedure time Patient will need a pickup driver Scheduling needs: Est visit: schedule on 10/13 Labs: walk-in EKG: walk-in CT chest: scheduled on 10/13 Communication of medication: NA Provided patient with office number, time to ask questions, and write down information. [phone] PROGRESS Observed: 09/17/2024 2:58 PM Status: COMPLETED Source: [facility] HNO ID: [id number] Author: JANET WOODWARD RN Service: ? Author Type: Physician Type: Progress Notes Filed: 09/17/2024 15:41 Note Text: Bronchoscopy Request: Please schedule patient for the following: Bronchoscopy Procedures: Galaxy Robot with coil localization Pre-Procedure visit required: Yes Visit type: est visit Anticipated Procedure Date: 10/17 Physician Performing Bronchoscopy: Nita Grimes Needs Labs: yes, CBC and BMP Needs EKG: yes Needs CT: Yes EMN Bronchoscopy Protocol Chest CT Does the pt need cardiac clearance? No Is patient on anticoagulants/anti-plt therapy? No Is patient on GLP-1 agonsits (ie Ozempic, Mounjaro, Trulicity, etc)? No Is patient on SGLT2 inhibitors (?-flozin? drugs - Jardiance, etc)? No PACC visit needed No Diagnosis/Reason for Bronchoscopy: Coil localization for Black Referred by: Black Reviewed by: GARY Inman MD September 17, 2024 2:58 PM CNPN Observed: 09/12/2024 12:00 AM Status: COMPLETED Source: [facility] Telephone ([facility]) MERISSA SAGE ([id number]) 1960 F Date Time Provider Department 09/12/24 PEDRO CLEANING During your visit today, we recorded the following information about you: Kelley Velazquez 09/12/2024 10:24 AM Signed Received call from pt stating she is calling for an update on care plan, pt can be reached at [phone] Kelley Velazquez, travel administrator Allergies As of Date: 09/12/2024 Noted Allergy Reaction LEVAQUIN (LEVOFLOXACIN) 07/06/2008 4 - Hives metals [Other] 05/26/2008 tape [Other] 05/26/2008 Date Reviewed: 09/09/2024 Reviewed by: Jeromy Solis MA - Fully Assessed Reason for Visit: Patient Question [3117] Prescriptions as of 09/12/2024 - clobetasol (TEMOVATE) 0.05 % ointment Apply 1 application to affected area two times a day. TO AFFECTED AREA. - calcium carbonate (CALCIUM 600 ORAL) Take by mouth once daily. - pantoprazole DR (PROTONIX) 40 mg tablet - FA/MV,CA,IRON,MIN/LYCOPENE/LUT (MULTIVITAL ORAL) Take by mouth. - ergocalciferol 50,000 unit capsule (VITAMIN D2, DRISDOL) Take 50,000 Units by mouth twice a week. - levothyroxine (SYNTHROID) 75 mcg tablet Take 75 mcg by mouth once daily. Pt takes on tablet in the morning 6 days a week. - LORazepam 0.5 mg tab Take by mouth three times daily as needed. Pt takes 1/2 tablet as needed - metoprolol tartrate, short acting, (LOPRESSOR) 50 mg tablet Take 0.5 tablets by mouth twice daily. 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] 06/20/2006 ESOPHAGEAL REFLUX [K21.9] 06/20/2006 DEPRESSION ACUTE - SINGLE EPISODE( Mild) [F32.0]06/20/2006 PALPITATIONS [R00.2] 06/20/2006 LUNG CANCER LOWER LOBE, NSC [C34.30] 06/20/2006 EXCESSIVE MENSTRUATION [N92.0] 07/08/2008 IRREGULAR MENSTRUATION [N92.6] 07/08/2008 DYSMENORRHEA [N94.6] 07/08/2008 Lipoma of Unspecified Site [D17.9] 06/07/2009 Low back pain radiating to left leg [M54.50, M7*06/19/2011 Cervical adenopathy [R59.0] 12/26/2011 Hypothyroidism [E03.9] 12/26/2011 Mass of lower outer quadrant of right breast [N*10/21/2022 Breast pain [N64.4] 10/21/2022 Encounter Status:Closed by KELLEY VELAZQUEZ on 09/12/24 PROGRESS Observed: 09/09/2024 1:41 PM Status: COMPLETED Source: [facility] HNO ID: [id number] Author: PEDRO CLEANING MD, PhD Service: ? Author Type: Physician Type: Progress Notes Filed: 09/09/2024 13:42 Note Text: [facility] STAFF PHYSICIAN NOTE OF PERSONAL INVOLVEMENT IN CARE I have reviewed the documentation obtained and documented by the Physician Pulmonary Function Technologist and I have personally performed the substantive portion of the visit which includes the medical decision making. I have discussed the case and management of the patient's care. I wish to add the following findings which have been dictated and will be communicated back to the requesting physician. STAFF PHYSICIAN: Pedro Cleaning MD, PhD DATE OF SERVICE: September 09, 2024 TIME OF SERVICE: 1:41 PM PROGRESS Observed: 09/09/2024 12:40 PM Status: COMPLETED Source: [facility] HNO ID: [id number] Author: JOEL FRAZIER PA-C Service: ? Author Type: Physician Pulmonary Function Technologist Type: Progress Notes Filed: 09/09/2024 13:42 Note Text: [facility] THORACIC SURGERY OUTPATIENT CONSULT NOTE Merissa Sage [id number] Requesting Provider: George Watson Thoracic Physician: Pedro Cleaning MD Chief Complaint: Lung nodules Impression: Merissa Sage is a 63 year old White female referred by George Watson for an opinion regarding management of NOAH Lung Nodule. Plan: Plan and treatment as per Dr. Cleaning. SIGNATURE: Joel Frazier PA-C PAGER: [phone] DATE of SERVICE: 09/09/2024 TIME of SERVICE: 12:40 PM HPI: Merissa Sage is a 63 year old White female referred by George Watson for an opinion regarding management of Lung Nodule. Patient found to have GGO on yearly screening CT since she has had done since her RLLobectomy in 2005 (Katiuska Chang) for lung cancer stage 1A. These remained stable for a while, but recently, one demonstrated growth. PET from 07/12/2023 with no FDG uptake throughout. CT chest on 01/10/2024 with 1.3 cm groundglass nodular opacity posteriorly in RUL that has shown slight progressive growth over multiple prior studies as well as a 1.5 cm groundglass opacity at the NOAH apex with progressive growth. Stable 0.4 cm groundglass nodule at right apex. She is currently doing well. She is anxious about visit today. Patient endorses pain in chest (diagnosed with costochondritis previously). Has some pain from previous surgery. Patient goes for walks. PMH including former tobacco abuse (1/2 ppd x 20 years - more socially, quit in 2005), anxiety, GERD, hypothyroidism, lung cancer, osteoporosis, costochondritis, social EtOH use, palpitations (had cardiac workup) s/p c-sections x2, s/p cholecystectomy, s/p tonsillectomy, s/p tubal ligation, s/p L knee surgery (meniscus), Hx of fall s/p kypoplasty (document at least 4 of these elements) Location: left Timing: Following for a few years Context: Grew slightly in past year Associated signs and symptoms: None ECOG Score: 0 Living arrangement: Lives with family/friend Functional status: Independent Unintentional weight loss over last 3 months: No PAST MEDICAL HISTORY Diagnosis Date Dysmenorrhea Esophageal reflux Gastroesophageal reflux Excessive or frequent menstruation Heavy periods Lung cancer (HCC) Malignant 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 Llamas COLONOSCOPY SCREENING 2017 HYSTEROSCOPY, DIAGNOSTIC (SEPARATE 07/14/2008 Hysteroscopy/curretage LIG/TRNSXJ FLP TUBE ABDL/VAG APPR UNI/BI PAST SURGICAL HISTORY OF 2004 lower lobe right lung removed for non small cell carcinoma TONSILLECTOMY HX TOTAL ABDOMINAL HYSTERECT W/WO RMVL TUBE OVARY 03/31/2010 Hysterectomy, MERCEDES, BSO FAMILY HISTORY Problem Relation Age of Onset Cancer Mother UTERINE? Hypertension Mother Cancer Father lung with mets Coronary Artery Disease Father Hypertension Father Diabetes Sister Hypertension Sister Hypertension Sister Social History Tobacco Use Smoking status: Former Current packs/day: 0.00 Average packs/day: 0.5 packs/day for 20.0 years (10.0 ttl pk-yrs) Types: Cigarettes Start date: 03/04/1986 Quit date: 03/04/2006 Years since quittin.5 Smokeless tobacco: Never Vaping Use Vaping status: Never Used Substance Use Topics Alcohol use: Yes Alcohol/week: 1.0 - 2.0 standard drink of alcohol Types: 1 - 2 Cans of Beer (12oz) per week Comment: socially Drug use: No ALLERGIES Allergen Reactions Levaquin [Levofloxa* Hives Metals [Other] Tape [Other] Asbestos Exposure Yes, worked in [employer] in the 1969-80s and feels she may have been exposed then. PHYSICAL EXAM BP 140/87 (BP Site: Right Arm, BP Position: Sitting, BP Cuff Size: Regular Adult) Temp 37 ?C (98.6 ?F) Ht 164 cm (5' 4.57") Wt 56.9 kg (125 lb 7.1 oz) LMP 03/14/2009 SpO2 100% BMI 21.16 kg/m? Neck: No masses and supple; incision above sternal notch from previous surgery Resp: Clear and Respiratory effort: normal Cardiovascular: Regular rate AND rhythm GI: Soft, Non-tender, and Non-distended Neurological/Psychiatric: Alert and Oriented Additional relevant findings: Thoracotomy incision from previous RLLobectomy DATA: Pathology: Procedures: Imaging PET/CT: 07/24/[address] (chest): 07/14/[address] (chest): 01/10/2024 Stuart MRI: UGI: Cardiopulmonary Testing PFT's/Six:Completed at Dr. Watson's Cardiac: Office Notes/Consults Dr. Watson 07/17/2024 I have personally reviewed the following images/data: CT scan and PET Scan CNOV Observed: 09/09/2024 12:40 PM Status: COMPLETED Source: [facility] Office Visit (KELLY) MERISSA SAGE ([id number]) 1960 F Date Time Provider Department 09/09/24 12:40 PM PEDRO CLEANING During your visit today, we recorded the following information about you: Temperature Blood pressure Weight Height 98.6 degrees 140/87 56.9 kg 1.64 m Joel Frazier PA-C 09/09/2024 1:42 PM Signed [facility] THORACIC SURGERY OUTPATIENT CONSULT NOTE Merissa Sage [id number] Requesting Provider: George Watson Thoracic Physician: Pedro Cleaning MD Chief Complaint: Lung nodules Impression: Merissa Sage is a 63 year old White female referred by George Watson for an opinion regarding management of NOAH Lung Nodule. Plan: Plan and treatment as per Dr. Cleaning. SIGNATURE: Joel Frazier PA-C PAGER: [phone] DATE of SERVICE: 09/09/2024 TIME of SERVICE: 12:40 PM HPI: Merissa Sage is a 63 year old White female referred by George Watson for an opinion regarding management of Lung Nodule. Patient found to have GGO on yearly screening CT since she has had done since her RLLobectomy in 2006 (Katiuska Chang) for lung cancer stage 1A. These remained stable for a while, but recently, one demonstrated growth. PET from 07/12/2023 with no FDG uptake throughout. CT chest on 01/10/2024 with 1.3 cm groundglass nodular opacity posteriorly in RUL that has shown slight progressive growth over multiple prior studies as well as a 1.5 cm groundglass opacity at the NOAH apex with progressive growth. Stable 0.4 cm groundglass nodule at right apex. She is currently doing well. She is anxious about visit today. Patient endorses pain in chest (diagnosed with costochondritis previously). Has some pain from previous surgery. Patient goes for walks. PMH including former tobacco abuse (1/2 ppd x 20 years - more socially, quit in 2005), anxiety, GERD, hypothyroidism, lung cancer, osteoporosis, costochondritis, social EtOH use, palpitations (had cardiac workup) s/p c-sections x2, s/p cholecystectomy, s/p tonsillectomy, s/p tubal ligation, s/p L knee surgery (meniscus), Hx of fall s/p kypoplasty (document at least 4 of these elements) Location: left Timing: Following for a few years Context: Grew slightly in past year Associated signs and symptoms: None ECOG Score: 0 Living arrangement: Lives with family/friend Functional status: Independent Unintentional weight loss over last 3 months: No PAST MEDICAL HISTORY Diagnosis Date Dysmenorrhea Esophageal reflux Gastroesophageal reflux Excessive or frequent menstruation Heavy periods Lung cancer (HCC) Malignant neoplasm of other parts of bronchus or lung (HCC) 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 Llamas COLONOSCOPY SCREENING 2017 HYSTEROSCOPY, DIAGNOSTIC (SEPARATE 07/14/2008 Hysteroscopy/curretage LIG/TRNSXJ FLP TUBE ABDL/VAG APPR UNI/BI PAST SURGICAL HISTORY OF 2004 lower lobe right lung removed for non small cell carcinoma TONSILLECTOMY HX TOTAL ABDOMINAL HYSTERECT W/WO RMVL TUBE OVARY 03/31/2010 Hysterectomy, MERCEDES, BSO FAMILY HISTORY Problem Relation Age of Onset Cancer Mother UTERINE? Hypertension Mother Cancer Father lung with mets Coronary Artery Disease Father Hypertension Father Diabetes Sister Hypertension Sister Hypertension Sister Social History Tobacco Use Smoking status: Former Current packs/day: 0.00 Average packs/day: 0.5 packs/day for 20.0 years (10.0 ttl pk-yrs) Types: Cigarettes Start date: 03/04/1986 Quit date: 03/04/2006 Years since quittin.5 Smokeless tobacco: Never Vaping Use Vaping status: Never Used Substance Use Topics Alcohol use: Yes Alcohol/week: 1.0 - 2.0 standard drink of alcohol Types: 1 - 2 Cans of Beer (12oz) per week Comment: socially Drug use: No ALLERGIES Allergen Reactions Levaquin [Levofloxa* Hives Metals [Other] Tape [Other] Asbestos Exposure Yes, worked in [employer] in the 1969- and feels she may have been exposed then. PHYSICAL EXAM BP 140/87 (BP Site: Right Arm, BP Position: Sitting, BP Cuff Size: Regular Adult) Temp 37 ?C (98.6 ?F) Ht 164 cm (5' 4.57") Wt 56.9 kg (125 lb 7.1 oz) LMP 03/14/2009 SpO2 100% BMI 21.16 kg/m? Neck: No masses and supple; incision above sternal notch from previous surgery Resp: Clear and Respiratory effort: normal Cardiovascular: Regular rate AND rhythm GI: Soft, Non-tender, and Non-distended Neurological/Psychiatric: Alert and Oriented Additional relevant findings: Thoracotomy incision from previous RLLobectomy DATA: Pathology: Procedures: Imaging PET/CT: 07/24/[address] (chest): 07/14/[address] (chest): 01/10/2024 Stuart MRI: UGI: Cardiopulmonary Testing PFT's/Six:Completed at Dr. Watson's Cardiac: Office Notes/Consults Dr. Watson 07/17/2024 I have personally reviewed the following images/data: CT scan and PET Scan Pedro Cleaning MD, PhD 09/09/2024 1:42 PM Signed [facility] STAFF PHYSICIAN NOTE OF PERSONAL INVOLVEMENT IN CARE I have reviewed the documentation obtained and documented by the Physician Pulmonary Function Technologist and I have personally performed the substantive portion of the visit which includes the medical decision making. I have discussed the case and management of the patient's care. I wish to add the following findings which have been dictated and will be communicated back to the requesting physician. STAFF PHYSICIAN: Pedro Cleaning MD, PhD DATE OF SERVICE: September 09, 2024 TIME OF SERVICE: 1:41 PM Referring Provider: GEORGE WATSON V [[id number]] Allergies As of Date: 09/09/2024 Noted Allergy Reaction LEVAQUIN (LEVOFLOXACIN) 07/06/2008 4 - Hives metals [Other] 05/26/2008 tape [Other] 05/26/2008 Date Reviewed: 09/09/2024 Reviewed by: Jeromy Solis MA - Fully Assessed Reason for Visit: Consult [173] Primary Visit Diagnosis:Lung nodule [R91.1] Order(s):[facility] OP SURGERY FOLLOW UP ORDER [[id number]] Order #: [id number]: 1 Prescriptions as of 09/09/2024 - clobetasol (TEMOVATE) 0.05 % ointment Apply 1 application to affected area two times a day. TO AFFECTED AREA. - calcium carbonate (CALCIUM 600 ORAL) Take by mouth once daily. - pantoprazole DR (PROTONIX) 40 mg tablet - FA/MV,CA,IRON,MIN/LYCOPENE/LUT (MULTIVITAL ORAL) Take by mouth. - ergocalciferol 50,000 unit capsule (VITAMIN D2, DRISDOL) Take 50,000 Units by mouth twice a week. - levothyroxine (SYNTHROID) 75 mcg tablet Take 75 mcg by mouth once daily. Pt takes on tablet in the morning 6 days a week. - LORazepam 0.5 mg tab Take by mouth three times daily as needed. Pt takes 1/2 tablet as needed - metoprolol tartrate, short acting, (LOPRESSOR) 50 mg tablet Take 0.5 tablets by mouth twice daily. 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] 06/20/2006 ESOPHAGEAL REFLUX [K21.9] 06/20/2006 DEPRESSION ACUTE - SINGLE EPISODE( Mild) [F32.0]06/20/2006 PALPITATIONS [R00.2] 06/20/2006 LUNG CANCER LOWER LOBE, NSC [C34.30] 06/20/2006 EXCESSIVE MENSTRUATION [N92.0] 07/08/2008 IRREGULAR MENSTRUATION [N92.6] 07/08/2008 DYSMENORRHEA [N94.6] 07/08/2008 Lipoma of Unspecified Site [D17.9] 06/07/2009 Low back pain radiating to left leg [M54.50, M7*06/19/2011 Cervical adenopathy [R59.0] 12/26/2011 Hypothyroidism [E03.9] 12/26/2011 Mass of lower outer quadrant of right breast [N*10/21/2022 Breast pain [N64.4] 10/21/2022 Encounter Status:Closed by PEDRO CLEANING on 09/09/24 PROGRESS Observed: 09/09/2024 12:00 AM Status: COMPLETED Source: [facility] HNO ID: [id number] Author: PEDRO CLEANING MD, PhD Service: Thoracic Surgery Author Type: Physician Type: Progress Notes Filed: 09/22/2024 08:02 Note Text: [facility] Progress Note MERISSA SAGE CSN#: [id number] PATIENT TYPE: LOCATION: [facility] ORIGINATOR: Pedro Cleaning M.D. DATE OF SERVICE: 09/09/2024 DATE OF SERVICE: 09/09/2024 TIME OF SERVICE: 12:30 PM I had the sincere pleasure of seeing Ms. Merissa Sage at our [facility] satellite. This very pleasant 63-year-old woman, who is a former moderate smoker with over 20 years of cessation appears to have evolving lesions bilaterally consistent with disease somewhere along the adenocarcinoma spectrum. I have been asked to consult on her pulmonary nodules. Medical history and review of systems have been done. I have also independently reviewed images from a variety of different CT scans dating back to over a year ago and have also reviewed pulmonary function testing including walk oximetry, DLCO, and spirometry. I have assessed the patient with my care team here at [facility] and shared my thoughts with the patient in detail. In brief, this very pleasant 63-year-old woman has an ECOG performance status of 0. She has a remote history of an early stage lung cancer that was resected over 15 years ago. She stopped smoking at that point completely. Her cancer was a stage I cancer and she had a right lower lobectomy performed. She has done quite well. She has been watched quite closely. Recently nodules have evolved in the apex of the left upper lobe as well as in the posterior aspect of the upper lobe that have become concerning. This is particularly true for the lesion at the left apex, which is becoming more solid and is far more spiculated. The right upper lobe lesion appears to be purely ground-glass and well circumscribed. The geometry of the left upper lobe is somewhat concerning. I suspect that neither of these 2 lesions developed a significant invasive component and the CTR remains close to 0 on the both lesions. However, the appearance of the left lesion certainly is concerning for a lesion along the adenocarcinoma spectrum. The patient has excellent pulmonary function tests and given the gradual evolution of these lesions, certainly some consideration for an apical trisegmentectomy might be reasonable. She has not had a recent provocative heart study. I will reach out to other members of her multidisciplinary team and solicit their thoughts. If resection is agreed upon, I will be happy to offer that to her. She does seem motivated. [facility] DOC: [id number] PROGRESS Observed: 09/08/2024 11:56 AM Status: COMPLETED Source: [facility] HNO ID: [id number] Author: RICARDO INMAN MD Service: ? Author Type: Physician Type: Progress Notes Filed: 09/08/2024 17:28 Note Text: Interventional Pulmonary Consultation Date of Service: September 08, 2024 Patient: Merissa Sage Medical Record: [id number] Primary Care Physician: Ambreen Manning DO DO Referring Provider: Vito Cleaning MD History of Present Illness Merissa Sage is a 63 year old female with a past history of tobacco abuse, lung cancer who was sent by Dr. Cleaning for evaluation and management of lung nodules . My findings and recommendations will be communicated to the referring doctor by way of shared electronic medical record (or US mail). Patient was found to have GGO's in yearly screening CT's which she had done since her lung cancer/resection done in 2005. For many years these had been stable, but recently one demonstrated growth. Patient then referred to surgery for resection evaluation. Patient had RLL lobectomy in 2005 for lung cancer, with no sequelae. Patient an ex-smoker, quitting in 2005; prior 1/2 ppd for 20 years. Patient without complaints of dyspnea, cough, phlegm production. Stays active. Still has some discomfort from prior lobectomy scar. No history of cardiac issues. 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 Llamas COLONOSCOPY SCREENING 2017 HYSTEROSCOPY, DIAGNOSTIC (SEPARATE 07/14/2008 Hysteroscopy/curretage LIG/TRNSXJ FLP TUBE ABDL/VAG APPR UNI/BI PAST SURGICAL HISTORY OF 2004 lower lobe right lung removed for non small cell carcinoma TONSILLECTOMY HX TOTAL ABDOMINAL HYSTERECT W/WO RMVL TUBE OVARY 03/31/2010 Hysterectomy, MERCEDES, BSO Family History FAMILY HISTORY Problem Relation Age of Onset Cancer Mother UTERINE? Hypertension Mother Cancer Father lung with mets Coronary Artery Disease Father Hypertension Father Diabetes Sister Hypertension Sister Hypertension Sister Social Historyy Social History Tobacco Use Smoking status: Former Current packs/day: 0.00 Average packs/day: 0.5 packs/day for 20.0 years (10.0 ttl pk-yrs) Types: Cigarettes Start date: 03/04/1986 Quit date: 03/04/2006 Years since quittin.5 Smokeless tobacco: Never Vaping Use Vaping status: Never Used Substance Use Topics Alcohol use: Yes Alcohol/week: 1.0 - 2.0 standard drink of alcohol Types: 1 - 2 Cans of Beer (12oz) per week Comment: socially Drug use: No Current Medications Current Outpatient Medications on File Prior to Visit Medication Sig calcium carbonate (CALCIUM 600 ORAL) Take by mouth once daily. pantoprazole DR (PROTONIX) 40 mg tablet FA/MV,CA,IRON,MIN/LYCOPENE/LUT (MULTIVITAL ORAL) Take by mouth. ergocalciferol 50,000 unit capsule (VITAMIN D2, DRISDOL) Take 50,000 Units by mouth twice a week. levothyroxine (SYNTHROID) 75 mcg tablet Take 75 mcg by mouth once daily. Pt takes on tablet in the morning 6 days a week. LORazepam 0.5 mg tab Take by mouth three times daily as needed. Pt takes 1/2 tablet as needed metoprolol tartrate, short acting, (LOPRESSOR) 50 mg tablet Take 0.5 tablets by mouth twice daily. clobetasol (TEMOVATE) 0.05 % ointment Apply 1 application to affected area two times a day. TO AFFECTED AREA. triamcinolone acetonide (NASACORT AQ) 55 mcg nasal inhaler Triamcinolone Acetonide (Nasacort) 55 mcg aerosol,spray Active 1 SPRAY INTRANASAL DAILY January 10, 2019 10:38am No current facility-administered medications on file prior to visit. Imaging Please see below Physical Exam BP 145/85 Pulse 55 Ht 5' 4" (1.63m) Wt 132 lb (59.9kg) SpO2 99[ROOM AIR]% LMP 03/14/2009 BMI 22.65 kg/(m2). GENERAL APPEARANCE: Patient in no acute distress. SKIN: No rashes or lesions. EYES: PERRLA, EOMI,, conjunctivae clear. OROPHARYNX: Lips, mucosa, and tongue normal. Teeth and gums normal. Oropharynx normal. NECK: Supple, no lymphadenopathy, no JVD. BACK: No CVA tenderness, no spinal tenderness LUNGS: Normal breath sounds, clear to auscultation, no wheezes, or crackles. HEART: Normal PMI, Regular rate/rhythm, normal heart sounds, and no murmurs. ABDOMEN: Soft, non tender, no palpable masses, normal bowel sounds, no abdominal bruits, No hepatosplenomegaly. EXTREMITIES: No edema or tenderness NEURO: Awake, alert and oriented x3, no involuntary motions. Assessment AND Plan Lung nodules. I personally reviewed the patients images, and compared to prior scans done as part of both PET-ct and dedicated CT back a year. There is a NOAH nodule which is slowly growing over the past year, measuring about 13mm, with irregular borders. It appears fully ground glass, but is somewhat dense. There may be some retraction on the adjacent pleura. I suspect this is a slow growing low grade tumor along the adenocarcinoma spectrum, especially given her history of lung cancer in the past. The nodule does not necessarily reach size criteria for resection (<30mm pure GGO, no solid component >5mm), but it has grown and I would lean towards anatomic resection now. I'm not sure an attempt at biopsy would alter a surgical resection, as I don't think this would represent a definitive benign entity that would provide a specific pathologic finding. Thoracic surgery is evaluating patient tomorrow; if they prefer biopsy prior, this could be done. However, I would favor placing a fiducial marker and sending directly for anatomic/wedge resection. As far as the right sided lesion, it is also pure GGO but faint without any areas solid density; this also has not changed over the past year. My feeling is to keep watching this with yearly surveillance. History lung cancer. S/p RLL lobectomy in past. I discussed at length with patient and . Explained both biopsy procedure and coil fiducial placement; explained that plan will be contingent upon Dr. Cleaning's evaluation. She is happy to proceed in whatever way our team recommends. Ricardo Inman MD Date: September 08, 2024 Time: 11:56 AM I spent a total of 60 minutes on the date of the service which included preparing to see the patient, [id number] patient care, completing clinical documentation, obtaining and/or reviewing separately obtained history, performing a medically appropriate examination, counseling and educating the patient/family/caregiver, ordering medications, tests, or procedures, communicating with other HCPs (not separately reported), independently interpreting results (not separately reported), communicating results to the patient/family/caregiver, and care coordination (not separately reported). CNOV Observed: 09/08/2024 11:20 AM Status: COMPLETED Source: [facility] Office Visit ([place]AM[place]) MERISSA SAGE ([id number]) 1960 F Date Time Provider Department 09/08/24 11:20 AM RICARDO INMAN During your visit today, we recorded the following information about you: Pulse Blood pressure Weight Height 55/minute 145/85 59.9 kg 1.626 m Endy Juárez LPN 09/08/2024 5:28 PM Signed Modified [employer] [place] Dyspnea Scale (MMRC) I only get breathless with strenous exercise 0 Ricardo Inman MD 09/08/2024 5:28 PM Signed Interventional Pulmonary Consultation Date of Service: September 08, 2024 Patient: Merissa Sage Medical Record: [id number] Primary Care Physician: Ambreen Manning DO, DO Referring Provider: Vito Cleaning MD History of Present Illness Merissa Sage is a 63 year old female with a past history of tobacco abuse, lung cancer who was sent by Dr. Cleaning for evaluation and management of lung nodules . My findings and recommendations will be communicated to the referring doctor by way of shared electronic medical record (or [place] mail). Patient was found to have GGO's in yearly screening CT's which she had done since her lung cancer/resection done in 2005. For many years these had been stable, but recently one demonstrated growth. Patient then referred to surgery for resection evaluation. Patient had RLL lobectomy in 2005 for lung cancer, with no sequelae. Patient an ex-smoker, quitting in 2005; prior 1/2 ppd for 20 years. Patient without complaints of dyspnea, cough, phlegm production. Stays active. Still has some discomfort from prior lobectomy scar. No history of cardiac issues. 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 Llamas COLONOSCOPY SCREENING 2017 HYSTEROSCOPY, DIAGNOSTIC (SEPARATE 07/14/2008 Hysteroscopy/curretage LIG/TRNSXJ FLP TUBE ABDL/VAG APPR UNI/BI PAST SURGICAL HISTORY OF 2004 lower lobe right lung removed for non small cell carcinoma TONSILLECTOMY HX TOTAL ABDOMINAL HYSTERECT W/WO RMVL TUBE OVARY 03/31/2010 Hysterectomy, MERCEDES, BSO Family History FAMILY HISTORY Problem Relation Age of Onset Cancer Mother UTERINE? Hypertension Mother Cancer Father lung with mets Coronary Artery Disease Father Hypertension Father Diabetes Sister Hypertension Sister Hypertension Sister Social Historyy Social History Tobacco Use Smoking status: Former Current packs/day: 0.00 Average packs/day: 0.5 packs/day for 20.0 years (10.0 ttl pk-yrs) Types: Cigarettes Start date: 03/04/1986 Quit date: 03/04/2006 Years since quittin.5 Smokeless tobacco: Never Vaping Use Vaping status: Never Used Substance Use Topics Alcohol use: Yes Alcohol/week: 1.0 - 2.0 standard drink of alcohol Types: 1 - 2 Cans of Beer (12oz) per week Comment: socially Drug use: No Current Medications Current Outpatient Medications on File Prior to Visit Medication Sig calcium carbonate (CALCIUM 600 ORAL) Take by mouth once daily. pantoprazole DR (PROTONIX) 40 mg tablet FA/MV,CA,IRON,MIN/LYCOPENE/LUT (MULTIVITAL ORAL) Take by mouth. ergocalciferol 50,000 unit capsule (VITAMIN D2, DRISDOL) Take 50,000 Units by mouth twice a week. levothyroxine (SYNTHROID) 75 mcg tablet Take 75 mcg by mouth once daily. Pt takes on tablet in the morning 6 days a week. LORazepam 0.5 mg tab Take by mouth three times daily as needed. Pt takes 1/2 tablet as needed metoprolol tartrate, short acting, (LOPRESSOR) 50 mg tablet Take 0.5 tablets by mouth twice daily. clobetasol (TEMOVATE) 0.05 % ointment Apply 1 application to affected area two times a day. TO AFFECTED AREA. triamcinolone acetonide (NASACORT AQ) 55 mcg nasal inhaler Triamcinolone Acetonide (Nasacort) 55 mcg aerosol,spray Active 1 SPRAY INTRANASAL DAILY January 10, 2019 10:38am No current facility-administered medications on file prior to visit. Imaging Please see below Physical Exam BP 145/85 Pulse 55 Ht 5' 4" (1.63m) Wt 132 lb (59.9kg) SpO2 99[ROOM AIR]% LMP 03/14/2009 BMI 22.65 kg/(m2). GENERAL APPEARANCE: Patient in no acute distress. SKIN: No rashes or lesions. EYES: PERRLA, EOMI,, conjunctivae clear. OROPHARYNX: Lips, mucosa, and tongue normal. Teeth and gums normal. Oropharynx normal. NECK: Supple, no lymphadenopathy, no JVD. BACK: No CVA tenderness, no spinal tenderness LUNGS: Normal breath sounds, clear to auscultation, no wheezes, or crackles. HEART: Normal PMI, Regular rate/rhythm, normal heart sounds, and no murmurs. ABDOMEN: Soft, non tender, no palpable masses, normal bowel sounds, no abdominal bruits, No hepatosplenomegaly. EXTREMITIES: No edema or tenderness NEURO: Awake, alert and oriented x3, no involuntary motions. Assessment AND Plan Lung nodules. I personally reviewed the patients images, and compared to prior scans done as part of both PET-ct and dedicated CT back a year. There is a NOAH nodule which is slowly growing over the past year, measuring about 13mm, with irregular borders. It appears fully ground glass, but is somewhat dense. There may be some retraction on the adjacent pleura. I suspect this is a slow growing low grade tumor along the adenocarcinoma spectrum, especially given her history of lung cancer in the past. The nodule does not necessarily reach size criteria for resection (<30mm pure GGO, no solid component >5mm), but it has grown and I would lean towards anatomic resection now. I'm not sure an attempt at biopsy would alter a surgical resection, as I don't think this would represent a definitive benign entity that would provide a specific pathologic finding. Thoracic surgery is evaluating patient tomorrow; if they prefer biopsy prior, this could be done. However, I would favor placing a fiducial marker and sending directly for anatomic/wedge resection. As far as the right sided lesion, it is also pure GGO but faint without any areas solid density; this also has not changed over the past year. My feeling is to keep watching this with yearly surveillance. History lung cancer. S/p RLL lobectomy in past. I discussed at length with patient and . Explained both biopsy procedure and coil fiducial placement; explained that plan will be contingent upon Dr. Cleaning's evaluation. She is happy to proceed in whatever way our team recommends. Ricardo Inman MD Date: September 08, 2024 Time: 11:56 AM I spent a total of 60 minutes on the date of the service which included preparing to see the patient, [id number] patient care, completing clinical documentation, obtaining and/or reviewing separately obtained history, performing a medically appropriate examination, counseling and educating the patient/family/caregiver, ordering medications, tests, or procedures, communicating with other HCPs (not separately reported), independently interpreting results (not separately reported), communicating results to the patient/family/caregiver, and care coordination (not separately reported). Allergies As of Date: 09/08/2024 Noted Allergy Reaction LEVAQUIN (LEVOFLOXACIN) 07/06/2008 4 - Hives metals [Other] 05/26/2008 tape [Other] 05/26/2008 Date Reviewed: 09/08/2024 Reviewed by: Endy Juárez LPN - Fully Assessed Reason for Visit: BRONCH CONSULT [Other] Primary Visit Diagnosis:Lung nodules [R91.8] Other Visit Diagnosis:History of lung cancer [Z85.118] Prescriptions as of 09/08/2024 - clobetasol (TEMOVATE) 0.05 % ointment Apply 1 application to affected area two times a day. TO AFFECTED AREA. - calcium carbonate (CALCIUM 600 ORAL) Take by mouth once daily. - pantoprazole DR (PROTONIX) 40 mg tablet - FA/MV,CA,IRON,MIN/LYCOPENE/LUT (MULTIVITAL ORAL) Take by mouth. - ergocalciferol 50,000 unit capsule (VITAMIN D2, DRISDOL) Take 50,000 Units by mouth twice a week. - levothyroxine (SYNTHROID) 75 mcg tablet Take 75 mcg by mouth once daily. Pt takes on tablet in the morning 6 days a week. - LORazepam 0.5 mg tab Take by mouth three times daily as needed. Pt takes 1/2 tablet as needed - metoprolol tartrate, short acting, (LOPRESSOR) 50 mg tablet Take 0.5 tablets by mouth twice daily. 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] 06/20/2006 ESOPHAGEAL REFLUX [K21.9] 06/20/2006 DEPRESSION ACUTE - SINGLE EPISODE( Mild) [F32.0]06/20/2006 PALPITATIONS [R00.2] 06/20/2006 LUNG CANCER LOWER LOBE, NSC [C34.30] 06/20/2006 EXCESSIVE MENSTRUATION [N92.0] 07/08/2008 IRREGULAR MENSTRUATION [N92.6] 07/08/2008 DYSMENORRHEA [N94.6] 07/08/2008 Lipoma of Unspecified Site [D17.9] 06/07/2009 Low back pain radiating to left leg [M54.50, M7*06/19/2011 Cervical adenopathy [R59.0] 12/26/2011 Hypothyroidism [E03.9] 12/26/2011 Mass of lower outer quadrant of right breast [N*10/21/2022 Breast pain [N64.4] 10/21/2022 Medications Discontinued During This Encounter Prescriptions - triamcinolone acetonide (NASACORT AQ) 55 mcg nasal inhaler (Discontinued) Triamcinolone Acetonide (Nasacort) 55 mcg aerosol,spray Active 1 SPRAY INTRANASAL DAILY January 10, 2019 10:38am Encounter Status:Closed by RICARDO INMAN on 09/08/24 PROGRESS Observed: 09/08/2024 11:06 AM Status: COMPLETED Source: [facility] HNO ID: [id number] Author: ENDY JUÁREZ LPN Service: ? Author Type: LICENSED NURSE Type: Progress Notes Filed: 09/08/2024 17:28 Note Text: Modified Medical Research [place] Dyspnea Scale (MMRC) I only get breathless with strenous exercise 0 CNPN Observed: 08/29/2024 12:00 AM Status: COMPLETED Source: [facility] Telephone ([id number]) MERISSA SAGE ([id number]) 1960 F Date Time Provider Department 08/29/24 CRISTIAN HUMPHREYS [id number] During your visit today, we recorded the following information about you: Allergies As of Date: 08/29/2024 Noted Allergy Reaction LEVAQUIN (LEVOFLOXACIN) 07/06/2008 4 - Hives metals [Other] 05/26/2008 tape [Other] 05/26/2008 Date Reviewed: 04/18/2023 Reviewed by: Jayne Fernandez LPN - Fully Assessed Reason for Visit: Appointment [186] Cmt: PreOp Bronch Prescriptions as of 08/29/2024 - clobetasol (TEMOVATE) 0.05 % ointment Apply 1 application to affected area two times a day. TO AFFECTED AREA. - calcium carbonate (CALCIUM 600 ORAL) Take by mouth once daily. - triamcinolone acetonide (NASACORT AQ) 55 mcg nasal inhaler Triamcinolone Acetonide (Nasacort) 55 mcg aerosol,spray Active 1 SPRAY INTRANASAL DAILY January 10, 2019 10:38am - pantoprazole DR (PROTONIX) 40 mg tablet - FA/MV,CA,IRON,MIN/LYCOPENE/LUT (MULTIVITAL ORAL) Take by mouth. - ergocalciferol 50,000 unit capsule (VITAMIN D2, DRISDOL) Take 50,000 Units by mouth twice a week. - levothyroxine (SYNTHROID) 75 mcg tablet Take 75 mcg by mouth once daily. Pt takes on tablet in the morning 6 days a week. - LORazepam 0.5 mg tab Take by mouth three times daily as needed. Pt takes 1/2 tablet as needed - metoprolol tartrate, short acting, (LOPRESSOR) 50 mg tablet Take 0.5 tablets by mouth twice daily. 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] 06/20/2006 ESOPHAGEAL REFLUX [K21.9] 06/20/2006 DEPRESSION ACUTE - SINGLE EPISODE( Mild) [F32.0]06/20/2006 PALPITATIONS [R00.2] 06/20/2006 LUNG CANCER LOWER LOBE, NSC [C34.30] 06/20/2006 EXCESSIVE MENSTRUATION [N92.0] 07/08/2008 IRREGULAR MENSTRUATION [N92.6] 07/08/2008 DYSMENORRHEA [N94.6] 07/08/2008 Lipoma of Unspecified Site [D17.9] 06/07/2009 Low back pain radiating to left leg [M54.50, M7*06/19/2011 Cervical adenopathy [R59.0] 12/26/2011 Hypothyroidism [E03.9] 12/26/2011 Mass of lower outer quadrant of right breast [N*10/21/2022 Breast pain [N64.4] 10/21/2022 Encounter Status:Closed by CRISTIAN JOLLY on 08/29/24 NARENDRA Observed: 08/28/2024 12:00 AM Status: COMPLETED Source: [facility] Telephone (THORMN) MERISSA SAGE ([id number]) 1960 F Date Time Provider Department 08/28/24 BLACKPEDRO During your visit today, we recorded the following information about you: Kelley Velazquez 08/28/2024 8:51 AM Signed Attempt #1 Requested PFTs and 6MW Medical Records from Dr. Watson Spoke to: Jayne Phone #: [phone] records being faxed to [phone]. Kelley Velazquez August 28, 2024 8:49 AM Kelley Velazquez 08/28/2024 11:09 AM Signed PFTs AND 6MW request received from Dr. Watson's office for records dated 08/26/24. Processed by Kelley Velazquez on August 28, 2024. [employer] Phone number is [phone] Kelley Velazquez, travel administrator Allergies As of Date: 08/28/2024 Noted Allergy Reaction LEVAQUIN (LEVOFLOXACIN) 07/06/2008 4 - Hives metals [Other] 05/26/2008 tape [Other] 05/26/2008 Date Reviewed: 04/18/2023 Reviewed by: Jayne Fernandez LPN - Fully Assessed Reason for Visit: Request Outside Medical Records [[id number]] Prescriptions as of 08/28/2024 - clobetasol (TEMOVATE) 0.05 % ointment Apply 1 application to affected area two times a day. TO AFFECTED AREA. - calcium carbonate (CALCIUM 600 ORAL) Take by mouth once daily. - triamcinolone acetonide (NASACORT AQ) 55 mcg nasal inhaler Triamcinolone Acetonide (Nasacort) 55 mcg aerosol,spray Active 1 SPRAY INTRANASAL DAILY January 10, 2019 10:38am - pantoprazole DR (PROTONIX) 40 mg tablet - FA/MV,CA,IRON,MIN/LYCOPENE/LUT (MULTIVITAL ORAL) Take by mouth. - ergocalciferol 50,000 unit capsule (VITAMIN D2, DRISDOL) Take 50,000 Units by mouth twice a week. - levothyroxine (SYNTHROID) 75 mcg tablet Take 75 mcg by mouth once daily. Pt takes on tablet in the morning 6 days a week. - LORazepam 0.5 mg tab Take by mouth three times daily as needed. Pt takes 1/2 tablet as needed - metoprolol tartrate, short acting, (LOPRESSOR) 50 mg tablet Take 0.5 tablets by mouth twice daily. 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] 06/20/2006 ESOPHAGEAL REFLUX [K21.9] 06/20/2006 DEPRESSION ACUTE - SINGLE EPISODE( Mild) [F32.0]06/20/2006 PALPITATIONS [R00.2] 06/20/2006 LUNG CANCER LOWER LOBE, NSC [C34.30] 06/20/2006 EXCESSIVE MENSTRUATION [N92.0] 07/08/2008 IRREGULAR MENSTRUATION [N92.6] 07/08/2008 DYSMENORRHEA [N94.6] 07/08/2008 Lipoma of Unspecified Site [D17.9] 06/07/2009 Low back pain radiating to left leg [M54.50, M7*06/19/2011 Cervical adenopathy [R59.0] 12/26/2011 Hypothyroidism [E03.9] 12/26/2011 Mass of lower outer quadrant of right breast [N*10/21/2022 Breast pain [N64.4] 10/21/2022 Encounter Status:Closed by KELLEY VELAZQUEZ on 08/28/24 NARENDRA Observed: 08/04/2024 12:00 AM Status: COMPLETED Source: [facility] Telephone (JAKIMN) MERISSA SAGE ([id number]) 1960 F Date Time Provider Department 08/04/24 PEDRO CLEANING During your visit today, we recorded the following information about you: Suly Patterson 08/04/2024 10:57 AM Signed LOCAL PATIENT Received Routed [facility] Telephone Encounter from Dr. George Sim Alona is being referred to Pedro Cleaning M.D., Ph. D. by George Sim, . [place]. [address] Patient diagnosis/Reason for consult: lobe nodules Referral triage process explained: Yes Patient will receive a call from Thoracic NPM after triage review with surgeon to discuss any additional testing and/or consults that will be scheduled. Pt will then receive a call from our scheduling office for scheduling. Please call pt at [phone]. Patient was informed consultation could be at [place] or [facility]: No Patient Registration: Registration complete/updated: yes Insurance card(s) scanned in [facility] with in the past year: No Pt's [employer] is active. Ok to communicate to pt via [employer] no Medical Records: Records in [facility] (internal CC records): Yes Imaging in [facility] (internal CC records): No Care Everywhere - queried no, downloaded No Linked Outside Organizations (list): No OSH Records Requested: no Date: N/A Outside Hospital(s) requested records from: No Received: yes Uploaded: Yes. Waiting on additional records: No. Missing (list): N/A OSH Pathology Slides Requested: no Date: N/A Outside Hospital(s) slides requested from: No OS Radiology Imaging Requested: yes Date: August 04, 2024 Outside Hospital(s) requested imaging from: [facility] . Imaging will be received via Electronic Transfer Received: no Imaging uploaded: No Waiting on additional: Yes. Missing (list): CT Additional providers added to Care Teams: Yes Additional Notes/Comments: Facility will power share. -08/04 Enct routed to: Suly Ag 08/18/2024 1:57 PM Signed Images are in Epic. Ivan Alejandra, RN 08/29/2024 9:34 AM Addendum Thoracic Surgery Consultation - review of records for appointment scheduling Received medical records from the office of George Watson MD ([facility]) [place] [id number] Patient is being referred to Pedro Cleaning M.D., Ph. D. by George Watson V for Lung Nodules Outside hospital records scanned / in epic / Care Everywhere Pathology: Procedures: Imaging PET/CT: 07/24/[address] (chest): 07/14/[address] (chest): 01/10/2024 [place] MRI: UGI: Cardiopulmonary Testing PFT's/Six:Completed at Dr. Watson's Cardiac: Office Notes/Consults Dr. Watson 07/17/2024 History of: FAMILY HISTORY Problem Relation Age of Onset Cancer Mother UTERINE? Hypertension Mother Cancer Father lung with mets Coronary Artery Disease Father Hypertension Father Diabetes Sister Hypertension Sister Hypertension Sister PAST MEDICAL HISTORY Diagnosis Date Dysmenorrhea Esophageal reflux Gastroesophageal reflux Excessive or frequent menstruation Heavy periods Malignant neoplasm of other parts of bronchus or lung 03/2006 non small cell stage 1a Palpitations PMH - PAST MEDICAL HISTORY OF chronic jorge joyner Symptomatic menopausal or female climacteric states Transient disorder of initiating or maintaining sleep PAST SURGICAL HISTORY Procedure Laterality Date DELIVERY ONLY , low cervical X2 CHOLECYSTECTOMY COLONOSCOPY FLX DX W/COLLJ SPEC WHEN PFRMD 2006 colonoscopy - Dr. Llamas COLONOSCOPY SCREENING 2017 HYSTEROSCOPY, DIAGNOSTIC (SEPARATE 07/14/2008 Hysteroscopy/curretage LIG/TRNSXJ FLP TUBE ABDL/VAG APPR UNI/BI PAST SURGICAL HISTORY OF 2004 lower lobe right lung removed for non small cell carcinoma TONSILLECTOMY HX TOTAL ABDOMINAL HYSTERECT W/WO RMVL TUBE OVARY 03/31/2010 Hysterectomy, MERCEDES, BSO Social History Tobacco Use Smoking status: Former Current packs/day: 0.00 Average packs/day: 0.5 packs/day for 20.0 years (10.0 ttl pk-yrs) Types: Cigarettes Start date: 03/04/1986 Quit date: 03/04/2006 Years since quittin.4 Smokeless tobacco: Never Vaping Use Vaping status: Never Used Substance Use Topics Alcohol use: Yes Alcohol/week: 1.0 - 2.0 standard drink of alcohol Types: 1 - 2 Cans of Beer (12oz) per week Comment: socially Drug use: No Request Thoracic surgery consult with Dr. Cleaning and Dr. Inman for lung nodules on the same day. TERRENCE Sotelo Iris 08/20/2024 9:01 AM Signed Pet report is in Soonr, awaiting images to be power shared. Kelley Kiran 08/21/2024 10:26 AM Signed Received PET report and images 07/24/23 from [facility], report scanned in [facility]. Images have been uploaded and are available for review. Kelley Velazquez, travel administrator Samantha Kimmy 08/29/2024 2:06 PM Signed Pt was scheduled for the requested consult w/Dr Cleaning no tests and for a consult w/Pulm w/Dr Inman at [facility] per Ivan's Tele for the 1st available dates of 09/08/24 and 09/09/24. Confirmed appt date/times/locations w/pt via phone. Pt is also active on [employer] for appt reminder details. Referring Provider: GEORGE WATSON V [[id number]] Allergies As of Date: 08/04/2024 Noted Allergy Reaction LEVAQUIN (LEVOFLOXACIN) 07/06/2008 4 - Hives metals [Other] 05/26/2008 tape [Other] 05/26/2008 Date Reviewed: 04/18/2023 Reviewed by: Jayne Fernandez LPN - Fully Assessed Reason for Visit: External Referrals/resources [909] Consult [173] Cmt: NOAH/RUL GGO Appointment Confirmation [3508] Primary Visit Diagnosis:Lung nodules [R91.8] Order(s):LUNG DIFFUSION CAPACITY (DLCO) [8068935] Order #: [id number]: 1 FUTURE SIX MINUTE WALK [5403618] Order #: [id number]: 1 FUTURE SPIROMETRY WITH DILATOR IF OBSTRUCTED [[id number]] Order #: [id number]: 1 FUTURE CONSULT TO PULMONARY MEDICINE [[id number]] Order #: [id number]: 1 Prescriptions as of 08/29/2024 - clobetasol (TEMOVATE) 0.05 % ointment Apply 1 application to affected area two times a day. TO AFFECTED AREA. - calcium carbonate (CALCIUM 600 ORAL) Take by mouth once daily. - triamcinolone acetonide (NASACORT AQ) 55 mcg nasal inhaler Triamcinolone Acetonide (Nasacort) 55 mcg aerosol,spray Active 1 SPRAY INTRANASAL DAILY January 10, 2019 10:38am - pantoprazole DR (PROTONIX) 40 mg tablet - FA/MV,CA,IRON,MIN/LYCOPENE/LUT (MULTIVITAL ORAL) Take by mouth. - ergocalciferol 50,000 unit capsule (VITAMIN D2, DRISDOL) Take 50,000 Units by mouth twice a week. - levothyroxine (SYNTHROID) 75 mcg tablet Take 75 mcg by mouth once daily. Pt takes on tablet in the morning 6 days a week. - LORazepam 0.5 mg tab Take by mouth three times daily as needed. Pt takes 1/2 tablet as needed - metoprolol tartrate, short acting, (LOPRESSOR) 50 mg tablet Take 0.5 tablets by mouth twice daily. 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] 06/20/2006 ESOPHAGEAL REFLUX [K21.9] 06/20/2006 DEPRESSION ACUTE - SINGLE EPISODE( Mild) [F32.0]06/20/2006 PALPITATIONS [R00.2] 06/20/2006 LUNG CANCER LOWER LOBE, NSC [C34.30] 06/20/2006 EXCESSIVE MENSTRUATION [N92.0] 07/08/2008 IRREGULAR MENSTRUATION [N92.6] 07/08/2008 DYSMENORRHEA [N94.6] 07/08/2008 Lipoma of Unspecified Site [D17.9] 06/07/2009 Low back pain radiating to left leg [M54.50, M7*06/19/2011 Cervical adenopathy [R59.0] 12/26/2011 Hypothyroidism [E03.9] 12/26/2011 Mass of lower outer quadrant of right breast [N*10/21/2022 Breast pain [N64.4] 10/21/2022 Encounter Status:Closed by IVAN CHRISTIANSON on 08/27/24 CNPN Observed: 04/21/2024 12:00 AM Status: COMPLETED Source: [facility] Telephone (OBGYWM) MERISSA SAGE ([id number]) 1960 F Date Time Provider Department 04/21/24 LIZZETH KESSLER OBHAYWM During your visit today, we recorded the following information about you: Allergies As of Date: 04/21/2024 Noted Allergy Reaction LEVAQUIN (LEVOFLOXACIN) 07/06/2008 4 - Hives metals [Other] 05/26/2008 tape [Other] 05/26/2008 Date Reviewed: 04/18/2023 Reviewed by: Jayne Fernandez LPN - Fully Assessed Reason for Visit: Results [95] Primary Visit Diagnosis:Abnormal mammogram [R92.8] Order(s):[facility] DIAGNOSTIC RIGHT [[id number]] Order #: [id number] FUTURE BREAST LTD RIGHT [[id number]] Order #: [id number] FUTURE Prescriptions as of 04/21/2024 - clobetasol (TEMOVATE) 0.05 % ointment Apply 1 application to affected area two times a day. TO AFFECTED AREA. - calcium carbonate (CALCIUM 600 ORAL) Take by mouth once daily. - triamcinolone acetonide (NASACORT AQ) 55 mcg nasal inhaler Triamcinolone Acetonide (Nasacort) 55 mcg aerosol,spray Active 1 SPRAY INTRANASAL DAILY January 10, 2019 10:38am - pantoprazole DR (PROTONIX) 40 mg tablet - FA/MV,CA,IRON,MIN/LYCOPENE/LUT (MULTIVITAL ORAL) Take by mouth. - ergocalciferol 50,000 unit capsule (VITAMIN D2, DRISDOL) Take 50,000 Units by mouth twice a week. - levothyroxine (SYNTHROID) 75 mcg tablet Take 75 mcg by mouth once daily. Pt takes on tablet in the morning 6 days a week. - LORazepam 0.5 mg tab Take by mouth three times daily as needed. Pt takes 1/2 tablet as needed - metoprolol tartrate, short acting, (LOPRESSOR) 50 mg tablet Take 0.5 tablets by mouth twice daily. 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] 06/20/2006 ESOPHAGEAL REFLUX [K21.9] 06/20/2006 DEPRESSION ACUTE - SINGLE EPISODE( Mild) [F32.0]06/20/2006 PALPITATIONS [R00.2] 06/20/2006 LUNG CANCER LOWER LOBE, NSC [C34.30] 06/20/2006 EXCESSIVE MENSTRUATION [N92.0] 07/08/2008 IRREGULAR MENSTRUATION [N92.6] 07/08/2008 DYSMENORRHEA [N94.6] 07/08/2008 Lipoma of Unspecified Site [D17.9] 06/07/2009 Low back pain radiating to left leg [M54.50, M7*06/19/2011 Cervical adenopathy [R59.0] 12/26/2011 Hypothyroidism [E03.9] 12/26/2011 Mass of lower outer quadrant of right breast [N*10/21/2022 Breast pain [N64.4] 10/21/2022 Encounter Status:Closed by LIZZETH KESSLER on 04/21/24 [facility] Validroid BREAST Pipelinefx RT Observed: 12:42 PM Status: F Source: [facility] * * *Final Report* * * DATE OF EXAM: Apr 19 2024 12:42PM ALEXANDRA 0594 - [facility] Validroid BREAST LTD RT / PROCEDURE REASON: R92.8-Abnormal mammogram * * * * Physician Interpretation * * * * [place] [id number] HISTORY: Patient is 63 years old and is seen for diagnostic exam and abnormal mammogram in the right breast. The patient has a history of lung cancer in 2005 not treated with radiation therapy or chemotherapy but was excised according to the patient. COMPARISON STUDIES: The present examination has been compared to prior imaging studies dated 10/10/2016 (ultrasound), 06/23/2019, 08/24/2021, 07/13/2022, 04/18/2023 (ultrasound) and 04/15/2024 (mammogram). MAMMOGRAM TECHNIQUE: The study was acquired using full field digital technology and interpreted from soft copy. Digital Breast Tomosynthesis (DBT) images were obtained and used to assist in the interpretation of this examination. Computer-aided detection was utilized by the radiologist in the interpretation of this examination. MAMMOGRAM FINDINGS: The breast is heterogeneously dense, which may obscure small masses. Finding 1: There is a low density, round mass with circumscribed margins in the posterior depth of the right breast. This is best visualized on tomosynthesis MLO view slice # 21. It is partially included on the edge of the film despite repeat attempt at imaging. It does appear to have a fatty notch. This cannot be visualized on prior studies. It has a more benign appearance on today's exam than on the 12th. Nodular asymmetries in the axillary tail region are similar to prior studies. ULTRASOUND TECHNIQUE: Targeted ultrasound of the indicated area was performed. Iraheta scale images were saved. ULTRASOUND FINDINGS: Finding 1: Ultrasound demonstrates an oval parallel intramammary lymph node measuring 1.1 x 0.5 x 0.8 cm in the posterior depth region of the right breast at 9 o'clock located 13 cm from the nipple. The cortex is not thickened. There is central vascular flow. This is felt to correspond to the extremely posterior nodule seen only on the oblique view. It was too far posterior to be included on the exaggerated CC view obtained today. Color flow imaging demonstrates vascularity is present. Finding 2: There is a stable complicated cyst measuring 0.7 x 0.3 x 0.5 cm in the posterior depth region of the right breast at 10 o'clock located 7 cm from the nipple. This is felt to correspond to the stable mammographic density. IMPRESSION: Finding 1: Mass in the right breast is probably a benign intramammary lymph node not definitely apparent on prior studies likely due to better inclusion of the posterior tissue today. Follow-up with diagnostic ultrasound with possible mammogram is recommended in 6 months. The patient was informed of the findings and recommendations. Finding 2: Stable complicated cyst in the posterior depth region of the right breast at 10 o'clock located 7 cm from the nipple is benign. The findings were reviewed with the patient in person today. BI-RADS Category 3: Probably Benign RISK: Based on the Tyrer-Cuzick (TC) risk assessment model, this patient has a 6.5% lifetime risk of developing breast cancer, meaning they are at average risk for developing breast cancer. However, this is only an estimate based on available history provided on the patient's questionnaire. We encourage all patients to talk with their providers about these results, further recommendations for managing breast health, and appropriate supplemental screening options if the patient has dense breast tissue. Interpreting Radiologist: Michelle Ortega M.D. FACR, FSBI Electronically signed on: 04/19/2024 [employer] Extension Educator: JEAN Transcribe Date/Time: Apr 19 2024 12:42P Dictated by : MICHELLE ORTEGA MD This examination was interpreted and the report reviewed and electronically signed by: MICHELLE ORTEGA MD on Apr 19 2024 1:00PM EST [id number] RONALD Rose OZZIE RT Observed: 04/19/2024 11:22 AM Status: F Source: [facility] * * *Final Report* * * DATE OF EXAM: Apr 19 2024 11:22AM VERÓNICA 0629 - RONALD Rose OZZIE RT / PROCEDURE REASON: R92.8-Abnormal mammogram * * * * Physician Interpretation * * * * [place] [address] HISTORY: Patient is 63 years old and is seen for diagnostic exam and abnormal mammogram in the right breast. The patient has a history of lung cancer in 2006 not treated with radiation therapy or chemotherapy but was excised according to the patient. COMPARISON STUDIES: The present examination has been compared to prior imaging studies dated 10/10/2016 (ultrasound), 06/23/2019, 08/24/2021, 07/13/2022, 04/18/2023 (ultrasound) and 04/15/2024 (mammogram). MAMMOGRAM TECHNIQUE: The study was acquired using full field digital technology and interpreted from soft copy. Digital Breast Tomosynthesis (DBT) images were obtained and used to assist in the interpretation of this examination. Computer-aided detection was utilized by the radiologist in the interpretation of this examination. MAMMOGRAM FINDINGS: The breast is heterogeneously dense, which may obscure small masses. Finding 1: There is a low density, round mass with circumscribed margins in the posterior depth of the right breast. This is best visualized on tomosynthesis MLO view slice # 21. It is partially included on the edge of the film despite repeat attempt at imaging. It does appear to have a fatty notch. This cannot be visualized on prior studies. It has a more benign appearance on today's exam than on the 12th. Nodular asymmetries in the axillary tail region are similar to prior studies. ULTRASOUND TECHNIQUE: Targeted ultrasound of the indicated area was performed. Iraheta scale images were saved. ULTRASOUND FINDINGS: Finding 1: Ultrasound demonstrates an oval parallel intramammary lymph node measuring 1.1 x 0.5 x 0.8 cm in the posterior depth region of the right breast at 9 o'clock located 13 cm from the nipple. The cortex is not thickened. There is central vascular flow. This is felt to correspond to the extremely posterior nodule seen only on the oblique view. It was too far posterior to be included on the exaggerated CC view obtained today. Color flow imaging demonstrates vascularity is present. Finding 2: There is a stable complicated cyst measuring 0.7 x 0.3 x 0.5 cm in the posterior depth region of the right breast at 10 o'clock located 7 cm from the nipple. This is felt to correspond to the stable mammographic density. IMPRESSION: Finding 1: Mass in the right breast is probably a benign intramammary lymph node not definitely apparent on prior studies likely due to better inclusion of the posterior tissue today. Follow-up with diagnostic ultrasound with possible mammogram is recommended in 6 months. The patient was informed of the findings and recommendations. Finding 2: Stable complicated cyst in the posterior depth region of the right breast at 10 o'clock located 7 cm from the nipple is benign. The findings were reviewed with the patient in person today. BI-RADS Category 3: Probably Benign RISK: Based on the Tyrer-Cuzick (TC) risk assessment model, this patient has a 6.5% lifetime risk of developing breast cancer, meaning they are at average risk for developing breast cancer. However, this is only an estimate based on available history provided on the patient's questionnaire. We encourage all patients to talk with their providers about these results, further recommendations for managing breast health, and appropriate supplemental screening options if the patient has dense breast tissue. Interpreting Radiologist: Michelle Ortega M.D. FACMIRTA He Electronically signed on: 04/19/2024 Natural Resources Extension Educator: JEAN Liangribe Date/Time: Apr 19 2024 11:00A Dictated by : MICHELLE ORTEGA MD This examination was interpreted and the report reviewed and electronically signed by: MICHELLE ORTEGA MD on Apr 19 2024 1:00PM EST [id number] PROGRESS Observed: 04/19/2024 10:40 AM Status: COMPLETED Source: [facility] ID: [id number] Author: RADHA TAPIA Tech Service: Radiology Author Type: Social Worker Health Services Type: Progress Notes Filed: 04/19/2024 12:43 Note Text: Radiology Service Progress Note PATIENT NAME: Merissa Sage DATE OF SERVICE: April 19, 2024 TIME: 12:43 PM PATIENT IDENTITY VERIFICATION COMPLETED USING TWO (2) IDENTIFIERS: Name and Date of confirmed by patient verbally and Name and Date of confirmed by identification band. FALL SCREENING: Has the patient had 2 falls in the last year or 1 fall with injury or currently using an Ambulatory Assistive Device (Walker, Cane, Wheelchair, Crutches, etc.)? No PATIENT GENDER DATA: Female. status: : No status: NO. PATIENT RELEVANT IMPLANT DATA REVIEWED: Not Applicable PATIENT PRESENTS WITH AN IMPLANTABLE OR ATTACHED SENIOR PROJECT ACCOUNTANT: N/A RADIOLOGY DEPARTMENT: Ultrasound PERIPHERAL IV DATA: Not applicable SIGNED BY: Sergei Payton April 19, 2024 12:43 PM PROGRESS Observed: 04/19/2024 10:40 AM Status: COMPLETED Source: [facility] ID: [id number] Author: RACHAEL MCCABE RT(R) Service: Radiology Author Type: Technologist Type: Progress Notes Filed: 04/19/2024 11:23 Note Text: Radiology Service Progress Note PATIENT NAME: Merissa Sage DATE OF SERVICE: April 19, 2024 TIME: 11:22 AM PATIENT IDENTITY VERIFICATION COMPLETED USING TWO (2) IDENTIFIERS: Name and Date of confirmed by patient verbally. FALL SCREENING: Has the patient had 2 falls in the last year or 1 fall with injury or currently using an Ambulatory Assistive Device (Walker, Cane, Wheelchair, Crutches, etc.)? No PATIENT GENDER DATA: Female. status: : No status: NO. PATIENT RELEVANT IMPLANT DATA REVIEWED: Not Applicable PATIENT PRESENTS WITH AN IMPLANTABLE OR ATTACHED SENIOR PROJECT ACCOUNTANT: No RADIOLOGY DEPARTMENT: Mammography PERIPHERAL IV DATA: Not applicable SIGNED BY: RT Antonio(R) April 19, 2024 11:22 AM NARENDRA Observed: 04/16/2024 12:00 AM Status: COMPLETED Source: [facility] Telephone (RADMN) MERISSA SAGE ([id number]) 1960 F Date Time Provider Department 04/16/24 KYRA BANDA RADMN During your visit today, we recorded the following information about you: Allergies As of Date: 04/16/2024 Noted Allergy Reaction LEVAQUIN (LEVOFLOXACIN) 07/06/2008 4 - Hives metals [Other] 05/26/2008 tape [Other] 05/26/2008 Date Reviewed: 04/18/2023 Reviewed by: Jayne Fernandez LPN - Fully Assessed Reason for Visit: Mammogram Result Call Back [[id number]] Cmt: right breast diag mamm cb per Prescriptions as of 04/16/2024 - clobetasol (TEMOVATE) 0.05 % ointment Apply 1 application to affected area two times a day. TO AFFECTED AREA. - calcium carbonate (CALCIUM 600 ORAL) Take by mouth once daily. - triamcinolone acetonide (NASACORT AQ) 55 mcg nasal inhaler Triamcinolone Acetonide (Nasacort) 55 mcg aerosol,spray Active 1 SPRAY INTRANASAL DAILY January 10, 2019 10:38am - pantoprazole DR (PROTONIX) 40 mg tablet - FA/MV,CA,IRON,MIN/LYCOPENE/LUT (MULTIVITAL ORAL) Take by mouth. - ergocalciferol 50,000 unit capsule (VITAMIN D2, DRISDOL) Take 50,000 Units by mouth twice a week. - levothyroxine (SYNTHROID) 75 mcg tablet Take 75 mcg by mouth once daily. Pt takes on tablet in the morning 6 days a week. - LORazepam 0.5 mg tab Take by mouth three times daily as needed. Pt takes 1/2 tablet as needed - metoprolol tartrate, short acting, (LOPRESSOR) 50 mg tablet Take 0.5 tablets by mouth twice daily. 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] 06/20/2006 ESOPHAGEAL REFLUX [K21.9] 06/20/2006 DEPRESSION ACUTE - SINGLE EPISODE( Mild) [F32.0]06/20/2006 PALPITATIONS [R00.2] 06/20/2006 LUNG CANCER LOWER LOBE, NSC [C34.30] 06/20/2006 EXCESSIVE MENSTRUATION [N92.0] 07/08/2008 IRREGULAR MENSTRUATION [N92.6] 07/08/2008 DYSMENORRHEA [N94.6] 07/08/2008 Lipoma of Unspecified Site [D17.9] 06/07/2009 Low back pain radiating to left leg [M54.50, M7*06/19/2011 Cervical adenopathy [R59.0] 12/26/2011 Hypothyroidism [E03.9] 12/26/2011 Mass of lower outer quadrant of right breast [N*10/21/2022 Breast pain [N64.4] 10/21/2022 Encounter Status:Closed by GEOVANNA PARKER on 04/16/24 NARENDRA Observed: 04/16/2024 12:00 AM Status: COMPLETED Source: [facility] Telephone (OBGYWM) MERISSA SAGE ([id number]) 1960 F Date Time Provider Department 04/16/24 LIZZEHT KESSLER During your visit today, we recorded the following information about you: Allergies As of Date: 04/16/2024 Noted Allergy Reaction LEVAQUIN (LEVOFLOXACIN) 07/06/2008 4 - Hives metals [Other] 05/26/2008 tape [Other] 05/26/2008 Date Reviewed: 04/18/2023 Reviewed by: Jayne Fernandez LPN - Fully Assessed Reason for Visit: Results [95] Primary Visit Diagnosis:Abnormal mammogram [R92.8] Order(s):[facility] DIAGNOSTIC BILATERAL [[id number]] Order #: [id number] FUTURE BREAST LTD RIGHT [[id number]] Order #: [id number] FUTURE Prescriptions as of 04/17/2024 - clobetasol (TEMOVATE) 0.05 % ointment Apply 1 application to affected area two times a day. TO AFFECTED AREA. - calcium carbonate (CALCIUM 600 ORAL) Take by mouth once daily. - triamcinolone acetonide (NASACORT AQ) 55 mcg nasal inhaler Triamcinolone Acetonide (Nasacort) 55 mcg aerosol,spray Active 1 SPRAY INTRANASAL DAILY January 10, 2019 10:38am - pantoprazole DR (PROTONIX) 40 mg tablet - FA/MV,CA,IRON,MIN/LYCOPENE/LUT (MULTIVITAL ORAL) Take by mouth. - ergocalciferol 50,000 unit capsule (VITAMIN D2, DRISDOL) Take 50,000 Units by mouth twice a week. - levothyroxine (SYNTHROID) 75 mcg tablet Take 75 mcg by mouth once daily. Pt takes on tablet in the morning 6 days a week. - LORazepam 0.5 mg tab Take by mouth three times daily as needed. Pt takes 1/2 tablet as needed - metoprolol tartrate, short acting, (LOPRESSOR) 50 mg tablet Take 0.5 tablets by mouth twice daily. 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] 06/20/2006 ESOPHAGEAL REFLUX [K21.9] 06/20/2006 DEPRESSION ACUTE - SINGLE EPISODE( Mild) [F32.0]06/20/2006 PALPITATIONS [R00.2] 06/20/2006 LUNG CANCER LOWER LOBE, NSC [C34.30] 06/20/2006 EXCESSIVE MENSTRUATION [N92.0] 07/08/2008 IRREGULAR MENSTRUATION [N92.6] 07/08/2008 DYSMENORRHEA [N94.6] 07/08/2008 Lipoma of Unspecified Site [D17.9] 06/07/2009 Low back pain radiating to left leg [M54.50, M7*06/19/2011 Cervical adenopathy [R59.0] 12/26/2011 Hypothyroidism [E03.9] 12/26/2011 Mass of lower outer quadrant of right breast [N*10/21/2022 Breast pain [N64.4] 10/21/2022 Encounter Status:Closed by SOPHIA GREEN on 04/17/24 PROGRESS Observed: 04/15/2024 12:50 PM Status: COMPLETED Source: [facility] HNO ID: [id number] Author: ABEL MCCORMICK RT(Neri) Service: ? Author Type: Technologist Type: Progress Notes Filed: 04/15/2024 14:14 Note Text: Radiology Service Progress Note PATIENT NAME: Merissa Sage DATE OF SERVICE: April 15, 2024 TIME: 2:13 PM PATIENT IDENTITY VERIFICATION COMPLETED USING TWO (2) IDENTIFIERS: Name and Date of confirmed by patient verbally. FALL SCREENING: Has the patient had 2 falls in the last year or 1 fall with injury or currently using an Ambulatory Assistive Device (Walker, Cane, Wheelchair, Crutches, etc.)? No PATIENT GENDER DATA: Female. status: : No status: NO. PATIENT RELEVANT IMPLANT DATA REVIEWED: Not Applicable PATIENT PRESENTS WITH AN IMPLANTABLE OR ATTACHED SENIOR PROJECT ACCOUNTANT: No RADIOLOGY DEPARTMENT: Mammography PERIPHERAL IV DATA: Not applicable SIGNED BY: RT Kristian(R) April 15, 2024 2:13 PM RONALD SCREENING W OZZIE Observed: 12:15 PM Status: F Source: [facility] * * *Final Report* * * DATE OF EXAM: Apr 15 2024 12:15PM WRW [id number] - RONALD SCREENING W OZZIE / PROCEDURE REASON: Encounter for screening mammogram for malignant neoplasm of breast * * * * Physician Interpretation * * * * RESULT: [facility] [address] [place] [address] HISTORY: Patient is 63 years old and is seen for screening,is asymptomatic in the left breast and diffuse pain the right breast. The patient has a history of lung cancer more than 10 years ago. COMPARISON STUDIES: The present examination has been compared to prior imaging studies dated 09/29/2016 (mammogram), 06/23/2019, 08/24/2021 and 07/13/2022. MAMMOGRAM TECHNIQUE: The study was acquired using full field digital technology and interpreted from soft copy. Digital Breast Tomosynthesis (DBT) images were obtained and used to assist in the interpretation of this examination. Computer-aided detection was utilized by the radiologist in the interpretation of this examination. MAMMOGRAM FINDINGS: The breasts are heterogeneously dense, which may obscure small masses. There is an oval mass in the posterior depth superior right breast. No suspicious masses, calcifications or other abnormalities are seen in the left breast. IMPRESSION: Mass in the right breast requires additional evaluation. Diagnostic mammogram with possible ultrasound is recommended. BI-RADS Category 0: Incomplete: Needs Additional Imaging Evaluation RISK: Based on the Tyrer-Cuzick (TC) risk assessment model, this patient has a 6.5% lifetime risk of developing breast cancer, meaning they are at average risk for developing breast cancer. However, this is only an estimate based on available history provided on the patient's questionnaire. We encourage all patients to talk with their providers about these results, further recommendations for managing breast health, and appropriate supplemental screening options if the patient has dense breast tissue. Interpreting Radiologist: Kyra Banda M.D. Electronically signed on: 04/16/2024 Natural Resources Extension Educator: JEAN Transcribe Date/Time: Apr 15 2024 11:55A Dictated by: KYRA BANDA MD This examination was interpreted and the report reviewed and electronically signed by: KYRA BANDA MD on Apr 16 2024 10:22AM EST [id number] CNPN Observed: 03/18/2024 12:00 AM Status: COMPLETED Source: [facility] Telephone ([facility]) MARCIALMERISSA He ([id number]) 1960 F Date Time Provider Department 03/18/24 ZARA GALLO [facility] During your visit today, we recorded the following information about you: Sammi Galeyennmadison Daugherty 03/18/2024 9:38 AM Signed Patient calling in to schedule her yearly mammogram. Please place order. Roberto Gale March 18, 2024 9:37 AM Lizzeth Kessler APRN.CNP 03/19/2024 7:58 AM Signed Signed. DAVID Marti Deidre, MD 04/16/2024 4:43 PM Signed Addended by: ZARA SHORE on: 04/16/2024 04:43 PM Modules accepted: Orders Allergies As of Date: 03/18/2024 Noted Allergy Reaction LEVAQUIN (LEVOFLOXACIN) 07/06/2008 4 - Hives metals [Other] 05/26/2008 tape [Other] 05/26/2008 Date Reviewed: 04/18/2023 Reviewed by: Jayne Fernandez LPN - Fully Assessed Reason for Visit: Orders [681] Primary Visit Diagnosis:Encounter for screening mammogram for malignant neoplasm of breast [Z12.31] Other Visit Diagnosis:Abnormal mammogram [R92.8] Order(s):[facility] SCREENING W OZZIE [[id number]] Order #: [id number] FUTURE BREAST LTD RIGHT [[id number]] Reflex Order#: [id number] (Ord#:[id number]) FUTURE [facility] DIAGNOSTIC RIGHT [[id number]] Reflex Order#: [id number] (Ord#:[id number]) FUTURE Prescriptions as of 04/16/2024 - clobetasol (TEMOVATE) 0.05 % ointment Apply 1 application to affected area two times a day. TO AFFECTED AREA. - calcium carbonate (CALCIUM 600 ORAL) Take by mouth once daily. - triamcinolone acetonide (NASACORT AQ) 55 mcg nasal inhaler Triamcinolone Acetonide (Nasacort) 55 mcg aerosol,spray Active 1 SPRAY INTRANASAL DAILY January 10, 2019 10:38am - pantoprazole DR (PROTONIX) 40 mg tablet - FA/MV,CA,IRON,MIN/LYCOPENE/LUT (MULTIVITAL ORAL) Take by mouth. - ergocalciferol 50,000 unit capsule (VITAMIN D2, DRISDOL) Take 50,000 Units by mouth twice a week. - levothyroxine (SYNTHROID) 75 mcg tablet Take 75 mcg by mouth once daily. Pt takes on tablet in the morning 6 days a week. - LORazepam 0.5 mg tab Take by mouth three times daily as needed. Pt takes 1/2 tablet as needed - metoprolol tartrate, short acting, (LOPRESSOR) 50 mg tablet Take 0.5 tablets by mouth twice daily. 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] 06/20/2006 ESOPHAGEAL REFLUX [K21.9] 06/20/2006 DEPRESSION ACUTE - SINGLE EPISODE( Mild) [F32.0]06/20/2006 PALPITATIONS [R00.2] 06/20/2006 LUNG CANCER LOWER LOBE, NSC [C34.30] 06/20/2006 EXCESSIVE MENSTRUATION [N92.0] 07/08/2008 IRREGULAR MENSTRUATION [N92.6] 07/08/2008 DYSMENORRHEA [N94.6] 07/08/2008 Lipoma of Unspecified Site [D17.9] 06/07/2009 Low back pain radiating to left leg [M54.50, M7*06/19/2011 Cervical adenopathy [R59.0] 12/26/2011 Hypothyroidism [E03.9] 12/26/2011 Mass of lower outer quadrant of right breast [N*10/21/2022 Breast pain [N64.4] 10/21/2022 Encounter Status:Closed by ROBERTO GALE on 04/03/24 ALLERGIES DATE TYPE / CODE NAME / CODE REACTION SEVERITY SOURCE 10/10/2024 DRUG/[id number]([facility] ED CT) ADHESIVE TAPE-SILICONES HIVES [facility] 10/10/2024 DRUG INGREDI/[id number](S NOMED CT) ALBUTEROL OTHER: SEE C [facility] 10/10/2024 DRUG INGREDI/[id number](S NOMED CT) CONTACT METAL AGENT RASH [facility] 07/06/2008 DRUG INGREDI/[id number](S NOMED CT) LEVOFLOXACIN HIVES Low [facility] 05/26/2008 Miscellaneous Allergy/[id number](S NOMED CT) OTHER [facility] ENCOUNTERS ADMIT/DISCHARGE ACCOUNT NUMBER ADMITTING ENCOUNTER CLASS LOCATION SOURCE 12/30/2024 [id number] Ambulatory [facility] Hospital[facility]il ding:WO [facility] 12/08/2024/12/09/19 25 [id number] Ambulatory [facility] 12/04/2024 [id number] Ambulatory [facility] HospitalBunj ding:[address] 12/04/2024 [id number] Ambulatory [facility] 11/24/2024/11/25/19 25 [id number] [facility] 10/31/2024/11/01/19 25 [id number] [facility] 10/31/2024 [id number] [facility] 10/20/2024/10/24/19 25 [id number] [employer] [facility]dc m: [id number]: J052-10 [facility] 10/17/2024/10/18/19 [id number] ROSIO LICEA [facility]FVEN[facility]o om: POOLBed: 03 [facility] 10/13/2024 [id number] [facility] 10/13/2024/10/14/19 25 [id number] [facility] ding:[facility] 10/10/2024/10/11/19 25 [id number] [facility] 10/10/2024/10/11/19 25 [id number] Ambulatory [facility] 10/10/2024/10/11/19 25 [id number] Ambulatory [facility] HospitalBuil ding:CAFS [facility] 10/10/2024 [id number] Ambulatory [facility] HospitalBuil ding:NUCM [facility] 10/10/2024/10/11/19 25 [id number] Ambulatory [facility] HospitalBuil ding:EKGF [facility] 10/10/2024/10/11/19 25 [id number] Ambulatory [facility] HospitalBuil ding:LB16 [facility] 09/09/2024/09/10/19 25 [id number] [facility] 09/08/2024/09/09/19 25 [id number] [facility] 04/19/2024 [id number] [facility] 04/15/2024/04/15/20 24 [id number] Ambulatory [facility] HospitalBuil ding:WODM [facility] PAYERS ENCOUNTER GUARANTOR PAYER SUBSCRIBER SOURCE 12/30/2024 Primary Insuranc e:MEDICARE A AND BPolicy Number: [id number] Date:4554-58-67Ikyp Name:Meghan CEJARDOB: [id number] [place], [place] [address] [place] [address] 12/30/2024 Secondary Insura nce:[facility] MEDICARE SUPPLEMENTPolicy Number: [id number] Date:4670-84-43Cawf Name:Santy Sim SPARRDOB: [id number] [place] [address] [facility] 12/08/2024 Primary Insuranc e:MEDICARE A AND BPolicy Number: [id number] Date:3120-65-27Bqmo Name:Meghan Sim SPARRDOB: [id number] [place] [address] [facility] 12/08/2024 Secondary Insura nce:[employer] MEDICARE SUPPLEMENTPolicy Number: [id number] Date:5972-47-84Znxx Name:Santy Sim SPARRDOB: [id number] [place] [address] [facility] 12/04/2024 Primary Insuranc e:MEDICARE A AND BPolicy Number: [id number] Date:5046-04-32Ldwh Name:Meghan Sim SPARRDOB: [id number] [place] [address] [facility] 12/04/2024 Secondary Insura nce:[facility] MEDICARE SUPPLEMENTPolicy Number: [id number] Date:4319-40-36Dhrg Name:Santy Sim SPARRDOB: [id number] [place] [address] [facility] 12/04/2024 Primary Insuranc e:MEDICARE A AND BPolicy Number: [id number] Date:9057-64-42Milj Name:Meghan Sim SPARRDOB: [id number] [place] [address] [facility] 12/04/2024 Secondary Insura nce:[facility] MEDICARE SUPPLEMENTPolicy Number: [id number] Date:5559-81-91Kjhj Name:Santy Sim SPARRDOB: [id number] [place] [address] [facility] 11/24/2024 Primary Insuranc e:MEDICARE A AND BPolicy Number: [id number] Date:2175-51-45Oorb Name:Meghan Sim SPARRDOB: [id number] [place] [address] [facility] 11/24/2024 Secondary Insura nce:[employer] MEDICARE SUPPLEMENTPolicy Number: [id number] Date:2849-37-97Hijp Name:Santy Sim SPARRDOB: [id number] [place] [address] [facility] 10/31/2024 Primary Insuranc e:MEDICARE A AND BPolicy Number: [id number] Date:1772-77-12Fbho Name:Meghan Sim SPARRDOB: [id number] [place] [address] [facility] 10/31/2024 Secondary Insura nce:[employer] MEDICARE SUPPLEMENTPolicy Number: [id number] Date:5433-47-36Yqun Name:Santy Sim SPARRDOB: [id number] [place] [address] [facility] 10/31/2024 Primary Insuranc e:MEDICARE A AND BPolicy Number: [id number] Date:1898-30-50Sptq Name:Meghan iSm SPARRDOB: [id number] [place] [address] [facility] 10/31/2024 Secondary Insura nce:ANTH MEDICARE SUPPLEMENTPolicy Number: [id number] Date:7156-17-40Urnz Name:Santy Sim SPARRDOB: [id number] [place] [address] [facility] 10/20/2024 Primary Insuranc e:MEDICARE A AND BPolicy Number: [id number] Date:0021-07-37Hpoe Name:Meghan Sim SPARRDOB: [id number] [place] [address] [facility] 10/20/2024 Secondary Insura nce:[employer] MEDICARE SUPPLEMENTPolicy Number: [id number] Date:0492-78-13Mlsa Name:Santy Sim SPARRDOB: [id number] [place] [address] [facility] 10/17/2024 Primary Insuranc e:MEDICARE A AND BPolicy Number: [id number] Date:7276-15-68Tlji Name:Meghan Sim SPARRDOB: [id number] [place] [address] [facility] 10/17/2024 Secondary Insura nce:[employer]YA MEDICARE SUPPLEMENTPolicy Number: [id number] Date:7723-41-72Dwkv Name:Santy Sim SPARRDOB: [id number] [place] [address] [facility] 10/13/2024 Primary Insuranc e:MEDICARE A AND BPolicy Number: [id number] Date:2843-93-30Vhpl Name:Meghan Sim SPARRDOB: [id number] [place] [address] [facility] 10/13/2024 Secondary Insura nce:[employer]YA MEDICARE SUPPLEMENTPolicy Number: [id number] Date:3583-04-91Oqkt Name:Santy Sim SPARRDOB: [id number] [place] [address] [facility] 10/13/2024 Primary Insuranc e:MEDICARE A AND BPolicy Number: [id number] Date:8464-99-67Xmyg Name:Meghan Sim SPARRDOB: [id number] [place] [address] [facility] 10/13/2024 Secondary Insura nce:[employer]YA MEDICARE SUPPLEMENTPolicy Number: [id number] Date:7432-76-24Mgyf Name:Santy Sim SPARRDOB: [id number] [place] [address] [facility] 10/10/2024 Primary Insuranc e:MEDICARE A AND BPolicy Number: [id number] Date:8326-03-18Kgjp Name:Meghan Sim SPARRDOB: [id number] [place] [address] [facility] 10/10/2024 Secondary Insura nce:ATIYA MEDICARE SUPPLEMENTPolicy Number: [id number] Date:8608-29-11Dxff Name:Santy Sim SPARRDOB: [id number] [place] [address] [facility] 10/10/2024 Primary Insuranc e:MEDICARE A AND BPolicy Number: [id number] Date:3558-76-39Bkat Name:Meghan Sim SPARRDOB: [id number] [place] [address] [facility] 10/10/2024 Secondary Insura nce:[employer]M MEDICARE SUPPLEMENTPolicy Number: [id number] Date:3999-14-12Pexl Name:Santy Sim SPARRDOB: [id number] [place] [address] [facility] 10/10/2024 Primary Insuranc e:MEDICARE A AND BPolicy Number: [id number] Date:1940-21-42Mypz Name:Meghan Sim SPARRDOB: [id number] [place] [address] [facility] 10/10/2024 Secondary Insura nce:ANTH MEDICARE SUPPLEMENTPolicy Number: [id number] Date:3085-03-54Mdbx Name:Santy Sim SPARRDOB: [id number] [place] [address] [facility] 10/10/2024 Primary Insuranc e:MEDICARE A AND BPolicy Number: [id number] Date:8878-34-99Gicv Name:Meghan Sim SPARRDOB: [id number] [place] [address] [facility] 10/10/2024 Secondary Insura nce:[employer] MEDICARE SUPPLEMENTPolicy Number: [id number] Date:6433-27-13Jnzx Name:Santy Sim SPARRDOB: [id number] [place] [address] [facility] 10/10/2024 Primary Insuranc e:MEDICARE A AND BPolicy Number: [id number] Date:5988-86-38Pfea Name:Meghan Sim SPARRDOB: [id number] [place] [address] [facility] 10/10/2024 Secondary Insura nce:[facility] MEDICARE SUPPLEMENTPolicy Number: [id number] Date:0070-90-39Mtbq Name:Santy Sim SPARRDOB: [id number] [place] [address] [facility] 10/10/2024 Primary Insuranc e:MEDICARE A AND BPolicy Number: [id number] Date:5417-52-08Elew Name:Meghan Sim SPARRDOB: [id number] [place] [address] [facility] 10/10/2024 Secondary Insura nce:[facility] MEDICARE SUPPLEMENTPolicy Number: [id number] Date:8342-61-96Amsh Name:Santy Sim SPARRDOB: [id number] [place], [place] [address] [place] [address] 09/09/2024 Primary Insuranc e:MEDICARE A AND BPolicy Number: [id number] Date:2281-89-40Mjvf Name:Meghan Sim SPARRDOB: [id number] [place], [place] [address] [place] [address] 09/09/2024 Secondary Insura nce:[facility] MEDICARE SUPPLEMENTPolicy Number: [id number] Date:8423-91-04Yscm Name:Santy Sim SPARRDOB: [id number] [place], [place] [address] [place] [address] 09/08/2024 Primary Insuranc e:MEDICARE A AND BPolicy Number: [id number] Date:5886-02-56Cfkb Name:Meghan Sim SPARRDOB: [id number] [place] [address] [facility] 09/08/2024 Secondary Insura nce:[facility] MEDICARE SUPPLEMENTPolicy Number: [id number] Date:1228-09-35Vdgh Name:Santy Sim SPARRDOB: [id number] [place] [address] [facility] 04/19/2024 Primary Insuranc e:MEDICARE A AND BPolicy Number: [id number] Date:9803-76-82Kxaz Name:Meghan Sim SPARRDOB: [id number] [place] [address] [facility] 04/19/2024 Secondary Insura nce:[facility] MEDICARE SUPPLEMENTPolicy Number: [id number] Date:0625-82-98Gggb Name:Santy Sim SPARRDOB: [id number] [place] [address] [facility] 04/15/2024 Primary Insuranc e:MEDICARE A AND BPolicy Number: [id number] Date:7759-84-79Kvlf Name:Meghan Sim SPARRDOB: [id number] [place] [address] [facility] 04/15/2024 Secondary Insura nce:[facility] MEDICARE SUPPLEMENTPolicy Number: [id number] Date:5875-11-29Mvet Name:Santy Sim SPARRDOB: [id number] [place] [address] [facility]
[2025-03-02 12:22] LABS: Hematocrit 41.9 % (37-47); Hemoglobin 14.5 g/dL (12.0-15.0); Immature Granulocytes Count 0.010 X10^3/uL (0.0-0.0); Mean Corp Hgb Conc 34.6 g/dL (32-36); Mean Corpuscular Volume 87.1 fL (81-99); Mean Platelet Vol. 9.5 fl (6.2-12.0); NRBC Flagged by Analyzer 0 % (0-5); Platelet Count 298 K/mm3 (150-450); RBC Distribution Width CV 11.8 % (11.6-14.6); RBC Distribution Width SD 37.7 fl (35.1-43.9); Red Blood Count 4.81 M/mm3 (4.2-5.4); White Blood Count 5.9 K/mm3 (4.4-11.0)
[2025-03-02 13:36] LABS: AST(SGOT) 46 U/L (<=31); Alanine Aminotransfer ALT/SGPT 57 U/L (<=34); Albumin, Serum 4.2 g/dL (3.4-4.8); Alkaline Phosphatase 81 U/L (35-104); Anion Gap 11 (5-15); BUN 14 mg/dL (4-19); BUN/Creat Ratio 17.8 RATIO (10-20); Calcium,Total 9.4 mg/dL (7.6-11.0); Carbon Dioxide 27.9 mmol/L (21.0-32.0); Chloride 102 mmol/L (98-108); Cholesterol 147 mg/dL (<=200); Globulin 3.1 g/dL (2.2-4.2); Glucose 88 mg/dL (70-99); Low Density Lipoprotein Calc. 65 mg/dL; Potassium 4.0 mmol/L (3.3-5.1); Triglycerides 83 mg/dL; Very Low Density Lipoprotein 17 mg/dL (5-40); Vitamin D,25 Hydroxy 41.8 ng/mL (30-100); cholesterol:hdl ratio screen 2.23
== END | disposition home or self-care (01) ==
LOC: MTLAB 10:35
PROVIDERS: PCP Internal Medicine; Referring Provider Internal Medicine; Visit Provider Internal Medicine
DX: C34.90 Malignant neoplasm of unspecified part of unspecified bronchus or lung (principal); I10 Essential (primary) hypertension; E03.9 Hypothyroidism, unspecified; M81.0 Age-related osteoporosis without current pathological fracture
CPT/HCPCS: 36415; 80053; 80061; 82306; 84443; 85025

== ENCOUNTER 2025-03-04 13:24 | Outpatient (CLI) | payer MEDICARE, BC, SELFPAY ==
[2025-03-04 13:42] VITALS: BP 135/73; PULSE 50; RESP 16; TEMP 36; O2SAT 100
[2025-03-04] MEDS: 0.9% NaCl IVPB Med Flush (100mL) 15 ML IV (14:01)
[2025-03-04] MEDS: 0.9% NaCl Peripheral Flush Adult IV (14:01)
[2025-03-04 14:27] VITALS: BP 137/77; PULSE 47; RESP 16; TEMP 35.9; O2SAT 100
== END 2025-03-04 23:59 | disposition home or self-care (01) ==
LOC: MEDOUTP 13:24
PROVIDERS: PCP Internal Medicine; Referring Provider Internal Medicine Endocrinology, Diabetes & Metabolism; Visit Provider Internal Medicine Endocrinology, Diabetes & Metabolism
DX: M81.0 Age-related osteoporosis without current pathological fracture (principal)
CPT/HCPCS: 96365; A4216; J3489

== ENCOUNTER → 2025-03-13 | Outpatient (CLI) | payer MEDICARE, BC, SELFPAY | END | disposition home or self-care (01) | LOC: US 08:55 | PROVIDERS: PCP Internal Medicine; Referring Provider Nurse Practitioner Family; Visit Provider Nurse Practitioner Family | DX: R74.8 Abnormal levels of other serum enzymes (principal) | CPT/HCPCS: 76705 ==